=== PATIENT | female | born 1965 | race Caucasian/White ===

== ENCOUNTER → 2017-08-12 10:09 | Outpatient (CLI) | payer BC, MEDICARE, SELFPAY ==
--- NOTE | 2017-08-12 10:18 | XR_ITS ---
XR chest 2V INDICATION: Fever and cough PA and lateral chest 03/10/2015 COMPARISON: None available FINDINGS: The cardiovascular structures are unremarkable. No mediastinal shift or hilar mass is evident. The lungs are well expanded and clear bilaterally. The costophrenic sulci are sharp. No significant bony anomalies are apparent. IMPRESSION: Negative chest.
== END ==
PROVIDERS: PCP Internal Medicine; Referring Provider Internal Medicine; Visit Provider Internal Medicine
DX: R50.9 Fever, unspecified (principal); R05 Cough; R09.3 Abnormal sputum
CPT/HCPCS: 71046

== ENCOUNTER → 2017-11-24 16:08 | Outpatient (CLI) | payer BC, MEDICARE, SELFPAY ==
--- NOTE | 2017-11-24 16:10 | MM_ITS ---
MM Dig mamm BI DX w/CAD, US breast RT complete, US breast LT complete INDICATION: Palpable abnormality of the left breast at 12:00 prior reduction mammoplasty ORDERING PHYSICIAN: Jeremy Gracia MD PATIENT AGE: 52 years COMPARISON: 07/05/2013, 01/29/2010 TECHNIQUE: Standard images performed along with problem solving views and bilateral breast ultrasound FINDINGS: There is average fibroglandular tissue with bilateral benign-appearing nodules and bilateral benign-appearing calcifications. On the cc view there is a vague nodular density in the lateral aspect of the right breast seen only on the cc view measuring approximately 9 mm. This is not demonstrated on the orthogonal view and not demonstrated on the ultrasound. Partly calcified oil cysts are present in the upper outer aspect of the right breast, deep right breast superiorly, and in the retroareolar region. Right breast ultrasound: 20 8:00 region there is a isoechoic area at 9 x 6 mm only demonstrated on one image and may represent fibroglandular tissue versus a benign-appearing nodule. At 9:00 there is a 4 mm hypoechoic nodule with calcific rim and posterior shadowing consistent with oil cyst. This measures 5 x 4 mm. An additional 4 mm cyst is present 9 o'clock Left breast: There is a 5 x 3 cm oil cyst which is partially calcified the 12:00 region of the left breast corresponding to palpable abnormality. Lobular density is present anterior and medial to this region and does not appear significant change. Left breast ultrasound: There is a 4 x 2.5 x 4.4 cm mixed echogenic mass at the 12:00 region corresponding to the palpable abnormality and the mammographic abnormality. This corresponds to the mammographic abnormality. There is a 5 mm nodule at the 1:00 region consistent with a cyst. There is some ductal ectasia in the retroareolar region as well which may correspond to the lobular density noted on the mammogram. IMPRESSION: Bilateral benign-appearing nodules consistent with oil cysts along with benign-appearing nodular densities. No convincing evidence of malignancy. Recommend bilateral 6 month follow-up mammogram and ultrasound to confirm stability of the probably benign findings BI-RADS Category: 3 Probably Benign Finding Short Term Follow-up RECOMMENDED FOLLOW-UP: 6M - 6 MONTH FOLLOW-UP (A letter has been sent to the patient regarding results of the study.)
== END ==
PROVIDERS: Family Provider Internal Medicine Adolescent Medicine; PCP Internal Medicine; Visit Provider Nurse Practitioner Obstetrics & Gynecology
DX: Z12.31 Encounter for screening mammogram for malignant neoplasm of breast (principal)
CPT/HCPCS: 76641; 77066

== ENCOUNTER → 2018-05-13 21:15 | Outpatient (CLI) | payer BC, MEDICARE, SELFPAY ==
[2018-05-13 22:05] VITALS: BP 102/60; PULSE 91; RESP 18; TEMP 36.6; O2SAT 94
[2018-05-13 22:45] VITALS: BP 104/64; PULSE 87; RESP 18; TEMP 37; O2SAT 96
--- NOTE | 2018-05-13 22:50 | PC.NURSE ---
PT TOLERATED IV ANTIBIOTIC ADMINISTRATION WELL. PT INDEPENDENT WITH ADLS AND TOLERATED AMBULATION WELL ON ARRIVAL TO UNIT AND ON LEAVING UNIT. CALL LIGHT PROVIDED AND INSTRUCTED PT ON USE OF CALL LIGHT PRN, PT VERBALIZED UNDERSTANDING. 20G IV WAS PLACED IN RAC PER Natalio IGLESIAS RN. IV SITE CDI WITH NO S/S OF INFECTION NOTED. INSTRUCTED PT IT IS OKAY TO KEEP THE IV ACCESS IN FOR THE REST OF YOUR ANTIBIOTIC THERAPY. PT DENIED ANY HX OF DRUG USE AND NO PLUMMER WERE NOTED ON BUE. INSTRUCTED PT TO KEEP FROM GETTING DRESSING ON IV WET, PROVIDED PT WITH SHOWER GUARD. ABX FINISHED AT 2245, IV FLUSHED, SECOND SET OF VITALS OBTAINED AND WNL.
== END ==
PROVIDERS: PCP Internal Medicine; Visit Provider Internal Medicine Adolescent Medicine
DX: A41.9 Sepsis, unspecified organism (principal); N10 Acute pyelonephritis
CPT/HCPCS: 96365; G0463; J1335

== ENCOUNTER → 2018-05-14 19:08 | Outpatient (CLI) | payer BC, MEDICARE, SELFPAY ==
[2018-05-14 19:55] VITALS: BP 128/76; PULSE 95; RESP 18; TEMP 36.4; O2SAT 96
[2018-05-14 20:30] VITALS: BP 128/84; PULSE 95; RESP 16; TEMP 36.6; O2SAT 97
[2018-05-15 21:16] VITALS: BMI 28.5
== END ==
PROVIDERS: PCP Internal Medicine; Visit Provider Internal Medicine Adolescent Medicine
DX: N10 Acute pyelonephritis (principal); A41.9 Sepsis, unspecified organism
CPT/HCPCS: 96365; J1335

== ENCOUNTER → 2018-05-15 19:58 | Outpatient (CLI) | payer BC, MEDICARE, SELFPAY ==
[2018-05-15 20:32] VITALS: BMI 28.5
[2018-05-15 21:05] VITALS: BP 133/92; PULSE 91; RESP 20; TEMP 36.6; O2SAT 98
== END ==
PROVIDERS: PCP Internal Medicine; Visit Provider Internal Medicine Adolescent Medicine
DX: N10 Acute pyelonephritis (principal); A41.9 Sepsis, unspecified organism
CPT/HCPCS: 96365; G0463; J1335

== ENCOUNTER → 2018-05-16 17:57 | Outpatient (CLI) | payer BC, MEDICARE, SELFPAY ==
[2018-05-16 17:57] VITALS: BP 124/77; PULSE 80; RESP 18; TEMP 36.6; O2SAT 97
[2018-05-16 18:09] VITALS: BP 136/86; PULSE 84; RESP 18; TEMP 36.3; O2SAT 98; BMI 28.5
== END ==
LOC: INF 17:59
PROVIDERS: PCP Internal Medicine; Visit Provider Internal Medicine Adolescent Medicine
DX: N10 Acute pyelonephritis (principal); A41.9 Sepsis, unspecified organism
CPT/HCPCS: 96365; J1335

== ENCOUNTER 2018-05-17 17:01 | Outpatient (CLI) | payer BC, MEDICARE, SELFPAY ==
[2018-05-17 17:29] VITALS: BMI 28.5
[2018-05-17 17:30] VITALS: BP 109/75; PULSE 75; RESP 18; TEMP 36.6; O2SAT 99
[2018-05-17 18:55] VITALS: BP 126/80; PULSE 81; RESP 18; TEMP 36.7; O2SAT 98
== END 2018-05-17 18:57 | disposition home or self-care (01) ==
PROVIDERS: PCP Internal Medicine; Visit Provider Internal Medicine Adolescent Medicine
DX: N10 Acute pyelonephritis (principal); A41.9 Sepsis, unspecified organism
CPT/HCPCS: 96365; G0463; J1335

== ENCOUNTER → 2018-05-18 17:45 | Outpatient (CLI) | payer BC, MEDICARE, SELFPAY ==
[2018-05-19 10:38] VITALS: BP 122/69; PULSE 88; RESP 14; TEMP 36.6; O2SAT 99
== END ==
PROVIDERS: PCP Internal Medicine; Visit Provider Internal Medicine Adolescent Medicine
DX: N10 Acute pyelonephritis (principal); A41.9 Sepsis, unspecified organism
CPT/HCPCS: 96365; J1335

== ENCOUNTER → 2018-05-19 18:51 | Outpatient (CLI) | payer BC, MEDICARE, SELFPAY ==
[2018-05-19 19:10] VITALS: BP 112/76; PULSE 76; RESP 18; TEMP 36.4; O2SAT 96; BMI 28.5
[2018-05-19 19:25] VITALS: BP 114/72; PULSE 70; RESP 16; TEMP 36.5; O2SAT 98
[2018-05-19 19:45] VITALS: BP 115/68; PULSE 72; RESP 16; TEMP 36.5; O2SAT 98
== END ==
LOC: INF 18:52
PROVIDERS: PCP Internal Medicine; Visit Provider Internal Medicine Adolescent Medicine
DX: N10 Acute pyelonephritis (principal); A41.9 Sepsis, unspecified organism
CPT/HCPCS: 96365; G0463; J1335

== ENCOUNTER → 2018-05-25 15:39 | Outpatient (CLI) | payer BC, MEDICARE, SELFPAY ==
[2018-05-25 15:56] LABS: Basophils # 0.1 K/mm3 (0-0.2); Basophils % 1.7 % (0.1-2.0); Eosinophils % 0.1 % (0.1-12.0); Hematocrit 38.8 % (37.0-47.0); Hemoglobin 12.4 g/dL (12.2-16.2); Lymphocytes # 1.6 K/mm3 (0.7-4.5); Lymphocytes % 24.1 % (10-50); Mean Corpuscular Hemoglobin 29.4 pg (27.0-31.2); Mean Corpuscular Volume 91.9 fl (81-99); Mean Platelet Volume 6.8 fl (7.4-10.4); Monocytes # 0.3 K/mm3 (0.1-1.0); Monocytes % 4.8 % (1.7-9.3); Neutrophils # 4.6 K/mm3 (1.8-7.8); Neutrophils % 69.3 % (37.0-80.0); Platelet Count 490 K/mm3 (142-424); Red Blood Count 4.23 M/mm3 (4.20-5.40); Red Cell Distribution Width 13.6 % (11.5-17.5); White Blood Count 6.6 K/mm3 (4.8-10.8)
[2018-05-25 17:55] LABS: Alanine Aminotransferase 29 U/L (12-78); Albumin Level 3.2 gm/dL (3.4-5.0); Albumin/Globulin Ratio 0.8 (1.1-1.8); Alkaline Phosphatase 174 U/L (46-116); Anion Gap 15.4 mEq/L (5-15); Aspartate Amino Transferase 7 U/L (15-37); Bilirubin,Total 0.1 mg/dL (0.2-1.0); Blood Urea Nitrogen 16 mg/dL (7-18); Calcium 9.2 mg/dL (8.5-10.1); Carbon Dioxide 27 mmol/L (21.0-32.0); Chloride 104 mmol/L (98-107); Creatinine,Serum 1.24 mg/dL (0.55-1.02); Estimated Glomerular Filt Rate 46 ml/min (>60); GFR (African American) 55 ML/MIN (>60); Globulin 3.9 gm/dl (1.3-3.2); Glucose 92 mg/dL (74-106); Potassium 4.4 mmoL/L (3.5-5.1); Sodium 142 mmol/L (136-145); Total Protein,Serum 7.1 gm/dL (6.4-8.2)
== END ==
LOC: LAB 15:40
PROVIDERS: Visit Provider Internal Medicine
DX: N10 Acute pyelonephritis (principal); N18.9 Chronic kidney disease, unspecified; Z86.19 Personal history of other infectious and parasitic diseases
CPT/HCPCS: 36415; 80053; 85025; 87040

== ENCOUNTER → 2018-10-26 13:22 | Outpatient (CLI) | payer MEDICARE, BC, SELFPAY ==
--- NOTE | 2018-10-26 | US_ITS ---
APPROVED REPORT Exam Type: Lower Extremity Segmental Pressures Music Minister: Aruna Conley RDCS Indications Claudication: Rest Pain: Current Smoker Risk Factors Hypertension Current Smoker Pressures/Indices Right Indices Left Indices Brachial 157.00 mmHg Brachial 152.00 mmHg Low Thigh 143.00 mmHg 0.91 Low Thigh 144.00 mmHg 0.92 Calf 164.00 mmHg 1.04 Calf 158.00 mmHg 1.01 Ankle(PT) 171.00 mmHg 1.09 Ankle(PT) 162.00 mmHg 1.03 Ankle(DP) 162.00 mmHg 1.03 Ankle(DP) 162.00 mmHg 1.03 Digit 93.00 mmHg 0.59 Digit 140.00 mmHg 0.89 Findings R BETH 1.1 L ABI1.0 R TBI .6 L TBI .9 NORMAL PULSES AND WAVEFORMS Conclusion NORMAL EXAM Electronically signed by : Darinel Pringle MD 10/26/2018 14:22:40
== END ==
LOC: RT 13:23
PROVIDERS: PCP Internal Medicine; Visit Provider Internal Medicine
DX: M79.662 Pain in left lower leg (principal); R09.89 Other specified symptoms and signs involving the circulatory and respiratory systems
CPT/HCPCS: 93923

== ENCOUNTER → 2018-11-07 15:40 | Outpatient (CLI) | payer MEDICARE, BC, SELFPAY ==
[2018-11-07 15:47] LABS: Microscopic, Urine URINE MICROSCOPIC (MICROSCOPIC)
[2018-11-07 16:07] LABS: Basophils # 0.1 K/mm3 (0-0.2); Basophils % 0.4 % (0.1-2.0); Eosinophils # 0.1 K/mm3 (0.0-0.4); Eosinophils % 0.4 % (0.1-12.0); Hematocrit 39.2 % (37.0-47.0); Lymphocytes # 1.1 K/mm3 (0.7-4.5); Lymphocytes % 7.2 % (10-50); Mean Corpuscular HGB Conc 33.1 g/dL (31.8-35.4); Mean Corpuscular Hemoglobin 30.1 pg (27.0-31.2); Mean Corpuscular Volume 90.8 fl (81-99); Mean Platelet Volume 6.7 fl (7.4-10.4); Monocytes % 6.8 % (1.7-9.3); Neutrophils # 12.6 K/mm3 (1.8-7.8); Neutrophils % 85.3 % (37.0-80.0); Platelet Count 329 K/mm3 (142-424); Red Blood Count 4.31 M/mm3 (4.20-5.40); Red Cell Distribution Width 14.3 % (11.5-17.5); White Blood Count 14.8 K/mm3 (4.8-10.8)
[2018-11-07 16:09] LABS: Appearance,Urine CLEAR (Clear); Bilirubin,Urine Negative (Negative); Blood, Urine 3+ (Negative); Color,Urine YELLOW (Yellow); Glucose,Urine (UA) Negative (Negative); Ketones,Urine TRACE (Negative); Leukocyte Esterase,Urine Negative (Negative); Nitrate,Urine Negative (Negative); Protein,Urine Negative (Negative); Urobilinogen,Urine 0.2 EU/dl (0.2)
--- NOTE | 2018-11-07 16:09 | XR_ITS ---
PROCEDURE: XR CHEST 2V CLINICAL HISTORY: FEVER,RT FLANK PAIN,COUGH,SPUTUM COMPARISON: CXR CHEST(2 VIEWS-NOT PORTABLE) from 06/07/2012 CXR CHEST(2 VIEWS-NOT PORTABLE) from 03/10/[address] [facility] [address] CHEST W/ CONTRAST from 01/29/2016 CXR2V XR chest 2V from 08/12/2017 FINDINGS: The cardiomediastinal silhouette and pulmonary vascularity are within normal limits. Consolidation is present in the right lower lobe in the right lung base consistent with pneumonia in the right middle and right lower lobe. No effusion. No acute bony abnormalities. IMPRESSION: Right middle and right lower lobe pneumonia Dictated by: Darinel Pringle MD 11/07/2018 16:21 Electronically signed by Darinel Pringle MD in [place] 11/07/2018 16:21
[2018-11-07 16:13] LABS: Anion Gap 16.5 mEq/L (5-15); Blood Urea Nitrogen 12 mg/dL (7-18); Calcium 9.4 mg/dL (8.5-10.1); Carbon Dioxide 25 mmol/L (21.0-32.0); Chloride 94 mmol/L (98-107); Creatinine,Serum 1.33 mg/dL (0.55-1.02); Estimated Glomerular Filt Rate 42 ml/min (>60); GFR (African American) 51 ML/MIN (>60); Glucose 83 mg/dL (74-106); MANUAL DIFFERENTIAL MANUAL DIFFERENTIAL (MANUAL DIFF); Potassium 3.5 mmoL/L (3.5-5.1); Sodium 132 mmol/L (136-145)
[2018-11-07 16:26] LABS: Bacteria,Urine 1+ /lpf
[2018-11-07 16:36] LABS: Lymphocytes % 10 % (10-50); Neutrophils % 86 % (42-76); Platelet Estimate Normal; RBC Morphology Normal; Total Cells Counted 100
== END ==
PROVIDERS: Visit Provider Internal Medicine
DX: R50.9 Fever, unspecified (principal); R05 Cough; R09.89 Other specified symptoms and signs involving the circulatory and respiratory systems; R10.9 Unspecified abdominal pain
CPT/HCPCS: 36415; 71046; 80048; 81001; 85007; 85025; 87040; 87086

== ENCOUNTER → 2018-11-28 14:20 | Outpatient (CLI) | payer MEDICARE, SELFPAY ==
--- NOTE | 2018-11-28 14:26 | XR_ITS ---
PROCEDURE: XR CHEST 2V CLINICAL HISTORY: PNEUMONIA COMPARISON: CXR CHEST(2 VIEWS-NOT PORTABLE) from 03/10/[address] CHEST W/ CONTRAST from 01/29/2016 CXR2V XR chest 2V from 08/12/2017 XR CHEST 2V from 11/07/2018 FINDINGS: The cardiomediastinal silhouette and pulmonary vascularity are within normal limits. The lungs are clear without infiltrates, suspicious nodules, or pleural effusions. No acute bony abnormalities. IMPRESSION: No acute findings. Dictated by: Satya Chen 11/28/2018 14:40 Electronically signed by Satya Chen in [place] 11/28/2018 14:40
== END ==
PROVIDERS: PCP Internal Medicine; Visit Provider Internal Medicine
DX: J18.9 Pneumonia, unspecified organism (principal)
CPT/HCPCS: 71046

== ENCOUNTER → 2019-01-09 16:30 | Outpatient (CLI) | payer MEDICARE, SELFPAY ==
[2019-01-09 16:34] LABS: Microscopic, Urine URINE MICROSCOPIC (MICROSCOPIC)
[2019-01-09 17:26] LABS: Appearance,Urine CLEAR (Clear); Bilirubin,Urine Negative (Negative); Blood, Urine 1+ (Negative); Color,Urine YELLOW (Yellow); Glucose,Urine (UA) Negative (Negative); Ketones,Urine Negative (Negative); Leukocyte Esterase,Urine Negative (Negative); Nitrate,Urine Negative (Negative); PH,Urine 6.5 (5.0-8.5); Protein,Urine Negative (Negative); Specific Gravity, Urine 1.015 (1.005-1.030); Urobilinogen,Urine 0.2 EU/dl (0.2)
[2019-01-09 17:37] LABS: RBC,Urine Occasional #/hpf (0-3); Squamous Epithelial Cell,Urine Occasional #/hpf (0-5); WBC,Urine Occasional #/hpf (0-3)
[2019-01-09 17:41] LABS: Basophils # 0.1 K/mm3 (0-0.2); Eosinophils % 0.4 % (0.1-12.0); Hemoglobin 13.1 g/dL (12.2-16.2); Lymphocytes # 2.8 K/mm3 (0.7-4.5); Lymphocytes % 25.4 % (10-50); Mean Corpuscular HGB Conc 31.9 g/dL (31.8-35.4); Mean Corpuscular Hemoglobin 29.8 pg (27.0-31.2); Mean Corpuscular Volume 93.3 fl (81-99); Monocytes # 0.7 K/mm3 (0.1-1.0); Monocytes % 6.2 % (1.7-9.3); Neutrophils # 7.3 K/mm3 (1.8-7.8); Platelet Count 551 K/mm3 (142-424); Red Blood Count 4.39 M/mm3 (4.20-5.40); Red Cell Distribution Width 13.1 % (11.5-17.5)
[2019-01-09 18:00] LABS: Creatinine,Urine Random 60 mg/dL (20-320); Total Protein,Urine Random 16.4 mg/dL (0.0-11.9)
[2019-01-09 21:10] LABS: Albumin Level 3.6 gm/dL (3.4-5.0); Anion Gap 14.7 mEq/L (5-15); Blood Urea Nitrogen 21 mg/dL (7-18); Carbon Dioxide 29 mmol/L (21.0-32.0); Chloride 99 mmol/L (98-107); Creatinine,Serum 1.05 mg/dL (0.55-1.02); Estimated Glomerular Filt Rate 55 ml/min (>60); GFR (African American) 67 ML/MIN (>60); Glucose 89 mg/dL (74-106); Phosphorous 4.2 mg/dL (2.4-4.9); Potassium 3.7 mmoL/L (3.5-5.1); Sodium 139 mmol/L (136-145)
== END ==
PROVIDERS: Visit Provider Internal Medicine
DX: N28.9 Disorder of kidney and ureter, unspecified (principal)
CPT/HCPCS: 36415; 80069; 81001; 82570; 84155; 85025

== ENCOUNTER → 2019-11-28 15:34 | Outpatient (CLI) | payer MEDICARE, SELFPAY ==
--- NOTE | 2019-11-28 15:49 | ECG_ITS ---
APPROVED REPORT Exam: Resting ECG HR:100 bpm ECG Measurements Heart Rate 100 AXES LA 156 P 83 QRSd 84 QRS 65 QT 368 T 79 QTc 474 <Conclusion> Normal sinus rhythm Incomplete RBBB Otherwise a normal ECG Electronically signed by : Marvin Breaux, 11/29/2019 08:45:50
== END ==
LOC: RT 15:38
PROVIDERS: PCP Internal Medicine; Visit Provider Internal Medicine
DX: R06.02 Shortness of breath (principal); J44.9 Chronic obstructive pulmonary disease, unspecified; J45.909 Unspecified asthma, uncomplicated
CPT/HCPCS: 93005

== ENCOUNTER → 2020-09-09 15:14 | Outpatient (CLI) | payer MEDICARE, SELFPAY ==
[2020-09-09 15:24] LABS: Basophils # 0.1 K/mm3 (0-0.2); Basophils % 0.6 % (0.1-2.0); Eosinophils # 0.1 K/mm3 (0.0-0.4); Eosinophils % 1.3 % (0.1-12.0); Hematocrit 42.5 % (37.0-47.0); Hemoglobin 14.4 g/dL (12.2-16.2); Lymphocytes # 1.9 K/mm3 (0.7-4.5); Lymphocytes % 21.9 % (10-50); Mean Corpuscular HGB Conc 33.9 g/dL (31.8-35.4); Mean Corpuscular Hemoglobin 30.3 pg (27.0-31.2); Mean Corpuscular Volume 89.4 fl (81-99); Mean Platelet Volume 7.2 fl (7.4-10.4); Monocytes # 0.4 K/mm3 (0.1-1.0); Monocytes % 4.6 % (1.7-9.3); Neutrophils # 6.1 K/mm3 (1.8-7.8); Neutrophils % 71.5 % (37.0-80.0); Platelet Count 253 K/mm3 (142-424); Red Blood Count 4.75 M/mm3 (4.20-5.40); Red Cell Distribution Width 13.7 % (11.5-17.5); White Blood Count 8.5 K/mm3 (4.8-10.8)
[2020-09-09 16:42] LABS: Alanine Aminotransferase 17 U/L (12-78); Albumin Level 4.4 g/dl (3.5-5.0); Albumin/Globulin Ratio 1.8 (1.1-1.8); Alkaline Phosphatase 82 U/L (38-126); Anion Gap 10.8 mEq/L (5-15); Aspartate Amino Transferase 25 U/L (14-36); Bilirubin,Total 0.5 mg/dl (0.2-1.3); Blood Urea Nitrogen 11 mg/dl (7-17); Calcium 9.2 mg/dl (8.4-10.2); Carbon Dioxide 29 mmol/L (22.0-30.0); Chloride 97 mmol/L (98-107); Estimated Glomerular Filt Rate 65 ml/min (>60); GFR (African American) 79 ML/MIN (>60); Globulin 2.5 g/dL (1.3-3.2); Glucose 111 mg/dl (74-100); Potassium 3.8 mmoL/L (3.5-5.1); Sodium 133 mmol/L (136-145); Total Protein,Serum 6.9 g/dl (6.3-8.2)
== END ==
LOC: LAB.DROPOF 15:14
PROVIDERS: Visit Provider Internal Medicine
DX: M05.70 Rheumatoid arthritis with rheumatoid factor of unspecified site without organ or systems involvement (principal); I10 Essential (primary) hypertension; I73.9 Peripheral vascular disease, unspecified
CPT/HCPCS: 80053; 85025

== ENCOUNTER 2020-09-24 09:44 | Emergency (ER) | payer MEDICARE, SELFPAY ==
[2020-09-24 10:05] VITALS: BP 110/75; PULSE 92; RESP 21; TEMP 36.7; O2SAT 96; BMI 29.2
--- NOTE | 2020-09-24 10:22 | HMH.EDUTC ---
[facility] – [place], [place] Disposition Clinical Impression: Encounter for laboratory testing for COVID-19 virus Diarrhea Qualifiers: Diarrhea type: unspecified type Qualified Code(s): R19.7 - Diarrhea, unspecified Disposition: Home, Self-Care Condition on Discharge: Good Instructions: Diarrhea, DI for COVID-19 (Suspected or Confirmed ), Coronavirus Disease 2019, Preventing the Spread of Coronavirus Discharge Instructions Additional Instructions: Make sure that you are drinking plenty of fluids, fever and sweating can lead to dehydration and you need to be drinking plenty of water, gatoraide etc to help prevent dehydration *Monitor Temp, Over the counter Motrin or Tylenol as directed/as needed Tylenol every 4 hours and Motrin every 6 hours (as long as your family doctor has told you that you can take it) for fever or pain. and straight to ER if unable to lower temp less than 101.0 after medication given *Warm salt water gargles may help to soothe the throat *Throat Lozenges *Warm fluids like tea with honey may help to soothe the throat *Sleep elevated *Humidifier/Vaporizer Follow up IMMEDIATELY for new or worsening symptoms or no Noticeable improvement over the next 48-72 hours. 911 for difficulty breathing or swallowing You were tested for today for COVID19 your test result should be back in the next 24-48 hours, you may call to the [facility] to see if your test results are back in the next 48 hours [phone] [facility] hours are 9am-9pm You was given a handout with instructions for Self Quarantine and Self isolation for while you wait on test results and what to do if they are positive If you are positive the Health Dept will be contacting you also Referrals: Marvin Breaux [Primary Care Provider] - As needed Time of Disposition: 11:41 Medical Decision Making - Toni Inquiry Pt receiving controlled substance: No Toni was queried for this patient: No Vital Signs: 09/24/20 10:05 09/24/20 11:44 Temperature 98.1 F 98 F Temperature Source Oral Pulse Rate 86 Pulse Rate [Left] 92 H Respiratory Rate 21 19 Blood Pressure 118/77 Blood Pressure [Right Arm] 110/75 Blood Pressure Mean [Right Arm] 86 02 Sat by Pulse Oximetry 96 Orders (Tests/Meds): ED MEDICATIONS Discontinued Medications Generic Name Dose Route Start Last Admin Trade Name [place] PRN Reason Stop Dose Admin Sodium Chloride 1,000 mls @ 999 mls/hr 09/24/20 10:45 09/24/20 10:32 Sod Chlor 0.9% 1000ml Bag IV 09/24/20 11:45 999 mls/hr .Q1H1M CHEO Administration Medical Decision Narrative: IV fluids still infusing patient reports that she is feeling much better sitting up on exam table drinking water Patient states that she is feeling much better and drinking water States that she will go home and continue to drink water today and follow up accordingly [facility] – [place], [place] HPI - General Stated complaint: covid test Time Seen by Provider: 09/24/20 10:27 Mode of Arrival: Ambulatory Source of Information: Patient Limitations: No Limitations Description of Symptoms (Recalled from Triage Doc. by RN): pt c/o cough, soa, chills, body aches since yesterday. pt was exposed to covid positive . HEENT Symptoms (Recalled from RN notes): No Resp Symptoms (Recalled from RN notes): Yes (cough and soa) Skin Symptoms (Recalled from RN notes): No MS Symptoms (Recalled from RN notes): No Functional Status (Recalled from RN notes): body aches and chills - History of Present Illness Provider Complaint: Patient states that she has been sick since Monday States that she has been having cough, sinus congestion, sore throat, body aches and chills and for the last couple of days she has had diarrhea States that she feels like she is getting a little dehydrated States that she has been around her and he tested positive for COVID yesterday and she wanted to get tested now too - Related Data Home Medications Medication Instructions Recorded Confirmed Leflunomide 20 mg PO DAILY 0
[2020-09-24 11:44] VITALS: BP 118/77; PULSE 86; RESP 19; TEMP 36.6
== END 2020-09-24 11:46 | disposition home or self-care (01) ==
PROVIDERS: Emergency Provider Nurse Practitioner; PCP Internal Medicine
DX: U07.1 COVID-19 (principal); J02.9 Acute pharyngitis, unspecified; R05 Cough; F17.210 Nicotine dependence, cigarettes, uncomplicated
CPT/HCPCS: G0463; 96365; 99202; U0003

== ENCOUNTER 2020-09-25 09:01 | Outpatient (CLI) | payer MEDICARE, SELFPAY ==
[2020-09-25] VITALS (8 sets, daily range): BP systolic 90–118; BP diastolic 53–73; PULSE 66–70; RESP 16–18; TEMP 36.4–36.8; O2SAT 94–98
== END 2020-09-25 11:17 | disposition home or self-care (01) ==
LOC: INF 09:02
PROVIDERS: PCP Internal Medicine; Visit Provider Internal Medicine
DX: U07.1 COVID-19 (principal)
CPT/HCPCS: 96365

== ENCOUNTER → 2020-12-15 17:51 | Outpatient (CLI) | payer MEDICARE, SELFPAY ==
[2020-12-15 18:41] LABS: Basophils % 0.6 % (0.1-2.0); Eosinophils # 0.1 K/mm3 (0.0-0.4); Eosinophils % 1.6 % (0.1-12.0); Hematocrit 46.7 % (37.0-47.0); Hemoglobin 14.8 g/dL (12.2-16.2); Lymphocytes # 1.6 K/mm3 (0.7-4.5); Lymphocytes % 24.1 % (10-50); Mean Corpuscular HGB Conc 31.8 g/dL (31.8-35.4); Mean Corpuscular Hemoglobin 30.7 pg (27.0-31.2); Mean Corpuscular Volume 96.6 fl (81-99); Mean Platelet Volume 7.7 fl (7.4-10.4); Monocytes # 0.6 K/mm3 (0.1-1.0); Monocytes % 8.5 % (1.7-9.3); Neutrophils # 4.4 K/mm3 (1.8-7.8); Neutrophils % 65.3 % (37.0-80.0); Platelet Count 268 K/mm3 (142-424); Red Blood Count 4.83 M/mm3 (4.20-5.40); Red Cell Distribution Width 14.1 % (11.5-17.5); White Blood Count 6.8 K/mm3 (4.8-10.8)
[2020-12-15 19:43] LABS: Chloride 95 mmol/L (98-107)
[2020-12-15 19:44] LABS: Sodium 133 mmol/L (136-145)
[2020-12-15 19:46] LABS: Alanine Aminotransferase 18 U/L (12-78); Alkaline Phosphatase 83 U/L (38-126); Aspartate Amino Transferase 28 U/L (14-36); Bilirubin,Total 0.2 mg/dl (0.2-1.3); Blood Urea Nitrogen 9 mg/dl (7-17); Estimated Glomerular Filt Rate 75 ml/min (>60); GFR (African American) 91 ML/MIN (>60)
[2020-12-15 19:47] LABS: Albumin Level 4.1 g/dl (3.5-5.0); Albumin/Globulin Ratio 1.4 (1.1-1.8); Carbon Dioxide 27 mmol/L (22.0-30.0); Globulin 2.9 g/dL (1.3-3.2); Glucose 70 mg/dl (74-100)
== END ==
LOC: LAB.DROPOF 17:52
PROVIDERS: Visit Provider Internal Medicine
DX: I10 Essential (primary) hypertension (principal); M05.70 Rheumatoid arthritis with rheumatoid factor of unspecified site without organ or systems involvement
CPT/HCPCS: 80053; 85025

== ENCOUNTER → 2021-05-07 18:53 | Outpatient (CLI) | payer MEDICARE, SELFPAY ==
[2021-05-07 19:06] LABS: Basophils # 0.1 K/mm3 (0-0.2); Basophils % 2.2 % (0.1-2.0); Eosinophils # 0.1 K/mm3 (0.0-0.4); Eosinophils % 1.8 % (0.1-12.0); Hematocrit 43.7 % (37.0-47.0); Hemoglobin 14.4 g/dL (12.2-16.2); Lymphocytes # 1.1 K/mm3 (0.7-4.5); Lymphocytes % 17.5 % (10-50); Mean Corpuscular HGB Conc 32.9 g/dL (31.8-35.4); Mean Corpuscular Hemoglobin 30.7 pg (27.0-31.2); Mean Corpuscular Volume 93.4 fl (81-99); Mean Platelet Volume 8.6 fl (7.4-10.4); Monocytes # 0.6 K/mm3 (0.1-1.0); Monocytes % 8.7 % (1.7-9.3); Neutrophils # 4.4 K/mm3 (1.8-7.8); Neutrophils % 69.7 % (37.0-80.0); Platelet Count 337 K/mm3 (142-424); Red Blood Count 4.68 M/mm3 (4.20-5.40); Red Cell Distribution Width 13.9 % (11.5-17.5); White Blood Count 6.4 K/mm3 (4.8-10.8)
[2021-05-07 19:23] LABS: Chloride 90 mmol/L (98-107); Potassium 3.5 mmoL/L (3.5-5.1); Sodium 125 mmol/L (136-145)
[2021-05-07 19:26] LABS: Alanine Aminotransferase 15 U/L (12-78); Albumin/Globulin Ratio 1.7 (1.1-1.8); Alkaline Phosphatase 83 U/L (38-126); Anion Gap 13.5 mEq/L (5-15); Aspartate Amino Transferase 21 U/L (14-36); Bilirubin,Total 0.4 mg/dl (0.2-1.3); Blood Urea Nitrogen 8 mg/dl (7-17); Calcium 8.1 mg/dl (8.4-10.2); Carbon Dioxide 25 mmol/L (22.0-30.0); Estimated Glomerular Filt Rate 75 ml/min (>60); GFR (African American) 90 ML/MIN (>60); Globulin 2.4 g/dL (1.3-3.2); Glucose 72 mg/dl (74-100); Total Protein,Serum 6.4 g/dl (6.3-8.2)
== END ==
LOC: LAB.DROPOF 18:55
PROVIDERS: Visit Provider Internal Medicine
DX: I10 Essential (primary) hypertension (principal)
CPT/HCPCS: 80053; 85025

== ENCOUNTER → 2021-06-28 17:09 | Outpatient (CLI) | payer MEDICARE, SELFPAY ==
[2021-06-28 18:04] LABS: Anion Gap 14.1 mEq/L (5-15); Blood Urea Nitrogen 11 mg/dl (7-17); Calcium 9.3 mg/dl (8.4-10.2); Carbon Dioxide 26 mmol/L (22.0-30.0); Chloride 92 mmol/L (98-107); Estimated Glomerular Filt Rate 65 ml/min (>60); GFR (African American) 79 ML/MIN (>60); Glucose 83 mg/dl (74-100); Potassium 4.1 mmoL/L (3.5-5.1); Sodium 128 mmol/L (136-145)
== END ==
PROVIDERS: PCP Internal Medicine; Visit Provider Internal Medicine
DX: E87.1 Hypo-osmolality and hyponatremia (principal)
CPT/HCPCS: 80048

== ENCOUNTER → 2021-08-06 17:05 | Outpatient (CLI) | payer MEDICARE, SELFPAY ==
[2021-08-06 18:05] LABS: Basophils # 0.1 K/mm3 (0-0.2); Basophils % 1.4 % (0.1-2.0); Eosinophils # 0.1 K/mm3 (0.0-0.4); Hematocrit 45.5 % (37.0-47.0); Hemoglobin 15.2 g/dL (12.2-16.2); Lymphocytes % 12.8 % (10-50); Mean Corpuscular HGB Conc 33.4 g/dL (31.8-35.4); Mean Corpuscular Hemoglobin 31.3 pg (27.0-31.2); Mean Corpuscular Volume 93.7 fl (81-99); Monocytes # 0.5 K/mm3 (0.1-1.0); Monocytes % 6.4 % (1.7-9.3); Neutrophils # 6.2 K/mm3 (1.8-7.8); Neutrophils % 78.3 % (37.0-80.0); Platelet Count 266 K/mm3 (142-424); Red Blood Count 4.86 M/mm3 (4.20-5.40); Red Cell Distribution Width 14.4 % (11.5-17.5); White Blood Count 7.9 K/mm3 (4.8-10.8)
[2021-08-06 18:29] LABS: Alanine Aminotransferase 14 U/L (12-78); Albumin/Globulin Ratio 1.5 (1.1-1.8); Alkaline Phosphatase 104 U/L (38-126); Anion Gap 13.5 mEq/L (5-15); Aspartate Amino Transferase 19 U/L (14-36); Blood Urea Nitrogen 12 mg/dl (7-17); Calcium 9.3 mg/dl (8.4-10.2); Carbon Dioxide 28 mmol/L (22.0-30.0); Chloride 93 mmol/L (98-107); Estimated Glomerular Filt Rate 65 ml/min (>60); GFR (African American) 79 ML/MIN (>60); Globulin 2.7 g/dL (1.3-3.2); Glucose 130 mg/dl (74-100); Potassium 3.5 mmoL/L (3.5-5.1); Sodium 131 mmol/L (136-145); Total Protein,Serum 6.7 g/dl (6.3-8.2)
[2021-08-06 18:35] LABS: Bilirubin,Total 0.1 mg/dl (0.2-1.3)
[2021-08-06 18:47] LABS: Free T4 (Free Thyroxine) 1.11 ng/dl (0.78-2.19)
[2021-08-08 07:03] LABS: Sodium, Urine 39 mmol/L (Not Estab.)
[2021-08-09 15:58] LABS: Osmolality, Urine 118 mOsmol/kg (.)
== END ==
LOC: LAB.DROPOF 17:05
PROVIDERS: PCP Internal Medicine; Visit Provider Internal Medicine
DX: I10 Essential (primary) hypertension (principal); E87.1 Hypo-osmolality and hyponatremia; I73.9 Peripheral vascular disease, unspecified; G43.009 Migraine without aura, not intractable, without status migrainosus; M05.70 Rheumatoid arthritis with rheumatoid factor of unspecified site without organ or systems involvement; J45.909 Unspecified asthma, uncomplicated; J44.9 Chronic obstructive pulmonary disease, unspecified; F17.209 Nicotine dependence, unspecified, with unspecified nicotine-induced disorders
CPT/HCPCS: 80053; 82533; 83930; 83935; 84300; 84439; 84443; 85025

== ENCOUNTER → 2021-11-05 16:57 | Outpatient (CLI) | payer MEDICARE, SELFPAY ==
[2021-11-05 17:55] LABS: Basophils # 0.1 K/mm3 (0-0.2); Basophils % 1.4 % (0.1-2.0); Eosinophils # 0.1 K/mm3 (0.0-0.4); Hematocrit 44.2 % (37.0-47.0); Lymphocytes # 1.8 K/mm3 (0.7-4.5); Lymphocytes % 21.5 % (10-50); Mean Corpuscular HGB Conc 33.9 g/dL (31.8-35.4); Mean Corpuscular Hemoglobin 30.7 pg (27.0-31.2); Mean Corpuscular Volume 90.6 fl (81-99); Mean Platelet Volume 8.3 fl (7.4-10.4); Monocytes # 0.7 K/mm3 (0.1-1.0); Monocytes % 8.5 % (1.7-9.3); Neutrophils # 5.7 K/mm3 (1.8-7.8); Neutrophils % 67.5 % (37.0-80.0); Platelet Count 283 K/mm3 (142-424); Red Blood Count 4.88 M/mm3 (4.20-5.40); Red Cell Distribution Width 13.6 % (11.5-17.5); White Blood Count 8.4 K/mm3 (4.8-10.8)
[2021-11-05 18:52] LABS: Alanine Aminotransferase 16 U/L (12-78); Albumin Level 4.1 g/dl (3.5-5.0); Albumin/Globulin Ratio 1.5 (1.1-1.8); Alkaline Phosphatase 112 U/L (38-126); Anion Gap 15.5 mEq/L (5-15); Aspartate Amino Transferase 21 U/L (14-36); Bilirubin,Total < 0.1 mg/dl (0.2-1.3); Blood Urea Nitrogen 9 mg/dl (7-17); Carbon Dioxide 23 mmol/L (22.0-30.0); Chloride 92 mmol/L (98-107); Estimated Glomerular Filt Rate 75 ml/min (>60); GFR (African American) 90 ML/MIN (>60); Globulin 2.7 g/dL (1.3-3.2); Glucose 67 mg/dl (74-100); Potassium 3.5 mmoL/L (3.5-5.1); Sodium 127 mmol/L (136-145); Total Protein,Serum 6.8 g/dl (6.3-8.2)
[2021-11-05 19:11] LABS: Amphetamine/Metha Screen,Urine Negative ng/ml (<1000)
[2021-11-05 19:12] LABS: Barbiturates Screen,Urine Negative ng/ml (<200)
[2021-11-05 19:14] LABS: Benzodiazepines Screen,Urine Negative ng/ml (<200)
[2021-11-05 19:15] LABS: Cannabinoid Screen,Urine Negative ng/ml (<50); Cocaine Screen,Urine Negative ng/ml (<300)
[2021-11-05 19:16] LABS: Methadone Screen,Urine Negative ng/ml (<300); Opiate Screen,Urine Positive ng/ml (<300)
[2021-11-05 19:17] LABS: Phencyclidine Screen,Urine Negative ng/ml (<25)
== END ==
LOC: LAB 16:58
PROVIDERS: PCP Internal Medicine; Visit Provider Internal Medicine
DX: I10 Essential (primary) hypertension (principal); E87.1 Hypo-osmolality and hyponatremia; M05.70 Rheumatoid arthritis with rheumatoid factor of unspecified site without organ or systems involvement; M43.17 Spondylolisthesis, lumbosacral region; J44.9 Chronic obstructive pulmonary disease, unspecified; J45.909 Unspecified asthma, uncomplicated; Z79.899 Other long term (current) drug therapy
CPT/HCPCS: 80053; 80305; 85025

== ENCOUNTER → 2021-11-19 10:57 | Outpatient (CLI) | payer MEDICARE, SELFPAY | PROVIDERS: PCP Internal Medicine; Visit Provider Internal Medicine | DX: Z20.822 Contact with and (suspected) exposure to COVID-19 (principal) | CPT/HCPCS: C9803; U0003; U0005 ==

== ENCOUNTER → 2022-02-04 18:10 | Outpatient (CLI) | payer MEDICARE, SELFPAY ==
[2022-02-04 18:31] LABS: Basophils # 0.1 K/mm3 (0-0.2); Basophils % 1.3 % (0.1-2.0); Eosinophils # 0.1 K/mm3 (0.0-0.4); Eosinophils % 1.5 % (0.1-12.0); Hematocrit 44.9 % (37.0-47.0); Hemoglobin 14.7 g/dL (12.2-16.2); Lymphocytes # 1.6 K/mm3 (0.7-4.5); Lymphocytes % 18.5 % (10-50); Mean Corpuscular HGB Conc 32.7 g/dL (31.8-35.4); Mean Corpuscular Hemoglobin 29.6 pg (27.0-31.2); Mean Corpuscular Volume 90.6 fl (81-99); Mean Platelet Volume 8.6 fl (7.4-10.4); Monocytes # 0.7 K/mm3 (0.1-1.0); Monocytes % 7.9 % (1.7-9.3); Neutrophils % 70.8 % (37.0-80.0); Platelet Count 358 K/mm3 (142-424); Red Blood Count 4.95 M/mm3 (4.20-5.40); Red Cell Distribution Width 13.9 % (11.5-17.5); White Blood Count 8.5 K/mm3 (4.8-10.8)
[2022-02-04 19:02] LABS: Alanine Aminotransferase 15 U/L (12-78); Albumin Level 4.3 g/dl (3.5-5.0); Albumin/Globulin Ratio 1.8 (1.1-1.8); Alkaline Phosphatase 119 U/L (38-126); Anion Gap 14.7 mEq/L (5-15); Aspartate Amino Transferase 23 U/L (14-36); Bilirubin,Total 0.2 mg/dl (0.2-1.3); Blood Urea Nitrogen 9 mg/dl (7-17); Calcium 9.5 mg/dl (8.4-10.2); Carbon Dioxide 25 mmol/L (22.0-30.0); Chloride 91 mmol/L (98-107); Estimated Glomerular Filt Rate 65 ml/min (>60); GFR (African American) 79 ML/MIN (>60); Globulin 2.4 g/dL (1.3-3.2); Glucose 64 mg/dl (74-100); Potassium 3.7 mmoL/L (3.5-5.1); Sodium 127 mmol/L (136-145); Total Protein,Serum 6.7 g/dl (6.3-8.2)
== END ==
LOC: LAB.DROPOF 18:11
PROVIDERS: PCP Internal Medicine; Visit Provider Internal Medicine
DX: M05.70 Rheumatoid arthritis with rheumatoid factor of unspecified site without organ or systems involvement (principal); I10 Essential (primary) hypertension; J45.909 Unspecified asthma, uncomplicated; J44.9 Chronic obstructive pulmonary disease, unspecified; I73.9 Peripheral vascular disease, unspecified
CPT/HCPCS: 80053; 85025

== ENCOUNTER → 2022-02-25 15:10 | Outpatient (CLI) | payer MEDICARE, SELFPAY ==
--- NOTE | 2022-02-25 15:12 | MM_ITS ---
PROCEDURE INFORMATION: Exam: MG Bilateral Screening 3D Mammography Exam date and time: 02/25/2022 3:06 PM Age: 56 years old Clinical indication: Screening examination. Personal history of cervical cancer. No family history of breast cancer. TECHNIQUE: Imaging protocol: Bilateral Screening tomosynthesis and 2D mammography including computer-aided detection (CAD) when performed. COMPARISON: 1. MG DXBI MM Dig mamm BI DX w/CAD 11/24/2017 4:15 PM 2. MG DMSB DIG MAMM-SCREEN LOVELY 07/05/2013 9:50 AM 3. MG DMDXUL DIG MAMM-DX UNILATERAL-LT 06/09/2010 10:17 AM 4. MG DMSB DIGITAL MAMM-SCREEN BILATERAL 01/29/2010 8:46 AM FINDINGS: MAMMOGRAPHY: Breast composition: There are scattered areas of fibroglandular density. Mass: None. Architectural distortion: Stable diffuse bilateral architectural distortion with history of reduction mammoplasty. Calcifications: Stable benign-appearing macro ( up to 5.0 cm in the left upper outer quadrant middle 3rd ) calcifications likely related to fat necrosis. Asymmetric density: None. Skin thickening: None. Axillary adenopathy: None. IMPRESSION: No mammographic evidence of malignancy. Annual screening is recommended unless otherwise clinically indicated. BI-RADS Category 2: Benign
== END ==
PROVIDERS: PCP Internal Medicine; Visit Provider Internal Medicine
DX: Z12.31 Encounter for screening mammogram for malignant neoplasm of breast (principal)
CPT/HCPCS: 77063; 77067

== ENCOUNTER → 2022-03-11 12:41 | Outpatient (CLI) | payer SELFPAY ==
[2022-03-11 15:24] LABS: Anion Gap 13.6 mEq/L (5-15); Blood Urea Nitrogen 14 mg/dl (7-17); Calcium 8.6 mg/dl (8.4-10.2); Carbon Dioxide 25 mmol/L (22.0-30.0); Chloride 102 mmol/L (98-107); Estimated Glomerular Filt Rate 58 ml/min (>60); GFR (African American) 70 ML/MIN (>60); Glucose 76 mg/dl (74-100); Potassium 4.6 mmoL/L (3.5-5.1); Sodium 136 mmol/L (136-145)
== END ==
PROVIDERS: PCP Internal Medicine; Visit Provider Internal Medicine
DX: I10 Essential (primary) hypertension (principal); E87.0 Hyperosmolality and hypernatremia; M05.70 Rheumatoid arthritis with rheumatoid factor of unspecified site without organ or systems involvement
CPT/HCPCS: 80048

== ENCOUNTER → 2022-05-27 15:04 | Outpatient (CLI) | payer OTHER, SELFPAY ==
--- NOTE | 2022-05-27 | CA_ITS ---
FINAL REPORT TECHNIQUE: Ultrasound images of the deep venous system were obtained from the left groin to the calf veins. CLINICAL HISTORY: ANKLE BEEN HURTING FOR 2 WKS MOVED INTO CALF, PAIN AND EDEMA, SMOKER FINDINGS: The deep venous system is normally compressible. Normal flow is identified. IMPRESSION: No evidence of left lower extremity DVT. Reviewed, Interpreted and Dictated by Oj Yu MD Transcribed by Pricila Florentino Authenticated and [facility]
== END ==
PROVIDERS: PCP Internal Medicine; Visit Provider Internal Medicine
DX: M79.605 Pain in left leg (principal); M79.89 Other specified soft tissue disorders
CPT/HCPCS: 93971

== ENCOUNTER → 2022-08-05 15:09 | Outpatient (CLI) | payer OTHER, SELFPAY ==
--- NOTE | 2022-08-05 03:18 | ECG_ITS ---
APPROVED REPORT Exam: Resting ECG HR:67 bpm ECG Measurements Heart Rate 67 AXES [place] 156 P 46 QRSd 98 QRS 58 QT 429 T 62 QTc 445 Conclusion SINUS RHYTHM NORMAL ECG Electronically signed by : Marvin Breaux MD 08/08/2022 15:24:20
[2022-08-05 17:29] LABS: Basophils # 0.1 K/mm3 (0-0.2); Eosinophils # 0.1 K/mm3 (0.0-0.4); Hematocrit 43.2 % (37.0-47.0); Hemoglobin 14.2 g/dL (12.2-16.2); Lymphocytes # 2.1 K/mm3 (0.7-4.5); Lymphocytes % 30.1 % (10-50); Mean Corpuscular HGB Conc 32.8 g/dL (31.8-35.4); Mean Corpuscular Hemoglobin 29.5 pg (27.0-31.2); Mean Corpuscular Volume 89.7 fl (81-99); Mean Platelet Volume 7.6 fl (7.4-10.4); Monocytes # 0.6 K/mm3 (0.1-1.0); Monocytes % 9.2 % (1.7-9.3); Neutrophils % 57.7 % (37.0-80.0); Platelet Count 293 K/mm3 (142-424); Red Blood Count 4.82 M/mm3 (4.20-5.40); Red Cell Distribution Width 13.8 % (11.5-17.5)
[2022-08-05 17:50] LABS: Chloride 90 mmol/L (98-107); Sodium 129 mmol/L (136-145)
[2022-08-05 17:51] LABS: Potassium 3.7 mmoL/L (3.5-5.1)
[2022-08-05 17:53] LABS: Alanine Aminotransferase 16 U/L (12-78); Albumin/Globulin Ratio 1.5 (1.1-1.8); Alkaline Phosphatase 96 U/L (38-126); Anion Gap 12.7 mEq/L (5-15); Aspartate Amino Transferase 23 U/L (14-36); Bilirubin,Total 0.2 mg/dl (0.2-1.3); Blood Urea Nitrogen 10 mg/dl (7-17); Carbon Dioxide 30 mmol/L (22.0-30.0); Estimated Glomerular Filt Rate 74 ml/min (>60); GFR (African American) 90 ML/MIN (>60); Globulin 2.6 g/dL (1.3-3.2); Total Protein,Serum 6.6 g/dl (6.3-8.2)
[2022-08-05 17:54] LABS: Calcium 8.9 mg/dl (8.4-10.2); Glucose 72 mg/dl (74-100)
== END ==
PROVIDERS: PCP Internal Medicine; Visit Provider Internal Medicine
DX: Z79.899 Other long term (current) drug therapy (principal); M05.9 Rheumatoid arthritis with rheumatoid factor, unspecified
CPT/HCPCS: 80053; 85025; 93005

== ENCOUNTER → 2022-09-07 14:39 | Outpatient (CLI) | payer OTHER, SELFPAY ==
[2022-09-07 14:44] LABS: Microscopic, Urine URINE MICROSCOPIC (MICROSCOPIC)
--- NOTE | 2022-09-07 14:55 | XR_ITS ---
PROCEDURE INFORMATION: Exam: XR Complete Acute Abdomen Series Including Chest Exam date and time: 09/07/2022 3:00 PM Age: 57 years old Clinical indication: Abdominal pain; Localized; Right lower quadrant (rlq); Additional info: Lower abd pain TECHNIQUE: Imaging protocol: Radiologic exam. Complete acute abdomen series, including 2 or more views of the abdomen and a single view chest. COMPARISON: CR XR CHEST 2V 11/28/2018 2:28 PM FINDINGS: Lungs: Normal. No consolidation. Pleural spaces: Normal. No pleural effusions. No pneumothorax. Heart/Mediastinum: Normal. No cardiomegaly. Gastrointestinal tract: Nonspecific bowel gas pattern. Intraperitoneal space: Normal. No free air. Organs: Cholecystectomy. Bones/joints: Mild scoliosis of the lumbar spine convexity to the left. Soft tissues: Normal. IMPRESSION: Nonspecific bowel gas pattern.
[2022-09-07 14:59] LABS: Basophils # 0.1 K/mm3 (0-0.2); Basophils % 0.6 % (0.1-2.0); Eosinophils # 0.2 K/mm3 (0.0-0.4); Eosinophils % 2.1 % (0.1-12.0); Hematocrit 46.9 % (37.0-47.0); Hemoglobin 15.2 g/dL (12.2-16.2); Lymphocytes # 2.3 K/mm3 (0.7-4.5); Lymphocytes % 24.1 % (10-50); Mean Corpuscular HGB Conc 32.5 g/dL (31.8-35.4); Mean Corpuscular Volume 89.3 fl (81-99); Mean Platelet Volume 7.2 fl (7.4-10.4); Monocytes # 0.6 K/mm3 (0.1-1.0); Monocytes % 6.6 % (1.7-9.3); Neutrophils # 6.4 K/mm3 (1.8-7.8); Neutrophils % 66.6 % (37.0-80.0); Platelet Count 280 K/mm3 (142-424); Red Blood Count 5.25 M/mm3 (4.20-5.40); Red Cell Distribution Width 14.1 % (11.5-17.5); White Blood Count 9.6 K/mm3 (4.8-10.8)
[2022-09-07 15:05] LABS: Appearance,Urine CLEAR (Clear); Bilirubin,Urine Negative (Negative); Blood, Urine 1+ (Negative); Color,Urine YELLOW (Yellow); Glucose,Urine (UA) Negative (Negative); Ketones,Urine Negative (Negative); Leukocyte Esterase,Urine Negative (Negative); Nitrate,Urine Negative (Negative); Protein,Urine Negative (Negative); Specific Gravity, Urine <= 1.005 (1.005-1.030); Urobilinogen,Urine 0.2 EU/dl (0.2)
[2022-09-07 15:06] LABS: Chloride 100 mmol/L (98-107); Potassium 3.9 mmoL/L (3.5-5.1); Sodium 137 mmol/L (136-145)
[2022-09-07 15:09] LABS: Anion Gap 13.9 mEq/L (5-15); Blood Urea Nitrogen 11 mg/dl (7-17); Calcium 9.1 mg/dl (8.4-10.2); Carbon Dioxide 27 mmol/L (22.0-30.0); Estimated Glomerular Filt Rate 58 ml/min (>60); GFR (African American) 70 ML/MIN (>60); Glucose 82 mg/dl (74-100)
[2022-09-07 15:20] LABS: Squamous Epithelial Cell,Urine Occasional #/hpf (0-5)
== END ==
LOC: LAB 14:40
PROVIDERS: PCP Internal Medicine; Visit Provider Internal Medicine
DX: R10.31 Right lower quadrant pain (principal)
CPT/HCPCS: 36415; 74021; 80048; 81001; 85025

== ENCOUNTER → 2022-09-09 12:09 | Outpatient (CLI) | payer OTHER, SELFPAY ==
--- NOTE | 2022-09-09 12:12 | XR_ITS ---
FINAL REPORT CLINICAL HISTORY: knee pain FINDINGS: LEFT KNEE SERIES Three views of the left knee were obtained. There is no acute fracture or dislocation. There is severe lateral compartment degenerative change with severe lateral compartment narrowing. There are subchondral cyst in the lateral femoral condyle. There are multiple loose bodies largest posteriorly measuring 32 mm. There is a moderate joint effusion. IMPRESSION: Severe lateral compartment degenerative change with severe lateral compartment narrowing. Subchondral cyst in the lateral femoral condyle. Multiple loose bodies largest posteriorly measuring 32 mm. Reviewed, Interpreted and Dictated by Duong Mayers III, MD Transcribed by Hector Chiu Authenticated and [facility]
== END ==
LOC: RAD 12:10
PROVIDERS: PCP Internal Medicine; Visit Provider Orthopaedic Surgery
DX: M25.562 Pain in left knee (principal)
CPT/HCPCS: 73562

== ENCOUNTER → 2022-12-20 17:08 | Outpatient (CLI) | payer OTHER, SELFPAY ==
[2022-12-20 18:47] LABS: Basophils # 0.1 K/mm3 (0-0.2); Eosinophils # 0.1 K/mm3 (0.0-0.4); Eosinophils % 2.1 % (0.1-12.0); Hematocrit 44.8 % (37.0-47.0); Hemoglobin 14.9 g/dL (12.2-16.2); Lymphocytes # 1.9 K/mm3 (0.7-4.5); Mean Corpuscular HGB Conc 33.3 g/dL (31.8-35.4); Mean Platelet Volume 8.5 fl (7.4-10.4); Monocytes # 0.6 K/mm3 (0.1-1.0); Monocytes % 9.4 % (1.7-9.3); Neutrophils # 3.6 K/mm3 (1.8-7.8); Neutrophils % 57.6 % (37.0-80.0); Platelet Count 272 K/mm3 (142-424); Red Blood Count 4.82 M/mm3 (4.20-5.40); Red Cell Distribution Width 13.9 % (11.5-17.5); White Blood Count 6.2 K/mm3 (4.8-10.8)
[2022-12-20 19:10] LABS: Alanine Aminotransferase 16 U/L (12-78); Albumin Level 4.2 g/dl (3.5-5.0); Albumin/Globulin Ratio 1.6 (1.1-1.8); Alkaline Phosphatase 95 U/L (38-126); Anion Gap 17.4 mEq/L (5-15); Aspartate Amino Transferase 26 U/L (14-36); Bilirubin,Total 0.2 mg/dl (0.2-1.3); Blood Urea Nitrogen 13 mg/dl (7-17); Calcium 9.2 mg/dl (8.4-10.2); Carbon Dioxide 23 mmol/L (22.0-30.0); Chloride 98 mmol/L (98-107); Estimated Glomerular Filt Rate 74 ml/min (>60); GFR (African American) 90 ML/MIN (>60); Globulin 2.7 g/dL (1.3-3.2); Glucose 62 mg/dl (74-100); Potassium 4.4 mmoL/L (3.5-5.1); Sodium 134 mmol/L (136-145); Total Protein,Serum 6.9 g/dl (6.3-8.2)
== END ==
PROVIDERS: PCP Internal Medicine; Visit Provider Internal Medicine
DX: M05.70 Rheumatoid arthritis with rheumatoid factor of unspecified site without organ or systems involvement (principal); I10 Essential (primary) hypertension; I73.9 Peripheral vascular disease, unspecified; J44.9 Chronic obstructive pulmonary disease, unspecified; M17.2 Bilateral post-traumatic osteoarthritis of knee; E87.1 Hypo-osmolality and hyponatremia; Z72.0 Tobacco use
CPT/HCPCS: 80053; 85025

== ENCOUNTER 2023-05-01 16:37 | Outpatient (CLI) | payer MEDICARE, SELFPAY ==
[2023-05-01 16:53] LABS: Basophils # 0.1 K/mm3 (0-0.2); Basophils % 1.2 % (0.1-2.0); Eosinophils # 0.2 K/mm3 (0.0-0.4); Eosinophils % 2.9 % (0.1-12.0); Hematocrit 45.1 % (37.0-47.0); Hemoglobin 14.7 g/dL (12.2-16.2); Lymphocytes # 2.1 K/mm3 (0.7-4.5); Lymphocytes % 31.8 % (10-50); Mean Corpuscular HGB Conc 32.6 g/dL (31.8-35.4); Mean Corpuscular Volume 95.2 fl (81-99); Mean Platelet Volume 7.5 fl (7.4-10.4); Monocytes # 0.5 K/mm3 (0.1-1.0); Neutrophils # 3.7 K/mm3 (1.8-7.8); Neutrophils % 57.1 % (37.0-80.0); Platelet Count 237 K/mm3 (142-424); Red Blood Count 4.74 M/mm3 (4.20-5.40); Red Cell Distribution Width 13.9 % (11.5-17.5); White Blood Count 6.5 K/mm3 (4.8-10.8)
[2023-05-01 17:07] LABS: Alanine Aminotransferase 22 U/L (12-78); Albumin Level 4.3 g/dl (3.5-5.0); Albumin/Globulin Ratio 1.9 (1.1-1.8); Alkaline Phosphatase 98 U/L (38-126); Anion Gap 11.2 mEq/L (5-15); Aspartate Amino Transferase 28 U/L (14-36); Bilirubin,Total 0.3 mg/dl (0.2-1.3); Blood Urea Nitrogen 10 mg/dl (7-17); Carbon Dioxide 28 mmol/L (22.0-30.0); Chloride 96 mmol/L (98-107); Estimated Glomerular Filt Rate 65 ml/min (>60); GFR (African American) 78 ML/MIN (>60); Globulin 2.3 g/dL (1.3-3.2); Glucose 81 mg/dl (74-100); Potassium 4.2 mmoL/L (3.5-5.1); Sodium 131 mmol/L (136-145); Total Protein,Serum 6.6 g/dl (6.3-8.2)
== END 2023-05-01 23:59 ==
LOC: LAB.DROPOF 16:38
PROVIDERS: PCP Internal Medicine; Visit Provider Internal Medicine
DX: I10 Essential (primary) hypertension (principal); F17.210 Nicotine dependence, cigarettes, uncomplicated; J44.9 Chronic obstructive pulmonary disease, unspecified; M05.70 Rheumatoid arthritis with rheumatoid factor of unspecified site without organ or systems involvement; E78.5 Hyperlipidemia, unspecified; I73.9 Peripheral vascular disease, unspecified
CPT/HCPCS: 80053; 85025

== ENCOUNTER 2023-08-04 15:01 | Outpatient (CLI) | payer MEDICARE, SELFPAY ==
[2023-08-04 15:35] LABS: Basophils # 0.1 K/mm3 (0-0.2); Eosinophils # 0.1 K/mm3 (0.0-0.4); Eosinophils % 1.5 % (0.1-12.0); Hematocrit 42.1 % (37.0-47.0); Lymphocytes # 1.8 K/mm3 (0.7-4.5); Lymphocytes % 26.5 % (10-50); Mean Corpuscular HGB Conc 33.3 g/dL (31.8-35.4); Mean Corpuscular Volume 93.2 fl (81-99); Mean Platelet Volume 7.7 fl (7.4-10.4); Monocytes # 0.5 K/mm3 (0.1-1.0); Neutrophils # 4.2 K/mm3 (1.8-7.8); Platelet Count 247 K/mm3 (142-424); Red Blood Count 4.51 M/mm3 (4.20-5.40); Red Cell Distribution Width 13.6 % (11.5-17.5); White Blood Count 6.6 K/mm3 (4.8-10.8)
[2023-08-04 16:09] LABS: Alanine Aminotransferase 27 U/L (12-78); Albumin Level 4.4 g/dl (3.5-5.0); Albumin/Globulin Ratio 1.6 (1.1-1.8); Alkaline Phosphatase 93 U/L (38-126); Anion Gap 13.8 mEq/L (5-15); Aspartate Amino Transferase 36 U/L (14-36); Bilirubin,Total 0.4 mg/dl (0.2-1.3); Blood Urea Nitrogen 10 mg/dl (7-17); Calcium 9.3 mg/dl (8.4-10.2); Carbon Dioxide 29 mmol/L (22.0-30.0); Chloride 88 mmol/L (98-107); Chol/HDL Ratio 3.8 (1-3.5); Cholesterol 226 mg/dl (140-200); Estimated Glomerular Filt Rate 65 ml/min (>60); GFR (African American) 78 ML/MIN (>60); Globulin 2.7 g/dL (1.3-3.2); Glucose 75 mg/dl (74-100); HDL Cholesterol 60 mg/dl (40-60); Potassium 4.8 mmoL/L (3.5-5.1); Sodium 126 mmol/L (136-145); Total Protein,Serum 7.1 g/dl (6.3-8.2); Triglycerides 171 mg/dl (30-150); VLDL Cholesterol 34 mg/dL (0-40)
[2023-08-04 16:20] LABS: Direct LDL Cholesterol 113.77 mg/dL (100-129)
== END 2023-08-04 23:59 | disposition home or self-care (01) ==
LOC: LAB.DROPOF 15:01
PROVIDERS: PCP Internal Medicine; Visit Provider Internal Medicine
DX: E78.5 Hyperlipidemia, unspecified; M05.70 Rheumatoid arthritis with rheumatoid factor of unspecified site without organ or systems involvement; M17.12 Unilateral primary osteoarthritis, left knee; I10 Essential (primary) hypertension; F17.200 Nicotine dependence, unspecified, uncomplicated
CPT/HCPCS: 80053; 80061; 85025

== ENCOUNTER 2023-10-31 14:09 | Outpatient (CLI) | payer MEDICARE, SELFPAY ==
[2023-10-31 16:49] LABS: Basophils # 0.1 K/mm3 (0-0.2); Basophils % 1.5 % (0.1-2.0); Eosinophils # 0.1 K/mm3 (0.0-0.4); Eosinophils % 2.1 % (0.1-12.0); Hematocrit 41.3 % (37.0-47.0); Hemoglobin 13.2 g/dL (12.2-16.2); Lymphocytes # 1.7 K/mm3 (0.7-4.5); Lymphocytes % 26.2 % (10-50); Mean Corpuscular HGB Conc 31.9 g/dL (31.8-35.4); Mean Corpuscular Hemoglobin 30.7 pg (27.0-31.2); Mean Corpuscular Volume 96.2 fl (81-99); Mean Platelet Volume 8.1 fl (7.4-10.4); Monocytes # 0.5 K/mm3 (0.1-1.0); Monocytes % 7.9 % (1.7-9.3); Neutrophils # 3.9 K/mm3 (1.8-7.8); Neutrophils % 62.4 % (37.0-80.0); Platelet Count 267 K/mm3 (142-424); Red Cell Distribution Width 13.3 % (11.5-17.5); White Blood Count 6.3 K/mm3 (4.8-10.8)
[2023-10-31 17:09] LABS: Alanine Aminotransferase 19 U/L (12-78); Albumin Level 4.1 g/dl (3.5-5.0); Albumin/Globulin Ratio 1.5 (1.1-1.8); Alkaline Phosphatase 86 U/L (38-126); Anion Gap 11.7 mEq/L (5-15); Aspartate Amino Transferase 26 U/L (14-36); Bilirubin,Total 0.3 mg/dl (0.2-1.3); Blood Urea Nitrogen 11 mg/dl (7-17); Carbon Dioxide 26 mmol/L (22.0-30.0); Chloride 101 mmol/L (98-107); Chol/HDL Ratio 2.4 (1-3.5); Cholesterol 136 mg/dl (140-200); Estimated Glomerular Filt Rate 87 ml/min (>60); GFR (African American) 105 ML/MIN (>60); Globulin 2.8 g/dL (1.3-3.2); Glucose 78 mg/dl (74-100); HDL Cholesterol 56 mg/dl (40-60); Potassium 4.7 mmoL/L (3.5-5.1); Sodium 134 mmol/L (136-145); Total Protein,Serum 6.9 g/dl (6.3-8.2); Triglycerides 133 mg/dl (30-150); VLDL Cholesterol 27 mg/dL (0-40)
[2023-10-31 17:19] LABS: Direct LDL Cholesterol 49.23 mg/dL (100-129)
== END 2023-10-31 23:59 | disposition home or self-care (01) ==
LOC: LAB.DROPOF 11-01 14:10
PROVIDERS: PCP Internal Medicine; Visit Provider Internal Medicine
DX: I10 Essential (primary) hypertension (principal); M05.70 Rheumatoid arthritis with rheumatoid factor of unspecified site without organ or systems involvement; M06.9 Rheumatoid arthritis, unspecified; E78.5 Hyperlipidemia, unspecified
CPT/HCPCS: 80053; 80061; 85025

== ENCOUNTER 2024-01-30 16:37 | Outpatient (CLI) | payer MEDICARE, SELFPAY ==
[2024-01-30 16:47] LABS: Basophils # 0.1 K/mm3 (0-0.2); Basophils % 1.8 % (0.1-2.0); Eosinophils # 0.1 K/mm3 (0.0-0.4); Eosinophils % 0.8 % (0.1-12.0); Hematocrit 40.5 % (37.0-47.0); Hemoglobin 13.4 g/dL (12.2-16.2); Lymphocytes # 1.6 K/mm3 (0.7-4.5); Lymphocytes % 29.2 % (10-50); Mean Corpuscular HGB Conc 33.1 g/dL (31.8-35.4); Mean Corpuscular Hemoglobin 29.3 pg (27.0-31.2); Mean Corpuscular Volume 88.5 fl (81-99); Mean Platelet Volume 6.8 fl (7.4-10.4); Monocytes # 0.3 K/mm3 (0.1-1.0); Monocytes % 5.9 % (1.7-9.3); Neutrophils # 3.5 K/mm3 (1.8-7.8); Neutrophils % 62.4 % (37.0-80.0); Platelet Count 271 K/mm3 (142-424); Red Blood Count 4.58 M/mm3 (4.20-5.40); Red Cell Distribution Width 13.9 % (11.5-17.5); White Blood Count 5.6 K/mm3 (4.8-10.8)
[2024-01-30 17:01] LABS: Albumin Level 4.3 g/dl (3.5-5.0); Chloride 98 mmol/L (98-107)
[2024-01-30 17:02] LABS: Potassium 4.4 mmoL/L (3.5-5.1); Sodium 131 mmol/L (136-145)
[2024-01-30 17:04] LABS: Alanine Aminotransferase 22 U/L (12-78); Anion Gap 12.4 mEq/L (5-15); Aspartate Amino Transferase 31 U/L (14-36); Blood Urea Nitrogen 12 mg/dl (7-17); Carbon Dioxide 25 mmol/L (22.0-30.0); Estimated Glomerular Filt Rate 57 ml/min (>60); GFR (African American) 69 ML/MIN (>60)
[2024-01-30 17:05] LABS: Albumin/Globulin Ratio 1.8 (1.1-1.8); Alkaline Phosphatase 102 U/L (38-126); Bilirubin,Total 0.3 mg/dl (0.2-1.3); Calcium 9.4 mg/dl (8.4-10.2); Globulin 2.4 g/dL (1.3-3.2); Glucose 74 mg/dl (74-100); Total Protein,Serum 6.7 g/dl (6.3-8.2)
== END 2024-01-30 23:59 | disposition home or self-care (01) ==
LOC: LAB.DROPOF 16:37
PROVIDERS: PCP Internal Medicine; Visit Provider Internal Medicine
DX: I10 Essential (primary) hypertension (principal); M05.70 Rheumatoid arthritis with rheumatoid factor of unspecified site without organ or systems involvement; E87.1 Hypo-osmolality and hyponatremia
CPT/HCPCS: 80053; 85025

== ENCOUNTER 2024-02-05 08:45 | Day surgery (SDC) | payer MEDICARE, SELFPAY ==
[2024-02-05 09:05] VITALS: BMI 28.7
[2024-02-05 09:09] VITALS: BP 130/93; PULSE 65; RESP 18; TEMP 36.6; O2SAT 97
--- NOTE | 2024-02-05 09:20 | P.PNANES_ITS ---
[facility] Disclaimer: The information contained in this section may have been updated after the patient was seen, as this information can be updated by other users. 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 Peripheral vascular disease, unspecified Benign essential HTN Unspecified asthma, uncomplicated Nicotine dependence, unspecified, with unspecified nicotine-induced disorders Chronic obstructive pulmonary disease, unspecified Rheumatoid arthritis with rheumatoid factor of unspecified site without organ or systems involvement Hyperlipidemia Family History (Updated 02/05/24 @ 09:04 by Hayley Velez RN) Other No significant family history Social History (Updated 02/05/24 @ 09:04 by Hayley Velez RN) Smoking Status: Current some day smoker alcohol intake: never substance use type: denies use current occupational status: disabled Travel in the last 8 weeks: None caffeine: Yes [facility] Anesthesia Checklist Patient Identification Patient Identification: Arm Band, Family and Verbal (Name & ) Structural Data Admitted From: Home Planned Operative Procedure/s: Colonoscopy Consent for Planned Operative Procedure(s) Verified: Yes Verified Documents: Surgical Consent and History and Physical NPO Status Verified Time NPO: 06:30 Chart Verification Results Verified: CBC, BMP, ECG and Chest Xray Additional verifications Patient : No Anesthesia Reactions: No Cardiovascular Assessment Heart Sounds: S1 & S2 Pulse Rhythm: Irregular Peripheral Edema: No Airway Assessment Mallampati Score:: Class II C-Spine Mobility Assessed: Yes (FROM demonstrated) TMJ Mobility Assessed: Yes Dentition: Good Dentition (Nothing loose per pt.) Neurological Assessment Level of Consciousness: Awake, Alert and Appropriate Hx Seizures: No Numbness or tingling in extremities: No Anesthesia Plan Anesthesia Risk discussed: Yes Anesthesia Plan: Verified ASA Class: III Anesthesia Type: MAC
[2024-02-05 09:52] VITALS: O2SAT 97
--- NOTE | 2024-02-05 09:59 | EXP.HP ---
History of Present Illness *Admission Date: 02/05/24 *Reason for visit:: History of colon polyps *History of present illness: Mrs. Haynes is a 58-year-old female who is here for surveillance colonoscopy. She does state that she has a history of colon polyps and her last colonoscopy was 7 years ago. The examination is deemed medically necessary for surveillance colonoscopy. The patient has been seen, interviewed and examined prior to the procedure by both myself and the anesthesia provider. [facility] Disclaimer: The information contained in this section may have been updated after the patient was seen, as this information can be updated by other users. 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 Peripheral vascular disease, unspecified Benign essential HTN Unspecified asthma, uncomplicated Nicotine dependence, unspecified, with unspecified nicotine-induced disorders Chronic obstructive pulmonary disease, unspecified Rheumatoid arthritis with rheumatoid factor of unspecified site without organ or systems involvement Hyperlipidemia Family History (Updated 02/05/24 @ 09:04 by Hayley Velez RN) Other No significant family history Social History (Updated 02/05/24 @ 09:21 by Patience Morales CRNA) Smoking Status: Current some day smoker alcohol intake: never substance use type: denies use current occupational status: disabled Travel in the last 8 weeks: None caffeine: Yes Other Medical History Have you received the Flu Vaccine for this season: No Have you received the Pneumonia Vaccine: Yes Review of Systems Review of Systems Review of systems (narrative): Negative *Cardiovascular Comments: Negative *Gastrointestinal Comments: Negative *Genitourinary Comments: Negative *Musculoskeletal Comments: Negative *Neurologic Comments: Negative Meds Home Medications and Allergies Home Medications ?Medication ?Instructions ?Recorded ?Confirmed ?Type hydrochlorothiazide 25 mg tablet 25 mg PO DAILY #30 tabs 07/14/23 02/05/24 Rx fluticasone fur. 100 mcg-umeclid 1 inh inhalation DAILY #60 ea 08/04/23 02/05/24 Rx 62.5 mcg-vilant 25 mcg inhalat.powder (Trelegy Ellipta) rosuvastatin 5 mg tablet 5 mg PO DAILY #90 tabs 08/15/23 02/05/24 Rx cetirizine 10 mg tablet 10 mg PO DAILY #90 tabs 10/19/23 02/05/24 Rx metoprolol succinate 100 mg See Rx Instructions .Route 11/06/23 02/05/24 Rx tablet,extended release 24 hr .COMPLEX #90 tabs losartan 50 mg tablet See Rx Instructions .Route 12/05/23 02/05/24 Rx .COMPLEX #90 tabs leflunomide 20 mg tablet 20 mg PO DAILY Rheumatoid 12/15/23 02/05/24 Rx arthritis #90 tabs montelukast 10 mg tablet 10 mg PO DAILY allergies #90 tabs 12/15/23 02/05/24 Rx hydroxychloroquine 200 mg tablet See Rx Instructions .Route 01/05/24 02/05/24 Rx .COMPLEX #30 tabs aripiprazole 10 mg tablet 10 mg PO DAILY #90 tabs 01/22/24 02/05/24 Rx venlafaxine 150 mg See Rx Instructions .Route 01/24/24 02/05/24 Rx capsule,extended release 24 hr .COMPLEX #90 caps hydrocodone 10 mg-acetaminophen 1 tab PO Q6H PRN pain #120 tabs 02/02/24 02/05/24 Rx 325 mg tablet New Prescriptions to Start Prescriptions: Allergies Allergy/AdvReac Type Severity Reaction Status Date / Time latex Allergy Intermediate I-RASH Verified 01/30/24 15:48 varenicline Allergy Mild SWEATS Verified 01/30/24 15:48 Exam Data for Last 24 hours Vital signs and Labs for Last 24 Hours: Temp Pulse Resp BP Pulse Ox O2 Del Method O2 Flow Rate 97.8 F 65 18 130/93 H 97 Nasal Cannula 5 02/05/24 09:09 02/05/24 09:09 02/05/24 09:09 02/05/24 09:09 02/05/24 09:09 02/05/24 09:52 02/05/24 09:52 I & O for Last 24 hours: Intake & Output 02/02/24 02/03/24 02/04/24 02/05/24 23:59 23:59 23:59 23:59 Weight 189 lb *Routine HEENT Exam Head: Present normocephalic Eye: Present EOMI and PERRL ENT: Present mucous membranes moist *Routine Neck Exam Neck: Present supple *Routine Respiratory Exam Respiratory: Present CTA bilaterally *Routine Cardiovascular Exam Cardiovascular: Present RRR *Routine Abdominal Exam Abdominal: Present soft and normoactive bowel sounds; Absent tenderness *Routine Rectal Exam Rectal:: deferred *Routine Genitalia Exam Genitalia:: deferred *Routine Extremities Exam Extremities: Absent cyanosis, clubbing or edema *Routine Skin Exam Skin: Present warm; Absent rash *Routine Neurological Exam Neurological: Present alert and oriented X3 Assessment and Plan *Assessment and plan (1) Personal history of colon polyps, unspecified: Status: Acute Category: Medical Code(s): Z86.0100 - Personal history of colon polyps, unspecified Plan A/P: 1. Personal history of colon polyps is the preprocedural diagnosis. The patient will be anesthetized/sedated using MAC sedation. The patient has been seen and examined. Cardiac and lung assessment prior to the examination is stable. Proceed with planned surveillance colonoscopy
--- NOTE | 2024-02-05 10:00 | HMH.PROCNOTE ---
[facility] Procedure Note Date: 02/05/24 Time: 10:19 Procedure Note:: Colonoscopy Procedure Report: Colonoscopy with cold snare polypectomy Endoscopist: Vishnu Phillip II, MD Referring physician: Marvin Breaux MD Date of Procedure: February 05, 2024 Equipment: Olympus 190 variable stiffness pediatric colonoscope Sedation: MAC sedation Indication: Mrs. Haynes is a 58-year-old female who is here for follow-up surveillance colonoscopy secondary to a personal history of colon polyps. Her last colonoscopy was 7 years ago and polyps were removed. She reports no abdominal pain, weight loss, change in her bowel habits or rectal bleeding. She reports no family history of colon cancer. Procedure: Prior to the procedure, a history and physical exam was performed, and patient's medications and allergies were reviewed. The risks, benefits and alternatives of the sedation and procedure were discussed with the patient. All questions were answered and informed consent was obtained. The patient was brought to the procedure room. Patient identification and proposed procedure were verified by the physician and the nurse. The patient was placed in a left lateral decubitus position and the scope was passed under direct vision. Throughout the procedure, the patient's blood pressure, pulse, and oxygen saturations were monitored continuously. The colonoscopy was accomplished without difficulty. The patient tolerated the procedure well. Findings: On digital rectal examination there was normal rectal tone. There were no external hemorrhoids. The colonoscope was introduced through the anal canal to the rectum and advanced to the cecum. The ileocecal valve and appendiceal orifice were identified. The scope was advanced a short distance into the ileum which appeared grossly normal. The scope was then withdrawn into the colon. There were 3 polyps (ascending x 1 (3 mm) and sigmoid x 2 (4 and 5 mm)). These were all removed via cold snare polypectomy. The remaining cecum, ascending and transverse colon and mucosa were grossly normal. There were scattered diverticuli throughout the descending and sigmoid colon (LEFT colon). The rectum itself was normal. Upon retroflexion within the rectum there were grade 1-2 internal hemorrhoids. The preparation was excellent throughout with Winn Preparation Score of 9. The cecal time was 11 minutes. Impression: 1. Diminutive colonic polyps x 3 2. Left-sided diverticulosis 3. Grade 1-2 internal hemorrhoids Plan: I will follow-up the polyp histology and recommend repeat surveillance colonoscopy again in 5 to 7 years based upon the pathology. I would encourage bulking psyllium fiber supplementation on a long-term daily maintenance basis.
[2024-02-05 10:20] VITALS: BP 94/52; PULSE 65; RESP 20; TEMP 36.2; O2SAT 94
[2024-02-05 10:30] VITALS: BP 92/51; PULSE 64; RESP 20; O2SAT 96
[2024-02-05 10:40] VITALS: BP 114/64; PULSE 62; RESP 20; O2SAT 96
[2024-02-05 10:47] VITALS: BP 122/48; PULSE 69; RESP 20; O2SAT 95
== END 2024-02-05 10:47 | disposition home or self-care (01) ==
PROVIDERS: PCP Internal Medicine; Visit Provider Internal Medicine Gastroenterology
PROC: 0DJD8ZZ Inspection of Lower Intestinal Tract, Via Natural or Artificial Opening Endoscopic (ICD-10-PCS; CPT 45378; principal; 2024-02-05 09:30)
DX: Z12.11 Encounter for screening for malignant neoplasm of colon (principal); Z86.0101 Personal history of adenomatous and serrated colon polyps; D12.2 Benign neoplasm of ascending colon; D12.5 Benign neoplasm of sigmoid colon; K64.1 Second degree hemorrhoids; K57.30 Diverticulosis of large intestine without perforation or abscess without bleeding; Z79.899 Other long term (current) drug therapy; F17.210 Nicotine dependence, cigarettes, uncomplicated
CPT/HCPCS: 45385; 88305

== ENCOUNTER 2024-05-02 15:56 | Outpatient (CLI) | payer MEDICARE, SELFPAY ==
--- NOTE | 2024-05-02 15:56 | MM_ITS ---
PROCEDURE INFORMATION: Exam: MG Bilateral Screening 3D Mammography Exam date and time: 05/02/2024 3:59 PM Age: 59 years old Clinical indication: Screening examination TECHNIQUE: Imaging protocol: Bilateral Screening tomosynthesis and 2D mammography including computer-aided detection (CAD) when performed. COMPARISON: 1. MG MM DIG SCREENING MAMM BI W/CAD 02/25/2022 3:06 PM 2. MG DXBI MM Dig mamm BI DX w/CAD 11/24/2017 4:15 PM FINDINGS: MAMMOGRAPHY: Breast composition: There are scattered areas of fibroglandular density. Mass: None. Architectural distortion: None. Calcifications: No suspicious calcifications. Asymmetric density: None. Skin thickening: None. Axillary adenopathy: None. Other findings: Coarse benign dystrophic calcium is noted bilaterally, likely palpable in the left 12 o'clock axis measuring 5 cm in greatest dimension IMPRESSION: No mammographic evidence of malignancy. Annual screening is recommended unless otherwise clinically indicated. ASSESSMENT: BI-RADS Category 2: Benign.
== END 2024-05-02 23:59 | disposition home or self-care (01) ==
LOC: RAD 15:56
PROVIDERS: PCP Internal Medicine; Visit Provider Internal Medicine
DX: Z12.31 Encounter for screening mammogram for malignant neoplasm of breast (principal)
CPT/HCPCS: 77063; 77067

== ENCOUNTER 2024-07-08 15:35 | Outpatient (CLI) | payer MEDICARE, SELFPAY ==
[2024-07-08 18:08] LABS: Albumin Level 4.3 g/dl (3.5-5.0); Chloride 97 mmol/L (98-107); Potassium 4.6 mmoL/L (3.5-5.1); Sodium 128 mmol/L (136-145)
[2024-07-08 18:10] LABS: Alanine Aminotransferase 16 U/L (12-78); Anion Gap 9.6 mEq/L (5-15); Aspartate Amino Transferase 22 U/L (14-36); Blood Urea Nitrogen 15 mg/dl (7-17); Carbon Dioxide 26 mmol/L (22.0-30.0); Estimated Glomerular Filt Rate 74 ml/min (>60); GFR (African American) 89 ML/MIN (>60)
[2024-07-08 18:11] LABS: Albumin/Globulin Ratio 1.8 (1.1-1.8); Alkaline Phosphatase 78 U/L (38-126); Bilirubin,Total 0.2 mg/dl (0.2-1.3); Calcium 8.8 mg/dl (8.4-10.2); Chol/HDL Ratio 2.4 (1-3.5); Cholesterol 163 mg/dl (140-200); Globulin 2.4 g/dL (1.3-3.2); Glucose 101 mg/dl (74-100); HDL Cholesterol 69 mg/dl (40-60); Total Protein,Serum 6.7 g/dl (6.3-8.2); Triglycerides 152 mg/dl (30-150); VLDL Cholesterol 30 mg/dL (0-40)
[2024-07-08 18:22] LABS: Direct LDL Cholesterol 61.25 mg/dL (100-129)
== END 2024-07-08 23:59 | disposition home or self-care (01) ==
LOC: LAB.DROPOF 07-09 14:30
PROVIDERS: PCP Internal Medicine; Visit Provider Internal Medicine
DX: E78.5 Hyperlipidemia, unspecified (principal); E87.1 Hypo-osmolality and hyponatremia; G62.9 Polyneuropathy, unspecified
CPT/HCPCS: 80053; 80061

== ENCOUNTER 2025-01-21 02:15 | Inpatient (IN) | payer MEDICARE, SELFPAY ==
--- OUTSIDE RECORDS SUMMARY | 2025-01-02 14:30 | XMS_ITS | Encounter Summary ---
Author Organization [employer] ([place], [place], [place], [place], [place]) Address [address] [place] [address] Care Team Providers Care Insecticide Maker Name Role Phone Marvin Breaux MD Primary Care Provider [phone] Reason for Visit * Reason Comments Migraine * Clinic Procedure (Routine) - Authorized Specialty Diagnoses / Procedures Referred By Dheeraj spann Referred To Contact Neurology Diagnoses Chronic migraine without aura, intractable, with status migrainosus Botox HAWLEY 200 Units [facility] MCR B&B Exp: 10/09/25 Procedures [facility] BOTOX Olivia Celis MD [address] [place] [address] Phone: tel: fax: Olivia Celis MD [address] [place] [address] Phone: tel: fax: Referral ID Status Reason Start Date Expiration Date V isits Requested Visits Authorized [id number] Authorized 10/10/2024 10/09/2025 5 5 Encounter Details Date Type Department Care Team (Latest Contact Info) Description 01/02/2025 2:30 PM EST Procedure Visit [facility] Neurology - [place] [address] [place] [phone] Olivia Celis MD [address] [place] [address] Chronic migraine without aura, with intractable migraine, so stated, with status migrainosus (Primary Dx) Social History Tobacco Use Types Packs/Day Years Used Date Smoking Tobacco: Never Assessed Family and Community Support Answer Anson e Recorded Help with Day to Day Activities Not on file 03/09/2023 Feeling Lonely or Isolated Not on file 03/09 Educational Attainment Answer Date David rded Speak language other than Somali at home Not on file 03/09/2023 Want [...] 10 units divided amongst 2 site(s) Right behavioral pediatrician: 2.5 units divided amongst 1 site(s) Left behavioral pediatrician: 2.5 units divided amongst 1 site(s) Procerus [...] to Botox injections. [facility] Return in about 12 weeks (around 03/27/2025) for botox. D CARE NURSE documented in this encounter Miscellaneous Notes * Addendum Note - Roxi Jimenez - 01/02/2025 2:30 PM ESTAddended by: ROXI JIMENEZ on: 01/06/2025 04:39 PM Modules accepted: Orders D CARE NURSE documented in this encounter Plan of Treatment Upcoming Encounters Date Type Department Care Team (Late st Contact Info) Description 04/02/2025 2:30 PM EST Procedure Visit [facility] [place] [address] [place] [address] Olivia Celis MD [address] [facility] [address] [place] [address] documented as of this encounter Visit Diagnoses [...] er documented in this encounter Care Teams Insecticide Maker Relationship Specialty Start Date End Date Marvin Breaux MD [address] [place] [address] PCP - General General Internal Medicine 10/13/22 documented as of this encounter
--- OUTSIDE RECORDS SUMMARY | 2025-01-02 14:30 | XMS_ITS | Encounter Summary ---
Author Organization [employer] ([place], [place], [place], [place], [place]) Address [address] [place] [address] Care Team Providers Care Lay Out Inspector Name Role Phone Marvin Breaux MD Primary Care Provider [phone] Reason for Visit * Reason Comments Migraine * Clinic Procedure (Routine) - Authorized Specialty Diagnoses / Procedures Referred By Dheeraj spann Referred To Contact Neurology Diagnoses Chronic migraine without aura, intractable, with status migrainosus Botox HAWLEY 200 Units [facility] MCR B&B Exp: 10/09/25 Procedures [facility] BOTOX Olivia Celis MD [address] [place] [address] Phone: tel: fax: Olivia Celis MD [address] [place] [address] Phone: tel: fax: Referral ID Status Reason Start Date Expiration Date V isits Requested Visits Authorized [id number] Authorized 10/10/2024 10/09/2025 5 5 Encounter Details Date Type Department Care Team (Latest Contact Info) Description 01/02/2025 2:30 PM EST Procedure Visit [facility] Neurology - [place] [address] [place] [phone] Olivia Celis MD [address] [place] [address] Chronic migraine without aura, with intractable migraine, so stated, with status migrainosus (Primary Dx) Social History Tobacco Use Types Packs/Day Years Used Date Smoking Tobacco: Never Assessed Family and Community Support Answer Anson e Recorded Help with Day to Day Activities Not on file 03/09/2023 Feeling Lonely or Isolated Not on file 03/09 Educational Attainment Answer Date David rded Speak language other than [place] at home Not on file 03/09/2023 Want [...] 10 units divided amongst 2 site(s) Right brass and wind instrument repairer: 2.5 units divided amongst 1 site(s) Left brass and wind instrument repairer: 2.5 units divided amongst 1 site(s) Procerus [...] to Botox injections. [facility] Return in about 12 weeks (around 03/27/2025) for botox. 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 documented in this encounter Miscellaneous Notes * Addendum Note - Roxi Jimenez - 01/02/2025 2:30 PM ESTAddended by: ROXI JIMENEZ on: 01/06/2025 04:39 PM Modules accepted: Orders 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 documented in this encounter Plan of Treatment Upcoming Encounters Date Type Department Care Team (Late st Contact Info) Description 04/02/2025 2:30 PM EST Procedure Visit [facility] [place] [address] [facility] [address] [address] [place] [address] Olivia Celis MD [address] [facility] [address] [place] [address] documented as of this encounter Visit Diagnoses [...] er documented in this encounter Care Teams Lay Out Inspector Relationship Specialty Start Date End Date Marvin Breaux MD [address] [place] [address] PCP - General General Internal Medicine 10/13/22 documented as of this encounter
[2025-01-21] VITALS (9 sets, daily range): BP systolic 100–199; BP diastolic 58–99; PULSE 70–82; RESP 9–18; TEMP 36.4–37.1; O2SAT 97–100; BMI 37.4
--- NOTE | 2025-01-21 02:16 | CT_ITS ---
PROCEDURE INFORMATION: Exam: CT Head Without Contrast Exam date and time: 01/21/2025 2:51 AM Age: 59 years old Clinical indication: Injury or trauma; Additional info: Trauma, critical injury suspected TECHNIQUE: Imaging protocol: Computed tomography of the head without contrast. Radiation optimization: All CT scans at this facility use at least one of these dose optimization techniques: automated exposure control; mA and/or kV adjustment per patient size (includes targeted exams where dose is matched to clinical indication); or iterative reconstruction. COMPARISON: No relevant prior studies available. FINDINGS: Brain: Rounded likely dural-based hyperdensity along the left central sulcus measuring 6 x 11 x 10 mm (series 1001, image 41) with minimal adjacent hyperostosis likely represents a meningioma. No hemorrhage. There is patchy hypoattenuation in the deep and subcortical white matter, likely representing chronic small vessel ischemic change. Cerebral ventricles: No ventriculomegaly. Paranasal sinuses: Right maxillary sinus mucosal retention cyst. Mastoid air cells: Partial opacification of the bilateral mastoid air cells. Bones: Unremarkable. No acute fracture. Soft tissues: Unremarkable. IMPRESSION: 1. No acute intracranial abnormality. 2. Rounded likely dural-based hyperdensity along the left central sulcus with minimal adjacent hyperostosis likely represents a meningioma. Consider MRI brain for confirmation.
--- NOTE | 2025-01-21 02:16 | CT_ITS ---
PROCEDURE INFORMATION: Exam: CT Thoracic Spine Without Contrast Exam date and time: 01/21/2025 2:56 AM Age: 59 years old Clinical indication: Injury or trauma; Additional info: Trauma, critical injury suspected TECHNIQUE: Imaging protocol: Computed tomography of the thoracic spine without contrast. Radiation optimization: All CT scans at this facility use at least one of these dose optimization techniques: automated exposure control; mA and/or kV adjustment per patient size (includes targeted exams where dose is matched to clinical indication); or iterative reconstruction. COMPARISON: CT CERVICAL SPINE WO CON 01/21/2025 2:53 AM FINDINGS: Bones/joints: No acute fracture. Normal vertebral body alignment. Facet joints are unremarkable. Intervertebral disc spaces are unremarkable. No spinal stenosis. Soft tissues: Unremarkable. IMPRESSION: No acute fracture or malalignment.
--- NOTE | 2025-01-21 02:16 | CT_ITS ---
PROCEDURE INFORMATION: Exam: CTA Head With Contrast, Arteriography Exam date and time: 01/21/2025 3:01 AM Age: 59 years old Clinical indication: Injury or trauma; Additional info: Trauma, critical injury suspected TECHNIQUE: Imaging protocol: Computed tomographic angiography of the head with contrast. Exam focused on the arteries. 3D rendering (Not supervised by radiologist): MIP and/or 3D reconstructed images were created by the technologist. Radiation optimization: All CT scans at this facility use at least one of these dose optimization techniques: automated exposure control; mA and/or kV adjustment per patient size (includes targeted exams where dose is matched to clinical indication); or iterative reconstruction. Contrast material: ISOVUE; Contrast volume: 80 ml; Contrast route: INTRAVENOUS (IV); COMPARISON: CT HEAD/BRAIN WO CON 01/21/2025 2:51 AM FINDINGS: ANTERIOR CIRCULATION: Right internal carotid artery: Intracranial segment is patent with no significant stenosis. No aneurysm. Right middle cerebral artery: No occlusion or significant stenosis. No aneurysm. Right anterior cerebral artery: No occlusion or significant stenosis. No aneurysm. Left internal carotid artery: Intracranial segment is patent with no significant stenosis. No aneurysm. Left middle cerebral artery: No occlusion or significant stenosis. No aneurysm. Left anterior cerebral artery: No occlusion or significant stenosis. No aneurysm. POSTERIOR CIRCULATION: Right vertebral artery: No occlusion or significant stenosis. No aneurysm. Left vertebral artery: No occlusion or significant stenosis. No aneurysm. Basilar artery: No occlusion or significant stenosis. No aneurysm. Right posterior cerebral artery: No occlusion or significant stenosis. No aneurysm. Left posterior cerebral artery: No occlusion or significant stenosis. No aneurysm. Brain: Redemonstration of the previously noted rounded enhancing likely dural-based lesion adjacent to the left central sulcus with minimal adjacent hyperostosis likely represents a meningioma. Cerebral ventricles: No ventriculomegaly. Bones/joints: Unremarkable. No acute fracture. Soft tissues: Unremarkable. IMPRESSION: 1. No large vessel stenosis or occlusion. 2. Redemonstration of the previously noted rounded enhancing likely dural-based lesion adjacent to the left central sulcus with minimal adjacent hyperostosis likely represents a meningioma. PROCEDURE INFORMATION: Exam: CTA Neck With Contrast Exam date and time: 01/21/2025 3:01 AM Age: 59 years old Clinical indication: Injury or trauma; Additional info: Trauma, critical injury suspected TECHNIQUE: Imaging protocol: Computed tomographic angiography of the neck with contrast. Exam focused on the cervical segments of the vasculature. 3D rendering (Not supervised by radiologist): MIP and/or 3D reconstructed images were created by the technologist. Radiation optimization: All CT scans at this facility use at least one of these dose optimization techniques: automated exposure control; mA and/or kV adjustment per patient size (includes targeted exams where dose is matched to clinical indication); or iterative reconstruction. Contrast material: ISOVUE; Contrast volume: 80 ml; Contrast route: INTRAVENOUS (IV); COMPARISON: CT ANGIO NECK 01/21/2025 3:01 AM FINDINGS: Right common carotid artery: No stenosis. No dissection or occlusion. Right internal carotid artery: No stenosis of the extracranial segment. No dissection or occlusion. Right external carotid artery: No occlusion or stenosis of the origin. Left common carotid artery: No stenosis. No dissection or occlusion. Left internal carotid artery: No stenosis of the extracranial segment. No dissection or occlusion. Left external carotid artery: No occlusion or stenosis of the origin. Right vertebral artery: No stenosis. No dissection or occlusion. Left vertebral artery: No stenosis. No dissection or occlusion. Soft tissues: Normal. No significant soft tissue swelling. Bones/joints: No acute fracture. IMPRESSION: No stenosis or occlusion. REFERENCES: NASCET CRITERIA. The degree of stenosis in the cervical segment of the internal carotid artery is based on NASCET criteria. Normal is no stenosis. Mild is less than 50% stenosis. Moderate is 50-69% stenosis. Severe is 70% to 99% stenosis. Total occlusion is no detectable patent lumen.
--- NOTE | 2025-01-21 02:16 | CT_ITS ---
PROCEDURE INFORMATION: Exam: CTA Chest With Contrast Exam date and time: 01/21/2025 3:05 AM Age: 59 years old Clinical indication: Injury or trauma; Additional info: Trauma, critical injury suspected TECHNIQUE: Imaging protocol: Computed tomographic angiography of the chest with contrast. Exam focused on the arteries. 3D rendering (Not supervised by radiologist): MIP and/or 3D reconstructed images were created by the technologist. Radiation optimization: All CT scans at this facility use at least one of these dose optimization techniques: automated exposure control; mA and/or kV adjustment per patient size (includes targeted exams where dose is matched to clinical indication); or iterative reconstruction. Contrast material: ISOVUE; Contrast volume: 80 ml; Contrast route: INTRAVENOUS (IV); COMPARISON: CR XR ACUTE ABDOMEN SERIES 09/07/2022 3:00 PM FINDINGS: Pulmonary arteries: Normal. No pulmonary emboli. Aorta: No aortic aneurysm or dissection. Lungs: Clear. No consolidation. No masses. Pleural spaces: No pneumothorax. No pleural effusion. Heart: Unremarkable. No cardiomegaly. No pericardial effusion. Coronary arteries: Three-vessel coronary artery atherosclerotic disease. Lymph nodes: Unremarkable. No enlarged lymph nodes. Bones/joints: Unremarkable. No acute fracture. Soft tissues: Unremarkable. IMPRESSION: 1. No acute findings. 2. Three-vessel coronary artery atherosclerotic disease.
--- NOTE | 2025-01-21 02:16 | CT_ITS ---
PROCEDURE INFORMATION: Exam: CT Lumbar Spine Without Contrast Exam date and time: 01/21/2025 2:58 AM Age: 59 years old Clinical indication: Injury or trauma; Additional info: Trauma, critical injury suspected TECHNIQUE: Imaging protocol: Computed tomography of the lumbar spine without contrast. Radiation optimization: All CT scans at this facility use at least one of these dose optimization techniques: automated exposure control; mA and/or kV adjustment per patient size (includes targeted exams where dose is matched to clinical indication); or iterative reconstruction. COMPARISON: CT THORACIC SPINE WO CON 01/21/2025 2:56 AM FINDINGS: Bones/joints: No acute fracture. Normal vertebral body alignment. Advanced discogenic degenerative changes. Multilevel facet DJD. Soft tissues: Unremarkable. IMPRESSION: 1. No acute fracture. Normal alignment. 2. Advanced degenerative spondylosis.
--- NOTE | 2025-01-21 02:16 | CT_ITS ---
PROCEDURE INFORMATION: Exam: CT Cervical Spine Without Contrast Exam date and time: 01/21/2025 2:53 AM Age: 59 years old Clinical indication: Injury or trauma; Additional info: Trauma, critical injury suspected TECHNIQUE: Imaging protocol: Computed tomography of the cervical spine without contrast. Radiation optimization: All CT scans at this facility use at least one of these dose optimization techniques: automated exposure control; mA and/or kV adjustment per patient size (includes targeted exams where dose is matched to clinical indication); or iterative reconstruction. COMPARISON: CT HEAD/BRAIN WO CON 01/21/2025 2:51 AM FINDINGS: Bones: No acute fracture. C6-C7 ACDF. Straightening of the cervical lordosis. Mild spondylosis. No significant spinal canal stenosis. Lungs: Lung apices are normal. Soft tissues: Unremarkable. IMPRESSION: No acute fracture or malalignment.
--- NOTE | 2025-01-21 02:16 | CT_ITS ---
PROCEDURE INFORMATION: Exam: CTA Abdomen and Pelvis With Contrast Exam date and time: 01/21/2025 3:05 AM Age: 59 years old Clinical indication: Injury or trauma; Additional info: Trauma, critical injury suspected TECHNIQUE: Imaging protocol: Computed tomographic angiography of the abdomen and pelvis with contrast. Exam focused on the arteries. 3D rendering (Not supervised by radiologist): MIP and/or 3D reconstructed images were created by the technologist. Radiation optimization: All CT scans at this facility use at least one of these dose optimization techniques: automated exposure control; mA and/or kV adjustment per patient size (includes targeted exams where dose is matched to clinical indication); or iterative reconstruction. Contrast material: ISOVUE; Contrast volume: 80 ml; Contrast route: INTRAVENOUS (IV); COMPARISON: CT - ABDPELWO CT abdomen pelvis wo con 05/12/2018 9:46 PM FINDINGS: Aorta: No aortic aneurysm. No aortic dissection. Celiac and mesenteric arteries: No occlusion or significant stenosis. Renal arteries: No occlusion or significant stenosis. Right iliac arteries: No occlusion or significant stenosis. Left iliac arteries: No occlusion or significant stenosis. Liver: No mass. Gallbladder and biliary ducts: Status post cholecystectomy. No biliary duct dilation. Pancreas: Unremarkable. No mass. No ductal dilation. Spleen: Unremarkable. No splenomegaly. Adrenal glands: Unremarkable. No mass. Kidneys and ureters: Unremarkable. No solid mass. No hydronephrosis. Stomach and bowel: There is colonic diverticulosis without evidence of diverticulitis. The small bowel is unremarkable. No bowel obstruction or inflammatory changes. Appendix: No evidence of appendicitis. Intraperitoneal space: Unremarkable. No free air. No significant fluid collection. Lymph nodes: Unremarkable. No enlarged lymph nodes. Urinary bladder: Unremarkable. No mass. Reproductive: 5.4 cm cyst in the right ovary. Uterus and adnexa are otherwise unremarkable. Bones/joints: Advanced degenerative changes in the spine and pelvis. Soft tissues: Unremarkable. IMPRESSION: 1. No acute findings. 2. 5.4 cm cyst in the right ovary. 3. Colonic diverticulosis without evidence of diverticulitis.
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
--- OUTSIDE RECORDS SUMMARY | 2025-01-21 02:20 | XMS_ITS | Encounter Summary ---
Author Organization [employer] ([place], [place], [place], [place], [place]) Address [address] [place] [address] Care Team Providers Care Supervisor Feed Mill Name Role Phone Marvin Breaux MD Primary Care Provider [phone] Encounter Details Date Type Department Care Team (Latest Contact Info) Description 01/02/2025 Travel Social History Tobacco Use Types Packs/Day Years Used Date Smoking Tobacco: Never Assessed Family and Community Support Answer Anson e Recorded Help with Day to Day Activities Not on file 03/09/2023 Feeling Lonely or Isolated Not on file 03/09 Educational Attainment Answer Date David rded Speak language other than Uruguayan at home Not on file 03/09/2023 Want [...] on file documented as of this encounter Plan of Treatment Upcoming Encounters Date Type Department Care Team (Late Contact Info) Description 04/02/2025 2:30 PM EST Procedure Visit [facility] Neurology - [facility] [place] [address] [place] [address] Olivia Celis MD [address] [place], [place] [id number] documented as of this encounter Visit Diagnoses Not on filedocumented in this encounter Care Teams Supervisor Feed Mill Relationship Specialty Start Date End Date Marvin Breaux MD [address] [place] [address] [place] [address] PCP - General General Internal Medicine 10/13/22 documented as of this encounter
--- OUTSIDE RECORDS SUMMARY | 2025-01-21 02:20 | XMS_ITS | Referral Summary ---
Author Organization [employer] ([place], [place], [place], [place], [place]) Address [address] [place] [address] Care Team Providers Care Behavioral Technician Name Role Phone Marvin Breaux MD Primary Care Provider [phone] Encounters Date Type Department Care Team Description 01/02/2025 Travel 01/02/2025 2:30 PM EST Procedure Visit [facility] Neurology - [facility] [address] [place] [address] [address] [place] [address] Olivia Celis MD Chronic migraine without aura, with intractable migraine, so stated, with status migrainosus (Primary Dx) from Last 3 Months Allergies Active Allergy Reactions Criticality Noted Date Comments Latex 07/21/2022 Medications HYDROcodone-estela taminophen (NORCO 10-325) 10-325 mg per tablet Take 1 tablet by mouth every 6 (six) hours as needed. 2 Active leflunomide (ARAVA) 20 MG tablet Take 20 mg by mouth daily. 2 Active clotrimazole-be tamethasone (LOTRISONE) 1-0.05 % cream Apply topically 2 (two) times daily. Active folic acid (FOLVITE) 1 MG tablet Take 1 mg by mouth daily. Active metoprolol succinate 50 mg CSpX Take 50 mg by mouth daily. Active omeprazole (PriLOSEC OTC) 20 MG tablet Take 20 mg by mouth daily. Active ARIPiprazole (ABILIFY) 10 MG tablet Take 1 tablet (10 mg total) by mouth in the morning. 3 Active Humira Pen 40 mg/0.8 mL pnkt Inject under the skin. Active rimegepant (Nurtec ODT) 75 mg TbDLIndications :Chronic migraine without aura, with intractable migraine, so stated, with status migrainosus Take 75 mg by mouth as needed (at onset of migraine, max 1 tablet in 24 hours) for up to 30 days. 8 tablet 11 5 02/06/20 25 Active rimegepant (Nurtec ODT) 75 mg TbDLIndications :Chronic migraine without aura, with intractable migraine, so stated, with status migrainosus Take 75 mg by mouth as needed (at onset of migraine, max 1 tablet in 24 hours). 8 tablet 11 4 01/06/20 25 Discontinu ed(Reorder ) rimegepant (Nurtec ODT) 75 mg TbDLIndications :Chronic migraine without aura, with intractable migraine, so stated, with status migrainosus Take 75 mg by mouth as needed (at onset of migraine, max 1 tablet in 24 hours). 8 tablet 11 5 01/07/20 25 Discontinu ed(Reorder ) Hospital, Clinic, or Other Facility Administered Medication Ordered Dose Route Frequency Start Date End Date Status botulinum toxin type A (BOTOX) injection 200 UnitsIndications:Chronic migraine without aura, with intractable migraine, so stated, with status migrainosus 200 Units IM Once 01/02/2025 01/02/2025 Ended Active Problems No known active problems Social History Tobacco Use Types Packs/Day Years Used Date Smoking Tobacco: Never Assessed Family and Community Support Answer Anson e Recorded Help with Day to Day Activities Not on file 03/09/2023 Feeling Lonely or Isolated Not on file 03/09 Educational Attainment Answer Date David rded Speak language other than Hungarian at home Not on file 03/09/2023 Want [...] on file Sexual Orientation Not on file Last Filed Vital Signs Vital Sign Reading Time Taken Comments Blood Pressure - - Pulse - - Temperature - - Respiratory Rate - - Oxygen Saturation - - Inhaled Oxygen Concentration - - Weight 96.4 kg (212 lb 8 oz) 01/06/2025 4:36 PM EST Height - - Body Mass Index - - Plan of Treatment Upcoming Encounters Date Type Department Care Team (Late st Contact Info) Description 04/02/2025 2:30 PM EST Procedure Visit [facility] Neurology - [place] [address] [place] [id number] Olivia Celis MD [address] [place] [address] Insurance [place] [address] Care Teams Behavioral Technician Relationship Specialty Start Date End Date Marvin Breaux MD [address] [place] [address] [place] [address] PCP - General General Internal Medicine 10/13/22
--- OUTSIDE RECORDS SUMMARY | 2025-01-21 02:21 | XMS_ITS | Clinical Summary ---
Author Organization [facility] ([place], [place], [place], [place], [place]) Address [address] [place] [address] Care Team Providers Care Court Attendant Name Role Phone Marvin Breaux MD Primary Care Provider [phone] Allergies Active Allergy Reactions Criticality Noted Date [...] Ended Active Problems No known active problems Encounters Date Type Department Care Team Description 01/02/2025 2:30 PM EST Procedure Visit [facility] Neurology - [address] [address] Olivia Celis MD Chronic migraine without aura, with intractable migraine, so stated, with status migrainosus (Primary Dx) 01/02/2025 Travel from Last 3 Months Social History Tobacco Use Types Packs/Day Years Used Date Smoking Tobacco: Never Assessed Family and Community Support Answer Anson e Recorded Help with Day to Day Activities Not on file 03/09/2023 Feeling Lonely or Isolated Not on file 03/09 Educational Attainment Answer Date David rded Speak language other than Kyrgyz at home Not on file 03/09/2023 Want [...] Description 04/02/2025 2:30 PM EST Procedure Visit [facility] Neurology - [place] [address] [place] [address] Olivia Celis MD [address] [place] [address] Health Maintenance Due Date Last Done Comments CT Colonography 1967 Colonoscopy 1967 Colorectal Cancer Screening 1967 FOBT/FIT 1967 Fit-DNA (Cologuard) 1967 Sigmoidoscopy 1967 Depression Screening (12+) 1979 Tobacco Cessation Counseling and Screening (12+) 1979 HIV Screening 1982 Hepatitis C Screening 1985 Pap Smear 1988 Breast Cancer Screening 2007 DTAP/TDAP/TD VACCINES (2 - Td or Tdap) 03/21/2007 Pneumococcal 50+ years (1 of 1 - PCV) 2017 Shingles Vaccine (Zoster) (1 of 2) 2017 Medicare Initial AWV [id number] 02/28/2024 COVID-19 VACCINE ( season) 10/28/202407/2020, 05/16/2020 Influenza Vaccine (#1) 2024 Lipid Panel 05/06/2027 05/05/2022 Insurance [employer] MEDICARE COMPLETE MAP Care Teams Court Attendant Relationship Specialty Start Date End Date Marvin Breaux MD [address] [place] [address] [place] [address] PCP - General General Internal Medicine 10/13/22
--- OUTSIDE RECORDS SUMMARY | 2025-01-21 02:21 | XMS_ITS | Clinical Summary ---
Author Organization [facility] Address [address] [place] [address] Care Team Providers Care Marine Gear Keeper Name Role Phone Marvin Breaux MD Primary Care Provider [phone] Allergies Active Allergy Reactions Criticality Noted Date Comments Latex Rash Medium 09/24/2020 Medications ARIPiprazole (ABILIFY) 10 MG tablet Take 1 tablet by mouth Every Night. Active cetirizine (zyrTEC) 10 MG tablet Take 1 tablet by mouth Daily. 3 Active folic acid (FOLVITE) 1 MG tablet Take 1 tablet by mouth Daily. Active hydroxychloroqui ne (PLAQUENIL) 200 MG tablet Take 1 tablet by mouth Daily. 3 Active leflunomide (ARAVA) 20 MG tablet Take 1 tablet by mouth Daily. 3 Active losartan (COZAAR) 50 MG tablet Take 1 tablet by mouth Daily. 3 Active metoprolol succinate XL (TOPROL-XL) 100 MG 24 hr tablet Take 1 tablet by mouth Daily. 3 Active montelukast (SINGULAIR) 10 MG tablet Take 1 tablet by mouth Daily. 3 Active venlafaxine XR (EFFEXOR-XR) 150 MG 24 hr capsule Take 2 capsules by mouth Daily. 3 Active clotrimazole-bet amethasone (LOTRISONE) 1-0.05 % cream Apply topically to the appropriate area as directed 2 (Two) Times a Day As Needed. Active HYDROcodone-acet aminophen (NORCO) 10-325 MG per tabletIndication s:Status post left knee replacement Take 1 tablet by mouth Every 6 (Six) Hours As Needed for Moderate Pain. Can resume when finished with Roxicodone 3 Active oxyCODONE (Roxicodone) 5 MG immediate release tabletIndication s:Status post left knee replacement Take 1 tablet by mouth Every 4 (Four) Hours As Needed for Moderate Pain. 30 tablet 12/29/2022 4:45 PM EDT 3 Active ropivacaine (NAROPIN) 0.2 % infusion (INFUSYSTEM) 2 mg/hr by Peripheral Nerve route Continuous. 3 Active naloxone (NARCAN) 4 MG/0.1ML nasal spray Call 911. Don't prime. [place] in 1 nostril for overdose. Repeat in 2-3 minutes in other nostril if no or minimal breathing/respo nsiveness. 2 each 12/29/2022 4:45 PM EDT 3 Active Active Problems Problem Noted Date Diagnosed Date Primary localized osteoarthritis of left knee Status post left knee replacement 12/29/2022 HTN (hypertension) 12/29/2022 Bipolar 1 disorder 12/29/2022 Rheumatoid arthritis 12/29/2022 Social History Tobacco Use Types Packs/Day Years Used Date Smoking Tobacco: Every Day Cigarettes 1 40 Smokeless Tobacco: Never Tobacco Cessation:Ready to Q uit: Not Asked; Counseling Given: Not Answered Alcohol Use Standard Drinks/Week Comments Not Currently 0 (1 standard drink = 0.6 oz pur e alcohol) Abuse Screen Answer Date Recorded Feels Unsafe at Home or Work/School no 12/27/2022 Feels Threatened by Someone no 11/29 Does Anyone Try to Keep You From Having Contact with Others or Doing Things Outside Your Home? no 12/27/2022 Physical Signs of Abuse Present no 12/27/2022 Housing Stability Answer Date Recorded Current Living Arrangements home 03/2022 Potentially Unsafe Housing Conditions Not on boaz e 12/29/2022 Family and Community Support Answer Anson e Recorded Help with Day-to-Day Activities Not on file 12/16/2022 Lonely or Isolated Not on file 12/16/2022 Employment Answer Date Recorded Do you want help finding or keeping work or a judith b? Not on file 12/16/2022 Disabilities Answer Date Recorded Difficulty Concentrating, Remembering or Making Decisions no 12/29/2022 Difficulty Managing Errands Independently no 12/29/2022 Education Answer Date Recorded Help with school or training? Not on file Preferred Language Faroese 12/27/2022 Comments Unknown Sex and Gender Information Value Date Recorded Sex Assigned at Not on file Legal Sex Female 10:49 AM EDT Gender Identity Not on file Sexual Orientation Not on file Last Filed Vital Signs Vital Sign Reading Time Taken Comments Blood Pressure 111/72 12/29/2022 2:29 PM EDT Pulse 76 12/29/2022 2:29 PM EDT Temperature 36.6 C (97.9 F) 12/29/2022 2:29 PM EDT Respiratory Rate 18 12/29/2022 2:29 PM EDT Oxygen Saturation 94% 12/29/2022 2:29 PM EDT Inhaled Oxygen Concentration - - Weight 88.5 kg (195 lb) 12/29/2022 8:47 AM EDT Height 172.7 cm (5' 8 ) 12/29/2022 8:47 AM EDT Body Mass Index 29.65 12/29/2022 8:47 AM EDT Plan of Treatment Health Maintenance Due Date Last Done Comments Annual Gynecologic Pelvic and Breast Exam 1967 MAMMOGRAM 2007 TDAP/TD VACCINES (2 - Tdap) 03/21/2007 03/21/1997 COLOGUARD 2012 COLON CANCER SCREENING 5 YEAR SIGMOIDOSCOPY 2012 COLONOSCOPY [address] CANCER SCREENING 2012 [address] COLONOGRAPHY 2012 FECAL OCCULT BLOOD TEST 2012 FIT Testing (1 year) 2012 Pneumococcal Vaccine 50+ (1 of 1 - PCV) 2017 ZOSTER VACCINE (1 of 2) 2017 ANNUAL PHYSICAL 12/27/2022 HEPATITIS C SCREENING 12/27/2022 INFLUENZA VACCINE 09/27/2024 Medical Devices Implanted Type Area Tubular Riveter Device Identifier Shelf Expiration Date Model / Serial / Lot Cmt Bone Palacos R Hi/Visc 1x40 - [id number] Implanted:Qty : 2 on 12/29/2022 by Rhett Borja MD at [facility] Implant Left: Knee [employer] [id number] 04/27/2027 [id number] / / [id number] Dev Contrl Tiss Stratafix Spiral Mncryl Pls Ps 3/0 30cm Ud - [id number] Implanted:Qty : 1 on 12/29/2022 by Rhett Borja MD at [facility] Implant Left: Knee [employer] J [employer] J [id number] 04/26/2024 [id number] / / [id number] Dev Contrl Tiss Stratafix Symm Pds Plus Barbra Ct-1 60cm - [id number] Implanted:Qty : 1 on 12/29/2022 by Rhett Borja MD at [facility] Implant Left: Knee [employer] DIV [employer] J [employer] J 05/27/2024 [id number] / / [id number] Insrt Art/Kn Legion Ps Hf Xlpe Sz3to4 9mm - [id number] Implanted:Qty : 1 on 12/29/2022 by Rhett Borja MD at [facility] Implant Left: Knee [employer] [id number] 08/12/2032 [id number] / / [id number] Pat Gen2 Resrf 29mm - [id number] Implanted:Qty : 1 on 12/29/2022 by Rhett Borja MD at [facility] Implant Left: Knee [employer] [id number] 06/29/2032 [id number] / / [id number] Comp Fem Legion Oxinium Ps Sz6 Lt - [id number] Implanted:Qty : 1 on 12/29/2022 by Rhett Borja MD at [facility] Implant Left: Knee [employer] [id number] 05/06/2032 [id number] / / [id number] Base Tib/Kn Gen2 Nonpor Ti Sz4 Lt - [id number] Implanted:Qty : 1 on 12/29/2022 by Rhett Borja MD at [facility] Implant Left: Knee [employer] [id number] 05/24/2032 [id number] / / [id number] Totl Kn Jovan Darnell Nephew - [id number] Implanted:Qty : 1 on 12/29/2022 by Rhett Borja MD at [facility] Implant Left: Rosie [employer] DACIA [id number] / / Insurance [facility]IC[facility]VANTAGE Advance Directives * CPR (Attempt to Resuscitate) (Latest Code Status on File) Date Activated Date Inactivated Comments 12/29/2022 2:31 PM 12/29/2022 8:02 PM Question Answer Comments Code Status (Patient has no pulse and is not breathing): CPR (Attempt to Resuscitate) Medical Interventions (Patie nt has pulse or is breathing): Full Support Level Of Support Discussed With: Patient Care Teams Marine Gear Keeper Relationship Specialty Start Date End Date Marvin Breaux MD [address] [facility] [address] [place] [address] PCP - General Internal Medicine 12/22/22
--- NOTE | 2025-01-21 02:23 | ECG_ITS ---
APPROVED REPORT Exam: Resting ECG HR:81 bpm ECG Measurements Heart Rate 81 AXES RI 190 P 67 QRSd 99 QRS 19 QT 424 T 56 QTc 461 Conclusion SINUS RHYTHM NORMAL ECG UNCONFIRMED REPORT Electronically signed by : KRISTAN RICHARDSON, 01/21/2025 05:48:21
[2025-01-21 02:29] LABS: Hematocrit 37.4 % (37.0-47.0); Hemoglobin 13.4 g/dL (12.2-16.2); Immature Granulocytes % 0.2 %; Mean Corpuscular HGB Conc 35.8 g/dL (31.8-35.4); Mean Corpuscular Hemoglobin 30.0 pg (27.0-31.2); Mean Corpuscular Volume 83.9 fl (81-99); Nucleated Red Blood Cells % 0 %; Platelet Count 222 K/mm3 (142-424); Red Blood Count 4.46 M/mm3 (4.20-5.40); Red Cell Distribution Width-SD 36.7 fL; White Blood Count 12.0 K/mm3 (4.8-10.8)
[2025-01-21 02:31] LABS: Albumin Level 4.6 g/dl (3.5-5.0); Chloride 86 mmol/L (98-107)
[2025-01-21 02:32] LABS: Potassium 3.5 mmoL/L (3.5-5.1); Sodium 120 mmol/L (136-145)
--- NOTE | 2025-01-21 02:33 | PC.NURSE ---
Upon arrival sternal rub, nail bed pressure PT would not respond. When rubbing a large amount of makeup of PT face, PT woulld squint eyes. When rubbing pen up foot, pt pulled foot away. PT will not answer any questions.
[2025-01-21 02:34] LABS: Alanine Aminotransferase 24 U/L (12-78); Anion Gap 15.5 mEq/L (5-15); Aspartate Amino Transferase 40 U/L (14-36); Blood Urea Nitrogen 6 mg/dl (7-17); Carbon Dioxide 22 mmol/L (22.0-30.0); Creatinine Clearance Estimated 143 mL/min (50-200); Creatinine,Serum 0.70 mg/dl (0.52-1.04); Estimated Glomerular Filt Rate 86 ml/min (>60); GFR (African American) 104 ML/MIN (>60)
[2025-01-21 02:35] LABS: Albumin/Globulin Ratio 1.5 (1.1-1.8); Alkaline Phosphatase 73 U/L (38-126); Bilirubin,Total 0.5 mg/dl (0.2-1.3); Calcium 8.9 mg/dl (8.4-10.2); Globulin 3.0 g/dL (1.3-3.2); Glucose 105 mg/dl (74-100); Total Protein,Serum 7.6 g/dl (6.3-8.2)
--- NOTE | 2025-01-21 02:39 | PC.NURSE ---
PT tolerated Intermittent Cath well. PT did have a response to cleaning peter area. When cath was finish PT squeezed legs together by herself. After cath PT began to speak but then stopped and refused to answer any questions.
[2025-01-21 02:43] LABS: Microscopic, Urine URINE MICROSCOPIC (MICROSCOPIC)
[2025-01-21 02:44] LABS: Acetaminophen < 10 ug/ml (10-30); Salicylate < 1.0 mg/dL (2.0-20.0)
[2025-01-21 02:45] LABS: Bilirubin,Urine Negative (Negative); Color,Urine YELLOW (Yellow); Glucose,Urine (UA) Negative (Negative); Ketones,Urine TRACE (Negative); Leukocyte Esterase,Urine 1+ (Negative); PH,Urine 6.0 (5.0-8.5); Protein,Urine Negative (Negative); Specific Gravity, Urine <= 1.005 (1.005-1.030); Urobilinogen,Urine 0.2 EU/dl (0.2)
[2025-01-21] MEDS: LACTATED RINGERS 1000ML 1,000 ML 999 ML IV (02:45)
[2025-01-21 02:55] LABS: Benzodiazepines Screen,Urine Negative ng/ml (<200)
[2025-01-21 02:56] LABS: Amphetamine/Metha Screen,Urine Negative ng/ml (<1000)
[2025-01-21 02:57] LABS: Barbiturates Screen,Urine Negative ng/ml (<200)
[2025-01-21 02:59] LABS: Opiate Screen,Urine Positive ng/ml (<300)
[2025-01-21 03:00] LABS: Phencyclidine Screen,Urine Negative ng/ml (<25)
[2025-01-21 03:11] LABS: Bacteria,Urine 3+ /lpf
[2025-01-21] MEDS: 0.9 % SODIUM CHLORIDE 50 ML VIAL IV (03:21)
[2025-01-21] MEDS: SODIUM CHLORIDE 0.9% 10ML SYR (RAD ONLY) 10 ML IV (03:21)
[2025-01-21] MEDS: IOPAMIDOL-370 (76%);100ML BOTTLE 160 ML IV (03:21)
[2025-01-21 03:22] LABS: Methadone Screen,Urine Negative ng/ml (<300)
--- NOTE | 2025-01-21 03:35 | PC.NURSE ---
PT urinated onself in CT scan. Washed PT with luke warm water due to unknown Bathroom chemical pt put on herself. Scratched noted to bilateral arms. No thorns noted to be in skin.
[2025-01-21 03:45] LABS: Hepatitis C Ab Qual. W/ RFX NEGATIVE (Negative)
[2025-01-21] MEDS: CEFTRIAXONE 1 GM 1 GM in 0.9 % SODIUM CHLORIDE 50 ML IV (04:08)
--- NOTE | 2025-01-21 04:15 | PC.NURSE ---
When asking PT questions PT persistently does not answer. All VS WNL. PT is noted to have eyes closed but can see movement of eyes under lids. PT also will move legs per self.
--- NOTE | 2025-01-21 04:16 | PC.NURSE ---
0345 PT brought ot PT room. spoke to PT and PT opened eyes and moved head towards but persistency would not answer questions.
--- NOTE | 2025-01-21 04:23 | PC.NURSE ---
Report called to VALENTE Oswald
--- NOTE | 2025-01-21 04:31 | PC.NURSE ---
Pants, panties, x2 camo crocs, bra and gold necklace in belongings bag. Unsure if griffin blanket belongs to PT, sent with PT.
--- NOTE | 2025-01-21 05:00 | PC.NURSE ---
Mrs Maru Haynes was newly admitted this shift on behalf of the documented diagnosis hyponatremia and psychiatric symptoms. Her orientation status is unable to be assessed at this time. Admission assessments were also unable to be performed accurately due to the her current obtunded state. Home medication reconciliation was performed by utilizing the external medication history. No family members were present upon her arrival to the second floor. Patient has remained unresponsive to verbal stimuli (calling of name, interrogation with orientation questions) and to the majority of nonverbal stimuli (sternal rubs, pinching of skin, shaking, etc.). She has not expressed any apparent distress subjectively and objectively thus far. Patient was noted to have been soiled with urine upon arrival to her room; a partial bed bath was provided. Patient did not elicit any verbal responses during bathing. No cues (grimacing of the face, groaning, withdraws to pain location) of any pain were observed. A female purewick and a brief was placed for any further incontinence episodes. She is currently dependent on others for turning/repositioning in bed and all aspects of care. At randomized times, the patient would hold up her arms after nursing staff repeated the command to her, but she would let her arms fall back to her sides within seconds. Did not respond to grasping commands. She has also exhibited very slight movements of her legs after stroking the plantar surface of her feet. Patient has not opened her eyes to any commands or stimuli thus far, but she does squeeze them tight (but without opening them) ad belkis. Pupils do react to light, manual opening was performed by nursing staff. Movement of eyes underneath her eyelids was also observed. Bilateral lower extremities were noted to be slightly mottled; skin is also slightly cool to touch. Multiple warm blankets were provided. Initial rectal temperature of 96.8. Respirations are even and unlabored on room air. Oxygen saturation 99%. Physical assessment was performed (see nursing shift biophysical intervention) as appropriately for this shift. shipping agent is in place. No scheduled medications due at this time. Additional urine sample collections pending. Impaired mobility presented, high fall risk precautions initiated. Bed alarm is on. Call light within reach. Case management and PT/OT consults ordered per protocol.
[2025-01-21 06:21] LABS: Hematocrit 37.8 % (37.0-47.0); Hemoglobin 13.1 g/dL (12.2-16.2); Immature Granulocytes % 0.4 %; Mean Corpuscular HGB Conc 34.7 g/dL (31.8-35.4); Mean Corpuscular Hemoglobin 29.9 pg (27.0-31.2); Mean Corpuscular Volume 86.3 fl (81-99); Nucleated Red Blood Cells % 0 %; Platelet Count 178 K/mm3 (142-424); Red Blood Count 4.38 M/mm3 (4.20-5.40); Red Cell Distribution Width-SD 37.9 fL; White Blood Count 8.5 K/mm3 (4.8-10.8)
--- NOTE | 2025-01-21 06:22 | EXP.HP ---
History of Present Illness *Admission Date: 01/21/25 *Reason for visit:: Psychosis *History of present illness: Maru Haynes is a 59-year-old female with past medical history significant for schizophrenia, hypertension, peripheral neuropathy, chronic pain, hyperlipidemia and arthritis. Presents to [facility] due to increased confusion/psychosis. Patient discharged from our facility today after recovering from overdose with Abilify and mild hyponatremia. It was noted patient became more erratic after returning home. stated that her symptoms have exacerbated reporting she was outside with wheeling up and down the hill. EMS was notified and transferred her to our facility for further evaluation. It was noted on her way to the facility her right behavior subsided and she became quiet forcing her eyes closed on wanting to interact. During evaluation in the emergency department she was found to have a urinary tract infection. Received IV Rocephin. Sodium level decreased from discharge finding to 120. Initial ED workup included laboratory studies and imaging. WBC 12, sodium 120, chloride 86, anion gap 15.5, BUN 6, AST 40, UA positive for nitrate, 1+ leukocyte esterase, 3+ bacteria. Multiple imaging studies obtained and reviewed included thoracic spine CT, neck CTA, lumbar spine CT, head CTA, chest CTA, cervical spine CT, abdomen pelvis CTA all reviewed and without acute finding. Head CT personally reviewed showing no acute intracranial abnormality. Rounded likely dural-based hyperdensity along the left central sulcus with minimal adjacent hyperostosis likely represents a meningioma. Assessment of patient at bedside without acute distress, hemodynamically stable. [facility] Disclaimer: The information contained in this section may have been updated after the patient was seen, as this information can be updated by other users. 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 Peripheral vascular disease, unspecified Benign essential HTN Unspecified asthma, uncomplicated Nicotine dependence, unspecified, with unspecified nicotine-induced disorders Chronic obstructive pulmonary disease, unspecified Rheumatoid arthritis with rheumatoid factor of unspecified site without organ or systems involvement Hyperlipidemia Surgical History Hx of breast reduction, elective History of knee replacement Family History Other No significant family history Social History Smoking Status: Never smoker alcohol intake: never substance use type: denies use current occupational status: disabled Travel in the last 8 weeks?: None caffeine: Yes Have you lived/traveled outside [place] in past 30 days?: No Contact w/someone who lives/traveled outside US past 30 days?: No Exposure to someone with infectious disease in past 14 days?: No Do you have a fever (greater than 100.4 F or 38 C)?: No Have you tested positive for COVID-19?: No Exposed to someone with COVID-19 in past 14 days?: No Do you have a sore throat?: No Do you have a cough?: No Do you have any weakness?: No Do you have any diarrhea?: No Are you experiencing any unusual bleeding?: No Do you have any muscle aches/pain?: No Do you have any abdominal pain?: No Are you experiencing loss of taste or smell?: No Other Medical History Have you received the Flu Vaccine for this season: No (UNABLE TO BE ASSESSED DUE TO ALTERED MENTAL STATUS) Have you received the Pneumonia Vaccine: No (UNABLE TO BE ASSESSED DUE TO ALTERED MENTAL STATUS) Review of Systems Review of Systems Review of systems:: unable to obtain and pertinent systems reviewed and negative unless documented below Constitutional Constitutional: Reports system reviewed and no additional complaints, except as documented and Reports as per HPI Eyes Eyes: Reports system reviewed and no additional complaints, except as documented and Reports as per HPI ENT Ears, Nose, Mouth, and Throat: Reports system reviewed and no additional complaints, except as documented and Reports as per HPI *Cardiovascular Cardiovascular: Reports system reviewed and no additional complaints, except as documented and Reports as per HPI *Respiratory Respiratory: Reports system reviewed and no additional complaints, except as documented and Reports as per HPI *Gastrointestinal Gastrointestinal: Reports system reviewed and no additional complaints, except as documented and Reports as per HPI *Genitourinary Genitourinary: Reports system reviewed and no additional complaints, except as documented and Reports as per HPI *Musculoskeletal Musculoskeletal: Reports system reviewed and no additional complaints, except as documented and Reports as per HPI Integumentary/Breasts Skin/Breast: Reports system reviewed and no additional complaints, except as documented and Reports as per HPI *Neurologic Neurologic: Reports as per HPI and Reports behavioral changes Psychiatric Psychiatric: Reports as per HPI, Reports auditory hallucinations and Reports behavioral changes Endocrine Endocrine: Reports as per HPI Hematologic/Lymphatic Hematologic/Lymphatic: Reports system reviewed and no additional complaints, except as documented and Reports as per HPI Allergic/Immunologic Allergic/Immunologic: Reports system reviewed and no additional complaints, except as documented and Reports as per HPI Meds Home Medications and Allergies Home Medications ?Medication ?Instructions ?Recorded ?Confirmed ?Type adalimumab 40 mg/0.8 mL 40 mg SQ DIRECTED 01/19/25 01/21/25 History subcutaneous pen kit (Humira Pen) alendronate 70 mg tablet 70 mg PO WEEKLY 01/19/25 01/21/25 History aripiprazole 10 mg tablet 10 mg PO DAILY 01/19/25 01/21/25 History cetirizine 10 mg tablet 10 mg PO DAILY 01/19/25 01/21/25 History hydrocodone 10 mg-acetaminophen 1 tab PO Q6H PRN pain 01/19/25 01/21/25 History 325 mg tablet hydroxychloroquine 200 mg tablet 200 mg PO DAILY 01/19/25 01/21/25 History leflunomide 20 mg tablet 20 mg PO DAILY 01/19/25 01/21/25 History losartan 50 mg tablet 50 mg PO DAILY 01/19/25 01/21/25 History metoprolol succinate 100 mg 100 mg PO BID 01/19/25 01/21/25 History tablet,extended release 24 hr montelukast 10 mg tablet 10 mg PO DAILY 01/19/25 01/21/25 History rimegepant 75 mg disintegrating 75 mg PO NEEDED PRN migraine 01/19/25 01/21/25 History tablet (Nurtec ODT) rosuvastatin 5 mg tablet 5 mg PO DAILY 01/19/25 01/21/25 History venlafaxine 100 mg tablet 150 mg PO BID 01/19/25 01/21/25 History New Prescriptions to Start Prescriptions: Allergies Allergy/AdvReac Type Severity Reaction Status Date / Time latex Allergy Intermediate I-RASH Verified 10/08/24 13:29 varenicline Allergy Mild SWEATS Verified 10/08/24 13:29 Exam Data for Last 24 hours Vital signs and Labs for Last 24 Hours: Temp Pulse Resp BP Pulse Ox O2 Del Method O2 Flow Rate 97.9 F 73 16 144/78 H 98 Room Air 2 01/21/25 04:14 01/21/25 04:14 01/21/25 04:14 01/21/25 04:14 01/21/25 03:36 01/21/25 05:00 01/21/25 02:41 Laboratory Results - last 24 hr 01/21/25 02:00: WBC 12.0 H D, RBC 4.46, Hgb 13.4, Hct 37.4, MCV 83.9, MCH 30.0, MCHC 35.8 H, RDW 12.0, Plt Count 222, MPV 8.7, Neut % (Auto) 76.2, Lymph % (Auto) 13.3, Camp % (Auto) 9.2, Eos % (Auto) 0.5, Baso % (Auto) 0.6, Neut # (Auto) 9.2 H, Lymph # (Auto) 1.6, Camp # (Auto) 1.1 H, Eos # (Auto) 0.1, Baso # (Auto) 0.1, Sodium 120 L, Potassium 3.5, Chloride 86 L, Carbon Dioxide 22, Anion Gap 15.5 H, BUN 6 L D, Creatinine 0.70, Estimated Creat Clear 143, Estimated GFR 86, Est GFR ( Amer) 104, Glucose 105 H D, Calcium 8.9, Total Bilirubin 0.5, AST 40 H D, ALT 24 D, Alkaline Phosphatase 73, Total Protein 7.6, Albumin 4.6, Globulin 3.0, Albumin/Globulin Ratio 1.5, Salicylates < 1.0 L, Acetaminophen < 10 L, HCV Ab WILLIS w/Rflx PCR Qn Negative, HIV Ag/Ab Combo Qual Negative 01/21/25 02:37: Urine Color Yellow, Urine Appearance Clear, Urine pH 6.0, Ur Specific [place] <= 1.005, Urine Protein Negative, Urine Glucose (UA) Negative, Urine Ketones Trace, Urine Blood 1+ A, Urine Nitrate Positive A, Urine Bilirubin Negative, Urine Urobilinogen 0.2, Ur Leukocyte Esterase 1+ A, Urine RBC None, Urine WBC 5-10, Ur Squamous Epith Cells None, Urine Bacteria 3+, Urine Opiates Screen Positive H, Urine Methadone Screen Negative, Ur Barbituates Screen Negative, Ur Phencyclidine Scrn Negative, Ur Amphetamines Screen Negative, U Benzodiazepines Scrn Negative, Urine Cocaine Screen Negative, U Marijuana (THC) Screen Negative I & O for Last 24 hours: Intake & Output 01/18/25 01/19/25 01/20/25 01/21/25 23:59 23:59 23:59 23:59 Intake Total 851 / 851 Output Total 0 / 0 Balance 851 / 851 Weight 102.058 kg Constitutional Constitutional: no acute distress *Routine HEENT Exam Head: Present normocephalic and atraumatic Eye: Present EOMI, PERRL and normal accommodation ENT: Present mucous membranes moist *Routine Neck Exam Neck: Present supple and full ROM *Routine Respiratory Exam Respiratory: Present normal respiratory effort *Routine Cardiovascular Exam Cardiovascular: Present RRR, Normal S1 and Normal S2 *Routine Abdominal Exam Abdominal: Present soft and normoactive bowel sounds *Routine Rectal Exam Rectal:: deferred *Routine Genitalia Exam Genitalia:: deferred *Routine Extremities Exam Extremities: Present full ROM, pulses intact and normal capillary refill *Routine Skin Exam Skin: Present intact *Routine Neurological Exam Neurological: Present altered mental status Routine Psychiatric Exam Psychiatric: Present unable to assess Assessment and Plan *Assessment and plan (1) Acute hyponatremia: Status: Acute Category: Medical Code(s): E87.1 - Hypo-osmolality and hyponatremia (2) UTI (urinary tract infection): Status: Acute Qualifiers: Hematuria presence: without hematuria Urinary tract infection type: acute cystitis Qualified Code(s): N30.00 - Acute cystitis without hematuria Category: Medical Code(s): N39.0 - Urinary tract infection, site not specified (3) Psychosis: Status: Acute Qualifiers: Psychosis type: schizophrenia Schizophrenia type: unspecified Qualified Code(s): F20.9 - Schizophrenia, unspecified Category: Medical Code(s): F29 - Unspecified psychosis not due to a substance or known physiological condition (4) Schizophrenia: Status: Acute Qualifiers: Schizophrenia type: unspecified Qualified Code(s): F20.9 - Schizophrenia, unspecified Category: Medical Code(s): F20.9 - Schizophrenia, unspecified (5) Abnormal CT of the head: Status: Acute Category: Medical Code(s): R93.0 - Abnormal findings on diagnostic imaging of skull and head, not elsewhere classified (6) Ovarian cyst: Status: Acute Qualifiers: Laterality: right Qualified Code(s): N83.201 - Unspecified ovarian cyst, right side Category: Medical Code(s): N83.209 - Unspecified ovarian cyst, unspecified side Plan 1. Acute hyponatremia: Recent admission with mildly decreased sodium level, at discharge sodium level 130 range. Returning with sodium of 120. Suspect SIADH-> possible medication induced. Fluid restriction, trend sodium level monitor to avoid rapid correction. 2. Psychosis/schizophrenia: Patient admitted recently due to overdose with Abipenny. states that she had not been taking her medication for approximately a month and then ultimately took multiple tablets which prompted her an overnight visit for observation with overdose. Returning home today unfortunately symptoms exacerbated with increased confusion. Possibly exacerbated with underlying hyponatremia and urinary tract infection. Monitor medication. 3. Urinary tract infection: Positive nitrate, bacteria-> IV Rocephin received in the emergency department. Urine culture obtained and pending follow, resume IV antibiotic therapy. 4. Abnormal CT of the head: Noted possible meningioma CT-MRI recommended for confirmation. Monitor. DVT prophylaxis: Lovenox Full code Regular diet with fluid restriction-1.5 L. I personally discussed the management of this patient with the emergency department provider agreed with admission due to acute hyponatremia, urinary tract infection and psychosis. Plan to monitor fluid intake with fluid restriction 1.5 L, trend sodium level, IV antibiotic for urinary tract infection.
[2025-01-21 06:50] LABS: Alanine Aminotransferase 20 U/L (12-78); Albumin Level 3.9 g/dl (3.5-5.0); Albumin/Globulin Ratio 1.6 (1.1-1.8); Alkaline Phosphatase 66 U/L (38-126); Anion Gap 11.4 mEq/L (5-15); Aspartate Amino Transferase 36 U/L (14-36); Bilirubin,Total 0.4 mg/dl (0.2-1.3); Blood Urea Nitrogen 5 mg/dl (7-17); Calcium 8.2 mg/dl (8.4-10.2); Carbon Dioxide 19 mmol/L (22.0-30.0); Chloride 96 mmol/L (98-107); Creatinine Clearance Estimated 167 mL/min (50-200); Creatinine,Serum 0.60 mg/dl (0.52-1.04); Estimated Glomerular Filt Rate 103 ml/min (>60); GFR (African American) 125 ML/MIN (>60); Globulin 2.5 g/dL (1.3-3.2); Glucose 103 mg/dl (74-100); Potassium 3.4 mmoL/L (3.5-5.1); Sodium 123 mmol/L (136-145); Total Protein,Serum 6.4 g/dl (6.3-8.2)
--- NOTE | 2025-01-21 06:55 | PC.NURSE ---
Addendum entered by Margret Lainez RN 01/21/25 07:20: Patient is able to have meaningful conversations and answers questions quite appropriately. She has also not made any indication of any type of hallucinations thus far this morning. Original Note: Acute Change in Mental Status At approximately 06:45, the patient's bed alarm went off. Nursing staff immediately rushed to the patient's room to find her standing in her room near the doorway. The patient stated, I'm getting up to go pee. Expressed continence of bladder. Patient was ambulating independently in her room without difficulty. Patient was assisted to the bathroom by nursing staff. Orientation status was assessed at this time. Patient is alert to herself, can recite her birthday matching with her chart, and expressed awareness that she arrived to the hospital by ambulance. However, the patient stated that she is unable to recall some of the events as to why she arrived here, and she is unable to recall the current date/time. She is able to maintain eye contact and follow commands excellently. Patient has not expressed having any complaints at this time, other than feeling thirsty. Mountain Dew soda and ice water was provided. Bed alarm is on. Call light within reach.
--- NOTE | 2025-01-21 08:23 | HMH.PHAINT1 ---
Pharmacy Intervention Comments: MEDICATION RECONCILIATION COMPLETED ON PATIENT USING DISCHARGE SUMMARY FROM YESTERDAY. -ANDREY CANO, MARKYD
--- NOTE | 2025-01-21 08:36 | HMH.PHAAMS2 ---
- Antimicrobial Stewardship Review culture & sensitivity review Stewardship interventions: culture & sensitivity review Comments: URINE CX PENDING, PATIENT ON ROCEPHIN EMPIRICALLY FOR UTI.
--- NOTE | 2025-01-21 09:08 | HMH.PTEV ---
Physical Therapy Evaluation Rehab PT IP Evaluation Start: 01/21/25 06:03 Freq: ONCE Status: Active Protocol: Document 01/21/25 09:04 SUSY (Rec: 01/21/25 09:08 SUSY [id number]) Subjective/History History History Per H&P: Maru Haynes is a 59-year-old female with past medical history significant for schizophrenia , hypertension, peripheral neuropathy, chronic pain, hyperlipidemia and arthritis. Presents to [facility] due to increased confusion/psychosis. Patient discharged from our facility today after recovering from overdose with Abilify and mild hyponatremia. It was noted patient became more erratic after returning home. stated that her symptoms have exacerbated reporting she was outside with wheeling up and down the hill. EMS was notified and transferred her to our facility for further evaluation. It was noted on her way to the facility her right behavior subsided and she became quiet forcing her eyes closed on wanting to interact. During evaluation in the emergency department she was found to have a urinary tract infection. Received IV Rocephin. Sodium level decreased from discharge finding to 120. Initial ED workup included laboratory studies and imaging. WBC 12, sodium 120, chloride 86, anion gap 15 .5, BUN 6, AST 40, UA positive for nitrate, 1+ leukocyte esterase, 3+ bacteria. Multiple imaging studies obtained and reviewed included thoracic spine CT, neck CTA, lumbar spine CT, head CTA, chest CTA, cervical spine CT, abdomen pelvis CTA all reviewed and without acute finding. Head CT personally reviewed showing no acute intracranial abnormality. Rounded likely dural-based hyperdensity along the left central sulcus with minimal adjacent hyperostosis likely represents a meningioma. Assessment of patient at bedside without acute distress, hemodynamically stable. Subjective Subjective Pt reports she lives with her and is normally IND with all mobility. Pt denies any recent falls. [facility] How much help from another person do you currently need... Turning from your None back to your side while in a flat bed without using bedrails? Moving from lying on None back to sitting on the side of a flat bed without using bedrails? Moving to and from a None bed to a chair ( including a wheelchair)? Standing up from a None chair using your arms? (e.g., wheelchair, bedside chair) Walking in hospital None room? Climbing 3-5 steps None with a railing? Mobility Score 24 Mobility Level [facility] Mobility 8 Walk 250 feet or more Mobility Calculator Rehab PT IP Eval Objective Appearance Patient Behavior Appropriate,Cooperative Patient Orientation Person,Place,Situation Difficulty following none instructions Speech Pattern Clear Ambulation Patient Able to Yes Ambulate Ambulation Observation IP General Gait No Deviations/Normal Pattern Observation Ambulation Distance 40 (feet) Ambulation Assistive None Device Ambulation Ability Supervision/Stand by Balance Ability to Arise Able, uses arms to help Sitting Balance Steady, safe Standing Balance Steady, wide stance Dynamic Sitting Good Balance Ability Dynamic Standing Good Balance Ability Transfers Bed Transfer Ability Independent Sit to Stand Bed Independent Transfer Ability Rehab PT IP prob,goals,plan Problems Date of Evaluation: 01/21/25 Rehab Potential Rehab Potential Innapropriate for Skilled Therapy Discharge Plan PT Discharge Plan Pt is at her baseline with mobility and would not benefit from skilled PT at this time. Eval Complexity Eval Charge Codes 60297 - Moderate Complexity PHYSICIAN CERTIFICATION: I certify the specified therapy services for Maru Haynes are required, authorized, and reviewed every 30 days.
--- NOTE | 2025-01-21 09:08 | HMH.OTEV ---
OT Evaluation Rehab OT IP Evaluation Start: 01/21/25 06:03 Freq: ONCE Status: Active Protocol: Document 01/21/25 09:05 VIVIANA (Rec: 01/21/25 09:08 [facility] [id number]) Rehab OT IP Assessment Subjective History History and physical: Maru Haynes is a 59-year-old female with past medical history significant for schizophrenia, hypertension, peripheral neuropathy, chronic pain, hyperlipidemia and arthritis. Presents to [facility] due to increased confusion/psychosis. Patient discharged from our facility today after recovering from overdose with Abilify and mild hyponatremia. It was noted patient became more erratic after returning home. stated that her symptoms have exacerbated reporting she was outside with wheeling up and down the hill. EMS was notified and transferred her to our facility for further evaluation. It was noted on her way to the facility her right behavior subsided and she became quiet forcing her eyes closed on wanting to interact. During evaluation in the emergency department she was found to have a urinary tract infection. Received IV Rocephin. Sodium level decreased from discharge finding to 120. Initial ED workup included laboratory studies and imaging. WBC 12, sodium 120, chloride 86, anion gap 15 .5, BUN 6, AST 40, UA positive for nitrate, 1+ leukocyte esterase, 3+ bacteria. Multiple imaging studies obtained and reviewed included thoracic spine CT, neck CTA, lumbar spine CT, head CTA, chest CTA, cervical spine CT, abdomen pelvis CTA all reviewed and without acute finding. Head CT personally reviewed showing no acute intracranial abnormality. Rounded likely dural-based hyperdensity along the left central sulcus with minimal adjacent hyperostosis likely represents a meningioma. Assessment of patient at bedside without acute distress, hemodynamically stable. Subjective Pt oriented x 3 on arrival. Pt agreeable to engage in therapy evaluation. Prior to being in the hospital, pt lived at home with her . Pt claims normally she is independent with all ADLs and IADLs. Pt does not require any type of AE during functional transfers. Pt also still drives. Objective Patient Orientation Person,Place,Birthday Right Upper WFL Extremity Gross ROM Left Upper Extremity WFL Gross ROM Bed Mobility bed mobility-scooting,bed mobility - supine/sit Assist Level Supervision/Stand by Transfer Training Sit/Stand Transfer Assist Level Supervision/Stand by Chair Transfer Supervision/Stand by Ability Chair Transfer Sit to/from Ambulatory Technique Lower Body Dressing Standby Assistance Ability Rehab OT IP prob,goals,plan Problems Date of Evaluation: 01/21/25 Rehab Potential Rehab Potential Innapropriate for Skilled Therapy Discharge Plan OT Discharge Plan Pt appears to be at her baseline with functional transfers and ADL independence. Pt can return home with her once she is medically stable per physician. Eval Complexity Eval Charge Codes 75386 - Moderate Complexity PHYSICIAN CERTIFICATION: I certify the specified therapy services for Maru Haynes are required, authorized, and reviewed every 30 days.
[2025-01-21 09:09] LABS: Sodium,Urine Random 17.0 mmol/L (30-90)
[2025-01-21] MEDS: POTASSIUM CHLORIDE 20MEQ TAB 40 MEQ PO ×2 (09:41→12:19)
[2025-01-21 10:07] LABS: Sodium 135 mmol/L (136-145)
[2025-01-21 14:14] LABS: Chloride 96 mmol/L (98-107); Potassium 4.5 mmoL/L (3.5-5.1); Sodium 132 mmol/L (136-145)
[2025-01-21 14:17] LABS: Blood Urea Nitrogen 6 mg/dl (7-17); Creatinine Clearance Estimated 125 mL/min (50-200); Creatinine,Serum 0.80 mg/dl (0.52-1.04); Estimated Glomerular Filt Rate 74 ml/min (>60); GFR (African American) 89 ML/MIN (>60)
[2025-01-21 14:18] LABS: Anion Gap 14.5 mEq/L (5-15); Calcium 8.9 mg/dl (8.4-10.2); Carbon Dioxide 26 mmol/L (22.0-30.0); Glucose 89 mg/dl (74-100)
--- NOTE | 2025-01-21 16:23 | PC.NURSE ---
patient has refused the chair alarm this shift. I have explained the importance of the chair alarm to patient for patient safety, patient states she understands the need for chair alarm, but continues to pull the alarm off of gown and ambulate to the bathroom independently. patient has also refused to wear telemetry after multiple attempts to reapply electrodes and stickers. patient has been educated on the importance of the bed alarm and tele monitoring. patient pulled out IV and stated Father told me to. When asking who she was referring to she said Uday. no bleeding to site noted, Alicia Diaz APRN notified. patient is currently sitting up in the chair, chair alarm in in place, behavioral health [facility] [employer] at bedside. call light within reach
[2025-01-21] MEDS: ATORVASTATIN 10MG TABLET 5 MG PO (20:41)
[2025-01-21] MEDS: CEFDINIR 300MG CAPSULE 300 MG PO (20:41)
[2025-01-22] VITALS: BP 140/58; PULSE 75; PULSE 85; RESP 16; TEMP 36.7; O2SAT 95
--- NOTE | 2025-01-22 03:35 | PC.NURSE ---
Pt. is alert and orientated x 4. Pt. is on room air. Pt. has had no complaints this shift. Pt. removed her IV prior to shift change and does not have IV access. Pt. got up just after shift change and took a shower. Pt. has been resting comfortably in the bed. did sit in the chair for about an hour. Pt. was evaluated by Behavioral Health yesterday, per shift report Pt. was recommended for inpatient psychiatric treatment. Pt. also in fluid restrictions to correct the hyponatremia. Personal items and call tolbert in reach. Bed in low and locked position. Bed alarm on while in bed and chair alarm on when in chair. Pt. is on standby assist when ambulating to Bathroom. Pt. quiet and cooperative this shift.
[2025-01-22 04:00] VITALS: BP 133/81; PULSE 85; PULSE 88; RESP 16; TEMP 36.7; O2SAT 97; BMI 33.2
[2025-01-22 07:38] VITALS: BP 135/62; PULSE 62; RESP 16; TEMP 36.6; O2SAT 92
[2025-01-22 08:00] VITALS: PULSE 110
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
--- NOTE | 2025-01-22 08:40 | HMH.PHAAMS2 ---
- Antimicrobial Stewardship Review culture & sensitivity review Stewardship interventions: culture & sensitivity review Comments: URINE CX PENDING, PATIENT ON CEFDINIR EMPIRICALLY FOR UTI.
--- NOTE | 2025-01-22 08:44 | SW/DCPLANNER ---
Addendum entered by [facility] 01/22/25 15:47: Cece sosa/ [facility] is not able to accept at this time and has recommended [facility] for this patient. Patient and are agreeable to [facility] and will discharge from [facility] today w/ to transport to [facility]. I will contact [facility] today update regarding this patient. Addendum entered by [facility] 01/22/25 15:03: I spoke w/ [facility] regarding situation. [facility] recommended [facility] if [facility] is not able to accept. I will update Jodi Diaz regarding situation. [facility] is still reviewing patient information. Addendum entered by [facility] 01/22/25 14:54: Cece sosa/ [facility] is currently reviewing patient information. Addendum entered by [facility] 01/22/25 13:05: [facility] is not in network w/ patient's insurance. Patient information has been faxed [facility] . I will continue to follow up. Addendum entered by Kimber [place] 01/22/25 12:42: Per Lu w/ [facility] she does have a female bed available. Patient information has been faxed [phone]. Addendum entered by [facility] 01/22/25 12:36: Debbi Patel evaluated patient and recommended inpatient psych. Patient is agreeable to placement at [facility] or [facility]. I will follow up w/ [facility] and fax patient information. Per MD patient is medically stable for discharge today. Original Note: Debbi Patel w/ Behavioral Health will be at bedside this AM at 11AM to speak w/ patient. Debbi Patel has requested be present for conversation. I did speak w/ patient's this AM and he will be at bedside for Behavioral Health consult.
[2025-01-22 08:50] LABS: Anion Gap 12.5 mEq/L (5-15); Blood Urea Nitrogen 3 mg/dl (7-17); Calcium 9.3 mg/dl (8.4-10.2); Carbon Dioxide 22 mmol/L (22.0-30.0); Chloride 101 mmol/L (98-107); Creatinine Clearance Estimated 111 mL/min (50-200); Creatinine,Serum 0.80 mg/dl (0.52-1.04); Estimated Glomerular Filt Rate 74 ml/min (>60); GFR (African American) 89 ML/MIN (>60); Glucose 117 mg/dl (74-100); Potassium 3.5 mmoL/L (3.5-5.1); Sodium 132 mmol/L (136-145)
[2025-01-22] MEDS: HYDROCODONE 10MG/APAP 325MG TAB 1 TAB PO (08:53)
[2025-01-22] MEDS: HYDROXYCHLOROQUINE SULFATE 200MG TABLET 200 MG PO (08:54)
[2025-01-22] MEDS: CEFDINIR 300MG CAPSULE 300 MG PO (08:54)
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
--- NOTE | 2025-01-22 10:14 | PC.NURSE ---
bed alarm and chair alarm placed on pt due to being high fall risk. pt has refused the chair and bed alarm this shift. pt has turned her bed alarm off and pulled the chair alarm string off of herself. I explained the need and importance of alarms for safety, pt verbalizes understanding but continues to turn them off and independently ambulate around her room.
[2025-01-22] MEDS: POTASSIUM CHLORIDE 20MEQ TAB 40 MEQ PO ×2 (11:03→14:28)
[2025-01-22 11:55] VITALS: BP 132/68; PULSE 62; RESP 16; TEMP 36.6; O2SAT 94
[2025-01-22 12:00] VITALS: PULSE 110
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
--- OUTSIDE RECORDS SUMMARY | 2025-01-22 13:44 | XMS_ITS | Encounter Summary ---
Author Organization [employer] ([place], [place], [place], [place], [place]) Address [address] [place] [address] Care Team Providers Care Legger Press Operator Name Role Phone Marvin Breaux MD Primary Care Provider [phone] Encounter Details Date Type Department Care Team (Latest Contact Info) Description 01/02/2025 Travel Social History Tobacco Use Types Packs/Day Years Used Date Smoking Tobacco: Never Assessed Family and Community Support Answer Anson e Recorded Help with Day to Day Activities Not on file 03/09/2023 Feeling Lonely or Isolated Not on file 03/09 Educational Attainment Answer Date David rded Speak language other than Djiboutian at home Not on file 03/09/2023 Want [...] Description 04/02/2025 2:30 PM EST Procedure Visit [facility] Neurology - [place] [address] [place] [address] Olivia Celis MD [address] [place], [place] [id number] documented as of this encounter Visit Diagnoses Not on filedocumented in this encounter Care Teams Legger Press Operator Relationship Specialty Start Date End Date Marvin Breaux MD [address] [place] [address] [place] [address] PCP - General General Internal Medicine 10/13/22 documented as of this encounter
--- OUTSIDE RECORDS SUMMARY | 2025-01-22 13:44 | XMS_ITS | Encounter Summary ---
Author Organization [facility] Address [address] [place] [address] Care Team Providers Care Loan Review Officer Name Role Phone Marvin Breaux MD Primary Care Provider [phone] Encounter Details Date Type Department Care Team (Late st Contact Info) Description 05/04/2022 Lab Requisition [facility] [address] [place] [address] Andreea Mello, [place] [address] [place] [id number] Routine general medical examination at a health care facility Social History Tobacco Use Types Packs/Day Years Used Date Smoking Tobacco: Never Assessed Comments Unknown Sex and Gender Information Value Date Recorded Sex Assigned at Not on file Legal Sex Female 8:15 PM EDT Gender Identity Not on file Sexual Orientation Not on file documented as of this encounter Plan of Treatment Upcoming Encounters Date Type Department Care Team (Late st Contact Info) Description 02/13/2025 10:50 AM EST Office Visit [facility] [address] [place] [address] Lorin Melendez, SHOEMAKER CUSTOM [address] [place] [address] documented as of this encounter Visit Diagnoses Diagnosis Routine general medical examination at a health care facility documented in this encounter Care Teams Loan Review Officer Relationship Specialty Start Date End Date Marvin Breaux MD [address] [facility] [address] [place] [id number] PCP - General 05/27/24 documented as of this encounter
--- OUTSIDE RECORDS SUMMARY | 2025-01-22 13:44 | XMS_ITS | Clinical Summary ---
Author Organization [facility] Address [address] [place] [address] Care Team Providers Care Oil Well Services Field Supervisor Name Role Phone Marvin Breaux MD Primary Care Provider [phone] Allergies Active Allergy Reactions Criticality Noted Date [...] MG/0.1ML nasal spray Call 911. Don't prime. [place] in 1 nostril for overdose. Repeat in [...] or training? Not on file Preferred Language Divehi 12/27/2022 Comments Unknown Sex and Gender Information [...] VACCINE 09/27/2024 Medical Devices Implanted Type Area Associate Professor Of Medicine Device Identifier Shelf Expiration Date Model / Serial / Lot Cmt Bone Palacos R Hi/Visc 1x40 - [id number] Implanted:Qty : 2 on 12/29/2022 by Rhett Borja MD at [facility] Implant Left: Knee [employer] [id number] 04/27/2027 [id number] / / [id number] Dev Contrl Tiss Stratafix Spiral Mncryl Pls Ps 3/0 30cm Ud - [id number] Implanted:Qty : 1 on 12/29/2022 by Rhett Borja MD at [facility] Implant Left: Knee ETHICON DIV OF J AND J [id number] 04/26/2024 [id number] / / [id number] Dev Contrl Tiss Stratafix Symm Pds Plus Barbra Ct-1 60cm - [id number] Implanted:Qty : 1 on 12/29/2022 by Rhett Borja MD at [facility] Implant Left: Knee [employer] DIV OF J AND J 05/27/2024 [id number] / / [id number] Art/Kn Legion Ps Hf Xlpe Sz3to4 9mm - [id number] Implanted:Qty : 1 on 12/29/2022 by Rhett Borja MD at [facility] Implant Left: Knee [employer] [id number] 08/12/2032 [id number] / / [id number] Pat Gen2 Resrf 29mm - [id number] Implanted:Qty : 1 on 12/29/2022 by Rhett Borja MD at [facility] Implant Left: Knee [employer] [id number] 06/29/2032 [id number] / / [id number] Comp Fem Legion Oxinium Ps Sz6 Lt - [id number] Implanted:Qty : 1 on 12/29/2022 by Rhett Borja MD at [facility] Implant Left: Knee [employer] [id number] 05/06/2032 [id number] / / [id number] Base Tib/Kn Gen2 Nonpor Ti Sz4 Lt - [id number] Implanted:Qty : 1 on 12/29/2022 by Rhett Borja MD at [facility] Implant Left: Knee [employer] [id number] 05/24/2032 [id number] / / [id number] Totl Kn Jovan Darnell Nephew - [id number] Implanted:Qty : 1 on 12/29/2022 by Rhett Borja MD at [facility] Implant Left: Rosie [employer] DACIA [id number] / / Insurance [facility] MEDICARE ADVANTAGE Advance Directives * CPR (Attempt to Resuscitate) (Latest Code Status on File) Date Activated Date Inactivated Comments 12/29/2022 2:31 PM 12/29/2022 8:02 PM Question Answer Comments Code Status (Patient has no pulse and is not breathing): CPR (Attempt to Resuscitate) Medical Interventions (Patie nt has pulse or is breathing): Full Support Level Of Support Discussed With: Patient Care Teams Oil Well Services Field Supervisor Relationship Specialty Start Date End Date Marvin Breaux MD [address] [facility] [address] [place] [address] PCP - General Internal Medicine 12/22/22
--- OUTSIDE RECORDS SUMMARY | 2025-01-22 13:44 | XMS_ITS | Clinical Summary ---
Author Organization [employer] ([place], [place], [place], [place], [place]) Address [address] [place] [address] Care Team Providers Care Bonsai Tender Name Role Phone Marvin Breaux MD Primary Care Provider Allergies Active Allergy Reactions Criticality Noted Date [...] Description 01/02/2025 2:30 PM EST Procedure Visit [facility] Neurology - [address] [address] Olivia Celis MD Chronic migraine [...] Date David rded Speak language other than Italian at home Not on file 03/09/2023 Want [...] Description 04/02/2025 2:30 PM EST Procedure Visit [facility] Neurology - [place] [address] [place] [address] Olivia Celis MD [address] [place] [address] Health Maintenance Due Date Last [...] Insurance AARP MEDICARE COMPLETE MAP Care Teams Bonsai Tender Relationship Specialty Start Date End Date Marvin Breaux MD [address] [place] [address] [place] [address] PCP - General General Internal Medicine 10/13/22
--- OUTSIDE RECORDS SUMMARY | 2025-01-22 13:44 | XMS_ITS | Referral Summary ---
Author Organization [employer] ([place], [place], [place], [place], [place]) Address [address] [place] [address] Care Team Providers Care Horse Racetrack Manager Name Role Phone Marvin Breaux MD Primary Care Provider [phone] Encounters Date Type Department Care Team Description 01/02/2025 Travel 01/02/2025 2:30 PM EST Procedure Visit [facility] Neurology - [facility] [address] [place] [address] [address] [place] [address] Olivia Celis MD Chronic migraine [...] Date David rded Speak language other than Wallisian at home Not on file 03/09/2023 Want [...] Description 04/02/2025 2:30 PM EST Procedure Visit [facility] Neurology - [place] [address] [place] [phone] Olivia Celis MD [address] [place] [address] Insurance AARP MEDICARE COMPLETE MAP Care Teams Horse Racetrack Manager Relationship Specialty Start Date End Date Marvin Breaux MD [address] [place] [address] PCP - General General Internal Medicine 10/13/22
--- OUTSIDE RECORDS SUMMARY | 2025-01-22 13:44 | XMS_ITS | Encounter Summary ---
Author Organization [facility] Address [address] [place] [address] Care Team Providers Care Tool Technician Name Role Phone Marvin Breaux MD Primary Care Provider [phone] Encounter Details Date Type Department Care Team (Late st Contact Info) Description 10/21/2024 Results [facility] [address] [place] [address] Lorin Melendez, LOOM TUNER [address] [place] [address] Social History Tobacco Use Types Packs/Day Years Used Date Smoking Tobacco: Former Cigarettes 1 44 S tarted: 1980 Passive Smoke Exposure: Past Smokeless Tobacco: Never Alcohol Use Standard Drinks/Week Comments Not Currently 0 (1 standard drink = 0.6 oz pur e alcohol) PHQ-2 Answer Date Recorded Patient Health Questionnaire-2 Score 0 10/17/2024 AUDIT-C Answer Date Recorded Frequency of Alcohol Consumption Not on file 10/17/2024 Q2: How many drinks containi ng alcohol do you have on a typical day when you are drinking? Patient does not drink Frequency of Binge Drinking Not on file 09/28 Comments No Sex and Gender Information Value Date Recorded Sex Assigned at Not on file Legal Sex Female 8:15 PM EDT Gender Identity Not on file Sexual Orientation Not on file documented as of this encounter Plan of Treatment Upcoming Encounters Date Type Department Care Team (Late st Contact Info) Description 02/13/2025 10:50 AM EST [facility] [address] [place] [address] Lorin Melendez, LOOM TUNER [address] [place] [address] documented as of this encounter Visit Diagnoses Not on filedocumented in this encounter Additional Health Concerns Assessment Noted Time A fall risk assessment has been complete d for the patient 10/17/2024 1:46 PM EDT A Body Mass Index follow-up plan has been documented for the patient 10/17/2024 2:38 PM EDT documented as of this encounter Care Teams Tool Technician Relationship Specialty Start Date End Date Marvin Breaux MD [address] [facility] [address] [place] [address] PCP - General 05/27/24 documented as of this encounter
--- OUTSIDE RECORDS SUMMARY | 2025-01-22 13:44 | XMS_ITS | Encounter Summary ---
Author Organization [facility] Address [address] [place] [address] Care Team Providers Care Associate Accountant Name Role Phone Marvin Breaux MD Primary Care Provider [phone] Encounter Details Date Type Department Care Team (Late st Contact Info) Description 05/03/2022 Lab Requisition [facility] [address] [place] [address] Andreea Mello, PA [address] [place] [address] Routine general medical examination at a health [...] Description 02/13/2025 10:50 AM EST Office Visit [place] [facility] [address], [address] [place] [address] Lorin Melendez, AIRFIELD MANAGER [address] [place] [address] documented as of this encounter Procedures Procedure Name Priority Date/Time Associated Diagnosis Comments SARS COV-2/COVID-19 BY PCR - RAPID Routine 05/02/2022 11:15 PM EST Routine general medical examination at a health care facility [ICD-10-CM] documented in this encounter Results * SARS CoV-2/COVID-19 by PCR - Rapid (05/02/2022 11:15 PM EST) SARS CoV-2/COVID-1 9 RNA PCR Result Not Detected Not Detected 05/03/2022 2:07 AM EST [facility] Swab Nasopharyngeal structure / Unknown 05/02/2022 11:15 PM EST 05/03/2022 1:23 AM EST Narrative [facility] - 05/03/2022 2:07 AM EST This assay is for in vitro diagnostic use under FDA emergency use authorization only. Negative results do not preclude infection with the SARS CoV-2 virus and should not be the sole basis of a patient treatment/management or public health decision. Follow up testing should be performed according to the current CDC recommendations. This test was performed on the Xpert Xpress SARS CoV-2 test, a PCR-based method. Negative results should be considered presumptive and do not preclude current or future infection obtained through community transmission or other exposures. Negative results must be considered in the context of an individual's recent exposures, history, presence of clinical signs and symptoms consistent with COVID-19. us Andreea [facility] MICROBIOLOGY - GENERAL O RDERABLES Final Result Performing Organization Address City/State/[facility] Co de Phone Number [facility] [address] [place] [address] documented in this encounter Visit Diagnoses Diagnosis Routine general medical examination at a health care facility documented in this encounter Care Teams Associate Accountant Relationship Specialty Start Date End Date Marvin Breaux MD [facility] [facility] [address] [place] [address] PCP - General 05/27/24 documented as of this encounter
--- OUTSIDE RECORDS SUMMARY | 2025-01-22 13:44 | XMS_ITS | Clinical Summary ---
Author Organization [facility] Address [address] [place] [address] Care Team Providers Care Motorcycle Repair Shop Supervisor Name Role Phone Marvin Breaux MD Primary Care Provider [phone] Allergies Active Allergy Reactions Criticality Noted Date Comments Varenicline Other - please docum ent in the comment field High 06/03/2024 Sweating profusely Latex Rash Medium 09/24/2020 Medications ARIPiprazole (Abilify) 10 MG tablet Take 1 tablet by mouth daily. Active cetirizine (ZyrTEC) 10 MG tablet Take 1 tablet by mouth daily. 5 Active clotrimazole-betam ethasone (Lotrisone) cream Apply topically. Active folic acid (Folvite) 1 MG tablet Take 1 tablet by mouth 1 (one) time each day. Active HYDROcodone-acetam inophen (Elgin) 10-325 MG tablet TAKE ONE TABLET BY MOUTH EVERY 6 HOURS NEEDED FOR PAIN MAY CAUSE DROWSINESS 5 Active hydroxychloroquine (Plaquenil) 200 MG tablet Take 1 tablet by mouth daily. 5 Active leflunomide (Arava) 20 MG tablet TAKE ONE TABLET BY MOUTH EVERY DAY FOR RHEUMATOID ARTHRITIS 5 Active losartan (Cozaar) 50 MG tablet Take 1 tablet by mouth daily. 5 Active metoprolol tartrate (Lopressor) 100 MG tablet Take 1 tablet by mouth in the morning and 1 tablet before bedtime. 4 Active Nurtec 75 MG orally disintegrating tablet Dissolve 1 tablet on the tongue. 4 Active venlafaxine (Effexor) 100 MG tablet take 1 and 1/2 tablet by mouth twice daily 5 Active lidocaine (Xylocaine) 5 % ointment Apply 2-4 grams to feet BID as needed for neuropathy. 50 g 1 5 Active alendronate (Fosamax) 70 MG tablet Take 1 tablet by mouth 1 time per week. 5 Active Adalimumab (Humira, 2 Pen,) 40 MG/0.8ML Auto-injector KitIndications:Rhe umatoid arthritis, involving unspecified site, unspecified whether rheumatoid factor present ([facility]) Inject 1 each under the skin every 14 days. 2 each 5 5 Active Immunizations Immunization Administration Dates Next Due Influenza, seasonal, injectable, preservative fr ee 01/30/2024 TD (adult), 2 Lf tetanus tox oid, preservative free, adsorbed 03/21/1997 Family History Medical History Relation Name Comments Heart disease Mother Non-Hodgkin's lymphoma Mother Relation Name Status Comments Mother Social History Tobacco Use Types Packs/Day Years Used Date Smoking Tobacco: Former Cigarettes 1 44 S tarted: 1979 Passive Smoke Exposure: Past Smokeless Tobacco: Never Tobacco Cessation:Counseling Given: Not Answered Alcohol Use Standard Drinks/Week [...] you are drinking? Patient does not drink 5 Frequency of Binge Drinking Not on file 09/28 Comments No Sex and Gender Information Value Date Recorded Sex Assigned at Not on file Legal Sex Female 8:15 PM EDT Gender Identity Not on file Sexual Orientation Not on file Last Filed Vital Signs Vital Sign Reading Time Taken Comments Blood Pressure 125/78 10/17/2024 1:40 PM EDT Pulse 65 10/17/2024 1:40 PM EDT Temperature 36.4 C (97.5 F) 10/17/2024 1:40 PM EDT Respiratory Rate 16 10/17/2024 1:40 PM EDT Oxygen Saturation 97% 10/17/2024 1:40 PM EDT Inhaled Oxygen Concentration - - Weight 95.5 kg (210 lb 8.6 oz) 10/17/2024 1:40 P M EDT Height 172.7 cm (5' 8 ) 10/17/2024 1:40 PM EDT Body Mass Index 32.01 10/17/2024 1:40 PM EDT Plan of Treatment Upcoming Encounters Date Type Department Care Team (Late st Contact Info) Description 02/13/2025 10:50 AM EST Office Visit [place] [facility] [address] [place] [address] Lorin Melendez, ABSORBER OPERATOR [address] [place] [address] Health Maintenance Due Date Last Done Comments [facility]-HIV Screening 1967 [facility]-Medicare Annual Wellness (AWV) 1967 [facility]-/Child/Adol SDOH Screenings 1967 [facility]- SDOH Screenings 1985 [facility]-Adult SDOH Screenings 1985 [facility]-Hepatitis B Vaccines (1 of 3 - 19+ 3-dose series) 1986 [facility]-Zoster Vaccines (1 of 2) 1986 [facility]-Pap Smear 1988 [facility]-Cervical Cancer Screening 1997 [facility]-HPV/Cotest 1997 [facility]-DTaP,Tdap,and Td Vaccine s (1 - Tdap) 03/22/1997 03/21/1997 CT Colonography 2012 Colonoscopy 2012 FIT-DNA 2012 FIT 2012 FOBT 2012 Sigmoidoscopy 2012 [facility]-Colorectal Cancer Screening 2012 [facility]-Breast Cancer Screening 2017 [facility]-Pneumococcal Vaccine: 50 + Years (1 of 1 - PCV) 2017 [facility]-PCEQW-40 Vaccine (3 - season) 2024 01/02/2021, 05/16/2020 [facility]-Influenza Vaccine (#1) 2024 01/30/2024 [facility]-Depression Screening 10/17/2025 10/17/2024 [facility]-Hepatitis C Screening Completed 06/03/2024 [facility]-Obesity Intervention Completed 025, 06/03/2024 HPV Vaccines Aged Out No longer eligi ble based on patient's age to complete this topic [facility]-HIB Vaccines Aged Out No longer e ligible based on patient's age to complete this topic [facility]-Hepatitis A Vaccines Aged Out No longer eligible based on patient's age to complete this topic [facility]-IPV Vaccines Aged Out No longer e ligible based on patient's age to complete this topic [facility]-Rotavirus Vaccines Aged Out No lo nger eligible based on patient's age to complete this topic Procedures Procedure Name Priority Date/Time Associated Diagnosis Comments ACUTE HEPATITIS PANEL Routine 06/03/2024 11:49 AM EDT Rheumatoid arthritis, unspecified (CMS/HCC) from Last 3 Months or Most Recently Relevant to Health Maintenance Results * Acute Hepatitis Panel (06/03/2024 11:49 AM EDT) Hepatitis B Surf Antigen Negative Negative 06/03/2024 2:14 PM EDT [facility] Hepatitis C Antibody Negative Negative 06/03/2024 2:14 PM EDT [facility] Hepatitis A Antibody IgM Negative Negative 06/03/2024 2:14 PM EDT [facility] Hepatitis B Core Antibody IgM Negative Negative 06/03/2024 2:14 PM EDT [facility] Blood Venous blood specimen / Unknown Venipuncture / Unknown 06/03/2024 11:49 AM EDT 06/03/2024 11:50 AM EDT us Lorin Melendez APRN LAB BLOOD ORDERABLES Kasandra mancilla Result [facility] [address] [place] [address] from Last 3 Months or Most Recently Relevant to Health Maintenance Insurance [facility] MEDICARE Care Teams Motorcycle Repair Shop Supervisor Relationship Specialty Start Date End Date Marvin Breaux MD [address] [facility] [address] [place] [address] PCP - General 05/27/24
--- OUTSIDE RECORDS SUMMARY | 2025-01-22 13:44 | XMS_ITS | Encounter Summary ---
Author Organization [facility] Address [address] [place] [address] Care Team Providers Care Market Research Executive Name Role Phone Marvin Breaux MD Primary Care Provider [phone] Encounter Details Date Type Department Care Team (Late st Contact Info) Description 05/03/2022 Lab Requisition [facility] [address] [facility], [address] [place] [address] Andreea Mello, STEFANO [address] [place] [address] Routine general medical examination at a health [...] Description 02/13/2025 10:50 AM EST Office Visit [place] [facility] [address], [address] [place] [address] Lorin Melendez, DACIA [address] [place] [address] documented as of this encounter Visit Diagnoses Diagnosis Routine general medical examination at a health care facility documented in this encounter Care Teams Market Research Executive Relationship Specialty Start Date End Date Marvin Breaux MD [address] [place] [address] PCP - General 05/27/24 documented as of this encounter
--- OUTSIDE RECORDS SUMMARY | 2025-01-22 13:44 | XMS_ITS | Encounter Summary ---
Author Organization [facility] Address [address] [place] [address] Care Team Providers Care Aeronautical Inspector Name Role Phone Marvin Breaux MD Primary Care Provider [phone] Encounter Details Date Type Department Care Team (Late st Contact Info) Description 05/05/2022 Lab Requisition [facility] [address] [place] [address] Andreea Mello, PA [address] [place] [address] Routine general medical examination at [...] Description 02/13/2025 10:50 AM EST Office Visit [facility] [address] [place] [address] Lorin Melendez, DACIA [address] [place] [address] documented as of this encounter Procedures Procedure Name Priority Date/Time Associated Diagnosis Comments SERUM DRUG SCREEN Routine 05/05/2022 7:1 3 AM EST Routine general medical examination at a health care facility [ICD-10-CM] VITAMIN D 25 HYDROXY Routine 05/05/2022 7:13 AM EST Routine general medical examination at a health care facility [ICD-10-CM] CBC WITH AUTO DIFFERENTIAL Routine 05/05/2022 7:13 AM EST Routine general medical examination at a health care facility [ICD-10-CM] HCG, QUANTITATIVE Routine 05/05/2022 7:1 3 AM EST Routine general medical examination at a health care facility [ICD-10-CM] TSH Routine 05/05/2022 7:13 AM EST Routine general medical examination at a health care facility [ICD-10-CM] HEMOGLOBIN A1C Routine 05/05/2022 7:13 AM EST Routine general medical examination at a health care facility [ICD-10-CM] LIPID PROFILE, PLASMA Routine 05/05/2022 7:13 AM EST Routine general medical examination at a health care facility [ICD-10-CM] COMPREHENSIVE METABOLIC PANEL, PLASMA Routine 05/05/2022 7:13 AM EST Routine general medical examination at a health care facility [ICD-10-CM] documented in this encounter Results * TSH (05/05/2022 7:13 AM EST) Thyroid Stimulating Hormone, Plasma 0.62 0.40 - 4.20 uIU/mL 05/05/2022 10:05 AM EST [facility] Blood Venous blood specimen / Unknown Venipuncture / Unknown 05/05/2022 7:13 AM EST 05/05/2022 8:15 AM EST Narrative [employer] [facility] - 05/05/2022 10:05 AM EST Trimester Specific Ranges TSH ( IU/mL) 1st Trimester 0.1 - 3.0 2nd Trimester 0.19 - 4.06 3rd Trimester 0.3 - 3.7 us Andreea AGARWAL LAB BLOOD ORDERABLES Final R esult Performing Organization Address [facility] Co de Phone Number HEALTHCARE [facility] [address] [place] [address] * hCG, Total Beta, Quantitative, Plasma (05/05/2022 7:13 AM EST) hCG, Total Beta 1.94 <5 mIU/mL 05/05/2022 10:05 AM EST [facility] Blood Venous blood specimen / Unknown Venipuncture / Unknown 05/05/2022 7:13 AM EST 05/05/2022 8:15 AM EST Narrative HEALTH[facility]ARE [facility] - 05/05/2022 10:05 AM EST Patients: Normal Range Premenopausal Female < 5 mIU/mL Male < 3 mIU/mL Postmenopausal Female < 8 mIU/mL The [employer] Elecsys hCG+beta assay is standardized to the 4th IS for Chorionic Gonadotropin. The combination of the specific monoclonal antibodies used in this assay recognizes the holo-hormone, nicked forms of hCG, the Beta-core Fragment and the free beta-subunit. Elevated hCG concentrations not associated with are found in patients with gestational trophoblastic disease and choriocarcinoma as well as germ cell, ovarian, bladder, pancreas, stomach, lung and liver tumors. Performed by the [employer] electrochemiluminescent immunoassay which is traceable to the 4th International Standard for hCG (NIBSC 75/589). Results obtained with different test methods or kits cannot be used interchangeably. Andreea AGARW[facility] BLOOD ORDERABLES Final R esult Performing Organization Address City/[facility] Co de Phone Number [facility] [address] [place] [address] * Serum Drug Screen (05/05/2022 7:13 AM EST) 9 Carboxy THC <5 <5 ng/mL 05/07/2022 10:35 PM EST [facility] Alprazolam <5 <5 ng/mL 05/07/2022 10:35 PM EST [facility] Amphetamine <10 <10 ng/mL 05/07/2022 10:35 PM EST [facility] Benzolyecgonine <20 <20 ng/mL 10:35 PM [facility] Buprenorphine <1 <1 ng/mL 05/07/2022 10:35 PM [facility] Butalbital <50 <50 ng/mL 05/07/2022 10:35 PM [facility] Clonazepam <5 <5 ng/mL 05/07/2022 10:35 PM [facility] Codeine <5 <5 ng/mL 05/07/2022 10:35 PM [facility] Diazepam <5 <5 ng/mL 05/07/2022 10:35 PM [facility] Fentanyl <1 <1 ng/mL 05/07/2022 10:35 PM [facility] Hydrocodone <2 <2 ng/mL 05/07/2022 10:35 PM [facility] Hydromorphone <5 <5 ng/mL 05/07/2022 10:35 PM [facility] Lorazepam <5 <5 ng/mL 05/07/2022 10:35 PM [facility] MDA <10 <10 ng/mL 05/07/2022 10:35 PM [facility] MDMA <10 <10 ng/mL 05/07/2022 10:35 PM [facility] Meperidine <5 <5 ng/mL 05/07/2022 10:35 PM [facility] Methadone <10 <10 ng/mL 05/07/2022 10:35 PM [facility] Methadone Metabolite <10 <10 ng/mL 04/27 10:35 PM [facility] Methamphetamine <10 <10 ng/mL 10:35 PM [facility] Midazolam <5 <5 ng/mL 05/07/2022 10:35 PM [facility] Morphine <2 <2 ng/mL 05/07/2022 10:35 PM [facility] Norbuprenorphine <5 <5 ng/mL 05/08/19 10:35 PM [facility] Nordiazepam <10 <10 ng/mL 05/07/2022 10:35 PM [facility] Oxazepam <5 <5 ng/mL 05/07/2022 10:35 PM [facility] Oxycodone <2 <2 ng/mL 05/07/2022 10:35 PM [facility] Oxymorphone <2 <2 ng/mL 05/07/2022 10:35 PM EST [facility] Phenobarbital <50 <50 ng/mL 05/07/2022 10:35 PM EST [facility] Temazepam <5 <5 ng/mL 05/07/2022 10:35 PM EST [facility] Tramadol <20 <20 ng/mL 05/07/2022 10:35 PM EST [facility] Blood Venous blood specimen / Unknown Venipuncture / Unknown 05/05/2022 7:13 AM EST 05/05/2022 8:13 AM EST Narrative [facility] - 05/07/2022 10:35 PM EST Test performed by LC-MS/MS at the [facility]. This test was developed and its performance characteristics determined by [facility]. It has not been cleared or approved by the FDA. The laboratory is regulated under CLIA as qualified to perform high-complexity testing. This test is used for clinical purposes. Andreea Funmilayo [facility] BLOOD ORDERABLES Final R esult Performing Organization Address [facility] Co de Phone Number [facility] [address] [place] [address] * Vitamin D 25 Hydroxy (05/05/2022 7:13 AM EST) Vitamin D 25 Hydroxy 29.1 20.0 - 80.0 ng/mL 05/05/2022 11:27 AM EST [facility] Comment: Vitamin D, 25-Hydroxy reference range, age 18 years and up: Deficiency: <12 ng/mL Insufficiency: 12 to 19 ng/mL Sufficiency: 20 to 80 ng/mL Possible toxicity: >100 ng/mL Blood Venous blood specimen / Unknown Venipuncture / Unknown 05/05/2022 7:13 AM EST 05/05/2022 8:14 AM EST [facility] BLOOD ORDERABLES Final R esult Performing Organization Address City/[facility] Co de Phone Number [facility] [address] [place] [address] * (ABNORMAL) CBC and Differential (05/05/2022 7:13 AM EST) WBC Count 5.17 3.70 - 10.30 10*3/uL LAB HEMATOLOGY METHOD 05/05/2022 9:32 AM EST [facility] RBC Count 4.23 3.90 - 5.20 10*6/uL LAB HEMATOLOGY METHOD 05/05/2022 9:32 AM EST [facility] HGB 12.8 11.2 - 15.7 g/dL LAB HEMATOLOGY METHOD 05/05/2022 9:32 AM EST [facility] HCT 37.5 34.0 - 45.0 % LAB HEMATOLOGY METHOD 05/05/2022 9:32 AM EST [facility] Platelet Count 254 155 - 369 10*3/uL LAB HEMATOLOGY METHOD 05/05/2022 9:32 AM EST [facility] MCV 89 79 - 98 fL LAB HEMATOLOGY METHOD 05/05/2022 9:32 AM EST [facility] MCH 30.3 26.0 - 32.0 pg LAB HEMATOLOGY METHOD 05/05/2022 9:32 AM EST [facility] MCHC 34.1 30.7 - 35.5 g/dL LAB HEMATOLOGY METHOD 05/05/2022 9:32 AM EST [facility] RDW 13.3 11.5 - 14.5 % LAB HEMATOLOGY METHOD 05/05/2022 9:32 AM EST [facility] MPV 8.7(L) 8.8 - 12.5 fL LAB HEMATOLOGY METHOD 05/05/2022 9:32 AM EST [facility] nRBC 0.0 <=0.0 per 100 WBCs LAB HEMATOLOGY METHOD 05/05/2022 9:32 AM EST [facility] Differential Type Automated LAB HEMATOLOGY METHOD 05/05/2022 9:32 AM EST [facility] Neutrophils % 65.0 % LAB HEMATOLOGY METHOD 05/05/2022 9:32 AM EST [facility] Lymphocytes % 21.0 % LAB HEMATOLOGY METHOD 05/05/2022 9:32 AM EST [facility] Monocytes % 11.0 % LAB HEMATOLOGY METHOD 05/05/2022 9:32 AM EST [facility] Eosinophils % 2.0 % LAB HEMATOLOGY METHOD 05/05/2022 9:32 AM EST [facility] Basophils % 1.0 % LAB HEMATOLOGY METHOD 05/05/2022 9:32 AM EST [facility] Immature Granulocytes % 0.0 % LAB HEMATOLOGY METHOD 05/05/2022 9:32 AM EST [facility] Neutrophils Absolute 3.36 1.60 - 6.10 10*3/uL LAB HEMATOLOGY METHOD 05/05/2022 9:32 AM EST [facility] Lymphocytes Absolute 1.08(L) 1.20 - 3.90 10*3/uL LAB HEMATOLOGY METHOD 05/05/2022 9:32 AM EST [facility] Monocytes Absolute 0.56 0.30 - 0.90 10*3/uL LAB HEMATOLOGY METHOD 05/05/2022 9:32 AM EST [facility] Eosinophils Absolute 0.11 0.00 - 0.50 10*3/uL LAB HEMATOLOGY METHOD 05/05/2022 9:32 AM EST [facility] Basophils Absolute 0.04 0.00 - 0.10 10*3/uL LAB HEMATOLOGY METHOD 05/05/2022 9:32 AM EST [facility] Immature Granulocytes Absolute 0.02 0.00 - 0.06 10*3/uL LAB HEMATOLOGY METHOD 05/05/2022 9:32 AM EST [facility] Blood Venous blood specimen / Unknown Venipuncture / Unknown 05/05/2022 7:13 AM EST 05/05/2022 7:47 AM EST Narrative [facility] - 05/05/2022 9:32 AM EST Therapeutic decision making should be based on absolute values, rather than percentages. Andreea AGARWAL [facility] BLOOD ORDERABLES Final R esult [facility] [address] [place] [address] * Hemoglobin A1c (05/05/2022 7:13 AM EST) Hemoglobin A1c 5.2 <5.7 % 05/05/2022 10:34 AM EST [facility] Blood Venous blood specimen / Unknown Venipuncture / Unknown 05/05/2022 7:13 AM EST 05/05/2022 7:47 AM EST Narrative [facility] - 05/05/2022 10:34 AM EST [facility] Interpretive Data: Diagnosis of Diabetes: Diabetic > or = 6.5% Pre-diabetic 5.7 to 6.4% Non-diabetic < or = 5.6% Glycemic Targets for Type I and Type II Diabetics: Non- Adults <7.0% Adults <6.0% Children and Adolescents <7.5% Source: [place] [employer]. Standards of medical care in diabetes,2017. Diabetes Care.2017:40 (suppl 1):S1-S135. HbA1c assay performed by an ion-exchange chromatography method that is certified traceable to the DCCT. us Andreea AGARWAL [facility] BLOOD ORDERABLES Final R esult [facility] [address] [place] [address] * Lipid panel (05/05/2022 7:13 AM EST) Fasting greater than or equal to 8 hours? Unknown 05/05/2022 10:05 AM EST [facility] Cholesterol, Plasma 133 <200 mg/dL 05/05/2022 10:05 AM EST [facility] Comment: Cholesterol Reference Range (age >17 years): Desirable <200 mg/dL Borderline 200 to 239 mg/dL Undesirable >239 mg/dL HDL 60 >=50 mg/dL 05/05/2022 10:05 AM EST [facility] Comment: HDL Cholesterol Reference Ranges (age >17 years): Female, acceptable > or = 50 mg/dL Male, acceptable > or = 40 mg/dL Triglycerides, Plasma 74 <150 mg/dL 05/05/2022 10:05 AM EST [facility] Comment: Triglyceride Reference Range (age >17 years): Desirable: <150 mg/dL Borderline high: 150 to 199 mg/dL High: 200 to 499 mg/dL Very high: >499 mg/dL Increased risk of pancreatitis: >1000 mg/dL Cholesterol/HDL Ratio 2 05/05/2022 10:05 AM EST [facility] LDL, Calculated 58.2 <100 mg/dL 10:05 AM EST [facility] Comment: LDL Cholesterol Reference Range (age >17 years): Optimal: <100 mg/dL Near or above optimal: 100 - 129 mg/dL Borderline high: 130 - 159 mg/dL High: 160 - 189 mg/dL Very high: >189 mg/dL LDL Cholesterol Reference Range (age <18 years): Desirable: <110 mg/dL Borderline: 110 - 129 mg/dL Undesirable: >130 mg/dL Blood Venous blood specimen / Unknown Venipuncture / Unknown 05/05/2022 7:13 AM EST 05/05/2022 8:15 AM EST Andreea AGARWAL [facility] BLOOD ORDERABLES Final R esult [facility] [address] [place] [address] * (ABNORMAL) Comprehensive metabolic panel (05/05/2022 7:13 AM EST) [facility] Glucose, Plasma 98 74 - 99 mg/dL 05/05/2022 10:05 AM [facility] BUN, Plasma 5(L) 7 - 21 mg/dL 05/05/2022 10:05 AM [facility] Creatinine, Plasma 0.92 0.60 - 1.10 mg/dL 05/05/2022 10:05 AM [facility] BUN/Creatinine Ratio 5 05/05/2022 10:05 AM [facility] Sodium, Plasma 137 136 - 145 mmol/L 05/05/2022 10:05 AM [facility] Potassium, Plasma 3.2(L) 3.7 - 4.8 mmol/L 05/05/2022 10:05 AM [facility] Chloride, Plasma 99 97 - 107 mmol/L 05/05/2022 10:05 AM [facility] CO2, Plasma 26 22 - 29 mmol/L 05/05/2022 10:05 AM [facility] Anion Gap 12 6 - 16 mmol/L 05/05/2022 10:05 AM [facility] Total Calcium, Plasma 8.9 8.9 - 10.2 mg/dL 05/05/2022 10:05 AM [facility] Total Protein 6.2(L) 6.3 - 7.9 g/dL 05/05/2022 10:05 AM [facility] Albumin, Plasma 3.6 3.5 - 5.2 g/dL 05/05/2022 10:05 AM [facility] AST, Plasma 52(H) 11 - 32 U/L 05/05/2022 10:05 AM [facility] ALT, Plasma 55(H) 8 - 33 U/L 05/05/2022 10:05 AM [facility] Alkaline Phosphatase, Plasma 73 35 - 104 U/L 05/05/2022 10:05 AM EST [facility] Total Bilirubin, Plasma 0.3 0.2 - 1.1 mg/dL 05/05/2022 10:05 AM EST [facility] eGFRcr 73.7 mL/min/1.7 3m*2 05/05/2022 10:05 AM EST [facility] Comment: Reported eGFRcr in mL/min/1.73m2 is based the CKD-EPI 2021 equation that does not use a race coefficient. Effective 09/22/21 our laboratory changed the eGFR calculation to the CKD-EPI 2021 equation from the previously reported eGFR, based on the MDRD equation. For comparisons between the two equations, please see laboratory website: [email or web address] Blood Venous blood specimen / Unknown Venipuncture / Unknown 05/05/2022 7:13 AM EST 05/05/2022 8:15 AM EST us Andreea AGARWAL LAB BLOOD ORDERABLES Final R esult [facility] [address] [place] [address] documented in this encounter Visit Diagnoses Diagnosis Routine general medical examination at a health care facility documented in this encounter Care Teams Aeronautical Inspector Relationship Specialty Start Date End Date Marvin Breaux MD [address] [place] [address] [address] [place] [address] PCP - General 05/27/24 documented as of this encounter
[2025-01-24 07:09] LABS: Osmolality, Urine 113 mOsmol/kg (.)
--- NOTE | 2025-01-28 14:16 | CARE MANAGER ---
Attempted to contact patient x2. Left VM message.
== END 2025-01-22 16:17 | disposition home or self-care (01) ==
LOC: ER 02:20 → 2ND 04:17
PROVIDERS: Internal Medicine Adolescent Medicine; Nurse Practitioner Acute Care; Admitting Provider Student in an Organized Health Care Education/Training Program; Emergency Provider Emergency Medicine; PCP Internal Medicine; Visit Provider Student in an Organized Health Care Education/Training Program
DX: E87.1 Hypo-osmolality and hyponatremia (principal); N30.00 Acute cystitis without hematuria; F20.9 Schizophrenia, unspecified; F54 Psychological and behavioral factors associated with disorders or diseases classified elsewhere; E78.5 Hyperlipidemia, unspecified; Z88.8 Allergy status to other drugs, medicaments and biological substances; Z91.040 Latex allergy status; I10 Essential (primary) hypertension; J44.89 Other specified chronic obstructive pulmonary disease; M06.9 Rheumatoid arthritis, unspecified; Z96.659 Presence of unspecified artificial knee joint; S40.812A Abrasion of left upper arm, initial encounter; W17.89XA Other fall from one level to another, initial encounter; T43.596A Underdosing of other antipsychotics and neuroleptics, initial encounter; G62.9 Polyneuropathy, unspecified; Z91.148 Patient's other noncompliance with medication regimen for other reason; D32.0 Benign neoplasm of cerebral meninges; E66.811 Obesity, class 1; T50.901A Poisoning by unspecified drugs, medicaments and biological substances, accidental (unintentional), initial encounter
CPT/HCPCS: 36415; 70450; 70496; 70498; 71275; 72125; 72128; 72131; 74174; 80048; 80053; 80307; 80329; 81001; 83930; 83935; 84295; 84540; 85025; 86803; 87086; 87088; 87186; 87389; 93005; 97162; 97166; 99285; J0696; J1650; J7120; Q9967

== ENCOUNTER 2025-02-03 04:04 | Observation (INO) | payer MEDICARE, SELFPAY ==
--- OUTSIDE RECORDS SUMMARY | 2025-01-02 14:30 | XMS_ITS | Encounter Summary ---
Author Organization [employer] ([place], [place], [place], [place], [place]) Address [address] [place] [address] Care Team Providers Care Automation Technologist Name Role Phone Marvin Breaux MD Primary Care Provider [phone] Reason for Visit * Reason Comments Migraine * Clinic Procedure (Routine) - Authorized Specialty Diagnoses / Procedures Referred By Dheeraj spann Referred To Contact Neurology Diagnoses Chronic migraine without aura, intractable, with status migrainosus Botox HAWLEY 200 Units [facility] MCR B&B Exp: 10/09/25 Procedures [facility] BOTOX Olivia Celis MD [address] [place] [address] Phone: tel: fax: Olivia Celis MD [address] [place] [address] Phone: tel: fax: Referral ID Status Reason Start Date Expiration Date V isits Requested Visits Authorized [id number] Authorized 10/10/2024 10/09/2025 5 5 Encounter Details Date Type Department Care Team (Latest Contact Info) Description 01/02/2025 2:30 PM EST Procedure Visit [facility] Neurology - [place] [address] [place] [id number] Olivia Celis MD [address] [place] [address] Chronic migraine without aura, with intractable migraine, so stated, with status migrainosus (Primary Dx) Social History Tobacco Use Types Packs/Day Years Used Date Smoking Tobacco: Never Assessed Family and Community Support Answer Anson e Recorded Help with Day to Day Activities Not on file 03/09/2023 Feeling Lonely or Isolated Not on file 03/09 Educational Attainment Answer Date David rded Speak language other than Citizen Of [place] at home Not on file 03/09/2023 Want help with school or training Not on file 03/09/2023 Substance Use Answer Date Recorded Used prescription meds for non-medical reasons N ot on file 03/09/2023 Used illegal drugs past 12 months Not on file 03/09/2023 Comments Unknown Sex and Gender Information Value Date Recorded Sex Assigned at Not on file Legal Sex Female 5:28 PM CDT Gender Identity Not on file Sexual Orientation Not on file documented as of this encounter Last Filed Vital Signs Vital Sign Reading Time Taken Comments Blood Pressure - - Pulse - - Temperature - - Respiratory Rate - - Oxygen Saturation - - Inhaled Oxygen Concentration - - Weight 96.4 kg (212 lb 8 oz) 01/06/2025 4:36 PM EST Height - - Body Mass Index - - documented in this encounter Progress Notes * Olivia Celis MD - 01/02/2025 2:30 PM EST Maru Haynes is a 59 y.o. female that presents with Migraine She has only been averaging about 2 migraine days per month. She can resolve a migraine in 2 to 3 hours with Nurtec. Migraines are overall less severe. She had migraines greater than 15 days/month before starting Botox injections. Migraines are overall less severe. No visits to the emergency room for migraine. Procedures Head/Face/Jaw Botulinum Injection Date/Time: 01/02/2025 Performed by: Olivia Celis MD Authorized by: Olivia Celis MD Consent: Consent obtained: Written Consent given by: Patient Risks discussed: Weakness, pain, infection and bleeding Procedure details: EMG used? No Diluted by: Preservative free saline Toxin (Brand): [id number]-A (Botox) Concentration (u/mL): 100 Total units available: 200 Right frontalis: 10 units divided amongst 2 site(s) Left frontalis: 10 units divided amongst 2 site(s) Right management intern: 2.5 units divided amongst 1 site(s) Left management intern: 2.5 units divided amongst 1 site(s) Procerus (midline): 5 units divided amongst 1 site(s) Right occipitalis: 15 units divided amongst 3 site(s) Left occipitalis: 15 units divided amongst 3 site(s) Right cervical paraspinal: 10 units divided amongst 2 site(s) Left cervical paraspinal: 10 units divided amongst 2 site(s) Right trapezius: 25 units divided amongst 3 site(s) Left trapezius: 25 units divided amongst 3 site(s) Right temporalis: 35 units divided amongst 4 site(s) Left temporalis: 35 units divided amongst 4 site(s) Total units injected: 200 Total units wasted: 0 Post-procedure details: Patient tolerance of procedure: Tolerated well, no immediate complications Comments: BUY AND BILL LOT # [id number] AC 4A, expiration 07/2026 x 1 file Ms. Haynes has excellent response to Botox injections. [facility] in about 12 weeks (around 03/27/2025) for botox. 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 encounter Miscellaneous Notes * Addendum Note - Roxi Jimenez - 01/02/2025 2:30 PM ESTAddended by: ROXI JIMENEZ on: 01/06/2025 04:39 PM Modules accepted: Orders 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 encounter Plan of Treatment Upcoming Encounters Date Type Department Care Team (Late st Contact Info) Description 04/02/2025 2:30 PM EST Procedure Visit [facility] [address] [place] [address] Olivia Celis MD [address] [facility] [address] [place] [address] documented as of this encounter Visit Diagnoses Diagnosis Chronic migraine without aura, with intractable migraine, so stated, with status migrainosus- Primary documented in this encounter Administered Medications Inactive Administered Medications - up to 3 most recent administrations Medication Order MAR Action Action Date Dose Rate Site botulinum toxin type A (BOTOX) injection 200 Units 200 Units Once, intraMUSCULAR, On Eda 01/02/25 at 0000, For 1 doseIndications:Chronic migraine without aura, with intractable migraine, so stated, with status migrainosus Given by Other 01/02/2025 2:30 PM EST 200 Units [facility] documented in this encounter Care Teams Automation Technologist Relationship Specialty Start Date End Date Marvin Breaux MD [address] [place] [address] [place] [address] PCP - General General Internal Medicine 10/13/22 documented as of this encounter
--- OUTSIDE RECORDS SUMMARY | 2025-01-22 17:56 | XMS_ITS | Encounter Summary ---
Author Organization 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 Name Role Phone Marvin Breaux MD Primary Care Provider [phone] Reason for Visit * Reason Comments Hallucinations * Auth/Cert (Routine) Specialty Diagnoses / Procedures Referred By Contac t Referred To Contact Diagnoses Psychosis, unspecified psychosis type (CMS/HCC) Angelina Beebe, DO [address] [place] [address] Phone: tel: fax: [facility] S Inpatient Psychiatry [address] [place] [address] Phone: tel: Referral ID Status Reason Start Date Expiration Date Visits Re quested Visits Authorized [id number] 1 1 Encounter Details Date Type Department Care Team (Latest Contact Info) Description 01/22/2025 5:56 PM EST - 01/28/2025 3:10 PM EST Hospital Encounter [facility] Inpatient Psychiatry [address] [place] [address] Angelina Beebe DO [address] [place] [address] Rhett Reeves MD [address] [place] [address] Psychosis, unspecified psychosis type (CMS/HCC) [...] Recorded Patient Health Questionnaire-9 Score 0 01/22/2025 AUDIT-C Answer Date Recorded Frequency of Alcohol [...] documented in this encounter Functional Status * Over the past 2 weeks, how often have you been bothered by any of the following problems? Question Answer Date of Assessment Author Patient Health Questionnaire -2 Score 0 01/22/2025 6:02 PM EST Rosanne Bowie RN * Calculated C-SSRS Risk Score (Lifetime/Recent) Answer Date of Assessment Author No Risk Indicated 01/22/2025 6:01 PM EST Rosanne Malhotra RN * Over the past 2 weeks, how often have you been bothered by any of the following problems? Question Answer Date of Assessment Author Little interest or pleasure in doing things Not at all 01/22/2025 6:02 PM EST Rosanne Bowie RN Feeling down, depressed, or hopeless Not at all 01/22/2025 6:02 PM Rosanne Fields RN Trouble falling or staying asleep, or sleeping too much Not at all 01/22/2025 6:02 PM Rosanne Fields RN Feeling tired or having little energy Not at all 01/22/2025 6:02 PM Rosanne Fields RN Poor appetite or overeating Not at all 01/22/2025 6: 02 PM Rosanne Fields RN Feeling bad about yourself - or [...] all 01/22/2025 6:02 PM Rosanne Fields RN Patient Health Questionnaire-9 Score 0 01/22/2025 6:02 PM Rosanne Fields RN * Question Answer Date of Assessment Author 1. Wish to be (Past 1 Month) No 025 6:01 PM Rosanne Fields RN 2. Non-Specific Active Suici jason Thoughts (Past 1 Month) No 01/22/2025 6:01 PM Margaret Fields RN 6. Suicidal Behavior (Lifetime) No 6:01 PM Rosanne Fields RN documented as of this encounter Mental Status * Question Answer Entry Date Author Scale Used Fernie 01/28/2025 8:00 AM Benita Cullen RN documented in this encounter Medications at Time of Discharge Adalimumab (Humira, 2 Pen,) 40 MG/0.8ML Auto-injector KitIndications:Rheu matoid Arthritis Inject 1 each under the skin every 14 days. 2 each 5 10/17/2024 alendronate (Fosamax) 70 MG tabletIndications:O steoporosis Take 1 tablet by mouth 1 time per week. 09/02/2024 ARIPiprazole (Abilify) 15 MG tabletIndications:P sychosis Take 1 tablet by mouth daily. 30 tablet 01/29/2025 botulinum toxin Type A, Cosm, (Botox) 100 units reconstituted solution injectionIndication s:Migraines cetirizine (ZyrTEC) 10 MG tabletIndications:S easonal Allergic Rhinitis Take 1 tablet by mouth daily. 04/12/2024 cholecalciferol (Vitamin D-3) 250 MCG (01663 UT) capsuleIndications: VItamin Supplement Take 1 capsule by mouth daily. clobetasol (Temovate) 0.05 % creamIndications:De rmatitis Apply 1 Application topically as needed (itchiness). cyanocobalamin 2500 MCG tabletIndications:v itamin supplement Take 2 tablets by mouth daily. HYDROcodone-acetami nophen (Berlin) 10-325 MG tabletIndications:P ain Take 1 tablet [...] yperlipidemia Take 1 tablet by mouth nightly. venlafaxine XR (Effexor-XR) 150 MG 24 hr capsuleIndications: Mood diorder Take 1 capsule by mouth daily with breakfast. Do not crush or chew. 30 capsule 01/29/2025 folic acid (Folvite) 1 MG tabletIndications:v itamin supplement Take 1 tablet by mouth 1 (one) time each day. documented as of this encounter Miscellaneous Notes * Care Plan - Benita Jose RN - 01/28/2025 3:53 PM EST Problem: Adult Behavioral Health Plan of Care Goal: Plan of Care Review 01/28/2025 155 by Benita Jose RN Outcome: Met 01/28/2025 1138 by Benita Jose RN Outcome: Ongoing, Progressing Flowsheets Taken 01/28/2025 1138 by Benita Jose RN Progress: improving Taken 01/28/2025 034 by Shawn Younger RN Patient Agreement with Plan of Care: agrees Plan of Care Reviewed With: patient Goal: Patient-Specific Goal (Individualization) 01/28/2025 155 by Benita Jose RN Outcome: Met 01/28/20258 by Benita Jose RN Outcome: Ongoing, Progressing [...] Goal: Decreased Sensory Symptoms (Psychotic Signs/Symptoms) 01/28/2025 155 by Benita Jose RN Outcome: Met 01/28/2025 113 by Benita Jose RN Outcome: Ongoing, Progressing Flowsheets (Taken 01/28/2025 034 by Shawn Younger RN) Mutually Determined Action Steps (Decreased Sensory Symptoms): adheres to medication regimen * Nursing Note - Benita Jose RN - 01/28/2025 3:13 PM EST Patient discharged from unit at 1510 accompanied by [facility] staff- ambulatory. Patient denies current SI/HI/AVH at [...] hotline which was provided in paperwork. * Callum OnFHIR - Benita Jose RN - 01/28/2025 3:02 PM EST Images from the original note were not included. 38063 Recognizing Suicide Warning Signs in Yourself People [...] prevention: ? Suicide and Crisis Lifeline at [employer] or call 985 or 9-461-747-TALK (987-102-5847) ? National [place]ry on Mental Illness at www.brianda.org or 620-568-2893 ? Mental Health Kellie at www.ndha.org or 596-943-5998 ? National Monument of Mental Health at www.nimh.nih.gov or 043-601-8138 Last Reviewed Date: 2024 00:00:00 ?? [employer]. All rights reserved. This information is not intended as a substitute for professional medical care. Always follow your healthcare professional's instructions. * Callum NievesCHAIPTO - Benita Jose RN - 01/28/2025 3:02 PM EST Images from the original note were not included. 38029 Warning Signs of Suicide and What To [...] psychologist ? Psychiatric or licensed clinical social service worker ? Marriage and family counselor ? Clergy [...] 988. Lifeline can also be reached at 182-529-4492(561-131-DKAB). An online chat choice is also available. Lifeline is free and available 19/09. ? ? National Corry on Mental Illness (BRIANDA) at www.brianda.org. Call 532-441-9435. Or text BRIANDA to 078865. ? Mental Health Kellie at www.mhanational.org. Call 988. Or text MHA to 761283. ? Veterans Crisis Line at www.veteranscrisisline.net. Call 988 then press 1. Or text a message to 454656. Last Reviewed Date: 2023 00:00:00 ?? [id number] [employer]. All rights reserved. This information is not intended as a substitute for professional medical care. Always follow your healthcare professional's instructions. * Callum NievesCHAPITO - Benita Jose RN - 01/28/2025 3:02 PM EST Images from the original note were not included. [id number] Aripiprazole IMPORTANT WARNING: Important warning for older [...] have any questions. You can also visit https://www.fda.gov/Drugs/DrugSafety/vtp297378.htm to obtain the Medication Guide. Talk to [...] away and out of their sight and reach.https://www.[employer].org Dispose of unneeded medications in a way [...] be awakened, immediately call emergency services at 781. Symptoms of overdose may include the following: [...] of all of the prescription and nonprescription (gbco-iil-loqsyyh) medicines vitamins, minerals, and dietary supplements you [...] or pharmacist about specific clinical use. The [place] [employer] represents that the information provided hereunder was formulated with a reasonable standard of care, and in conformity with professional standards in the field. The [place] [employer] makes no representations or warranties, express or implied, including, but not limited to, any implied warranty of merchantability and/or fitness for a particular purpose, with respect to such information and specifically disclaims all such warranties. Users are advised that decisions regarding drug therapy are complex medical decisions requiring the independent, informed decision of an appropriate health acute care nurse, and the information is provided for informational purposes only. The entire monograph for a drug should be reviewed for a thorough understanding of the drug's actions, uses and side effects. The [place] [employer] does not endorse or recommend the use of any drug.The information is not a substitute for medical care. AHFS?? Patient Medication Information?. ?? Copyright, 2023. The [employer]??, [address], [address], [place], [place]. All Rights Reserved. Duplication for commercial use must be authorized by [facility]. Selected Revisions: December 11, 2024. AHFS?? Patient Medication Information?. ?? Copyright, 2024 * Callum NievesCHAPITO - Benita Jose RN - 01/28/2025 3:02 PM EST Images from the original note were not included. [id number] Venlafaxine IMPORTANT WARNING: Medications such as venlafaxine [...] also can obtain the Medication Guide from ttps://www.fda.gov/Drugs/DrugSafety/ggl237915.htm. Talk to your doctor about the risks [...] or herbal products may interact with venlafaxine: [place]'s wort; tryptophan; cimetidine (Tagamet??). Be sure to [...] and out of their sight and reach. https://www.[employer].org Dispose of unneeded medications in a way [...] of all of the prescription and nonprescription (ocmb-aot-gisehvn) medicines, vitamins, minerals, and dietary supplements you [...] or pharmacist about specific clinical use. The [place] [employer] represents that the information provided hereunder was formulated with a reasonable standard of care, and in conformity with professional standards in the field. The [place] [employer] makes no representations or warranties, express or implied, including, but not limited to, any implied warranty of merchantability and/or fitness for a particular purpose, with respect to such information and specifically disclaims all such warranties. Users are advised that decisions regarding drug therapy are complex medical decisions requiring the independent, informed decision of an appropriate health acute care nurse, and the information is provided for informational purposes only. The entire monograph for a drug should be reviewed for a thorough understanding of the drug's actions, uses and side effects. The [place] [employer] does not endorse or recommend the use of any drug.The information is not a substitute for medical care. AHFS?? Patient Medication Information?. ?? Copyright, 2023. The [employer]??, [address], [address], [place], [place]. All Rights Reserved. Duplication for commercial use must be authorized by [facility]. Selected Revisions: December 11, 2024. AHFS?? Patient Medication Information?. ?? Copyright, 2024 * Callum Sanchez - Benita Jose RN - 01/28/2025 3:02 PM EST Images from the original note were not included. [id number] Venlafaxine IMPORTANT WARNING: Medications such as venlafaxine [...] also can obtain the Medication Guide from ttps://www.fda.gov/Drugs/DrugSafety/pan042989.htm. Talk to your doctor about the risks [...] of all of the prescription and nonprescription (ntky-fdd-fwmlaxq) medicines, vitamins, minerals, and dietary supplements you [...] or pharmacist about specific clinical use. The [place] [employer] represents that the information provided hereunder was formulated with a reasonable standard of care, and in conformity with professional standards in the field. The [place] [employer] makes no representations or warranties, express or implied, including, but not limited to, any implied warranty of merchantability and/or fitness for a particular purpose, with respect to such information and specifically disclaims all such warranties. Users are advised that decisions regarding drug therapy are complex medical decisions requiring the independent, informed decision of an appropriate health acute care nurse, and the information is provided for informational purposes only. The entire monograph for a drug should be reviewed for a thorough understanding of the drug's actions, uses and side effects. The [place] [employer] does not endorse or recommend the use of any drug.The information is not a substitute for medical care. AHFS?? Patient Medication Information?. ?? Copyright, 2023. The [employer] [employer]??, [address], [address], [place], [place]. All Rights Reserved. Duplication for commercial use must be authorized by [facility]. Selected Revisions: December 11, 2024. AHFS?? Patient Medication Information?. ?? Copyright, 2024 * Group Note - Keyona Mera - 01/28/2025 2:30 PM EST Group Topic: Music Therapy Group Date: 01/28/2025 Start Time: 1330 End Time: 1410 Facilitators: Keyona Mera Department: [facility] Integrative Medicine Virtual Dept. Number of Participants: 6 Treatment Modality: Group Music Therapy Interventions Utilized: breathing techniques, music listening, music-assisted relaxation, playing instruments/drumming, singing, Goals Addressed: Reduce anxiety, depression, and Increase autonomy and control, coping skills, self-regulation, Name: Maru Haynes Date of : 1965 MR: [id number] Patient Attendance: No, Comments: Pt was invited, but did not attend. Plan: pt will be encouraged to attend groups, * Discharge Summary - Kimberly Monge MD - 01/28/2025 1:56 PM EST Images from the original note were not included. [facility] Discharge Summary Admit Date/Time: 01/22/2025 5:56 PM Admitting Attending: Angelina Beebe Discharge Date: 01/28/25 Length of Stay: 5 Days Discharge Attending Physician: Rhett Reeves MD PCP name and Address: Marvin Breaux MD [address] / [place] [address] Referring provider name and address: No referring [...] U admission, patient was initially evaluated by [facility] physician/DORCAS who determined further inpatient psychiatric management [...] an outpatient provider, motivation for change, cultural/spiritual adventist involvement, access to housing, and knowledge of [...] for similar symptoms. She was admitted to [facility] on 01/23/25 for continued management of psychosis. [...] delusions. Discharge Diagnosis Psychosis, unspecified psychosis type (CMS/HCC) Diagnoses: PSYCHIATRIC MANAGEMENT 1.) Psychosis, unspecified CGI [...] tablet by mouth daily. cholecalciferol 250 MCG (12476 UT) capsule Commonly known as: Vitamin D-3 [...] HYDROcodone-acetaminophen 10-325 MG tablet Commonly known as: Berlin Take 1 tablet by mouth 4 times [...] Your Medications These medications were sent to [facility] [place] [address] ARIPiprazole 15 MG tablet venlafaxine XR 150 [...] mood-altering substances except those prescribed by a licensed physical therapy assistant. Her primary supports should monitor her for evidence of substance use and should alert her outpatient provider if use is suspected or confirmed. 6.) A safety plan was given at the time of discharge which included instructions to return to the nearest ER if patient becomes suicidal, homicidal, manic, psychotic, or develops any other urgent/emergent symptoms, or to call the 3-901-TRFMCG line. 7.) She voiced an understanding of the safety plan. Outpatient Follow-Up [facility]: Monday February 03, 2025 at 1 pm [...] as appropriate. Kimberly Monge MD PGY-2 Psychiatry [facility] Cosigned by Rhett Reeves MD at 01/29/2025 [...] End Time: 1200 Facilitators: Umm Staples Department: [facility] Inpatient Psychiatry Number of Participants: 6 Group Focus: coping skills and leisure skills Treatment Modality: Leisure Development Interventions utilized were assignment Purpose: enhance coping skills Name: Maru Haynes Date of : 1965 MR: [id number] Refused Patients Problems: Patient Active Problem List Diagnosis Psychosis (CMS/HCC) Psychosis, unspecified psychosis type (CMS/HCC) * Discharge Instr - Appointments - Lay Chowdary - 01/28/2025 12:30 PM EST [facility]: Initial appointment scheduled for Monday February 03, 2025 at 1 pm via IN PERSON. Mrs. Haynes will need to bring ID and INSURANCE CARD to initial appointment. [address], [place] [address] * Progress Notes - Lay Chowdary - 01/28/2025 12:23 PM EST COURTNEY Discharge Note: COURTNEY met with Mrs. Haynes regarding discharge planning and aftercare services. COURTNEY asked if she has transportation home and she stated yes. COURTNEY asked if she was receiving mental health and/or psychiatric services and she stated no and gave SW verbal permission to contact an agency to schedule an appointment. COURTNEY contacted [facility] and scheduled an initial appointment for Monday February 03, 2025 at 1 pm via IN PERSON. Mrs. Haynes will need to bring ID and INSURANCE CARD to initial appointment. Teja Tyson [address] [place] [address] [address] [place] [id number] * Care Plan - Benita Jsoe RN - 01/28/2025 11:40 AM EST Problem: Adult Behavioral Health Plan of Care Goal: Plan of Care Review Outcome: Ongoing, Progressing Flowsheets Taken 01/28/20251137 by Benita Jose RN Progress: improving Taken 01/28/2025340 by Shawn Younger RN Patient Agreement with Plan of Care: agrees Plan of Care Reviewed With: patient Goal: Patient-Specific Goal (Individualization) Outcome: Ongoing, Progressing Flowsheets Taken 01/28/20251137 by Benita Jose RN Patient/Family-Specific Goals (Include [...] Mood Symptoms Outcome: Ongoing, Progressing Flowsheets (Taken 01/28/20251137) Mutually Determined Action Steps (Improved Mood Symptoms): [...] End Time: 1025 Facilitators: Vielka Pena Department: [facility] Inpatient Psychiatry Number of Participants: 6 Group Focus: goals/reality orientation Treatment Modality: Individual Therapy Interventions utilized were exploration Purpose: enhance coping skills and express feelings Name: Maru Haynes Date of : 1965 MR: [id number] Level of Participation: Pt refused to attend [...] Intervention: Optimize Emotion and Mood Flowsheets (Taken 01/28/2025 034) Supportive Measures: active listening utilized goal-setting facilitated problem-solving facilitated Diversional Activity: journaling Goal: Decreased Sensory Symptoms (Psychotic Signs/Symptoms) Outcome: Ongoing, Progressing Flowsheets (Taken 01/28/2025 034) Mutually Determined Action Steps (Decreased Sensory Symptoms): adheres to medication regimen Intervention: Minimize and Manage Sensory Impairment Flowsheets (Taken 01/28/2025 034) Sensory Stimulation Regulation: care clustered quiet environment promoted * Group Note - Brayan Gipson - 01/27/2025 8:16 PM EST Group Topic: Spirituality Group Group Date: 01/27/2025 Start Time: 1800 End Time: 1834 Facilitators: Brayan Gipson Department: [facility] Number of Participants: 3 Group Focus: check in, feeling awareness/expression, forgiveness, goals/reality orientation, self-awareness, and self-esteem Treatment Modality: Spiritual Interventions utilized were assignment, story telling, and support Purpose: explore maladaptive thinking, express feelings, express irrational fears, regain self-worth, and reinforce self-care Name: Maru Haynes Date of : 1965 MR: [id number] Level of Participation: active Quality of Participation: Expected, Sharing, Attentive, engaged, and offered feedback Interactions with others: gave feedback Mood/Affect: appropriate Cognition: coherent/clear, concrete, logical, and adventist preoccupation Patients Problems: Patient Active Problem List [...] Priscilla, Nurse Francisco Javier Conklin and Andry, COURTNEY, [employer] as well as Resident and [...] End Time: 1500 Facilitators: Umm Staples Department: [facility] Inpatient Psychiatry Number of Participants: 5 Group Focus: coping skills and leisure skills Treatment Modality: Leisure Development Interventions utilized were leisure development Purpose: enhance coping skills Name: Maru Haynes Date of : 1965 MR: [id number] Level of Participation: active Quality of Participation: [...] from the original note were not included. [facility] Daily Progress Note 01/27/25 [...] then was able to vomit up the poi son. She thinks her is the one [...] Sleep: Sleep Total Hours of Sleep: 7 ([id number] 0000-) Meals: I&O: I/O last 3 completed [...] currently indicated. Patient is holdable under KRS A as she does meet ALL holdcriteria: having [...] for similar symptoms. She was admitted to [facility] on 01/23/25 for continued management of psychosis. [...] and plan. Kimberly Monge MD PGY-2 Psychiatry [facility] [1] ARIPiprazole, 15 mg, Oral, Daily cetirizine, [...] End Time: 1200 Facilitators: Umm Staples Department: [facility] Psychiatry Number of Participants: 8 Group Focus: coping skills and leisure skills Treatment Modality: Leisure Development Interventions utilized were leisure development Purpose: enhance coping skills Name: Maru Haynes Date of : 1965 MR: [id number] Refused Patients Problems: Patient Active Problem List Diagnosis Psychosis (CMS/HCC) Psychosis, unspecified psychosis type (CMS/HCC) * Group Note - Conchita Norwood - 01/27/2025 10:20 AM EST Group Topic: Healing Arts Group Date: 01/27/2025 Start Time: 0930 End Time: 1015 Facilitators: Kilo Vale; Conchita Norwood Department: [facility] Psychiatry Number of Participants: 8 Group Focus: family, problem solving, and self-awareness Treatment Modality: Psychoeducation Interventions utilized were group exercise Purpose: increase insight and regain self-worth Name: Maru Haynes Date of : 1965 MR: [id number] Patient was encouraged. Patient did not attend and rested in her room. Patients Problems: Patient Active Problem List Diagnosis Psychosis (CMS/HCC) Psychosis, unspecified psychosis type (CMS/HCC) * Nursing Note - Marilu Lopez RN - 01/27/2025 1:47 AM EST Pt continuing stay in the Adult U. Patient is alert and oriented and denies [...] Plan of Care Review 01/27/202556 by Marilu Loepz RN Outcome: Ongoing, Progressing Flowsheets (Taken 01/27/202556) [...] Sleep: Sleep Total Hours of Sleep: 4 (1743-7701,,) Meals: Objective: Temp: [36.3 ??C (97.4 ??F)-36.4 [...] Care Plan - Ace Abbasi RN - 01/26/2025 12:22 AM EST [...] Strengths: medication/treatment adherence Taken 01/23/20252143 by [place] Diaz, RN Patient Vulnerabilities: lacks insight into illness Goal: Adheres to Safety Considerations for Self and Others Outcome: Ongoing, Progressing Flowsheets (Taken 01/26/2025 002) Adheres to Safety Considerations for Self and Others: making progress toward outcome Intervention: Develop and Maintain Individualized Safety Plan Flowsheets (Taken 01/26/202519) Safety Measures: suicide assessment completed monitored by video safety rounds completed Goal: Absence of New-Onset Illness or Injury Outcome: Ongoing, Progressing Intervention: Identify and Manage Fall Risk Flowsheets (Taken 01/25/2025 0235) Safety Promotion/Fall Prevention: clutter-free environment maintained nonskid [...] encouraged self-care encouraged Goal: Develops/Participates in Therapeutic Corry to Support Successful Transition Outcome: Ongoing, Progressing Flowsheets (Taken 01/25/2025234) Develops/Participates in Therapeutic Corry to Support Successful Transition: making progress toward outcome Intervention: Foster Therapeutic Corry Flowsheets (Taken 01/25/2025234) Trust Relationship/Rapport: care explained [...] Skin Injury Flowsheets (Taken 01/23/20252143 by Miranda Diaz, VALENTE) Device Skin Pressure Protection: (not applicable for patient) other (see comments) Skin Protection: (not applicable for patient) other (see comments) Intervention: Prevent VTE (Venous Thromboembolism) Flowsheets (Taken 01/23/20252143 by Miranda Diaz, RN) VTE Prevention/Management: previous patient education reinforced Intervention: Prevent Infection Flowsheets (Taken 01/23/20252143 by Miranda Diaz, RN) Infection Prevention: rest/sleep promoted Goal: Optimized [...] encouraged self-care encouraged Goal: Develops/Participates in Therapeutic Corry to Support Successful Transition Outcome: Ongoing, Progressing Flowsheets (Taken 01/25/2025234 by Ace Abbasi RN) Develops/Participates in Therapeutic Corry to Support Successful Transition: making progress toward outcome Intervention: Foster Therapeutic Corry Flowsheets (Taken 01/25/2025234 by Ace Abbasi RN) [...] Transition Support: community resources reviewed Taken 01/23/2025 0606 by Ace Abbasi RN Concerns to be [...] Sleep Total Hours of Sleep: 6 (asleep 5601-8031, 9922-7690, 3963-4642) Meals: Objective: Temp: [36.3 ??C (97.4 ??F)] [...] End Time: 1050 Facilitators: Floyd Johnson Department: [facility] Inpatient Psychiatry Number of Participants: 19 Group Focus: Goals setting Treatment Modality: Discussion Interventions utilized were: N/A Purpose: Goals Name: Maru Haynes Date of : 1965 MR: [id number] Patient did not attend group but was [...] Care Review Outcome: Ongoing, Progressing Flowsheets (Taken 01/25/2025234) Progress: improving Patient Agreement with Plan of Care: agrees Plan of Care Reviewed With: patient Goal: Patient-Specific Goal (Individualization) Outcome: Ongoing, Progressing Flowsheets Taken 01/25/2025234 by Ace Abbasi RN Patient/Family-Specific Goals (Include [...] encouraged self-care encouraged Goal: Develops/Participates in Therapeutic Corry to Support Successful Transition Outcome: Ongoing, Progressing Flowsheets (Taken 01/25/2025234) Develops/Participates in Therapeutic Corry to Support Successful Transition: making progress toward outcome Intervention: Foster Therapeutic Corry Flowsheets (Taken 01/25/2025234) Trust Relationship/Rapport: care explained [...] Flowsheets (Taken 01/23/20252143 by Miranda Diaz RN) Progress: improving Patient Agreement with Plan [...] progress toward outcome Goal: Develops/Participates in Therapeutic Corry to Support Successful Transition Outcome: Ongoing, Progressing Flowsheets (Taken 01/23/20252143 by Miranda Diaz RN) Develops/Participates in Therapeutic Corry to Support Successful Transition: making progress toward [...] Sleep Total Hours of Sleep: 3 (asleep 4813-9287) Meals: Objective: Temp: [36.6 ??C (97.8 ??F)-36.6 [...] End Time: 1200 Facilitators: Conchita Norwood Department: [facility] Inpatient Psychiatry Number of Participants: 5 Group Focus: leisure skills Treatment Modality: Leisure Development Interventions utilized were leisure development Purpose: enhance coping skills Name: Maru Haynes Date of : 1965 MR: [id number] Patient was encouraged. Patient did not attend and rested in her room. 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 Last A1C documented in Epic was 2022. Encouraged patient to speak about [...] promoted self-care encouraged Goal: Develops/Participates in Therapeutic Corry to Support Successful Transition Outcome: Ongoing, Progressing Flowsheets (Taken 01/23/20252143) Develops/Participates in Therapeutic Corry to Support Successful Transition: making progress toward outcome Intervention: Foster Therapeutic Corry Flowsheets (Taken 01/23/20252143) Trust Relationship/Rapport: care explained [...] encouraged self-care encouraged Goal: Develops/Participates in Therapeutic Corry to Support Successful Transition Outcome: Ongoing, Progressing Intervention: Foster Therapeutic Corry Flowsheets (Taken 01/23/2025605 by Ace Abbasi RN) [...] the hospitalizations were, suggested could have been [facility] Medical/Surgical/Social/Family History I have reviewed and updated [...] mouth daily. cholecalciferol (Vitamin D-3) 250 MCG (90281 UT) capsule Take 1 capsule by mouth daily. clobetasol (Temovate) 0.05 % cream Apply 1 Application topically as needed (itchiness). cyanocobalamin 2500 MCG tablet Take 2 tablets by mouth daily. HYDROcodone-acetaminophen ([place]) 10-325 MG tablet Take 1 tablet by [...] tablet on the tongue as needed (migraine). Iyq10fu/day venlafaxine (Effexor) 100 MG tablet Take 1 [...] End Time: 1045 Facilitators: Floyd Johnson Department: [facility] Inpatient Psychiatry Number of Participants: 19 Group Focus: Goals setting Treatment Modality: Discussion Interventions utilized were: N/A Purpose: Goals Name: Maru Haynes Date of : 1965 MR: [id number] Patient did not attend group but was offer a goals handout. Patients Problems: Patient Active Problem List Diagnosis Psychosis (CMS/HCC) Psychosis, unspecified psychosis type (CMS/HCC) * Significant Event - Sowmya Lopez MD - 01/23/2025 6:44 AM EST Images from the original note were not included. Psychiatry Interim Summary 01/23/25 Maru Haynes arrived to [facility] from [facility] for inpatient psychiatric admission. Per Policy, patient [...] communication which can be viewed on [employer] [place]. Sowmya Lopez MD * Nursing Note - [...] Care Review Outcome: Ongoing, Progressing Flowsheets (Taken 01/23/2025605) Progress: no change Patient Agreement with Plan [...] encouraged self-care encouraged Goal: Develops/Participates in Therapeutic Corry to Support Successful Transition Outcome: Ongoing, Progressing Flowsheets (Taken 01/23/2025605) Develops/Participates in Therapeutic Corry to Support Successful Transition: making progress toward outcome Intervention: Foster Therapeutic Corry Flowsheets (Taken 01/23/2025605) Trust Relationship/Rapport: care explained [...] AM EST Report called to Ace at [facility] and dispatch called to transport. * Progress Notes - Nicole Lopez PA - 01/23/2025 3:16 AM EST [id number] Transfer Maru Haynes [id number] Admit Status: Involuntary - 72hr hold signed by [facility] attending. Hold start date/time 01/23/25 @0300, hold end date/time 01/29/25 @0800 Brief HPI: 59 y.o.female w/ reported history of bipolar, schizophrenia who self- presented via private vehicle to [facility] for increased hallucinations. Admit to [facility] for further evaluation and/or management of psychosis [...] to Sowmya Lopez MD, accepting physician to [facility]. * ED Notes - Luba Hugo RN - 01/23/2025 12:31 AM EST Staff [...] aware. * ED Provider Notes - Joe Frazier APRN - 01/22/2025 5:51 PM EST [facility] Psych [...] Medical History: Diagnosis Date Bipolar 1 disorder ([facility]) Migraines RA (rheumatoid arthritis) ([facility]) Schizophrenic disorder ([facility]) [2] Current Facility-Administered Medications Medication Dose Route Frequency Provider Last Rate Last Admin acetaminophen (Tylenol) tablet 650 mg 650 mg Oral q6h PRN Joe Frazier, SERVICENOW ADMINISTRATOR aluminum & magnesium hydroxide-simethicone (Mylanta) 200-200-20 MG/5ML oral suspension 10 mL 10mL Oral q6h PRN Joe Frazier, SERVICENOW ADMINISTRATOR hydrOXYzine pamoate (Vistaril) capsule 50 mg 50 mg Oral q6h PRN Joe Frazier, SERVICENOW ADMINISTRATOR magnesium hydroxide (Milk of Magnesia) 400 MG/5ML suspension 10 mL 10 mL Oral Daily PRN Joe Frazier, SERVICENOW ADMINISTRATOR OLANZapine zydis (ZyPREXA) disintegrating tablet 5 mg 5 mg Sublingual Once Joe Frazier, SERVICENOW ADMINISTRATOR Current Outpatient Medications Medication Sig Dispense Refill [...] mouth 1 (one) time each day. HYDROcodone-acetaminophen ([place]) 10-325 MG tablet TAKE ONE TABLET BY [...] 1/2 tablet by mouth twice daily Joe Frazier, DACIA 01/22/251835 * ED Triage Notes - Rosanne Bowie RN - 01/22/2025 5:51 PM EST Maru [...] Description 02/13/2025 10:50 AM EST Office Visit [facility] [address] [place] [address] Lorin Melendez, SERVICENOW ADMINISTRATOR [address] [place] [address] documented as of this encounter [...] Metabolic Panel, Plasma (01/28/2025 5:17 AM EST) Glucose, Plasma 94 74 - 99 mg/dL 01/28/2025 5:[address] [facility] BUN, Plasma 9 7 - 21 mg/dL 01/28/2025 5:[address] [facility] Creatinine, Plasma 0.75 0.60 - 1.10 mg/dL 01/28/2025 5:[address] [facility] BUN/Creatinine Ratio 12 01/28/2025 5:[address] [facility] Sodium, Plasma 138 136 - 145 mmol/L 01/28/2025 5:[address] [facility] Potassium, Plasma 4.1 3.6 - 4.9 mmol/L 01/28/2025 5:[address] [facility] Chloride, Plasma 105 97 - 107 mmol/L 01/28/2025 5:[address] [facility] CO2, Plasma 24 22 - 29 mmol/L 01/28/2025 5:[address] [facility] Anion Gap 9 6 - 16 mmol/L 01/28/2025 5:[address] [facility] Total Calcium, Plasma 9.0 8.9 - 10.2 mg/dL 01/28/2025 5:[address] [facility] Total Protein 6.7 6.3 - 7.9 g/dL 01/28/2025 5:[address] [facility] Albumin, Plasma 4.1 3.5 - 5.2 g/dL 01/28/2025 5:[address] [facility] AST, Plasma 16 10 - 35 U/L 01/28/2025 5:[address] [facility] ALT, Plasma 23 10 - 35 U/L 01/28/2025 5:[address] [facility] Alkaline Phosphatase, Plasma 67 46 - 142 U/L 01/28/2025 5:[address] [facility] Total Bilirubin, Plasma 0.3 0.2 - 1.1 mg/dL 01/28/2025 5:[address] [facility] eGFRcr 93.0 mL/min/1.7 3m*2 01/28/2025 5:[address] [facility] Comment:Reported eGFRcr in m L/min/1.73m2 is based the CKD-EPI 2020 equation that does not use a race coefficient. Blood Venous blood specimen / Unknown Venipuncture / Unknown 01/28/2025 5:17 AM EST 01/28/2025 5:19 AM EST Rhett Reeves MD LAB BLOOD ORDERABLES Final Re sult Performing Organization Address [facility] Co de Phone Number [facility] [address] [place] [address] * Urinalysis Microscopic Examination (01/23/2025 10:08 PM EST) Urine Urine specimen obtained by clean catch procedure / Unknown Non-blood Collection / Unknown 01/23/2025 10:08 PM EST 01/23/2025 10:11 PM EST Sheila Jerry MD LAB URINE ORDERABLES Final Result Performing Organization Address [facility] de Phone Number [facility] [address] [place] [address] * Urine Petty Panel (01/23/2025 10:08 PM EST) Extra Reflex urine culture not indicated 01/24/2025 12:01 AM EST [facility] Urine Urine specimen obtained by clean catch procedure / Unknown Non-blood Collection / Unknown 01/23/2025 10:08 PM EST 01/23/2025 10:11 PM EST Sheila Jerry MD LAB URINE ORDERABLES Final Result Performing Organization Address [facility] Phone Number [facility] [address] [place] [address] * (ABNORMAL) Urinalysis with reflex microscopic (Culture NOT Included) (01/23/2025 10:08 PM EST) Color, Urine Yellow LAB URINALYSIS - AUTOMATED METHOD 01/23/2025 11:21 PM EST [facility] Clarity, Urine Clear LAB URINALYSIS - AUTOMATED METHOD 01/23/2025 11:21 PM EST [facility] Spec [place], Urine <1.005(L) 1.005 - 1.030 LAB URINALYSIS - AUTOMATED METHOD 01/23/2025 11:21 PM EST [facility] pH, Urine 6.5 5.0 - 8.0 LAB URINALYSIS - AUTOMATED METHOD 01/23/2025 11:21 PM EST [facility] Protein, Urine Negative Negative mg/dL LAB URINALYSIS - AUTOMATED METHOD 01/23/2025 11:21 PM EST [facility] Glucose, Urine Negative Negative mg/dL LAB URINALYSIS - AUTOMATED METHOD 01/23/2025 11:21 PM EST [facility] Ketones, Urine Negative Negative mg/dL LAB URINALYSIS - AUTOMATED METHOD 01/23/2025 11:21 PM EST [facility] Blood, Urine Negative Negative LAB URINALYSIS - AUTOMATED METHOD 01/23/2025 11:21 PM EST [facility] Bilirubin, Urine Negative Negative LAB URINALYSIS - AUTOMATED METHOD 01/23/2025 11:21 PM EST [facility] Urobilinogen, Urine 0.2 0.2 to 1.0 mg/dL LAB URINALYSIS - AUTOMATED METHOD 01/23/2025 11:21 PM EST [facility] Leukocytes, Urine Trace(A) Negative LAB URINALYSIS - AUTOMATED METHOD 01/23/2025 11:21 PM EST [facility] Nitrite, Urine Negative Negative LAB URINALYSIS - AUTOMATED METHOD 01/23/2025 11:21 PM EST [facility] RBC, Urine <1 0 to 3 /HPF 01/23/2025 11:21 PM EST [facility] Comment:This result was prev iously suppressed from the chart. WBC, Urine 0 - 5 0 to 5 /HPF 01/23/2025 11:21 PM EST [facility] Comment:This result was prev iously suppressed from the chart. Squamous Epithelial Cells 0 - 2 0 to 5 /HPF 01/23/2025 11:21 PM EST [facility] Comment:This result was prev iously suppressed from the chart. Hyaline Casts 0 - 2 0 to 5 /LPF 01/23/2025 11:21 PM EST [facility] Comment:This result was prev iously suppressed from the chart. Bacteria, Urine Negative Negative 01/23/2025 11:21 PM EST [facility] Comment:This result was prev iously suppressed from the chart. Urine Urine specimen obtained by clean catch procedure / Unknown Non-blood Collection / Unknown 01/23/2025 10:08 PM EST 01/23/2025 10:11 PM EST [facility] - 01/23/2025 11:21 PM EST Performed by manual method Sheila Jerry MD LAB URINE ORDERABLES Final Result [facility] [address] [place] [address] * (ABNORMAL) Lipid panel (01/23/2025 1:10 PM EST) Cholesterol, Plasma 127 <200 mg/dL 01/23/2025 1:41 PM EST [facility] Comment: Cholesterol Reference Range (age >17 years): Desirable <200 mg/dL Borderline 200 to 239 mg/dL Undesirable >239 mg/dL HDL 65 >=50 mg/dL 01/23/2025 1:41 PM EST [facility] Comment: HDL Cholesterol Reference Ranges (age [...] Cholesterol/HDL Ratio 2 01/23/2025 1:41 PM EST [facility] LDL, Calculated 35 <100 mg/dL 1:41 PM EST [facility] Comment: LDL Cholesterol Reference Range (age [...] 12 hours? Unknown 01/23/2025 1:41 PM EST [facility] Blood Venous blood specimen / Unknown Venipuncture / Unknown 01/23/2025 1:10 PM EST 01/23/2025 1:13 PM EST us Sheila Jerry MD LAB BLOOD ORDERABLES Final Result Performing Organization Address City/[facility] Co de Phone Number [facility] [address] [place] [address] * Thyroid Stimulating Hormone, Plasma (01/23/2025 1:10 PM EST) Thyroid Stimulating Hormone, Plasma 1.62 0.40 - 4.20 uIU/mL 01/23/2025 1:41 PM EST [facility] Blood Venous blood specimen / Unknown Venipuncture / Unknown 01/23/2025 1:10 PM EST 01/23/2025 1:13 PM EST Sheila Jerry MD LAB BLOOD ORDERABLES Final Result Performing Organization Address [facility] de Phone Number [facility] [address] [place] [address] * Free T4, Plasma (01/23/2025 1:10 PM EST) Pathologist [facility] Free T4, Plasma 1.4 0.8 - 1.7 ng/dL 01/23/2025 1:41 PM EST [facility] Blood Venous blood specimen / Unknown Venipuncture / Unknown 01/23/2025 1:10 PM EST 01/23/2025 1:13 PM EST us Sheila Jerry MD LAB BLOOD ORDERABLES Final Result Performing Organization Address City/[facility] Co de Phone Number [facility] [address] [place] [address] * (ABNORMAL) CMP (01/23/2025 1:10 PM EST) Glucose, Plasma 122(H) 74 - 99 mg/dL 01/23/2025 1:41 PM EST [facility] BUN, Plasma 8 7 - 21 mg/dL 01/23/2025 1:41 PM EST [facility] Creatinine, Plasma 0.79 0.60 - 1.10 mg/dL 01/23/2025 1:41 PM EST [facility] BUN/Creatinine Ratio 10 01/23/2025 1:41 PM EST [facility] Sodium, Plasma 136 136 - 145 mmol/L 01/23/2025 1:41 PM EST [facility] Potassium, Plasma 4.0 3.6 - 4.9 mmol/L 01/23/2025 1:41 PM EST [facility] Chloride, Plasma 99 97 - 107 mmol/L 01/23/2025 1:41 PM EST [facility] CO2, Plasma 25 22 - 29 mmol/L 01/23/2025 1:41 PM EST [facility] Anion Gap 12 6 - 16 mmol/L 01/23/2025 1:41 PM EST [facility] Total Calcium, Plasma 9.7 8.9 - 10.2 mg/dL 01/23/2025 1:41 PM EST [facility] Total Protein 7.1 6.3 - 7.9 g/dL 01/23/2025 1:41 PM EST [facility] Albumin, Plasma 4.4 3.5 - 5.2 g/dL 01/23/2025 1:41 PM EST [facility] AST, Plasma 35 10 - 35 U/L 01/23/2025 1:41 PM EST [facility] ALT, Plasma 30 10 - 35 U/L 01/23/2025 1:41 PM EST [facility] Alkaline Phosphatase, Plasma 70 46 - 142 U/L 01/23/2025 1:41 PM EST [facility] Total Bilirubin, Plasma 0.2 0.2 - 1.1 mg/dL 01/23/2025 1:41 PM EST [facility] eGFRcr 87.4 mL/min/1.7 3m*2 01/23/2025 1:41 PM EST [facility] Comment:Reported eGFRcr in m L/min/1.73m2 is based the CKD-EPI 2020 equation that does not use a race coefficient. Blood Venous blood specimen / Unknown Venipuncture / Unknown 01/23/2025 1:10 PM EST 01/23/2025 1:13 PM EST Sheila Jerry MD LAB BLOOD ORDERABLES Final Result [facility] [address] [place] [address] * HIV 1 & 2 Antibody/Antigen Screen (01/23/2025 1:09 PM EST) HIV 1 & 2 Antibody/Antigen Screen Non Reactive Non Reactive 01/23/2025 1:45 PM EST [facility] Comment:Screening for HIV 1 & 2 antibodies, and P24 antigen is NONREACTIVE. No confirmatory testing is required. Blood Venous blood specimen / Unknown Venipuncture / Unknown 01/23/2025 1:09 PM EST 01/23/2025 1:13 PM EST us Sheila Jerry MD LAB BLOOD ORDERABLES Final Result Performing Organization Address City/[facility] Co de Phone Number [facility] [address] [place] [address] * Hepatitis C Antibody with Reflex to HCV Quant PCR - [facility] (01/23/2025 1:09 PM EST) Hepatitis C Antibody Negative Negative 01/23/2025 2:23 PM EST [facility] Blood Venous blood specimen / Unknown Venipuncture / Unknown 01/23/2025 1:09 PM EST 01/23/2025 1:13 PM EST Sheila Jerry MD LAB BLOOD ORDERABLES Final Result Performing Organization Address [facility] de Phone Number [facility] [address] [place] [address] * Hepatitis B Surface Antigen - [facility] (01/23/2025 1:09 PM EST) Pathologist [facility] Hepatitis B Surf Antigen Negative Negative 01/23/2025 4:18 PM EST [facility] Blood Venous blood specimen / Unknown Venipuncture / Unknown 01/23/2025 1:09 PM EST 01/23/2025 1:14 PM EST Sheila Jerry MD LAB BLOOD ORDERABLES Final Result Performing Organization Address City/[facility] Co de Phone Number [facility] [address] [place] [address] * CBC w/o diff (01/23/2025 11:47 AM EST) Pathologist [facility] WBC Count 7.52 3.70 - 10.30 10*3/uL LAB HEMATOLOGY METHOD 01/23/2025 12:26 PM EST [facility] RBC Count 4.86 3.90 - 5.20 10*6/uL LAB HEMATOLOGY METHOD 01/23/2025 12:26 PM EST [facility] HGB 14.5 11.2 - 15.7 g/dL LAB HEMATOLOGY METHOD 01/23/2025 12:26 PM EST [facility] HCT 42.8 34.0 - 45.0 % LAB HEMATOLOGY METHOD 01/23/2025 12:26 PM EST [facility] Platelet Count 211 155 - 369 10*3/uL LAB HEMATOLOGY METHOD 01/23/2025 12:26 PM EST [facility] MCV 88 79 - 98 fL LAB HEMATOLOGY METHOD 01/23/2025 12:26 PM EST [facility] MCH 29.8 26.0 - 32.0 pg LAB HEMATOLOGY METHOD 01/23/2025 12:26 PM EST [facility] MCHC 33.9 30.7 - 35.5 g/dL LAB HEMATOLOGY METHOD 01/23/2025 12:26 PM EST [facility] RDW 13.2 11.5 - 14.5 % LAB HEMATOLOGY METHOD 01/23/2025 12:26 PM EST [facility] MPV 8.8 8.8 - 12.5 fL LAB HEMATOLOGY METHOD 01/23/2025 12:26 PM EST [facility] nRBC 0.0 <=0.0 per 100 WBCs LAB HEMATOLOGY METHOD 01/23/2025 12:26 PM EST [facility] Blood Venous blood specimen / Unknown Venipuncture / Unknown 01/23/2025 11:47 AM EST 01/23/2025 12:23 PM EST us Sheila Jerry MD LAB BLOOD ORDERABLES Final Result [facility] [address] [place] [address] * POCT Drugs of Abuse (01/22/2025 11:33 [...] Normal Normal POC UDS Kit Lot Number [id number] POC UDS Kit Expiration 2026-08-15 POC UDS Collection Observed? Not Observed Urine 01/22/2025 11:3 3 PM EST Joe Frazier APRN POINT OF CARE TEST ENTER/ED IT ORDERABLES Final Result documented in this encounter Visit Diagnoses Diagnosis Psychosis, unspecified psychosis type (CMS/HCC)- Primary Psychosis, unspecified psychosis type (CMS/HCC) documented in this encounter Admitting Diagnoses Diagnosis [...] 5 mg, Oral, Once, 1 dose, On Mon01/25/25 at 1230, Routine Given 01/25/2025 12:54 PM [...] 01/25/2025 8:21 PM EST 10 mg HYDROcodone-acetaminophen ([place]) 5-325 MG per tablet 10 mg of [...] 5 mg, Oral, Nightly, First dose on Mon01/23/25 at 2100, Until Discontinued, Routine Given 01/27/2025 9:24 PM EST 5 mg Given 01/26/2025 8:44 PM EST 5 mg Given 01/25/2025 8:21 PM EST 5 mg sodium chloride ([place]) 0.65 % nasal spray 1 spray 1 spray, Each Nostril, As needed, Starting on Mon01/23/25 at 1750, Until Mon01/28/25 at 1754, Routine, congestion, nasal irritation venlafaxine XR (Effexor-XR) 24 hr capsule 150 mg 150 mg, Oral, Daily with breakfast, First dose (after last modification) on Mon01/25/25 at 0800, Until Discontinued, Routine Given 01/28/2025 [...] Routine 1001 (Given - Provider: Maria Antonia Eisenberg, VALENTE) 0823 (Given - Provider: José Antonio Barroso RN) 0906 (Given - Provider: Benita Jose, VALENTE) cetirizine (ZyrTEC) tablet 10 mg 10 mg, Oral, Nightly, First dose on Eda 01/23/25 at 2100, Until Discontinued, Routine 2044 (Given - Provider: Marilu Lopez RN) 2123 (Given - Provider: Shawn Younger, VALENTE) hydroxychloroquine (Plaquenil) tablet 200 mg 200 mg, Oral, Daily, First dose on Mon01/24/25 at 1645, Until Discontinued, Routine 1003 (Given - Provider: Maria Antonia Eisenberg RN) 0823 (Given - Provider: José Antonio Barroso RN) 0905 (Given - Provider: Benita Jose, VALENTE) leflunomide (Arava) tablet 20 mg 20 mg, Oral, Daily, First dose on Mon01/24/25 at 1645, Until Discontinued, Routine 1003 (Given - Provider: Maria Antonia Eisenberg RN) 0823 (Given - Provider: José Antonio Barroso, VALENTE) 0905 (Given - Provider: Benita Jose, VALENTE) losartan (Cozaar) tablet 50 mg 50 mg, Oral, Daily, First dose on 01/27/25 at 1630, Until Discontinued, Routine 1546 (Given - Provider: José Antonio Barroso, VALENET) 0648 (Given - Provider: Shawn Younger, VALENTE - Comment: Given per instructions from provider Moustapha Watson.)0900 (Canceled Entry - Provider: Shawn Younger RN - Comment: Given early this AM per instructions from provider Moustapha Watson.) metoprolol succinate XL (Toprol-XL) 24 hr tablet 100 mg 100 mg, Oral, 2 times daily, First dose on Eda 01/23/25 at 0900, Until Discontinued, Routine 100 (Given - Provider: Maria Antonia Eisenberg, VALENTE)2043 (Given - Provider: Marilu Lopez RN) 08 (Given - Provider: José Antonio Barroso RN)2122 (Given - Provider: Shawn Younger, VALENTE) 09 (Given - Provider: Benita Jose, VALENTE) rosuvastatin (Crestor) tablet 5 mg 5 mg, Oral, Nightly, First dose on Eda 01/23/25 at 2100, Until Discontinued, Routine 2043 (Given - Provider: Marilu Lopez RN) 2123 (Given - Provider: Shawn Younger RN) venlafaxine XR (Effexor-XR) 24 hr capsule 150 mg 150 mg, Oral, Daily with breakfast, First dose (after last modification) on 01/25/25 at 0800, Until Discontinued, Routine 100 (Given - Provider: Maria Antonia Eisenberg RN) 08 (Given - Provider: José Antonio Barroso RN) 09 (Given - Provider: Benita Jose, VALENTE) PRN Medication Order 01/26/2025 01/27/2025 01/28/2025 aluminum [...] Until Mon01/28/25 at 1754, Routine, heartburn HYDROcodone-acetaminophen ([place]) 5-325 MG per tablet 10 mg of hydrocodone 10 mg of hydrocodone, Oral, Every 6 hours PRN, Starting on Mon01/23/25 at 0342, Until Mon01/28/25 at 1754, Routine, Moderate/Severe Pain > or =3: CPOT; > or =4: FLACC, PAINAD, NPASS, NRS, Vega-Shah Faces; > or =5: DVPRS, NIPS 0550 (Given - Provid er: Shawn Younger, RN)1348 (Given - Provider: Katerin Ellis RN) hydrOXYzine [...] Mon01/28/25 at 1754, Routine, migraine sodium chloride ([place]) 0.65 % nasal spray 1 spray 1 [...] documented as of this encounter Care Teams Plant Operations Engineer Relationship Specialty Start Date End Date Marvin Breaux MD [address] [place] [address] [address] [place] [address] PCP - General 05/27/24 documented as of this encounter
[2025-02-03] VITALS (7 sets, daily range): BP systolic 119–141; BP diastolic 72–82; PULSE 60–85; RESP 16–18; TEMP 36.3–37; O2SAT 95–100; BMI 36.6
--- OUTSIDE RECORDS SUMMARY | 2025-02-03 04:13 | XMS_ITS | Encounter Summary ---
Author Organization Healthcare Address [address] [place] [address] Care Team Providers Care Navy Seal Name Role Phone Marvin Breaux MD Primary Care Provider [phone] Encounter Details Date Type Department Care Team (Late st Contact Info) Description 05/05/2022 Lab Requisition [facility] [address] [place] [address] Andreea Mello, [place] [address] [place] [address] Routine general medical examination at [...] Description 02/13/2025 10:50 AM EST Office Visit [facility] [address], [address] [place] [address] Lorin Melendez, VISUAL EDUCATOR [address] [place] [address] documented as of this encounter [...] - 4.20 uIU/mL 05/05/2022 10:05 AM EST [facility] Blood Venous blood specimen / Unknown Venipuncture / Unknown 05/05/2022 7:13 AM EST 05/05/2022 8:15 AM EST Narrative [facility] - 05/05/2022 10:05 AM EST Trimester Specific Ranges TSH ( IU/mL) 1st Trimester 0.1 - 3.0 2nd Trimester 0.19 - 4.06 3rd Trimester 0.3 - 3.7 us Andreea AGARWAL LAB BLOOD ORDERABLES Final R esult [facility] [address] [place] [address] * hCG, Total Beta, Quantitative, Plasma (05/05/2022 7:13 AM EST) hCG, Total Beta 1.94 <5 mIU/mL 05/05/2022 10:05 AM EST [facility]ARE LAB Blood Venous blood specimen / Unknown Venipuncture / Unknown 05/05/2022 7:13 AM EST 05/05/2022 8:15 AM EST [facility] - 05/05/2022 10:05 AM EST [...] ORDERABLES Final R esult Performing Organization Address City/[facility]/ZIP Co de Phone Number HEALTHCARE LAB [address] [place] [address] * Serum Drug Screen (05/05/2022 7:13 AM EST) 9 Carboxy THC <5 <5 ng/mL 05/07/2022 10:35 PM EST [facility] Alprazolam <5 <5 ng/mL 05/07/2022 10:35 PM EST [facility]ALTH[facility] Amphetamine <10 <10 ng/mL 05/07/2022 10:35 PM EST [facility] Benzolyecgonine <20 <20 ng/mL 10:35 PM EST [facility] Buprenorphine <1 <1 ng/mL 05/07/2022 10:35 PM EST [facility] Butalbital <50 <50 ng/mL 05/07/2022 10:35 PM [facility] Clonazepam <5 <5 ng/mL 05/07/2022 10:35 PM [facility] Codeine <5 <5 ng/mL 05/07/2022 10:35 PM [facility] Diazepam <5 <5 ng/mL 05/07/2022 10:35 PM [facility] Fentanyl <1 <1 ng/mL 05/07/2022 10:35 PM [facility] Hydrocodone <2 <2 ng/mL 05/07/2022 10:35 PM [facility] Hydromorphone <5 <5 ng/mL 05/07/2022 10:35 PM [facility] Lorazepam <5 <5 ng/mL 05/07/2022 10:35 PM [facility] MDA <10 <10 ng/mL 05/07/2022 10:35 PM [facility] MDMA <10 <10 ng/mL 05/07/2022 10:35 PM [facility] Meperidine <5 <5 ng/mL 05/07/2022 10:35 PM [facility] Methadone <10 <10 ng/mL 05/07/2022 10:35 PM [facility] Methadone Metabolite <10 <10 ng/mL 04/27 10:35 PM [facility] Methamphetamine <10 <10 ng/mL 10:35 PM [facility] Midazolam <5 <5 ng/mL 05/07/2022 10:35 PM [facility] Morphine <2 <2 ng/mL 05/07/2022 10:35 PM [facility] Norbuprenorphine <5 <5 ng/mL 05/08/19 10:35 PM [facility] Nordiazepam <10 <10 ng/mL 05/07/2022 10:35 PM [facility] Oxazepam <5 <5 ng/mL 05/07/2022 10:35 PM [facility] Oxycodone <2 <2 ng/mL 05/07/2022 10:35 PM [facility] Oxymorphone <2 <2 ng/mL 05/07/2022 10:35 PM [facility] Phenobarbital <50 <50 ng/mL 05/07/2022 10:35 PM EST [facility] Temazepam <5 <5 ng/mL 05/07/2022 10:35 PM EST [facility] Tramadol <20 <20 ng/mL 05/07/2022 10:35 PM EST [facility] Blood Venous blood specimen / Unknown Venipuncture / Unknown 05/05/2022 7:13 AM EST 05/05/2022 8:13 AM EST Narrative [facility] - 05/07/2022 10:35 PM EST Test performed by LC-MS/MS at the [facility]. This test was developed and its performance characteristics determined by [facility]. It has not been cleared or approved by the FDA. The laboratory is regulated under CLIA as qualified to perform high-complexity testing. This test is used for clinical purposes. Andreea Mello MD LAB BLOOD ORDERABLES Final R esult Performing Organization Address City/[facility] Co de Phone Number [facility] [address] [place] [address] * Vitamin D 25 Hydroxy (05/05/2022 7:13 AM EST) Vitamin D 25 Hydroxy 29.1 20.0 - 80.0 ng/mL 05/05/2022 11:27 AM EST [facility] Comment: Vitamin D, 25-Hydroxy reference range, age 18 years and up: Deficiency: <12 ng/mL Insufficiency: 12 to 19 ng/mL Sufficiency: 20 to 80 ng/mL Possible toxicity: >100 ng/mL Blood Venous blood specimen / Unknown Venipuncture / Unknown 05/05/2022 7:13 AM EST 05/05/2022 8:14 AM EST [facility] BLOOD ORDERABLES Final R esult Performing Organization Address City/[facility] Co de Phone Number [facility] [address] [place] [address] * (ABNORMAL) CBC and Differential (05/05/2022 7:13 AM EST) WBC Count 5.17 3.70 - 10.30 10*3/uL LAB HEMATOLOGY METHOD 05/05/2022 9:32 AM EST [facility] RBC Count 4.23 3.90 - 5.20 10*6/uL LAB HEMATOLOGY METHOD 05/05/2022 9:32 AM EST [facility] HGB 12.8 11.2 - 15.7 g/dL LAB HEMATOLOGY METHOD 05/05/2022 9:32 AM EST [facility] HCT 37.5 34.0 - 45.0 % LAB HEMATOLOGY METHOD 05/05/2022 9:32 AM EST [facility] Platelet Count 254 155 - 369 10*3/uL LAB HEMATOLOGY METHOD 05/05/2022 9:32 AM EST [facility] MCV 89 79 - 98 fL LAB HEMATOLOGY METHOD 05/05/2022 9:32 AM EST [facility] MCH 30.3 26.0 - 32.0 pg LAB HEMATOLOGY METHOD 05/05/2022 9:32 AM EST [facility] MCHC 34.1 30.7 - 35.5 g/dL LAB HEMATOLOGY METHOD 05/05/2022 9:32 AM EST [facility] RDW 13.3 11.5 - 14.5 % LAB HEMATOLOGY METHOD 05/05/2022 9:32 AM EST [facility] MPV 8.7(L) 8.8 - 12.5 fL LAB HEMATOLOGY METHOD 05/05/2022 9:32 AM EST [facility] nRBC 0.0 <=0.0 per 100 WBCs LAB HEMATOLOGY METHOD 05/05/2022 9:32 AM EST [facility] Differential Type Automated LAB HEMATOLOGY METHOD 05/05/2022 9:32 AM EST [facility] Neutrophils % 65.0 % LAB HEMATOLOGY METHOD 05/05/2022 9:32 AM EST [facility] Lymphocytes % 21.0 % LAB HEMATOLOGY METHOD 05/05/2022 9:32 AM EST [facility] Monocytes % 11.0 % LAB HEMATOLOGY METHOD 05/05/2022 9:32 AM EST [facility] Eosinophils % 2.0 % LAB HEMATOLOGY METHOD 05/05/2022 9:32 AM EST [facility] Basophils % 1.0 % LAB HEMATOLOGY METHOD 05/05/2022 9:32 AM EST [facility] Immature Granulocytes % 0.0 % LAB HEMATOLOGY METHOD 05/05/2022 9:32 AM EST [facility] Neutrophils Absolute 3.36 1.60 - 6.10 10*3/uL LAB HEMATOLOGY METHOD 05/05/2022 9:32 AM EST [facility] Lymphocytes Absolute 1.08(L) 1.20 - 3.90 [...] LAB HEMATOLOGY METHOD 05/05/2022 9:32 AM EST [facility] Immature Granulocytes Absolute 0.02 0.00 - 0.06 10*3/uL LAB HEMATOLOGY METHOD 05/05/2022 9:32 AM EST [facility] Blood Venous blood specimen / Unknown Venipuncture / Unknown 05/05/2022 7:13 AM EST 05/05/2022 7:47 AM EST Narrative HEALTHCARE LAB - 05/05/2022 9:32 AM EST Therapeutic decision making should be based on absolute values, rather than percentages. us Andreea AGARWAL LAB BLOOD ORDERABLES Final R esult Performing Organization Address City/State/[facility] Co de Phone Number HEALTHCARE LAB [address] [place] [address] * Hemoglobin A1c (05/05/2022 7:13 AM EST) Hemoglobin A1c 5.2 <5.7 % 05/05/2022 10:34 AM EST [facility] Blood Venous blood specimen / [...] Adults <6.0% Children and Adolescents <7.5% Source: [place] [employer]. Standards of medical care in diabetes,2017. Diabetes Care.2017:40 (suppl 1):S1-S135. HbA1c assay performed by an ion-exchange chromatography method that is certified traceable to the DCCT. Andreea AGARWAL LAB BLOOD ORDERABLES Final R esult [facility] [address] [place] [address] * Lipid panel (05/05/2022 7:13 AM EST) Fasting greater than or equal to 8 hours? Unknown 05/05/2022 10:05 AM EST [facility] Cholesterol, Plasma 133 <200 mg/dL 05/05/2022 10:05 AM EST [facility] Comment: Cholesterol Reference Range (age >17 years): Desirable <200 mg/dL Borderline 200 to 239 mg/dL Undesirable >239 mg/dL HDL 60 >=50 mg/dL 05/05/2022 10:05 AM EST [facility] Comment: HDL Cholesterol Reference Ranges (age >17 years): Female, acceptable > or = 50 mg/dL Male, acceptable > or = 40 mg/dL Triglycerides, Plasma 74 <150 mg/dL 05/05/2022 10:05 AM EST [facility] Comment: Triglyceride Reference Range (age >17 years): Desirable: <150 mg/dL Borderline high: 150 to 199 mg/dL High: 200 to 499 mg/dL Very high: >499 mg/dL Increased risk of pancreatitis: >1000 mg/dL Cholesterol/HDL Ratio 2 05/05/2022 10:05 AM EST [facility] LDL, Calculated 58.2 <100 mg/dL 10:05 AM EST [facility] Comment: LDL Cholesterol Reference Range (age [...] AGARWAL LAB BLOOD ORDERABLES Final R esult [facility] [address] [place] [address] * (ABNORMAL) Comprehensive metabolic panel (05/05/2022 7:13 AM EST) Glucose, Plasma 98 74 - 99 mg/dL 05/05/2022 10:05 AM [facility] BUN, Plasma 5(L) 7 - 21 mg/dL 05/05/2022 10:05 AM [facility] Creatinine, Plasma 0.92 0.60 - 1.10 mg/dL 05/05/2022 10:05 AM [facility] BUN/Creatinine Ratio 5 05/05/2022 10:05 AM [facility] Sodium, Plasma 137 136 - 145 mmol/L 05/05/2022 10:05 AM [facility] Potassium, Plasma 3.2(L) 3.7 - 4.8 mmol/L 05/05/2022 10:05 AM [facility] Chloride, Plasma 99 97 - 107 mmol/L 05/05/2022 10:05 AM [facility] CO2, Plasma 26 22 - 29 mmol/L 05/05/2022 10:05 AM [facility] Anion Gap 12 6 - 16 mmol/L 05/05/2022 10:05 AM [facility] Total Calcium, Plasma 8.9 8.9 - 10.2 mg/dL 05/05/2022 10:05 AM [facility] Total Protein 6.2(L) 6.3 - 7.9 g/dL 05/05/2022 10:05 AM [facility] Albumin, Plasma 3.6 3.5 - 5.2 g/dL 05/05/2022 10:05 AM [facility] AST, Plasma 52(H) 11 - 32 U/L 05/05/2022 10:05 AM [facility] ALT, Plasma 55(H) 8 - 33 U/L 05/05/2022 10:05 AM [facility] Alkaline Phosphatase, Plasma 73 35 - 104 U/L 05/05/2022 10:05 AM EST [facility] Total Bilirubin, Plasma 0.3 0.2 - 1.1 mg/dL 05/05/2022 10:05 AM EST [facility] LAB eGFRcr 73.7 mL/min/1.7 3m*2 05/05/2022 10:05 AM EST [facility] Comment: Reported eGFRcr in mL/min/1.73m2 is based the CKD-EPI 2021 equation that does not use a race coefficient. Effective 09/22/21 our laboratory changed the eGFR calculation to the CKD-EPI 2021 equation from the previously reported eGFR, based on the MDRD equation. For comparisons between the two equations, please see laboratory website: [email or web address] Blood Venous blood specimen / Unknown Venipuncture / Unknown 05/05/2022 7:13 AM EST 05/05/2022 8:15 AM EST us Andreea AGARWAL LAB BLOOD ORDERABLES Final R esult Performing Organization Address City/State/[facility] Co mt Phone Number HEALTHCARE LAB [address] [place] [address] documented in this encounter Visit Diagnoses Diagnosis Routine general medical examination at a health care facility documented in this encounter Care Teams Navy Seal Relationship Specialty Start Date End Date Marvin Breaux MD [address] [place] [address] [address] [place] [address] PCP - General 05/27/24 documented as of this encounter
--- OUTSIDE RECORDS SUMMARY | 2025-02-03 04:13 | XMS_ITS | Encounter Summary ---
Author Organization Healthcare Address [address] [place] [address] Care Team Providers Care Scientific Editor Name Role Phone Marvin Breaux MD Primary Care Provider [phone] Encounter Details Date Type Department Care Team (Late st Contact Info) Description 05/04/2022 Lab Requisition [facility] [address] [place] [address] Andreea Mello, [place] [address] [place] [address] Routine general medical examination at [...] Description 02/13/2025 10:50 AM EST Office Visit [place] [facility] [address], [address] [place] [address] Lorin Melendez, GUIDANCE COUNSELOR [address] [place] [address] documented as of this encounter Visit Diagnoses Diagnosis Routine general medical examination at a health care facility documented in this encounter Care Teams Scientific Editor Relationship Specialty Start Date End Date Marvin Breaux MD [address] [facility] [address] [place] [address] PCP - General 05/27/24 documented as of this encounter
--- OUTSIDE RECORDS SUMMARY | 2025-02-03 04:13 | XMS_ITS | Encounter Summary ---
Author Organization Healthcare Address [address] [place] [address] Care Team Providers Care Pricing Clerk Name Role Phone Marvin Breaux MD Primary Care Provider [phone] Encounter Details Date Type Department Care Team (Late st Contact Info) Description 05/03/2022 Lab Requisition [facility] [address] [place] [address] Andreea Mello, PA [address] [place] [address] Routine general medical examination at [...] Description 02/13/2025 10:50 AM EST Office Visit [place] [facility] [address] [place] [address] Lorin Melendez, UNIVERSAL GRINDER TOOL [address] [place] [address] documented as of this encounter [...] clinical signs and symptoms consistent with COVID-19. Andreea AGARWAL LAB MICROBIOLOGY - GENERAL O RDERABLES Final Result Performing Organization Address City/State/[facility] Co de Phone Number HEALTHCARE LAB [address] [place] [address] documented in this encounter Visit Diagnoses Diagnosis Routine general medical examination at a health care facility documented in this encounter Care Teams Pricing Clerk Relationship Specialty Start Date End Date Marvin Breaux MD [address] [place] [address] [address] [place] [address] PCP - General 05/27/24 documented as of this encounter
--- OUTSIDE RECORDS SUMMARY | 2025-02-03 04:13 | XMS_ITS | Referral Summary ---
Author Organization [employer] ([place], [place], [place], [place], [place]) Address [address] [place] [address] Care Team Providers Care Furnace Feeder Name Role Phone Marvin Breaux MD Primary Care Provider [phone] Encounters Date Type Department Care Team Description 01/02/2025 Travel 01/02/2025 2:30 PM EST Procedure Visit [facility] - [facility] [address] [place] [address] [address] [place] [address] Olivia Celis MD Chronic migraine [...] 11 5 01/07/20 25 Discontinu ed(Reorder ) Active Problems No known active problems Social History Tobacco Use Types Packs/Day Years Used Date Smoking Tobacco: Never Assessed Family and Community Support Answer Anson e Recorded Help with Day to Day Activities Not on file 03/09/2023 Feeling Lonely or Isolated Not on file 03/09 Educational Attainment Answer Date David rded Speak language other than Cymraes at home Not on file 03/09/2023 Want [...] Visit [facility] - [facility] [address] [place] [id number] Olivia Celis MD [address] [place] [address] Insurance AARP MEDICARE COMPLETE MAP Care Teams Furnace Feeder Relationship Specialty Start Date End Date Marvin Breaux MD [address] [place] [address] [place] [address] PCP - General General Internal Medicine 10/13/22
--- OUTSIDE RECORDS SUMMARY | 2025-02-03 04:13 | XMS_ITS | Encounter Summary ---
Author Organization [employer] ([place], [place], [place], [place], [place]) Address [address] [place] [address] Care Team Providers Care Navy Fighter Pilot Name Role Phone Marvin Breaux MD Primary Care Provider [phone] Encounter Details Date Type Department Care Team (Latest Contact Info) Description 01/02/2025 Travel Social History Tobacco Use Types Packs/Day Years Used Date Smoking Tobacco: Never Assessed Family and Community Support Answer Anson e Recorded Help with Day to Day Activities Not on file 03/09/2023 Feeling Lonely or Isolated Not on file 03/09 Educational Attainment Answer Date David rded Speak language other than Chinese at home Not on file 03/09/2023 Want [...] Description 04/02/2025 2:30 PM EST Procedure Visit [facility] - [facility] [place] [address] [place] [address] Olivia Celis MD [address] [place], [place] [id number] documented as of this encounter Visit Diagnoses Not on filedocumented in this encounter Care Teams Navy Fighter Pilot Relationship Specialty Start Date End Date Marvin Breaux MD [address] [place] [address] [place] [address] PCP - General General Internal Medicine 10/13/22 documented as of this encounter
--- OUTSIDE RECORDS SUMMARY | 2025-02-03 04:13 | XMS_ITS | Encounter Summary ---
Author Organization Healthcare Address [address] [place] [address] Care Team Providers Care Drag Sawyer Name Role Phone Marvin Breaux MD Primary Care Provider [phone] Encounter Details Date Type Department Care Team (Late st Contact Info) Description 05/03/2022 Lab Requisition [facility] [address] [facility], 1st [place] [address] Andreea Mello, PA [address] [place] [address] Routine general medical examination at [...] Description 02/13/2025 10:50 AM EST Office Visit [place] [facility] [address] [place] [address] Lorin Melendez, AUTOMATION/CONTROLS MANAGER [address] [place] [address] documented as of this encounter Visit Diagnoses Diagnosis Routine general medical examination at a health care facility documented in this encounter Care Teams Drag Sawyer Relationship Specialty Start Date End Date Marvin Breaux MD [address] [place] [id number] PCP - General 05/27/24 documented as of this encounter
--- OUTSIDE RECORDS SUMMARY | 2025-02-03 04:14 | XMS_ITS | Clinical Summary ---
Author Organization [facility] Address [address] [place] [address] Care Team Providers Care Estimator Lumber Name Role Phone Marvin Breaux MD Primary Care Provider [phone] Allergies Active Allergy Reactions Criticality Noted Date Comments Varenicline Other - please docum ent in the comment field High 06/03/2024 Sweating profusely Latex Itching,Rash Medium 09/24/2020 Medications cetirizine (ZyrTEC) 10 MG tabletIndications: Seasonal Allergic Rhinitis Take 1 tablet by mouth daily. 04/12/19 25 Active folic acid (Folvite) 1 MG tabletIndications: vitamin supplement Take 1 tablet by mouth 1 (one) time each day. Active HYDROcodone-acetam inophen ([place]) 10-325 MG tabletIndications: Pain Take 1 tablet by mouth 4 times a day as needed for moderate pain or severe pain. 06/02/19 25 Active hydroxychloroquine (Plaquenil) 200 MG tabletIndications: Rheumatoid Arthritis Take 1 tablet by mouth daily. 05/09/19 25 Active leflunomide (Arava) 20 MG tabletIndications: Rheumatoid Arthritis Take 1 tablet by mouth daily. 03/26/19 25 Active losartan (Cozaar) 50 MG tabletIndications: Hypertension Take 1 tablet by mouth daily. 03/02/19 25 Active Nurtec 75 MG orally disintegrating tabletIndications: Migraine Dissolve 1 tablet on the tongue as needed (migraine). Max 75mg/day 01/05/20 24 Active alendronate (Fosamax) 70 MG tabletIndications: Osteoporosis Take 1 tablet by mouth 1 time per week. 09/03/19 25 Active Adalimumab (Humira, 2 Pen,) 40 MG/0.8ML Auto-injector KitIndications:Rhe umatoid Arthritis Inject 1 each under the skin every 14 days. 2 each 5 10/18/19 25 Active clobetasol (Temovate) 0.05 % creamIndications:D ermatitis Apply 1 Application topically as needed (itchiness). Active botulinum toxin Type A, Cosm, (Botox) 100 units reconstituted solution injectionIndicatio ns:Migraines Active Lysine 1000 MG tabletIndications: nutrional support Take 1,000 mg by mouth daily. Active cyanocobalamin 2500 MCG tabletIndications: vitamin supplement Take 2 tablets by mouth daily. Active cholecalciferol (Vitamin D-3) 250 MCG (85631 UT) capsuleIndications :VItamin Supplement Take 1 capsule by mouth daily. Active rosuvastatin (Crestor) 5 MG tabletIndications: Hyperlipidemia Take 1 tablet by mouth nightly. Active montelukast (Singulair) 10 MG tabletIndications: Asthma Take 1 tablet by mouth nightly. Active metoprolol succinate XL (Toprol-XL) 100 MG 24 hr tabletIndications: Hypertension Take 1 tablet by mouth 2 times a day. Do not crush or chew. Active ARIPiprazole (Abilify) 15 MG tabletIndications: Psychosis Take 1 tablet by mouth daily. 30 tablet 01/30/20 25 Active venlafaxine XR (Effexor-XR) 150 MG 24 hr capsuleIndications :Mood diorder Take 1 capsule by mouth daily with breakfast. Do not crush or chew. 30 capsule 01/30/20 25 Active ARIPiprazole (Abilify) 10 MG tablet Take 1 tablet by mouth daily. 025 Discontin ued(Stop Taking at Discharge ) clotrimazole-betam ethasone (Lotrisone) cream Apply topically. 025 Discontin ued(Enter ed in Error) metoprolol tartrate (Lopressor) 100 MG tablet Take 1 tablet by mouth 2 times a day. 10/31/19 24 025 Discontin ued(Enter ed in Error) venlafaxine (Effexor) 100 MG tablet Take 1.5 tablets by mouth 2 times a day. 05/11/19 25 025 Discontin ued(Stop Taking at Discharge ) lidocaine (Xylocaine) 5 % ointment Apply 2-4 grams to feet BID as needed for neuropathy. 50 g 1 06/04/19 25 025 Discontin ued(Enter ed in Error) Active Problems Problem Noted Date Diagnosed Date Psychosis, unspecified psychosis type 01/23/2025 Psychosis 01/22/2025 Encounters Date Type Department Care Team Description 01/23/2025 Plan of Care Documentation [facility] [address] [place] [id number] 01/22/2025 5:56 PM EST - 01/28/2025 3:10 PM EST Hospital Encounter [facility] [address] [place] [address] Angelina Beebe DO Potter, Samuel J, MD Psychosis, unspecified psychosis type (CMS/HCC) (Primary Dx) Discharge Disposition: Home or Self Care 01/22/2025 Travel from Last 3 Months Immunizations Immunization Administration Dates Next Due Influenza, [...] Mass Index 30.27 01/23/2025 5:43 AM EST Plan of Treatment Upcoming Encounters Date Type Department Care Team (Late st Contact Info) Description 02/13/2025 10:50 AM EST Office Visit [facility] [address] [place] [address] Lorin Melendez, MECHANICAL ADJUSTER [address] [place] [address] Health Maintenance Due Date Last Done Comments [facility]-Medicare Annual Wellness (AWV) 1965 [facility]-/Child/Adol SDOH [...] Years (1 of 1 - PCV) 2017 [id number] Vaccine (3 season) 2024 01/02/2021, 05/16/2020 [facility]-Influenza Vaccine (#1) 2024 01/30/2024 [facility]-Depression Screening 01/22/2026 025, 01/22/2025 [facility]-Hepatitis C Screening Completed 06/03/2024 [facility]-Obesity Intervention Completed 025, 10/17/2024, 06/03/2024 [facility]-HIV Screening Completed 01/23/2025 HPV Vaccines Aged Out No longer eligi [...] PLASMA Routine 01/28/2025 5:17 AM EST URINALYSIS MICROSCOPIC FOR UA REFLEX Routine 01/23/2025 10:08 PM EST URINE PETTY PANEL Timed 01/23/2025 10:0 8 PM EST URINALYSIS WITH REFLEX MICROSCOPIC Timed 01/23/2025 10:08 PM EST URINALYSIS WITH REFLEX MICROSCOPIC AND CULTURE Timed 01/23/2025 10:08 PM EST LIPID PROFILE, PLASMA Routine 01/23/2025 1:10 PM EST TSH STAT 01/23/2025 1:10 PM EST FREE T4, PLASMA STAT 01/23/2025 1:10 PM EST COMPREHENSIVE METABOLIC PANEL, PLASMA STAT 01/23/2025 1:10 PM EST HIV 1/2 ANTIBODY/ANTIGEN SCREEN WITH REFLEX TO HIV I/II DIFFERENTIATION Routine 01/23/2025 1:09 PM EST HIV 1/2 ANTIBODY/ANTIGEN SCREEN W/REFLEX TO HIV 1/2 ANTIBODY DIFFERENTIATION Routine 01/23/2025 1:09 PM EST HEPATITIS C ANTIBODY WITH REFLEX TO HCV QUANT PCR - EMPATH Routine 01/23/2025 1:09 PM EST HEPATITIS B SURFACE ANTIGEN - EMPATH Routine 01/23/2025 1:09 PM EST CBC W/O DIFFERENTIAL STAT 01/23/2025 11:47 AM EST POCT DRUGS OF ABUSE, URINE STAT 01/22/2025 11:33 PM EST ACUTE HEPATITIS PANEL Routine 06/03/2024 11:49 AM EDT Rheumatoid arthritis, unspecified (CMS/HCC) from Last 3 Months or Most Recently Relevant to Health Maintenance Results * Comprehensive Metabolic Panel, Plasma (01/28/2025 5:17 AM EST) Only the most recent of2 resultswithin the time period is included. Glucose, Plasma 94 74 - 99 mg/dL 01/28/2025 5:41 AM EST [facility] BUN, Plasma 9 7 - 21 mg/dL 01/28/2025 5:41 AM EST [facility] Creatinine, Plasma 0.75 0.60 - 1.10 mg/dL 01/28/2025 5:41 AM EST [facility] BUN/Creatinine Ratio 12 01/28/2025 5:41 AM EST [facility] Sodium, Plasma 138 136 - 145 mmol/L 01/28/2025 5:41 AM EST [facility] Potassium, Plasma 4.1 3.6 - 4.9 mmol/L 01/28/2025 5:41 AM EST [facility] Chloride, Plasma 105 97 - 107 mmol/L 01/28/2025 5:41 AM EST [facility] CO2, Plasma 24 22 - 29 mmol/L 01/28/2025 5:41 AM EST [facility] Anion Gap 9 6 - 16 mmol/L 01/28/2025 5:41 AM EST [facility] Total Calcium, Plasma 9.0 8.9 - 10.2 mg/dL 01/28/2025 5:41 AM EST [facility] Total Protein 6.7 6.3 - 7.9 g/dL 01/28/2025 5:41 AM EST [facility] Albumin, Plasma 4.1 3.5 - 5.2 g/dL 01/28/2025 5:41 AM EST [facility] AST, Plasma 16 10 - 35 U/L 01/28/2025 5:41 AM EST [facility] ALT, Plasma 23 10 - 35 U/L 01/28/2025 5:41 AM EST [facility] Alkaline Phosphatase, Plasma 67 46 - 142 U/L 01/28/2025 5:41 AM EST [facility] Total Bilirubin, Plasma 0.3 0.2 - 1.1 mg/dL 01/28/2025 5:41 AM EST [facility] eGFRcr 93.0 mL/min/1.7 3m*2 01/28/2025 5:41 AM EST [facility] Comment:Reported eGFRcr in m L/min/1.73m2 is based the CKD-EPI 2020 equation that does not use a race coefficient. Blood Venous blood specimen / Unknown Venipuncture / Unknown 01/28/2025 5:17 AM EST 01/28/2025 5:19 AM EST Rhett Reeves MD LAB BLOOD ORDERABLES Final Re sult Performing Organization Address City/State/[facility] Co de Phone Number [facility] [address] [place] [address] * Urine Petty Panel (01/23/2025 10:08 PM EST) Extra Reflex urine culture not indicated 01/24/2025 12:01 AM EST [facility] Urine Urine specimen obtained by clean catch procedure / Unknown Non-blood Collection / Unknown 01/23/2025 10:08 PM EST 01/23/2025 10:11 PM EST Sheila Jerry MD LAB URINE ORDERABLES Final Result Performing Organization Address City/[facility]/ZIP Co de Phone Number [facility] [address] [place] [address] * Urinalysis Microscopic Examination (01/23/2025 10:08 PM EST) Urine Urine specimen obtained by clean catch procedure / Unknown Non-blood Collection / Unknown 01/23/2025 10:08 PM EST 01/23/2025 10:11 PM EST Sheila Jerry MD LAB URINE ORDERABLES Final Result Performing Organization Address City/[facility] Co de Phone Number [facility] [address] [place] [address] * (ABNORMAL) Urinalysis with reflex microscopic (Culture NOT Included) (01/23/2025 10:08 PM EST) Color, Urine Yellow LAB URINALYSIS - AUTOMATED METHOD 01/23/2025 11:21 PM EST [facility] Clarity, Urine Clear LAB URINALYSIS - AUTOMATED METHOD 01/23/2025 11:21 PM EST [facility] Spec [place], Urine <1.005(L) 1.005 - 1.030 LAB URINALYSIS - AUTOMATED METHOD 01/23/2025 11:21 PM EST [facility] pH, Urine 6.5 5.0 - 8.0 LAB URINALYSIS - AUTOMATED METHOD 01/23/2025 11:21 PM EST [facility] Protein, Urine Negative Negative mg/dL LAB URINALYSIS - AUTOMATED METHOD 01/23/2025 11:21 PM EST [facility] Glucose, Urine Negative Negative mg/dL LAB URINALYSIS - AUTOMATED METHOD 01/23/2025 11:21 PM EST [facility] Ketones, Urine Negative Negative mg/dL LAB URINALYSIS - AUTOMATED METHOD 01/23/2025 11:21 PM EST [facility] Blood, Urine Negative Negative LAB URINALYSIS - AUTOMATED METHOD 01/23/2025 11:21 PM EST [facility] Bilirubin, Urine Negative Negative LAB URINALYSIS - AUTOMATED METHOD 01/23/2025 11:21 PM EST [facility] Urobilinogen, Urine 0.2 0.2 to 1.0 mg/dL LAB URINALYSIS - AUTOMATED METHOD 01/23/2025 11:21 PM EST [facility] Leukocytes, Urine Trace(A) Negative LAB URINALYSIS - AUTOMATED METHOD 01/23/2025 11:21 PM EST [facility] Nitrite, Urine Negative Negative LAB URINALYSIS - AUTOMATED METHOD 01/23/2025 11:21 PM EST [facility] RBC, Urine <1 0 to 3 /HPF 01/23/2025 11:21 PM EST [facility] Comment:This result was prev iously suppressed from the chart. WBC, Urine 0 - 5 0 to 5 /HPF 01/23/2025 11:21 PM EST [facility] Comment:This result was prev iously suppressed from the chart. Squamous Epithelial Cells 0 - 2 0 to 5 /HPF 01/23/2025 11:21 PM EST [facility] Comment:This result was prev iously suppressed from the chart. Hyaline Casts 0 - 2 0 to 5 /LPF 01/23/2025 11:21 PM EST [facility] Comment:This result was prev iously suppressed from the chart. Bacteria, Urine Negative Negative 01/23/2025 11:21 PM EST [facility] Comment:This result was prev iously suppressed from the chart. Urine Urine specimen obtained by clean catch procedure / Unknown Non-blood Collection / Unknown 01/23/2025 10:08 PM EST 01/23/2025 10:11 PM EST Narrative [facility] - 01/23/2025 11:21 PM EST Performed by manual method us Sheila Jerry MD LAB URINE ORDERABLES Final Result Performing Organization Address City/[facility]/ZIP Co de Phone Number [facility] [address] [place] [address] * Thyroid Stimulating Hormone, Plasma (01/23/2025 1:10 PM EST) Thyroid Stimulating Hormone, Plasma 1.62 0.40 - 4.20 uIU/mL 01/23/2025 1:41 PM EST [facility] Blood Venous blood specimen / Unknown Venipuncture / Unknown 01/23/2025 1:10 PM EST 01/23/2025 1:13 PM EST us Sheila Jerry MD LAB BLOOD ORDERABLES Final Result [facility] [address] [place] [address] * Free T4, Plasma (01/23/2025 1:10 PM EST) Free T4, Plasma 1.4 0.8 - 1.7 ng/dL 01/23/2025 1:41 PM EST [facility] Blood Venous blood specimen / Unknown Venipuncture / Unknown 01/23/2025 1:10 PM EST 01/23/2025 1:13 PM EST Sheila Jerry MD LAB BLOOD ORDERABLES Final Result [facility] [address] [place] [address] * (ABNORMAL) Lipid panel (01/23/2025 1:10 PM EST) Cholesterol, Plasma 127 <200 mg/dL 01/23/2025 1:41 PM EST [facility] Comment: Cholesterol Reference Range (age >17 years): Desirable <200 mg/dL Borderline 200 to 239 mg/dL Undesirable >239 mg/dL HDL 65 >=50 mg/dL 01/23/2025 1:41 PM EST [facility] Comment: HDL Cholesterol Reference Ranges (age >17 years): Female, acceptable > or = 50 mg/dL Male, acceptable > or = 40 mg/dL Triglycerides, Plasma 167(H) <150 mg/dL 01/23/2025 1:41 PM EST [facility] Comment: Triglyceride Reference Range (age >17 years): Desirable: <150 mg/dL Borderline high: 150 to 199 mg/dL High: 200 to 499 mg/dL Very high: >499 mg/dL Increased risk of pancreatitis: >1000 mg/dL Cholesterol/HDL Ratio 2 01/23/2025 1:41 PM EST [facility] LDL, Calculated 35 <100 mg/dL 1:41 PM EST [facility] Comment: LDL Cholesterol Reference Range (age [...] 12 hours? Unknown 01/23/2025 1:41 PM EST [facility] Blood Venous blood specimen / Unknown Venipuncture / Unknown 01/23/2025 1:10 PM EST 01/23/2025 1:13 PM EST us Sheila Jerry MD LAB BLOOD ORDERABLES Final Result [facility] [address] [place] [address] * Hepatitis B Surface Antigen - Empath (01/23/2025 1:09 PM EST) Pathologist [facility] [place] Hepatitis B Surf Antigen Negative Negative 01/23/2025 4:18 PM EST [facility] Blood Venous blood specimen / Unknown Venipuncture / Unknown 01/23/2025 1:09 PM EST 01/23/2025 1:14 PM EST us Sheila Jerry MD LAB BLOOD ORDERABLES Final Result Performing Organization Address City/[facility]/ZIP Co de Phone Number [facility] [address] [place] [address] * Hepatitis C Antibody with Reflex to HCV Quant PCR - Empath (01/23/2025 1:09 PM EST) Pathologist [facility] Hepatitis C Antibody Negative Negative 01/23/2025 2:23 PM EST [facility] Blood Venous blood specimen / Unknown Venipuncture / Unknown 01/23/2025 1:09 PM EST 01/23/2025 1:13 PM EST us Sheila Jerry MD LAB BLOOD ORDERABLES Final Result Performing Organization Address City/[facility]/ZIP Co de Phone Number [facility] [address] [place] [address] * HIV 1 & 2 Antibody/Antigen Screen (01/23/2025 1:09 PM EST) Pathologist [facility] HIV 1 & 2 Antibody/Antigen Screen Non Reactive Non Reactive 01/23/2025 1:45 PM EST [facility] Comment:Screening for HIV 1 & 2 antibodies, and P24 antigen is NONREACTIVE. No confirmatory testing is required. Blood Venous blood specimen / Unknown Venipuncture / Unknown 01/23/2025 1:09 PM EST 01/23/2025 1:13 PM EST Sheila Jerry MD LAB BLOOD ORDERABLES Final Result [facility] [address] [place] [id number] * CBC w/o diff (01/23/2025 11:47 AM EST) WBC Count 7.52 3.70 - 10.30 10*3/uL LAB HEMATOLOGY METHOD 01/23/2025 12:26 PM EST [facility] RBC Count 4.86 3.90 - 5.20 10*6/uL LAB HEMATOLOGY METHOD 01/23/2025 12:26 PM EST [facility] HGB 14.5 11.2 - 15.7 g/dL LAB HEMATOLOGY METHOD 01/23/2025 12:26 PM EST [facility] HCT 42.8 34.0 - 45.0 % LAB HEMATOLOGY METHOD 01/23/2025 12:26 PM EST [facility] Platelet Count 211 155 - 369 10*3/uL LAB HEMATOLOGY METHOD 01/23/2025 12:26 PM EST [facility] MCV 88 79 - 98 fL LAB HEMATOLOGY METHOD 01/23/2025 12:26 PM EST [facility] MCH 29.8 26.0 - 32.0 pg LAB HEMATOLOGY METHOD 01/23/2025 12:26 PM EST [facility] MCHC 33.9 30.7 - 35.5 g/dL LAB HEMATOLOGY METHOD 01/23/2025 12:26 PM EST [facility] RDW 13.2 11.5 - 14.5 % LAB HEMATOLOGY METHOD 01/23/2025 12:26 PM EST [facility] MPV 8.8 8.8 - 12.5 fL LAB HEMATOLOGY METHOD 01/23/2025 12:26 PM EST [facility] nRBC 0.0 <=0.0 per 100 WBCs LAB HEMATOLOGY METHOD 01/23/2025 12:26 PM EST [facility] Blood Venous blood specimen / Unknown Venipuncture / Unknown 01/23/2025 11:47 AM EST 01/23/2025 12:23 PM EST Sheila Jerry MD LAB BLOOD ORDERABLES Final Result [facility] [address] [place] [address] * POCT Drugs of Abuse (01/22/2025 11:33 [...] Normal Normal POC UDS Kit Lot Number [id number] POC UDS Kit Expiration 2026-08-15 POC UDS Collection Observed? Not Observed Urine 01/22/2025 11:3 3 PM EST Joe Frazier APRN POINT OF CARE TEST ENTER/ED IT ORDERABLES Final Result * Acute Hepatitis Panel (06/03/2024 11:49 AM EDT) Hepatitis B Surf Antigen Negative Negative 06/03/2024 2:14 PM EDT [facility] Hepatitis C Antibody Negative Negative 06/03/2024 2:14 PM EDT [facility] Hepatitis A Antibody IgM Negative Negative 06/03/2024 2:14 PM EDT [facility] Hepatitis B Core Antibody IgM Negative Negative 06/03/2024 2:14 PM EDT [facility] Blood Venous blood specimen / Unknown Venipuncture / Unknown 06/03/2024 11:49 AM EDT 06/03/2024 11:50 AM EDT us Lorin Melendez APRN LAB BLOOD ORDERABLES Kasandra mancilla Result [facility] [address] [place] [address] from Last 3 Months or Most Recently Relevant to Health Maintenance Insurance [facility] MEDICARE Advance Directives * Full Code (Latest Code Status on File) Date Activated Date Inactivated Comments 01/23/2025 3:39 AM 01/28/2025 5:59 PM Question Answer Comments I have reviewed the capacity from the link above and, if needed, have updated to appropriate status: Yes Care Teams Estimator Lumber Relationship Specialty Start Date End Date Marvin Breaux MD [address] [facility] [address] [place] [address] PCP - General 05/27/24
--- OUTSIDE RECORDS SUMMARY | 2025-02-03 04:14 | XMS_ITS | Clinical Summary ---
Author Organization [id number] ([place], [place], [place], [place], [place]) Address [address] [place] [address] Care Team Providers Care Garage Worker Name Role Phone Marvin Breaux MD Primary Care Provider [phone] Allergies Active Allergy Reactions Criticality Noted Date [...] ) Active Problems No known active problems Encounters Date Type Department Care Team Description 01/02/2025 2:30 PM EST Procedure Visit [facility] Neurology - [address] [place] [address] Olivia Celis MD Chronic migraine [...] rded Speak language other than Citizen [place] at home Not on file 03/09/2023 Want [...] Description 04/02/2025 2:30 PM EST Procedure Visit [facility] Neurology - [address] [place] [address] Olivia Celis MD [address] [place] [address] Health Maintenance Due Date Last [...] Medicare Initial AWV [id number] 02/28/2024 COVID-19 VACCINE (3 - season) 10/28/202407/2020, 05/16/2020 Influenza Vaccine (#1) 2024 Lipid Panel 05/06/2027 05/05/2022 Insurance [id number] [place] [address] [employer] MEDICARE COMPLETE MAP Care Teams Garage Worker Relationship Specialty Start Date End Date Marvin Breaux MD [address] [place] [address] [place] [address] PCP - General General Internal Medicine 10/13/22
--- OUTSIDE RECORDS SUMMARY | 2025-02-03 04:14 | XMS_ITS | Encounter Summary ---
Author Organization Healthcare Address [address] [place] [address] Care Team Providers Care Chaplaincy Name Role Phone Marvin Breaux MD Primary Care Provider [phone] Encounter Details Date Type Department Care Team (Latest Contact Info) Description 01/22/2025 Travel Social History Tobacco Use Types Packs/Day [...] on file documented as of this encounter Functional Status * Over the past 2 weeks, how often have you been bothered by any of the following problems? Question Answer Date of Assessment Author Patient Health Questionnaire -2 Score 0 01/22/2025 6:02 PM Rosanne Fields RN * Calculated C-SSRS Risk Score (Lifetime/Recent) Answer Date of Assessment Author No Risk Indicated 01/22/2025 6:01 PM Rosanne Jarrett RN * Over the past 2 weeks, [...] Fields RN documented as of this encounter Plan of Treatment Upcoming Encounters Date Type Department Care Team (Late st Contact Info) Description 02/13/2025 10:50 AM EST Office Visit [place] [facility] [address] [place] [address] Lorin Melendez L, STEEPLECHASE JOCKEY [address] [place] [address] documented as of this encounter [...] documented as of this encounter Care Teams Chaplaincy Relationship Specialty Start Date End Date Marvin Breaux MD [address] [address] [place] [address] PCP - General 05/27/24 documented as of this encounter
--- OUTSIDE RECORDS SUMMARY | 2025-02-03 04:14 | XMS_ITS | Clinical Summary ---
Author Organization [facility] Address [address] [place] [address] Care Team Providers Care Skills Auditor Name Role Phone Marvin Breaux MD Primary Care Provider [phone] Allergies Active Allergy Reactions Criticality Noted Date [...] MG/0.1ML nasal spray Call 911. Don't prime. [place] in 1 nostril for overdose. Repeat in [...] or training? Not on file Preferred Language Arabic 12/27/2022 Comments Unknown Sex and Gender Information [...] Annual Gynecologic Pelvic and Breast Exam 1967 TDAP/TD VACCINES (1 - Tdap) 03/22/1997 03/21/1997 MAMMOGRAM 2007 COLOGUARD 2012 COLON CANCER SCREENING 5 YEAR SIGMOIDOSCOPY 2012 COLONOSCOPY [address] CANCER SCREENING 2012 CT COLONOGRAPHY 2012 FECAL OCCULT BLOOD TEST 2012 FIT Testing (1 year) 2012 Pneumococcal Vaccine 50+ (1 of 1 - PCV) 2017 ZOSTER VACCINE (1 of 2) 2017 ANNUAL PHYSICAL 12/27/2022 INFLUENZA VACCINE 09/27/2024 HEPATITIS C SCREENING Completed 01/23/2025 Medical Devices Implanted Type Area Application Support Consultant Device Identifier Shelf Expiration Date Model / Serial / Lot Cmt Bone Palacos R Hi/Visc 1x40 - [id number] Implanted:Qty : 2 on 12/29/2022 by Rhett Borja MD at [facility] Implant Left: Knee [employer] [id number] 04/27/2027 [id number] / / [id number] Dev Contrl Tiss Stratafix Spiral Mncryl Pls Ps 3/0 30cm Ud - [id number] Implanted:Qty : 1 on 12/29/2022 by Rhett Borja MD at [facility] Implant Left: Knee [employer] J AND J [id number] 04/26/2024 [id number] / / [id number] Dev Contrl Tiss Stratafix Symm Pds Plus Barbra Ct-1 60cm - [id number] Implanted:Qty : 1 on 12/29/2022 by Rhett Borja MD at [facility] Implant Left: Knee [employer] J [employer] J 05/27/2024 [id number] / / [id number] Insrt Art/Kn Legion Ps Hf Xlpe Sz3to4 9mm - [id number] Implanted:Qty : 1 on 12/29/2022 by Rhett Borja MD at [facility] Implant Left: Knee [employer] [id number] 08/12/2032 [id number] / / [id number] Pat Gen2 Resrf 29mm - [id number] Implanted:Qty : 1 on 12/29/2022 by Rhett Borja MD at [facility] Implant Left: Knee [employer] [id number] 06/29/2032 [id number] / / [id number] Comp Fem Legion Oxinium Ps Sz6 Lt - [id number] Implanted:Qty : 1 on 12/29/2022 by Rhett Borja MD at [facility] Implant Left: Knee [employer] [id number] 05/06/2032 [id number] / / [id number] Base Tib/Kn Gen2 Nonpor Ti Sz4 Lt - [id number] Implanted:Qty : 1 on 12/29/2022 by Rhett Borja MD at [facility] Implant Left: Knee [employer] [id number] 05/24/2032 [id number] / / [id number] Totl Kn Jovan Darnell Nephew - [id number] Implanted:Qty : 1 on 12/29/2022 by Rhett Borja MD at [facility] Implant Left: Rosie [employer] DACIA [id number] / / Insurance [facility] MEDICARE ADVANTAGE Advance Directives * CPR (Attempt to Resuscitate) (Latest Code Status on File) Date Activated Date Inactivated Comments 12/29/2022 2:31 PM 12/29/2022 8:02 PM Question Answer Comments Code Status (Patient has no pulse and is not breathing): CPR (Attempt to Resuscitate) Medical Interventions (Patie nt has pulse or is breathing): Full Support Level Of Support Discussed With: Patient Care Teams Skills Auditor Relationship Specialty Start Date End Date Marvin Breaux MD [address] [facility] [address] [place] [address] PCP - General Internal Medicine 12/22/22
--- OUTSIDE RECORDS SUMMARY | 2025-02-03 04:14 | XMS_ITS | Encounter Summary ---
Author Organization Healthcare Address [address] [place] [address] Care Team Providers Care Cemetery Laborer Name Role Phone Marvin Breaux MD Primary Care Provider [phone] Encounter Details Date Type Department Care Team (Late st Contact Info) Description 01/23/2025 Plan of Care Documentation [facility] Inpatient Psychiatry [address] [place] [address] Social History Tobacco Use Types Packs/Day Years [...] documented as of this encounter Functional Status documented as of this encounter Mental Status * Question Answer Entry Date Author Best Enciso 01/23/2025 9:05 PM EST Miranda Diaz RN documented in this encounter Plan of Treatment Upcoming Encounters Date Type Department Care Team (Late st Contact Info) Description 02/13/2025 10:50 AM EST Office Visit [place] [facility] [address] [place] [address] Lorin Melendez, ENGLISH TEACHER [address] [place] [address] documented as of this encounter [...] documented as of this encounter Care Teams Cemetery Laborer Relationship Specialty Start Date End Date Marvin Breaux MD [address] [facility] [address] [place] [address] PCP - General 05/27/24 documented as of this encounter
--- OUTSIDE RECORDS SUMMARY | 2025-02-03 04:14 | XMS_ITS | Encounter Summary ---
Author Organization Healthcare Address [address] [place] [address] Care Team Providers Care Township Supervisor Name Role Phone Marvin Breaux MD Primary Care Provider [phone] Encounter Details Date Type Department Care Team (Late Contact Info) Description 10/21/2024 Results Follow-Up [facility] Medicine Specialties [address] [place] [address] Lorin Melendez, DIRECT CUSTOMER SERVICE REPRESENTATIVE [address] [place] [address] Social History Tobacco Use Types [...] Department Care Team (Late Contact Info) Description 02/13/2025 10:50 AM EST Office Visit [facility] Medicine Specialties [address] [place] [address] Nora Lorin L, DIRECT CUSTOMER SERVICE REPRESENTATIVE [address] [place] [address] documented as of this encounter Visit Diagnoses Not on filedocumented in this encounter Additional Health Concerns Assessment Noted Time A fall risk assessment has been complete d for the patient 10/17/2024 1:46 PM EDT A Body Mass Index follow-up plan has been documented for the patient 10/17/2024 2:38 PM EDT documented as of this encounter Care Teams Township Supervisor Relationship Specialty Start Date End Date Marvin Breaux MD [address] [place], [place] [address] [address] [place] [address] PCP - General 05/27/24 documented as of this encounter
--- NOTE | 2025-02-03 04:22 | HMH.EDGENADL ---
Discharge Plan Disposition Patient Disposition: Admitted Condition: Fair Prescriptions Prescriptions: No Action prednisone 20 mg tablet 20 mg PO BID Qty: 10 0RF Rx Instructions: administer with food or milk rosuvastatin 5 mg tablet 5 mg PO DAILY Qty: 90 1RF hydrocodone-acetaminophen 10-325 mg tablet 1 tab PO Q6H PRN (Reason: pain) Qty: 120 0RF losartan 50 mg tablet 50 mg PO DAILY cetirizine 10 mg tablet 10 mg PO DAILY alendronate 70 mg tablet 70 mg PO WEEKLY metoprolol succinate 100 mg tablet extended release 24 hr 100 mg PO BID leflunomide 20 mg tablet 20 mg PO DAILY montelukast 10 mg tablet 10 mg PO DAILY hydroxychloroquine 200 mg tablet 200 mg PO DAILY Humira Pen 40 mg/0.8 mL pen injector kit 40 mg SQ DIRECTED Rx Instructions: Biweekly Nurtec ODT 75 mg tablet,disintegrating 75 mg PO NEEDED PRN (Reason: migraine) Clinical Impressions Clinical Impression: Acute hyponatremia, Psychosis, Homicidal ideation Print Language Print Language: Nepali Discharge ED Provider: Yessi Rodriguez General Adult HPI General Chief complaint: Psychiatric Symptoms Stated complaint: Psychiatric Time Seen by Provider: 02/03/25 04:05 History of Present Illness HPI narrative: 59-year-old female with history of schizophrenia, hyponatremia, hypertension, rheumatoid arthritis, hyperlipidemia presents to the ER with EMS. 911 was called by the patient's because the patient was coming after him reportedly attempting to kill him. Patient has a history of schizophrenia not currently taking her medications. She has had recent psychotic episodes. She was recently admitted to this facility for hyponatremia then transferred to for psych treatment according to my review of records. No medications were administered by EMS prior to arrival. EMS reports patient believes she is talking to God and that God is directing her to cast out demons. One of the EMS paramedics was annointed by olive oil by the patient. On further discussion, patient reports her rail technician at [facility] was possessed and she was being told by God to kill him to get rid of the demons. She states she confused her with the rail technician and was therefore coming after him tonight to kill him. She has looked at multiple staff and stated that they need to get the evil out . Denies suicidal ideation. She is oriented to self, location, year but tangential and clearly responding to internal stimuli. She denies any pain. Will not answer other questions. Related Data Home Medications ?Medication ?Instructions ?Recorded ?Confirmed adalimumab 40 mg/0.8 mL 40 mg SQ DIRECTED 01/19/25 02/01/25 subcutaneous pen kit (Humira Pen) alendronate 70 mg tablet 70 mg PO WEEKLY 01/19/25 02/01/25 cetirizine 10 mg tablet 10 mg PO DAILY 01/19/25 02/01/25 hydroxychloroquine 200 mg tablet 200 mg PO DAILY 01/19/25 02/01/25 leflunomide 20 mg tablet 20 mg PO DAILY 01/19/25 02/01/25 losartan 50 mg tablet 50 mg PO DAILY 01/19/25 02/01/25 metoprolol succinate 100 mg 100 mg PO BID 01/19/25 02/01/25 tablet,extended release 24 hr montelukast 10 mg tablet 10 mg PO DAILY 01/19/25 02/01/25 rimegepant 75 mg disintegrating 75 mg PO NEEDED PRN migraine 01/19/25 02/01/25 tablet (Nurtec ODT) Previous Rx's ?Medication ?Instructions ?Recorded hydrocodone 10 mg-acetaminophen 1 tab PO Q6H PRN pain #120 tabs 01/30/25 325 mg tablet rosuvastatin 5 mg tablet 5 mg PO DAILY #90 tabs 01/30/25 prednisone 20 mg tablet 20 mg PO BID #10 tabs 02/01/25 Allergies Allergy/AdvReac Type Severity Reaction Status Date / Time latex Allergy Intermediate I-RASH Verified 02/01/25 14:01 varenicline Allergy Mild SWEATS Verified 02/01/25 14:01 [facility] Disclaimer: The information contained in this section may have been updated after the patient was seen, as this information can be updated by other users. 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 Peripheral vascular disease, unspecified Benign essential HTN Unspecified asthma, uncomplicated Nicotine dependence, unspecified, with unspecified nicotine-induced disorders Chronic obstructive pulmonary disease, unspecified Rheumatoid arthritis with rheumatoid factor of unspecified site without organ or systems involvement Hyperlipidemia Surgical History History of left knee replacement Hx of breast reduction, elective History of knee replacement Family History Other No significant family history Social History Smoking Status: Never smoker alcohol intake: never substance use type: denies use current occupational status: disabled Travel in the last 8 weeks?: None caffeine: Yes Have you lived/traveled outside US in past 30 days?: No Contact w/someone who lives/traveled outside US past 30 days?: No Exposure to someone with infectious disease in past 14 days?: No Do you have a fever (greater than 100.4 F or 38 C)?: No Have you tested positive for COVID-19?: No Exposed to someone with COVID-19 in past 14 days?: No Do you have a sore throat?: No Do you have a cough?: No Do you have any weakness?: No Do you have any diarrhea?: No Are you experiencing any unusual bleeding?: No Do you have any muscle aches/pain?: No Do you have any abdominal pain?: No Are you experiencing loss of taste or smell?: No Other Medical History Have you received the Flu Vaccine for this season: No Have you received the Pneumonia Vaccine: No ROS Obtained: Yes Systems reviewed as appropriate & no additional complaints except as documented Limited secondary to psychosis Physical Exam General General appearance: alert and in no apparent distress Head Head exam: atraumatic and normocephalic Eye Eye exam: Present PERRL and EOMI ENT ENT exam: Present mucous membranes moist Neck Neck exam: Present normal inspection and full ROM Chest Chest inspection: Present symmetric chest wall rise Respiratory Respiratory exam: Present normal lung sounds bilaterally; Absent respiratory distress, wheezes or stridor Cardiovascular Cardiovascular exam: Present regular rate and normal rhythm Abdominal Exam Abdominal exam: Present soft; Absent distention or tenderness Extremities Exam Extremities exam: Present full ROM and normal capillary refill; Absent edema Neurological Exam Neurological exam: Present alert and oriented X3 (Oriented to self, location, year, but otherwise tangential and will refuse to answer some questions until we get the evil out ); Absent motor sensory deficit Psychiatric Psychiatric exam: Present normal affect, agitated, homicidal ideation (Plans to go kill the rail technician at [facility]) and other (Patient has tangential speech, she states we need to get the evil out of us . She keeps saying there are demons around, she will stop talking to us and start chanting to herself, she is clearly responding to internal stimuli. She is not able to be redirected in these moments.) Skin Skin exam: Present warm and dry Medical Decision Making Medical Records Medical records reviewed: Yes I reviewed the patient's medical records. Screening: Per USPSTF and CDC recommendations, given the prevalence of disease in our region, it is our hospital?s policy to screen for HIV and viral Hepatitis for all patients aged 18 and over and those with ongoing risk factors. Toni Inquiry Pt receiving controlled substance: No Vital Signs: 02/03/25 04:35 02/03/25 06:30 Temperature 98.6 F Temperature Source Tympanic Pulse Rate 75 Pulse Rate [Right] 80 Respiratory Rate 18 16 Blood Pressure 141/74 H Blood Pressure [Right Arm] 141/72 H Blood Pressure Mean [Right Arm] 95 02 Sat by Pulse Oximetry 99 98 Oxygen Delivery Method Room Air Room Air Lab Data Lab Results 02/03/25 04:17: VBG pH 7.35, VBG pCO2 39.5, VBG pO2 51.8 H, VBG HCO3 21.2 L, VBG Total CO2 22.4 L, VBG O2 Saturation 84.4 H, VBG Base Excess -4.5 L, VBG Lactic Acid 1.8 02/03/25 04:20: Sodium 117 L, Potassium 3.8, Chloride 88 L, Carbon Dioxide 21 L, Anion Gap 11.8, BUN 18 H, Creatinine 1.10 H, Estimated Creat Clear 89, Estimated GFR 51 L, Est GFR ( Amer) 62, Glucose 86, Calcium 8.4, Magnesium 1.7, Total Bilirubin 0.7, AST 49 H, ALT 35, Alkaline Phosphatase 83, Troponin I < 0.01, Total Protein 7.6, Albumin 4.5, Globulin 3.1, Albumin/Globulin Ratio 1.5, Lipase 61, TSH 2.40, Free T4 1.93, Serum HCG, Qual Negative, Salicylates < 1.0 L, Acetaminophen < 10 L, Plasma/Serum Alcohol < 10 02/03/25 05:16: WBC 5.8, RBC 4.29, Hgb 12.8, Hct 36.6 L, MCV 85.3, MCH 29.8, MCHC 35.0, RDW 12.7, Plt Count 182, MPV 8.8, Neut % (Auto) 65.9, Lymph % (Auto) 22.4, Burnett % (Auto) 9.9 H, Eos % (Auto) 0.9, Baso % (Auto) 0.7, Neut # (Auto) 3.9, Lymph # (Auto) 1.3, Burnett # (Auto) 0.6, Eos # (Auto) 0.1, Baso # (Auto) 0.0, PT 11.1, INR 1.00, HCV Ab WILLIS w/Rflx PCR Qn Negative, HIV Ag/Ab Combo Qual Negative 02/03/25 05:16 02/03/25 04:20 Orders (Tests/Meds): ED MEDICATIONS Generic Name Dose Route Start Last Admin Trade Name Freq PRN Reason Stop Dose Admin Haloperidol Lactate 5 mg 02/03/25 04:19 02/03/25 04:56 Haloperidol Lactate 5 Mg/Ml Vial IV 03/05/25 04:18 5 mg ONCE PRN Administration Agitation Midazolam HCl 5 mg 02/03/25 04:19 02/03/25 06:12 Midazolam 5mg/Ml 1ml Vial IV 03/05/25 04:18 5 mg ONCE PRN Administration Agitation Discontinued Medications Generic Name Dose Route Start Last Admin Trade Name Freq PRN Reason Stop Dose Admin Lactated Ringer's 1,000 mls @ 999 mls/hr 02/03/25 04:20 02/03/25 05:20 Lactated Ringer's 1000 Ml Bag IV 02/03/25 05:20 999 mls/hr .Q1H1M ONE Administration Sodium Chloride 150 mls @ 450 mls/hr 02/03/25 06:15 02/03/25 06:23 Sod Chloride 3% 500ml Bag (Hypertonic) IV 02/03/25 06:34 450 mls/hr .Q20M ONE Administration Midazolam HCl 5 mg 02/03/25 06:02 02/03/25 06:34 Midazolam 5mg/Ml 1ml Vial IV 02/03/25 06:03 Not Given ONCE ONE Miscellaneous 1 each 02/03/25 05:57 Pharmacy Consult Request NOTAPPLIC 02/03/25 05:58 CONSULT PHARMACY ONE ORDERS Category Date Time Status Acetaminophen Stat Lab 02/03/25 04:20 Completed BMP [Basic Metabolic Panel] Stat Lab 02/03/25 05:46 Ordered Complete Blood Count Auto Diff Stat Lab 02/03/25 05:16 Completed Comprehensive Metabolic Panel Stat Lab 02/03/25 04:20 Completed Drug Screen,Urine Stat Lab 02/03/25 04:17 Ordered Ethyl Alcohol Stat Lab 02/03/25 04:20 Completed Free T4 (Free Thyroxine) Stat Lab 02/03/25 04:20 Completed HCG Qualitative, Serum Stat Lab 02/03/25 04:20 Completed HIV Combo Stat Lab 02/03/25 05:16 Completed Hepatitis C Ab Qual. W/ RFX Stat Lab 02/03/25 05:16 Completed Lipase Stat Lab 02/03/25 04:20 Completed Magnesium Stat Lab 02/03/25 04:20 Completed Osmolality Stat Lab 02/03/25 05:16 Received Prothrombin Time INR Stat Lab 02/03/25 05:16 Completed Salicylate Stat Lab 02/03/25 04:20 Completed Sodium,Urine Random Stat Lab 02/03/25 04:17 Ordered Thyroid Stimulating Hormone Stat Lab 02/03/25 04:20 Completed Troponin I Q3H Lab 02/03/25 07:30 Ordered Troponin I Q3H Lab 02/03/25 10:30 Ordered Troponin I Stat Lab 02/03/25 04:20 Completed Urinalysis and Microscopic Stat Lab 02/03/25 04:17 Ordered Venous Blood Gas Stat RT 02/03/25 04:17 Completed ECG Request Stat Y 02/03/25 04:17 Ordered Medical Decision Narrative: In summary, this 59-year-old female with comorbidities described in HPI presents to the emergency department today with agitation, psychosis, tangential speech, homicidal ideation. On initial evaluation patient is hemodynamically stable, afebrile, she is a GCS 15 but has homicidal ideation, responding to internal stimuli, tangential speech, remainder of exam is unremarkable. Differential diagnosis includes but is not limited to electrolyte abnormality, dehydration, SIADH, medication noncompliance, medication side effect, psychosis, homicidal ideation, I considered the possibility of intracranial lesion but patient has no focal neurologic deficit and has had recent intracranial imaging that showed suspected meningioma but was otherwise unremarkable so I do not believe CT head is indicated at this time. Based on these concerns, I ordered hematologic and serum labs, ECG, tox labs, urine studies, thyroid studies. Patient initially allowed us to place IV but then would not allow us to draw all the blood that we needed. She stated we were filled with the demons and would not allow it. She stated she wanted to leave and was fine and could not be redirected. She clearly has no insight into her condition or capacity to make the decision to leave at this time. For her safety to allow for workup, Haldol and Versed were administered. She tolerated this well. ECG was obtained as were the other labs. ECG personally interpreted demonstrates sinus rhythm, rate 69, normal axis, normal FL, QTc is prolonged at 475. Additional Haldol will not be administered since I do not want to exacerbate the prolonged QT. No STEMI Patient received LR initially as well as the Haldol and Versed as outlined for treatment. Labs personally reviewed demonstrate no leukocytosis or anemia, normal platelets, PT/INR normal, VBG with normal pH, no hypercarbia, VBG lactic normal, CMP notable for severe hyponatremia sodium is 117. Thankfully patient is not seizing but this is concerning and I am not able to medically clear her for psychiatric treatment at this time. She also has evidence of mild kidney dysfunction creatinine up to 1.1 from 0.8 previously. Magnesium normal, troponin undetectable less than 0.01, lipase normal, thyroid studies normal, hCG negative, salicylates, acetaminophen, alcohol negative. Urinalysis and UDS pending. Regarding the hyponatremia, patient has already received LR, I reached out to the [facility] pharmacist who recommended 150 mL 3% hypertonic saline to be administered over 20 minutes as a bolus. We discussed that she does not require continued boluses since she is not having seizure. I appreciate his recommendations. This is being administered. Patient woke up and required Versed again to allow us to continue monitoring and managing her. She is resting comfortably at this time. I reached out to the hospitalist for admission of this patient for treatment of hyponatremia since she cannot be cleared for psychiatric evaluation at this time. I spoke with Myriam, and she stated Dr. Chamberlain does not like to admit patients to this facility who are going to require psychiatric care because we do not have inpatient psych here. She states that the patient was previously deemed to not have capacity and had to be transferred to . She requested that the patient be transferred to [facility] where they would be able to treat her hyponatremia and then continue her care with psychiatric treatment. We reached out to [facility] and unfortunately [facility] does not have capacity to take this patient because she would meet ICU level requirements because of her severe hyponatremia and they do not have any ICU beds. They offered to transfer the patient to [facility] instead, but stated that if they transferred her to [place] they would simply treat her hyponatremia and then transfer her to a psych facility. I reached out to the hospitalist here again and spoke with Dr. Branch about this because transferring the patient to a facility that does not have psych just to treat her hyponatremia is something that we could simply treat here without having to transfer the patient. We discussed this case further and he agrees that since [facility] does not have capacity to take this patient she is appropriate for admission here for continued management of her hyponatremia to be followed with psychiatric evaluation once cleared. He graciously accepted the patient for admission. She was admitted in stable condition. Critical Care Critical Care Time Critical Care Time: Yes Attestation: On 02/03/25, the high probability of a clinically significant, sudden or life threatening deterioration of the following system(s) required my full and direct attention, intervention and personal management. The time I documented below is in addition to time spent performing reported procedures but includes the following listed in this critical care notation. Total Time Total Critical Care Time: 35
[2025-02-03 04:31] LABS: Lactate Venous 1.8 mmol/L (0.4-2.0); VBG HCO3 21.2 mmol/L (23-30); VBG PCO2 39.5 mmol/L (35-51); VBG PH 7.35 mmol/L (7.31-7.41); VBG PO2 51.8 mmol/L (28-40)
[2025-02-03 04:40] LABS: HCG Qualitative, Serum Negative (Negative)
[2025-02-03 04:53] LABS: Alanine Aminotransferase 35 U/L (12-78); Albumin Level 4.5 g/dl (3.5-5.0); Albumin/Globulin Ratio 1.5 (1.1-1.8); Alkaline Phosphatase 83 U/L (38-126); Anion Gap 11.8 mEq/L (5-15); Aspartate Amino Transferase 49 U/L (14-36); Bilirubin,Total 0.7 mg/dl (0.2-1.3); Blood Urea Nitrogen 18 mg/dl (7-17); Calcium 8.4 mg/dl (8.4-10.2); Carbon Dioxide 21 mmol/L (22.0-30.0); Chloride 88 mmol/L (98-107); Creatinine,Serum 1.10 mg/dl (0.52-1.04); Estimated Glomerular Filt Rate 51 ml/min (>60); GFR (African American) 62 ML/MIN (>60); Globulin 3.1 g/dL (1.3-3.2); Glucose 86 mg/dl (74-100); Lipase 61 U/L (23-300); Magnesium 1.7 mg/dl (1.6-2.3); Potassium 3.8 mmoL/L (3.5-5.1); Sodium 117 mmol/L (136-145); Total Protein,Serum 7.6 g/dl (6.3-8.2)
[2025-02-03] MEDS: HALOPERIDOL LACTATE 5 MG/ML VIAL IV (04:56)
[2025-02-03] MEDS: MIDAZOLAM 5MG/ML 1ML VIAL 5 MG IV ×2 (04:56→06:12)
[2025-02-03 05:10] LABS: Free T4 (Free Thyroxine) 1.93 ng/dl (0.78-2.19)
--- NOTE | 2025-02-03 05:18 | ECG_ITS ---
APPROVED REPORT Exam: Resting ECG HR:69 bpm ECG Measurements Heart Rate 69 AXES MO 175 P 57 QRSd 98 QRS 28 QT 456 T 48 QTc 475 Conclusion SINUS RHYTHM PROLONGED QT INTERVAL ABNORMAL ECG Electronically signed by : GLADIS LAGUNA, 02/04/2025 06:01:20
[2025-02-03] MEDS: LACTATED RINGERS 1000ML 1,000 ML 999 ML IV (05:20)
[2025-02-03 05:23] LABS: Acetaminophen < 10 ug/ml (10-30); Creatinine Clearance Estimated 89 mL/min (50-200); Salicylate < 1.0 mg/dL (2.0-20.0); Troponin I < 0.01 ng/ml (0.00-0.034)
[2025-02-03 05:24] LABS: Thyroid Stimulating Hormone 2.40 uIU/mL (0.465-4.68)
[2025-02-03 05:38] LABS: INR 1.00 (0.9-1.1); Prothrombin Time 11.1 seconds (10.1-12.5)
[2025-02-03 05:42] LABS: Hematocrit 36.6 % (37.0-47.0); Hemoglobin 12.8 g/dL (12.2-16.2); Immature Granulocytes % 0.2 %; Mean Corpuscular HGB Conc 35.0 g/dL (31.8-35.4); Mean Corpuscular Hemoglobin 29.8 pg (27.0-31.2); Mean Corpuscular Volume 85.3 fl (81-99); Nucleated Red Blood Cells % 0 %; Platelet Count 182 K/mm3 (142-424); Red Blood Count 4.29 M/mm3 (4.20-5.40); Red Cell Distribution Width-SD 39.3 fL; White Blood Count 5.8 K/mm3 (4.8-10.8)
[2025-02-03] MEDS: SODIUM CHLORIDE 3 % 150 ML 450 ML IV (06:23)
--- NOTE | 2025-02-03 06:32 | PC.NURSE ---
PT has personal phone and glasses. Phone and items laying on bedside table
[2025-02-03 06:44] LABS: Hepatitis C Ab Qual. W/ RFX NEGATIVE (Negative)
--- NOTE | 2025-02-03 07:18 | PC.NURSE ---
called [facility] to cancel transfer to [facility] per Dr Rodriguez
[2025-02-03] MEDS: MIDAZOLAM 2MG/2ML VIAL 2 MG IV (07:23)
[2025-02-03 07:32] LABS: Chloride 95 mmol/L (98-107); Potassium 3.2 mmoL/L (3.5-5.1); Sodium 126 mmol/L (136-145)
[2025-02-03 07:35] LABS: Anion Gap 13.2 mEq/L (5-15); Blood Urea Nitrogen 17 mg/dl (7-17); Calcium 7.0 mg/dl (8.4-10.2); Carbon Dioxide 21 mmol/L (22.0-30.0); Creatinine Clearance Estimated 109 mL/min (50-200); Creatinine,Serum 0.90 mg/dl (0.52-1.04); Estimated Glomerular Filt Rate 65 ml/min (>60); GFR (African American) 78 ML/MIN (>60); Glucose 60 mg/dl (74-100)
--- NOTE | 2025-02-03 07:35 | PC.NURSE ---
Called report to VALENTE Salazar
--- NOTE | 2025-02-03 07:58 | HMH.PHAINT1 ---
Pharmacy Intervention Comments: Home medication list verified using list from most recent discharge from this facility (01/22/25)
--- NOTE | 2025-02-03 08:28 | P.HP_ITS ---
<Statement entered by Ryan Branch MD - 02/04/25 15:43> Agree with plan of care as outlined by the MEASUREMENT DEPARTMENT CHIEF CLERK. History of Present Illness *Admission Date: 02/03/25 *Reason for visit:: psychosis *History of present illness: Ms. Haynes is a 59-year-old female who presented to the emergency department this morning via EMS. She has a primary medical history of schizophrenia, hyponatremia, psychogenic polydipsia, hypertension, rheumatoid arthritis, hyperlipidemia. EMS was called to the patient's home after she reportedly attempted to kill her . She has a history of schizophrenia and has recently been admitted to our facility, discharged to [facility] for inpatient psychiatric care. Patient states that God is telling her she needs to cast out all demons. Patient states she was trying to kill her clinical asst and confused her for him. She continues to maintain that multiple people need to get the evil out . Patient denies suicidal ideation, is oriented to self, location, year but continues to respond to internal stimuli. Patient was found to be hyponatremic in the emergency department, sodium 117. She was given hypertonic saline and repeat BMP shows sodium at 126. Patient has psychogenic polydipsia, and drinks approximately 10 L of fluid at least per day per her . Patient was evaluated during a prior admission, 01/22/2025, by our behavioral health team who recommended inpatient psych. At that time patient was agreeable to be discharged and go POV to [facility] services. After speaking with patient's he states that she was at for a few days but has still been unwell since being home. Patient's states she is very delusional and is at harm to others and possibly herself. The emergency department attempted to transfer patient to [facility] who has inpatient psychiatric services but unfortunately their facility was full. Patient was admitted to our facility for management of her hyponatremia and psychiatric evaluation. [facility] Disclaimer: The information contained in this section may have been updated after the patient was seen, as this information can be updated by other users. 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 Peripheral vascular disease, unspecified Benign essential HTN Unspecified asthma, uncomplicated Nicotine dependence, unspecified, with unspecified nicotine-induced disorders Chronic obstructive pulmonary disease, unspecified Rheumatoid arthritis with rheumatoid factor of unspecified site without organ or systems involvement Hyperlipidemia Surgical History History of left knee replacement Hx of breast reduction, elective History of knee replacement Family History Other No significant family history Social History Smoking Status: Never smoker alcohol intake: never substance use type: denies use current occupational status: disabled Travel in the last 8 weeks?: None caffeine: Yes Have you lived/traveled outside [place] in past 30 days?: No Contact w/someone who lives/traveled outside [place] past 30 days?: No Exposure to someone with infectious disease in past 14 days?: No Do you have a fever (greater than 100.4 F or 38 C)?: No Have you tested positive for COVID-19?: No Exposed to someone with COVID-19 in past 14 days?: No Do you have a sore throat?: No Do you have a cough?: No Do you have any weakness?: No Do you have any diarrhea?: No Are you experiencing any unusual bleeding?: No Do you have any muscle aches/pain?: No Do you have any abdominal pain?: No Are you experiencing loss of taste or smell?: No Other Medical History Have you received the Flu Vaccine for this season: No Have you received the Pneumonia Vaccine: No Review of Systems *Neurologic Neurologic: Reports as per HPI and Reports behavioral changes Psychiatric Psychiatric: Reports auditory hallucinations, Reports behavioral changes and Reports homicidal ideation Meds Home Medications and Allergies Home Medications ?Medication ?Instructions ?Recorded ?Confirmed ?Type adalimumab 40 mg/0.8 mL 40 mg SQ DIRECTED 5 02/03/25 History subcutaneous pen kit (Humira Pen) alendronate 70 mg tablet 70 mg PO WEEKLY 01/19/2510/21 History cetirizine 10 mg tablet 10 mg PO DAILY 01/19/2510/21 History hydroxychloroquine 200 mg tablet 200 mg PO DAILY 01/1902/03/25 History leflunomide 20 mg tablet 20 mg PO DAILY 01/19/2510/21 History losartan 50 mg tablet 50 mg PO DAILY 01/19/2510/21 History metoprolol succinate 100 mg 100 mg PO BID 01/19/2510/21 History tablet,extended release 24 hr montelukast 10 mg tablet 10 mg PO HS 01/19/25 5 History rimegepant 75 mg disintegrating 75 mg PO NEEDED PRN migraine 01/19/25 02/03/25 History tablet (Nurtec ODT) hydrocodone 10 mg-acetaminophen 1 tab PO Q6H PRN pain #120 tabs 01/30/25 02/03/25 Rx 325 mg tablet rosuvastatin 5 mg tablet 5 mg PO HS 02/03/25 02/03/25 History New Prescriptions to Start Prescriptions: Allergies Allergy/AdvReac Type Severity Reaction Status Date / Time latex Allergy Intermediate I-RASH Verified 02/01/25 14:01 varenicline Allergy Mild SWEATS Verified 02/01/25 14:01 Exam Data for Last 24 hours Vital signs and Labs for Last 24 Hours: Temp Pulse Resp BP Pulse Ox O2 Del Method 98.3 F 60 16 120/78 98 Room Air 02/03/25 07:39 02/03/25 07:39 02/03/25 07:39 02/03/25 07:39 02/03/25 07:29 02/03/25 07:39 Laboratory Results - last 24 hr 02/03/25 04:17: VBG pH 7.35, VBG pCO2 39.5, VBG pO2 51.8 H, VBG HCO3 21.2 L, VBG Total CO2 22.4 L, VBG O2 Saturation 84.4 H, VBG Base Excess -4.5 L, VBG Lactic Acid 1.8 02/03/25 04:20: Sodium 117 L, Potassium 3.8, Chloride 88 L, Carbon Dioxide 21 L, Anion Gap 11.8, BUN 18 H, Creatinine 1.10 H, Estimated Creat Clear 89, Estimated GFR 51 L, Est GFR ( Amer) 62, Glucose 86, Calcium 8.4, Magnesium 1.7, Total Bilirubin 0.7, AST 49 H, ALT 35, Alkaline Phosphatase 83, Troponin I < 0.01, Total Protein 7.6, Albumin 4.5, Globulin 3.1, Albumin/Globulin Ratio 1.5, Lipase 61, TSH 2.40, Free T4 1.93, Serum HCG, Qual Negative, Salicylates < 1.0 L , Acetaminophen < 10 L, Plasma/Serum Alcohol < 10 02/03/25 05:16: WBC 5.8, RBC 4.29, Hgb 12.8, Hct 36.6 L, MCV 85.3, MCH 29.8, MCHC 35.0, RDW 12.7, Plt Count 182, MPV 8.8, Neut % (Auto) 65.9, Lymph % (Auto) 22.4, Hayes % (Auto) 9.9 H, Eos % (Auto) 0.9, Baso % (Auto) 0.7, Neut # (Auto) 3.9, Lymph # (Auto) 1.3, Hayes # (Auto) 0.6, Eos # (Auto) 0.1, Baso # (Auto) 0.0, PT 11.1, INR 1.00, HCV Ab WILLIS w/Rflx PCR Qn Negative, HIV Ag/Ab Combo Qual Negative 02/03/25 06:59: Sodium 126 L, Potassium 3.2 L, Chloride 95 L, Carbon Dioxide 21 L, Anion Gap 13.2, BUN 17, Creatinine 0.90, Estimated Creat Clear 109, Estimated GFR 65, Est GFR ( Amer) 78 D, Glucose 60 L D, Calcium 7.0 L I & O for Last 24 hours: Intake & Output 01/31/25 02/01/25 02/02/25 02/03/25 23:59 23:59 23:59 23:59 Intake Total 1150 / 1150 Balance 1150 / 1150 Weight 99.79 kg Constitutional Constitutional: no acute distress *Routine HEENT Exam Head: Present normocephalic and atraumatic Eye: Present EOMI, PERRL and normal accommodation ENT: Present mucous membranes moist *Routine Neck Exam Neck: Present supple and full ROM *Routine Respiratory Exam Respiratory: Present normal respiratory effort *Routine Cardiovascular Exam Cardiovascular: Present RRR, Normal S1 and Normal S2 *Routine Abdominal Exam Abdominal: Present soft and normoactive bowel sounds *Routine Rectal Exam Rectal:: deferred *Routine Genitalia Exam Genitalia:: deferred *Routine Extremities Exam Extremities: Present full ROM, pulses intact and normal capillary refill *Routine Skin Exam Skin: Present intact *Routine Neurological Exam Neurological: Present altered mental status Routine Psychiatric Exam Psychiatric: Present homicidal ideation, auditory hallucinations and agitated; Absent good judgment Assessment and Plan *Assessment and plan (1) Psychosis: Status: Acute Category: Medical Code(s): F29 - Unspecified psychosis not due to a substance or known physiological condition (2) Homicidal ideation: Status: Acute Category: Medical Code(s): R45.850 - Homicidal ideations (3) Schizophrenia: Status: Acute Qualifiers: Schizophrenia type: unspecified Qualified Code(s): F20.9 - Schizophrenia, unspecified Category: Medical Code(s): F20.9 - Schizophrenia, unspecified (4) Acute hyponatremia: Status: Acute Category: Medical Code(s): E87.1 - Hypo-osmolality and hyponatremia (5) Psychogenic polydipsia: Status: Acute Category: Medical Code(s): R63.1 - Polydipsia; F54 - Psychological and behavioral factors associated with disorders or diseases classified elsewhere (6) Hypokalemia: Status: Acute Category: Medical Code(s): E87.6 - Hypokalemia Plan Ms. Haynes is a 59-year-old female who was admitted to the hospital for acute hyponatremia and acute psychosis due to schizophrenia. Hospital medicine was consulted and agreed to admit the patient, plan of care as follows: #Acute hyponatremia #Psychogenic polydipsia ? Patient initial sodium was 117, patient was given bolus of hypertonic saline in the emergency department, recheck of sodium was 126. Patient placed on a fluid restriction of 2 L/day. Patient has a known history of psychogenic polydipsia. Per patient's spouse she can drink up to 24 Mountain Dew's daily. ? Rechecking BMP at noon, patient placed on seizure precautions, no signs of seizure activity. ? Initiated D5 NS at 100 mL/H to ensure sodium levels did not increase too quickly. #Acute psychosis #Schizophrenia #Homicidal ideation ? Patient is currently in acute psychosis, is having auditory hallucinations. She states to me I have to get the evil out . She also keeps repeating kill, kill, kill . Patient was placed on one-on-one observation patient, does deny suicidal ideation. Patient states that she was not trying to kill her but trying to kill her clinical asst who has evil demons inside of him but mistakenly took her for the clinical asst. ? Patient was admitted at our facility 2 times in the last month both for psychosis and hyponatremia. Patient discharged on 01/22/2025 and patient spouse drove her to inpatient [facility] where she was therefore a few days per the . Discussion with the was had and he states he cannot handle her at home and she needs inpatient therapy. ? Discussion was had with patient, myself, and aids social worker (Kimber Mcdaniels) who discussed possibility of transferring to inpatient psych. Patient states she is not going to an inpatient facility, she is going to go home. At this time I felt it necessary to obtain an involuntary hold status due to patient's psychosis, homicidal ideation, and possible harm to others or self. ? Haldol 5 mg IV ordered as needed for psychosis. #Hypokalemia ? Patient's potassium 3.2, replacing orally per protocol. Continued home medications of atorvastatin 5 mg daily, Plaquenil 200 mg daily, Avapro 75 mg daily, Claritin 10 mg daily, metoprolol 100 mg daily, singular 10 mg at bedtime, Ubrelvy 50 mg as needed for headache. Full code One-to-one observation VTE?Lovenox Regular diet?fluid restriction 2L
[2025-02-03 08:30] LABS: Troponin I < 0.01 ng/ml (0.00-0.034)
[2025-02-03] MEDS: IRBESARTAN 75MG TABLET 75 MG PO (09:19)
[2025-02-03] MEDS: LORATADINE 10MG TABLET 10 MG PO (09:19)
[2025-02-03] MEDS: METOPROLOL SUCCINATE XL 100MG TABLET 100 MG PO (09:19)
[2025-02-03] MEDS: HYDROXYCHLOROQUINE SULFATE 200MG TABLET 200 MG PO (09:19)
[2025-02-03] MEDS: MAGNESIUM SULFATE IN WATER 2 GM/50 ML PIGGYBACK IV ×2 (09:44→11:28)
[2025-02-03] MEDS: POTASSIUM CHLORIDE 20MEQ TAB 40 MEQ PO ×2 (09:45→12:59)
[2025-02-03 10:22] LABS: Microscopic, Urine URINE MICROSCOPIC (MICROSCOPIC)
--- NOTE | 2025-02-03 10:42 | SW/DCPLANNER ---
Addendum entered by [facility] 02/03/25 15:20: Patient discharged w/ [facility] to [facility]. Addendum entered by [facility] 02/03/25 13:53: Zoom has been completed w/ [facility] and patient has been accepted for transfer for Involuntary Hold. I have updated patient regarding situation. I will also call and update patient's . Addendum entered by [facility] 02/03/25 11:53: [facility] Medhat Flores has signed off on involuntary hold. Patient information including [phone] have been faxed to [facility] for review. Original Note: Patient expressed to Jodi Diaz that she is not willing to go to inpatient psych. Due to patient being a harm to herself/others Jodi Diaz has recommended involuntary hold. CM will begin the process for involuntary hold this morning.
[2025-02-03 10:54] LABS: Bilirubin,Urine Negative (Negative); Color,Urine YELLOW (Yellow); Glucose,Urine (UA) Negative (Negative); Ketones,Urine Negative (Negative); Leukocyte Esterase,Urine 1+ (Negative); PH,Urine 6.0 (5.0-8.5); Protein,Urine Negative (Negative); Specific Gravity, Urine <= 1.005 (1.005-1.030); Urobilinogen,Urine 0.2 EU/dl (0.2)
[2025-02-03 11:05] LABS: Sodium,Urine Random < 5.0 mmol/L (30-90)
[2025-02-03 11:08] LABS: Amphetamine/Metha Screen,Urine Negative ng/ml (<1000); Barbiturates Screen,Urine Negative ng/ml (<200); Benzodiazepines Screen,Urine Positive ng/ml (<200); Methadone Screen,Urine Negative ng/ml (<300); Opiate Screen,Urine Positive ng/ml (<300); Phencyclidine Screen,Urine Negative ng/ml (<25)
[2025-02-03 11:21] LABS: Troponin I < 0.01 ng/ml (0.00-0.034)
[2025-02-03 11:52] LABS: Bacteria,Urine 4+ /lpf; Renal Epithelial Cells,Urine Occasional #/lpf (0)
[2025-02-03 12:31] LABS: Anion Gap 13.7 mEq/L (5-15); Blood Urea Nitrogen 15 mg/dl (7-17); Calcium 8.2 mg/dl (8.4-10.2); Carbon Dioxide 22 mmol/L (22.0-30.0); Chloride 99 mmol/L (98-107); Creatinine Clearance Estimated 109 mL/min (50-200); Creatinine,Serum 0.90 mg/dl (0.52-1.04); Estimated Glomerular Filt Rate 65 ml/min (>60); GFR (African American) 78 ML/MIN (>60); Glucose 93 mg/dl (74-100); Potassium 3.7 mmoL/L (3.5-5.1); Sodium 131 mmol/L (136-145)
--- NOTE | 2025-02-03 13:53 | P.DS_ITS ---
<Statement entered by Ryan Branch MD - 02/04/25 15:40> Agree with plan of care as outlined by the MILK TESTER. General Admission date:: 02/03/25 Discharge date: 02/03/25 HPI HPI HPI: Ms. Haynes is a 59-year-old female who presented to the emergency department this morning via EMS. She has a primary medical history of schizophrenia, hyponatremia, psychogenic polydipsia, hypertension, rheumatoid arthritis, hyperlipidemia. EMS was called to the patient's home after she reportedly attempted to kill her . She has a history of schizophrenia and has recently been admitted to our facility, discharged to [facility] for inpatient psychiatric care. Patient states that God is telling her she needs to cast out all demons. Patient states she was trying to kill her gastroenterology teacher and confused her for him. She continues to maintain that multiple people need to get the evil out . Patient denies suicidal ideation, is oriented to self, location, year but continues to respond to internal stimuli. Patient was found to be hyponatremic in the emergency department, sodium 117. She was given hypertonic saline and repeat BMP shows sodium at 126. Patient has psychogenic polydipsia, and drinks approximately 10 L of fluid at least per day per her . Patient was evaluated during a prior admission, 01/22/2025, by our behavioral health team who recommended inpatient psych. At that time patient was agreeable to be discharged and go POV to [facility] services. After speaking with patient's he states that she was at for a few days but has still been unwell since being home. Patient's states she is very delusional and is at harm to others and possibly herself. The emergency department attempted to transfer patient to [facility] who has inpatient psychiatric services but unfortunately their facility was full. Patient was admitted to our facility for management of her hyponatremia and psychiatric evaluation. Hospital Course Hospital Course Hospital Course: Ms. Haynes is a 59-year-old female who was admitted to the hospital for acute hyponatremia and acute psychosis due to schizophrenia. Hospital medicine was consulted and agreed to admit the patient, hospital course as follows: #Acute hyponatremia #Psychogenic polydipsia ? Patient initial sodium was 117, patient was given bolus of hypertonic saline in the emergency department, recheck of sodium was 131. Patient placed on a fluid restriction of 2 L/day. Patient has a known history of psychogenic polydipsia. Per patient's spouse she can drink up to 24 Mountain Dew's daily. ?Sodium levels to be checked regularly at discharge to ensure hyponatremia/hypernatremia does not occur. #Acute psychosis #Schizophrenia #Homicidal ideation ? Patient is currently in acute psychosis, is having auditory hallucinations. She states to me I have to get the evil out . She also keeps repeating kill, kill, kill . Patient was placed on one-on-one observation patient, does deny suicidal ideation. Patient states that she was not trying to kill her but trying to kill her gastroenterology teacher who has evil demons inside of him but mistakenly took her for the gastroenterology teacher. ? Patient was admitted at our facility 2 times in the last month both for psychosis and hyponatremia. Patient discharged on 01/22/2025 and patient spouse drove her to inpatient [facility] where she was therefore a few days per the . Discussion with the was had and he states he cannot handle her at home and she needs inpatient therapy. ? Discussion was had with patient, myself, and social services technician (Kimber Mcdaniels) who discussed possibility of transferring to inpatient psych. Patient states she is not going to an inpatient facility, she is going to go home. At this time I felt it necessary to obtain an involuntary hold status due to patient's psychosis, homicidal ideation, and possible harm to others or self. Involuntary hold was approved and patient will be transported to [facility] for inpatient psychiatric assessment and care. ? Patient did receive Haldol and Versed in the ED upon admission for her acute psychosis. #Hypokalemia: Patient's potassium 3.2, replaced per protocol Continued home medications of atorvastatin 5 mg daily, Plaquenil 200 mg daily, Avapro 75 mg daily, Claritin 10 mg daily, metoprolol 100 mg daily, singular 10 mg at bedtime, Ubrelvy 50 mg as needed for headache. Total time spent on discharge 38 minutes in counseling, documentation, chart review, and direct care with patient. Exam Data for Last 24 hours Vital signs and Labs for Last 24 Hours: Temp Pulse Resp BP Pulse Ox O2 Del Method 97.3 F L 70 16 119/82 100 Room Air 02/03/25 08:00 02/03/25 08:00 02/03/25 08:00 02/03/25 08:00 02/03/25 08:00 02/03/25 13:00 Laboratory Results - last 24 hr 02/03/25 04:17: VBG pH 7.35, VBG pCO2 39.5, VBG pO2 51.8 H, VBG HCO3 21.2 L, VBG Total CO2 22.4 L, VBG O2 Saturation 84.4 H, VBG Base Excess -4.5 L, VBG Lactic Acid 1.8 02/03/25 04:20: Sodium 117 L, Potassium 3.8, Chloride 88 L, Carbon Dioxide 21 L, Anion Gap 11.8, BUN 18 H, Creatinine 1.10 H, Estimated Creat Clear 89, Estimated GFR 51 L, Est GFR ( Amer) 62, Glucose 86, Calcium 8.4, Magnesium 1.7, Total Bilirubin 0.7, AST 49 H, ALT 35, Alkaline Phosphatase 83, Troponin I < 0.01, Total Protein 7.6, Albumin 4.5, Globulin 3.1, Albumin/Globulin Ratio 1.5, Lipase 61, TSH 2.40, Free T4 1.93, Serum HCG, Qual Negative, Salicylates < 1.0 L , Acetaminophen < 10 L, Plasma/Serum Alcohol < 10 02/03/25 05:16: WBC 5.8, RBC 4.29, Hgb 12.8, Hct 36.6 L, MCV 85.3, MCH 29.8, MCHC 35.0, RDW 12.7, Plt Count 182, MPV 8.8, Neut % (Auto) 65.9, Lymph % (Auto) 22.4, [place] % (Auto) 9.9 H, Eos % (Auto) 0.9, Baso % (Auto) 0.7, Neut # (Auto) 3.9, Lymph # (Auto) 1.3, [place] # (Auto) 0.6, Eos # (Auto) 0.1, Baso # (Auto) 0.0, PT 11.1, INR 1.00, HCV Ab IWLLIS w/Rflx PCR Qn Negative, HIV Ag/Ab Combo Qual Negative 02/03/25 06:59: Sodium 126 L, Potassium 3.2 L, Chloride 95 L, Carbon Dioxide 21 L, Anion Gap 13.2, BUN 17, Creatinine 0.90, Estimated Creat Clear 109, Estimated GFR 65, Est GFR ( Amer) 78 D, Glucose 60 L D, Calcium 7.0 L, Troponin I < 0.01 02/03/25 10:10: Urine Color Yellow, Urine Appearance Slightly cloudy, Urine pH 6.0, Ur Specific Thida <= 1.005, Urine Protein Negative, Urine Glucose (UA) Negative, Urine Ketones Negative, Urine Blood 1+ A, Urine Nitrate Negative, Urine Bilirubin Negative, Urine Urobilinogen 0.2, Ur Leukocyte Esterase 1+ A, Urine RBC 3-5, Urine WBC 3-5, Ur Squamous Epith Cells 3-5, Ur Renal Epithelial Cell Occasional, Urine Bacteria 4+, Urine Yeast Occasional, Urine Sodium < 5.0 L , Urine Opiates Screen Positive H, Urine Methadone Screen Negative, Ur Barbituates Screen Negative, Ur Phencyclidine Scrn Negative, Ur Amphetamines Screen Negative, U Benzodiazepines Scrn Positive H, Urine Cocaine Screen Negative, U Marijuana (THC) Screen Negative 02/03/25 10:15: Troponin I < 0.01 02/03/25 12:08: Sodium 131 L, Potassium 3.7, Chloride 99, Carbon Dioxide 22, Anion Gap 13.7, BUN 15, Creatinine 0.90, Estimated Creat Clear 109, Estimated GFR 65, Est GFR ( Amer) 78, Glucose 93 D, Calcium 8.2 L I & O for Last 24 hours: Intake & Output 01/31/25 02/01/25 02/02/25 02/03/25 23:59 23:59 23:59 23:59 Intake Total 1490 / 1490 Output Total 200 / 200 Balance 1290 / 1290 Weight 99.79 kg Constitutional Constitutional: no acute distress, obese and cooperative *Routine HEENT Exam Head: Present normocephalic Eye: Present EOMI and PERRL ENT: Present mucous membranes moist *Routine Neck Exam Neck: Present supple; Absent lymphadenopathy *Routine Respiratory Exam Respiratory: Present CTA bilaterally *Routine Cardiovascular Exam Cardiovascular: Present RRR *Routine Abdominal Exam Abdominal: Present soft and normoactive bowel sounds; Absent tenderness *Routine Extremities Exam Extremities: Absent cyanosis, clubbing or edema *Routine Skin Exam Skin: Present warm; Absent rash *Routine Neurological Exam Neurological: Present alert and oriented X3 Routine Psychiatric Exam Psychiatric: Present homicidal ideation, auditory hallucinations and manic Results Data Completed and Pending Labs on day of discharge: Labs from last 24 hours 02/03/25 02/03/25 02/03/25 12:08 10:15 10:10 WBC RBC Hgb Hct MCV MCH MCHC RDW Plt Count MPV Neut % (Auto) Lymph % (Auto) [place] % (Auto) Eos % (Auto) Baso % (Auto) Neut # (Auto) Lymph # (Auto) [place] # (Auto) Eos # (Auto) Baso # (Auto) PT INR VBG pH VBG pCO2 VBG pO2 VBG HCO3 VBG Total CO2 VBG O2 Saturation VBG Base Excess VBG Lactic Acid Sodium 131 L Potassium 3.7 Chloride 99 Carbon Dioxide 22 Anion Gap 13.7 BUN 15 Creatinine 0.90 Estimated Creat Clear 109 Estimated GFR 65 Est GFR ( Amer) 78 Glucose 93 D Calcium 8.2 L Magnesium Total Bilirubin AST ALT Alkaline Phosphatase Troponin I < 0.01 Total Protein Albumin Globulin Albumin/Globulin Ratio Lipase TSH Free T4 Serum HCG, Qual Urine Color Yellow Urine Appearance Slightly cloudy Urine pH 6.0 Ur Specific Thida <= 1.005 Urine Protein Negative Urine Glucose (UA) Negative Urine Ketones Negative Urine Blood 1+ A Urine Nitrate Negative Urine Bilirubin Negative Urine Urobilinogen 0.2 Ur Leukocyte Esterase 1+ A Urine RBC 3-5 Urine WBC 3-5 Ur Squamous Epith Cells 3-5 Ur Renal Epithelial Cell Occasional Urine Bacteria 4+ Urine Yeast Occasional Urine Sodium < 5.0 L Salicylates Urine Opiates Screen Positive H Urine Methadone Screen Negative Acetaminophen Ur Barbituates Screen Negative Ur Phencyclidine Scrn Negative Ur Amphetamines Screen Negative U Benzodiazepines Scrn Positive H Urine Cocaine Screen Negative U Marijuana (THC) Screen Negative Plasma/Serum Alcohol HCV Ab WILLIS w/Rflx PCR Qn HIV Ag/Ab Combo Qual 02/03/25 02/03/25 02/03/25 06:59 05:16 04:20 WBC 5.8 RBC 4.29 Hgb 12.8 Hct 36.6 L MCV 85.3 MCH 29.8 MCHC 35.0 RDW 12.7 Plt Count 182 MPV 8.8 Neut % (Auto) 65.9 Lymph % (Auto) 22.4 [place] % (Auto) 9.9 H Eos % (Auto) 0.9 Baso % (Auto) 0.7 Neut # (Auto) 3.9 Lymph # (Auto) 1.3 [place] # (Auto) 0.6 Eos # (Auto) 0.1 Baso # (Auto) 0.0 PT 11.1 INR 1.00 VBG pH VBG pCO2 VBG pO2 VBG HCO3 VBG Total CO2 VBG O2 Saturation VBG Base Excess VBG Lactic Acid Sodium 126 L 117 L Potassium 3.2 L 3.8 Chloride 95 L 88 L Carbon Dioxide 21 L 21 L Anion Gap 13.2 11.8 BUN 17 18 H Creatinine 0.90 1.10 H Estimated Creat Clear 109 89 Estimated GFR 65 51 L Est GFR ( Amer) 78 D 62 Glucose 60 L D 86 Calcium 7.0 L 8.4 Magnesium 1.7 Total Bilirubin 0.7 AST 49 H ALT 35 Alkaline Phosphatase 83 Troponin I < 0.01 < 0.01 Total Protein 7.6 Albumin 4.5 Globulin 3.1 Albumin/Globulin Ratio 1.5 Lipase 61 TSH 2.40 Free T4 1.93 Serum HCG, Qual Negative Urine Color Urine Appearance Urine pH Ur Specific Thida Urine Protein Urine Glucose (UA) Urine Ketones Urine Blood Urine Nitrate Urine Bilirubin Urine Urobilinogen Ur Leukocyte Esterase Urine RBC Urine WBC Ur Squamous Epith Cells Ur Renal Epithelial Cell Urine Bacteria Urine Yeast Urine Sodium Salicylates < 1.0 L Urine Opiates Screen Urine Methadone Screen Acetaminophen < 10 L Ur Barbituates Screen Ur Phencyclidine Scrn Ur Amphetamines Screen U Benzodiazepines Scrn Urine Cocaine Screen U Marijuana (THC) Screen Plasma/Serum Alcohol < 10 HCV Ab WILLIS w/Rflx PCR Qn Negative HIV Ag/Ab Combo Qual Negative 02/03/25 04:17 WBC RBC Hgb Hct MCV MCH MCHC RDW Plt Count MPV Neut % (Auto) Lymph % (Auto) [place] % (Auto) Eos % (Auto) Baso % (Auto) Neut # (Auto) Lymph # (Auto) [place] # (Auto) Eos # (Auto) Baso # (Auto) PT INR VBG pH 7.35 VBG pCO2 39.5 VBG pO2 51.8 H VBG HCO3 21.2 L VBG Total CO2 22.4 L VBG O2 Saturation 84.4 H VBG Base Excess -4.5 L VBG Lactic Acid 1.8 Sodium Potassium Chloride Carbon Dioxide Anion Gap BUN Creatinine Estimated Creat Clear Estimated GFR Est GFR ( Amer) Glucose Calcium Magnesium Total Bilirubin AST ALT Alkaline Phosphatase Troponin I Total Protein Albumin Globulin Albumin/Globulin Ratio Lipase TSH Free T4 Serum HCG, Qual Urine Color Urine Appearance Urine pH Ur Specific Thida Urine Protein Urine Glucose (UA) Urine Ketones Urine Blood Urine Nitrate Urine Bilirubin Urine Urobilinogen Ur Leukocyte Esterase Urine RBC Urine WBC Ur Squamous Epith Cells Ur Renal Epithelial Cell Urine Bacteria Urine Yeast Urine Sodium Salicylates Urine Opiates Screen Urine Methadone Screen Acetaminophen Ur Barbituates Screen Ur Phencyclidine Scrn Ur Amphetamines Screen U Benzodiazepines Scrn Urine Cocaine Screen U Marijuana (THC) Screen Plasma/Serum Alcohol HCV Ab WILLIS w/Rflx PCR Qn HIV Ag/Ab Combo Qual DS: Diagnosis Discharge Diagnosis (1) Psychosis: Status: Acute Code(s): F29 - Unspecified psychosis not due to a substance or known physiological condition (2) Homicidal ideation: Status: Acute Code(s): R45.850 - Homicidal ideations (3) Schizophrenia: Status: Acute Code(s): F20.9 - Schizophrenia, unspecified Qualifiers: Schizophrenia type: unspecified Qualified Code(s): F20.9 - Schizophrenia, unspecified (4) Acute hyponatremia: Status: Acute Code(s): E87.1 - Hypo-osmolality and hyponatremia (5) Psychogenic polydipsia: Status: Acute Code(s): R63.1 - Polydipsia; F54 - Psychological and behavioral factors associated with disorders or diseases classified elsewhere (6) Hypokalemia: Status: Acute Code(s): E87.6 - Hypokalemia Meds Home Medications and Allergies Home Medications ?Medication ?Instructions ?Recorded ?Confirmed ?Type adalimumab 40 mg/0.8 mL 40 mg SQ DIRECTED 5 02/03/25 History subcutaneous pen kit (Humira Pen) alendronate 70 mg tablet 70 mg PO WEEKLY 01/19/2510/21 History cetirizine 10 mg tablet 10 mg PO DAILY 01/19/2510/21 History hydroxychloroquine 200 mg tablet 200 mg PO DAILY 01/1902/03/25 History leflunomide 20 mg tablet 20 mg PO DAILY 01/19/2510/21 History losartan 50 mg tablet 50 mg PO DAILY 01/19/2510/21 History metoprolol succinate 100 mg 100 mg PO BID 01/19/2510/21 History tablet,extended release 24 hr montelukast 10 mg tablet 10 mg PO HS 01/19/25 5 History rimegepant 75 mg disintegrating 75 mg PO NEEDED PRN migraine 01/19/25 02/03/25 History tablet (Nurtec ODT) hydrocodone 10 mg-acetaminophen 1 tab PO Q6H PRN pain #120 tabs 01/30/25 02/03/25 Rx 325 mg tablet rosuvastatin 5 mg tablet 5 mg PO HS 02/03/25 02/03/25 History New Prescriptions to Start Prescriptions: Allergies Allergy/AdvReac Type Severity Reaction Status Date / Time latex Allergy Intermediate I-RASH Verified 02/01/25 14:01 varenicline Allergy Mild SWEATS Verified 02/01/25 14:01 Discharge Plan Disposition Patient Disposition: Xfer Psychiatric Hosp Condition: Fair Discharge Order Discharge Orders: Discharge Order (Routine); Ordered 02/03/25 Ordered By: Alicia Diaz Follow up Plan Prescriptions/Medication Reconciliation: Continued hydrocodone-acetaminophen 10-325 mg tablet 1 tab PO Q6H PRN (Reason: pain) Qty: 120 0RF losartan 50 mg tablet 50 mg PO DAILY cetirizine 10 mg tablet 10 mg PO DAILY alendronate 70 mg tablet 70 mg PO WEEKLY metoprolol succinate 100 mg tablet extended release 24 hr 100 mg PO BID leflunomide 20 mg tablet 20 mg PO DAILY montelukast 10 mg tablet 10 mg PO HS hydroxychloroquine 200 mg tablet 200 mg PO DAILY Humira Pen 40 mg/0.8 mL pen injector kit 40 mg SQ DIRECTED Rx Instructions: Biweekly Nurtec ODT 75 mg tablet,disintegrating 75 mg PO NEEDED PRN (Reason: migraine) rosuvastatin 5 mg tablet 5 mg PO HS Problem Reconciliation Problems Reviewed?: Yes Patient Discharge Instructions ACTIVITY: Continue current activity DIET: continue same diet Patient Instructions: Schizophrenia (Alternative Therapy) Print Language: Swedish Providers Primary Care Provider: Marvin Breaux Admit Provider: Ryan Branch Attending Provider: Ryan Branch
[2025-02-05 07:34] LABS: Osmolality, Urine 81 mOsmol/kg (.)
== END 2025-02-03 15:16 ==
LOC: ER 05:31 → 2ND 07:17
PROVIDERS: Admitting Provider Student in an Organized Health Care Education/Training Program; Emergency Provider Emergency Medicine; PCP Internal Medicine; Visit Provider Student in an Organized Health Care Education/Training Program
DX: F29 Unspecified psychosis not due to a substance or known physiological condition (principal); R45.850 Homicidal ideations; F20.9 Schizophrenia, unspecified; E87.1 Hypo-osmolality and hyponatremia; J44.1 Chronic obstructive pulmonary disease with (acute) exacerbation; I10 Essential (primary) hypertension; R63.1 Polydipsia; I45.81 Long QT syndrome; F54 Psychological and behavioral factors associated with disorders or diseases classified elsewhere; E87.6 Hypokalemia; M06.9 Rheumatoid arthritis, unspecified; E87.5 Hyperkalemia; Z79.899 Other long term (current) drug therapy; Z79.51 Long term (current) use of inhaled steroids; Z79.83 Long term (current) use of bisphosphonates; Z79.620 Long term (current) use of immunosuppressive biologic; Z91.040 Latex allergy status; Z88.9 Allergy status to unspecified drugs, medicaments and biological substances
CPT/HCPCS: 36415; 80048; 80053; 80307; 80320; 80329; 81001; 82803; 83690; 83735; 83930; 83935; 84439; 84443; 84484; 84540; 84703; 85025; 85610; 86803; 87086; 87389; 93005; 96361; 96365; 96366; 96367; 96372; 96375; 96376; 99285; G0378; J1630; J1650; J2250; J3475; J7042; J7120; J7131

== ENCOUNTER 2025-02-07 17:59 | Emergency (ER) | payer MEDICARE, SELFPAY ==
--- OUTSIDE RECORDS SUMMARY | 2025-01-02 14:30 | XMS_ITS | Encounter Summary ---
Author Organization [employer] ([place], [place], [place], [place], [place]) Address [address] [place] [address] Care Team Providers Care Assistant Corporate Secretary Name Role Phone Marvin Breaux MD Primary Care Provider [phone] Reason for Visit * Reason Comments Migraine * Clinic Procedure (Routine) - Authorized Specialty Diagnoses / Procedures Referred By Dheeraj spann Referred To Contact Neurology Diagnoses Chronic migraine without aura, intractable, with status migrainosus Botox HAWLEY 200 Units [facility] MCR B&B Exp: 10/09/25 Procedures [facility] BOTOX Olivia Celis MD [address] [place] [address] Phone: tel: fax: Olivia Celis MD [address] [place] [address] Phone: tel: fax: Referral ID Status Reason Start Date Expiration Date V isits Requested Visits Authorized [id number] Authorized 10/10/2024 10/09/2025 5 5 Encounter Details Date Type Department Care Team (Latest Contact Info) Description 01/02/2025 2:30 PM EST Procedure Visit [facility] Neurology - [place] [address] [place] [phone] Olivia Celis MD [address] [place] [address] Chronic migraine without aura, with intractable migraine, so stated, with status migrainosus (Primary Dx) Social History Tobacco Use Types Packs/Day Years Used Date Smoking Tobacco: Never Assessed Family and Community Support Answer Anson e Recorded Help with Day to Day Activities Not on file 03/09/2023 Feeling Lonely or Isolated Not on file 03/09 Educational Attainment Answer Date David rded Speak language other than [place] Citizen at home Not on file 03/09/2023 Want [...] 10 units divided amongst 2 site(s) Right shredder tender: 2.5 units divided amongst 1 site(s) Left shredder tender: 2.5 units divided amongst 1 site(s) Procerus [...] to Botox injections. [facility] Return in about 12 weeks (around 03/27/2025) for botox. 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 documented in this encounter Miscellaneous Notes * Addendum Note - Roxi Jimenez - 01/02/2025 2:30 PM ESTAddended by: ROXI JIMENEZ on: 01/06/2025 04:39 PM Modules accepted: Orders 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 documented in this encounter Plan of Treatment Upcoming Encounters Date Type Department Care Team (Late st Contact Info) Description 04/02/2025 2:30 PM EST Procedure Visit [facility] [place] [address] [facility] [address] [place] [address] Olivia Celis MD [address] [facility] [address] [place] [address] documented as of this encounter Visit Diagnoses [...] er documented in this encounter Care Teams Assistant Corporate Secretary Relationship Specialty Start Date End Date Marvin Breaux MD [address] [place] [address] PCP - General General Internal Medicine 10/13/22 documented as of this encounter
--- OUTSIDE RECORDS SUMMARY | 2025-01-22 17:56 | XMS_ITS | Encounter Summary ---
Author Organization [facility] Address [address] [place] [address] Care Team Providers Care Marketing Assistant Name Role Phone Marvin Breaux MD Primary Care Provider [phone] Reason for Visit * Reason Comments Hallucinations * Auth/Cert (Routine) Specialty Diagnoses / Procedures Referred By Contac t Referred To Contact Diagnoses Psychosis, unspecified psychosis type (CMS/HCC) Angelina Beebe, DO [address] [place] [address] Phone: tel: fax: [facility] S Inpatient Psychiatry [address] [place] [address] Phone: tel: Referral ID Status Reason Start Date Expiration Date Visits Re quested Visits Authorized [id number] 1 1 Encounter Details Date Type Department Care Team (Latest Contact Info) Description 01/22/2025 5:56 PM EST - 01/28/2025 3:10 PM EST Hospital Encounter [facility] Inpatient Psychiatry [address] [place] [address] Angelina Beebe DO [address] [place] [address] Rhett Reeves MD [address] [place] [address] Psychosis, unspecified psychosis type (CMS/HCC) (Primary Dx) Discharge Disposition: Home or Self Care Social History Tobacco Use Types Packs/Day Years Used Date Smoking Tobacco: Former Cigarettes 1 44 S tarted: 1979 Passive Smoke Exposure: Past Smokeless Tobacco: Never Alcohol Use Standard Drinks/Week Comments Not Currently 0 (1 standard drink = 0.6 oz pur e alcohol) PHQ-2 Answer Date Recorded Patient Health Questionnaire-2 Score 0 01/22/2025 PHQ-9 Answer Date Recorded Patient Health Questionnaire-9 Score 0 01/22/2025 Social Connection and Isolation Panel Answer Date Recorded In a typical week, how many times do you talk on the phone with family, friends, or neighbors? Once a week 02/04/2025 How often do you get togethe r with friends or relatives? More than three times a week 02/04/2025 How often do you attend chur ch or cheondoism services? More than 4 times per year 02/04/2025 Do you belong to any clubs o r organizations such as scientology groups, unions, fraternal or athletic groups, or school groups? Yes 02/04/2025 How often do you attend meet ings of the clubs or organizations you belong to? More than 4 times per year 02/04/2025 Are you , , di vorced, , never , or living with a partner? 02/04/2025 AUDIT-C Answer Date Recorded Q1: How often do you have a drink containing alcohol? Never 02/04/2025 Q2: How many drinks containi ng alcohol do you have on a typical day when you are drinking? Patient does not drink Q3: How often do you have si x or more drinks on one occasion? Never 02/04/2025 [facility] - Occupational Stress Questionnaire Answer Date Recorded Do you feel stress - tense, restless, nervous, or anxious, or unable to sleep at night because your mind is troubled all the time - these days? To some extent 02/04/2025 Exercise Vital Sign Answer Date Recorde d On average, how many days pe r week do you engage in moderate to strenuous exercise (like a brisk walk)? 0 days 02/04/2025 On average, how many minutes do you engage in exercise at this level? 0 min 02/04/2025 Hunger Vital Sign Answer Date Recorded Within the past 12 months, y ou worried that your food would run out before you got the money to buy more. Never true 02/05/20 25 Within the past 12 months, t he food you bought just didn't last and you didn't have money to get more. Never true 02/04/2025 PRAPARE - Transportation Answer Date Re corded In the past 12 months, has l ack of transportation kept you from medical appointments or from getting medications? No 10/2024 In the past 12 months, has l ack of transportation kept you from meetings, work, or from getting things needed for daily living? No 02/04/2025 Housing Stability Vital Sign Answer Anson e Recorded In the last 12 months, was t here a time when you were not able to pay the mortgage or rent on time? No 02/04/2025 In the past 12 months, how m any times have you moved where you were living? 2 02/04/2025 At any time in the past 12 m [facility], were you homeless or living in a [facility] (including now)? No 02/04/[address] [facility] Utilities Answer Date Recorded In the past 12 months has th e electric, gas, oil, or water company threatened to shut off services in your home? No 02/04/2025 Comments No Sex and Gender Information Value Date Recorded Sex Assigned at Not on file Legal Sex Female 8:15 PM EDT Gender Identity Not on file Sexual Orientation Not on file documented as of this encounter Last Filed Vital Signs Vital Sign Reading Time Taken Comments Blood Pressure 152/88 01/28/2025 5:47 AM EST Pulse 74 01/28/2025 5:47 AM EST Temperature 36.4 C (97.5 F) 01/28/2025 5:47 AM EST Respiratory Rate 16 01/23/2025 3:00 AM EST Oxygen Saturation 92% 01/28/2025 5:47 AM EST Inhaled Oxygen Concentration - - Weight 93 kg (205 lb) 01/23/2025 5:43 AM EST Height 175.3 cm (5' 9 ) 01/23/2025 5:43 AM EST Body Mass Index 30.27 01/23/2025 5:43 AM EST documented in this encounter Functional Status * AUDIT-C Score Answer Date of Assessment Author 0 02/04/2025 7:36 PM EST Toribio Jose RN * Question Answer Date of Assessment Author Q1: How often do you have a drink containing alcohol? Never 02/04/2025 7:36 PM Benita Noland RN Q2: How many drinks containing alcohol do you have on a typical day when you are drinking? Patient does not drink 02/04/2025 7:36 PM Benita Noland RN Q3: How often do you have six or more drinks on one occasion? Never 02/04/2025 7:36 PM Benita Noland RN * Question Answer Date of Assessment Author Scale Used Fernie 02/05/2025 10:22 AM Colton Edwards RN * Over the past 2 weeks, how often have you been bothered by any of the following problems? Question Answer Date of Assessment Author Patient Health Questionnaire -2 Score 0 01/22/2025 6:02 PM Rosanne Fields RN * Calculated C-SSRS Risk Score (Lifetime/Recent) Answer Date of Assessment Author No Risk Indicated 02/04/2025 12:39 AM EST Naomi Stephens * Over the past 2 weeks, how often have you been bothered by any of the following problems? Question Answer Date of Assessment Author Little interest or pleasure in doing things Not at all 01/22/2025 6:02 PM Rosanne Fields RN Feeling down, depressed, or hopeless Not at all 01/22/2025 6:02 PM Rosanne Fields RN Trouble falling or staying asleep, or sleeping too much Not at all 01/22/2025 6:02 PM Rosanne Fields RN Feeling tired or having little energy Not at all 01/22/2025 6:02 PM Rosanne iFelds RN Poor appetite or overeating Not at all 01/22/2025 6: 02 PM Rosanne iFelds RN Feeling bad about yourself - or that you are a failure or have let yourself or your family down Not at all 01/22/2025 6:02 PM Rosanne Fields RN Trouble concentrating on things, such as reading the newspaper or watching television Not at all 01/22/2025 6:02 PM Rosanne Fields RN Moving or speaking so slowly that other people could have noticed. Or the opposite - being so fidgety or restless that you have been moving around a lot more than usual Not at all 01/22/2025 6:02 PM Rosanne Fields RN Thoughts that you would be better off or hurting yourself in some way Not at all 01/22/2025 6:02 PM Rosanne Fields, RN Patient Health Questionnaire-9 Score 0 01/22/2025 6:02 PM Rosanne Fields RN * Question Answer Date of Assessment Author 1. Wish to be (Past 1 Month) No 025 12:39 AM Naomi Martinez 2. Non-Specific Active Suici jason Thoughts (Past 1 Month) No 02/04/2025 12:39 AM Naomi Martinez 6. Suicidal Behavior (Lifetime) No 12:39 AM Naomi Martinez documented as of this encounter Mental Status * Question Answer Entry Date Author Scale Used Fernie 02/05/2025 10:22 AM Colton Edwards RN documented in this encounter Medications at Time of Discharge Adalimumab (Humira, 2 Pen,) 40 MG/0.8ML Auto-injector KitIndications:Rheu matoid Arthritis Inject 1 each under the skin every 14 days. 2 each 5 10/17/2024 alendronate (Fosamax) 70 MG tabletIndications:O steoporosis Take 1 tablet by mouth 1 time per week. 09/02/2024 botulinum toxin Type A, Cosm, (Botox) 100 units reconstituted solution injectionIndication s:Migraines cetirizine (ZyrTEC) 10 MG tabletIndications:S easonal Allergic Rhinitis Take 1 tablet by mouth daily. 04/12/2024 cholecalciferol (Vitamin D-3) 250 MCG (48460 UT) capsuleIndications: VItamin Supplement Take 1 capsule by mouth daily. clobetasol (Temovate) 0.05 % creamIndications:De rmatitis Apply 1 Application topically as needed (itchiness). cyanocobalamin 2500 MCG tabletIndications:v itamin supplement Take 2 tablets by mouth daily. folic acid (Folvite) 1 MG tabletIndications:v itamin supplement Take 1 tablet by mouth 1 time each day. HYDROcodone-acetami nophen (Brinklow) 10-325 MG tabletIndications:P ain Take 1 tablet by mouth 4 times a day as needed for moderate pain or severe pain. 06/01/2024 hydroxychloroquine (Plaquenil) 200 MG tabletIndications:R heumatoid Arthritis Take 1 tablet by mouth daily. 05/08/2024 leflunomide (Arava) 20 MG tabletIndications:R heumatoid Arthritis Take 1 tablet by mouth daily. 03/26/2024 losartan (Cozaar) 50 MG tabletIndications:H ypertension Take 1 tablet by mouth daily. 03/02/2024 Lysine 1000 MG tabletIndications:n utrional support Take 1,000 mg by mouth daily. metoprolol succinate XL (Toprol-XL) 100 MG 24 hr tabletIndications:H ypertension Take 1 tablet by mouth 2 times a day. Do not crush or chew. montelukast (Singulair) 10 MG tabletIndications:A sthma Take 1 tablet by mouth nightly. Nurtec 75 MG orally disintegrating tabletIndications:M igraine Dissolve 1 tablet on the tongue as needed (migraine). Max 75mg/day 01/05/2024 rosuvastatin (Crestor) 5 MG tabletIndications:H yperlipidemia Take 1 tablet by mouth nightly. ARIPiprazole (Abilify) 15 MG tabletIndications:P sychosis Take 1 tablet by mouth daily. 30 tablet 01/29/2025 02/08/20 25 venlafaxine XR (Effexor-XR) 150 MG 24 hr capsuleIndications: Mood diorder Take 1 capsule by mouth daily with breakfast. Do not crush or chew. 30 capsule 01/29/2025 02/08/20 25 documented as of this encounter Miscellaneous Notes * Care Plan - Benita Jose RN - 01/28/2025 3:53 PM EST Problem: Adult Behavioral Health Plan of Care Goal: Plan of Care Review 01/28/2025 1553 by Benita Jose RN Outcome: Met 01/28/2025 1138 by Benita Jose RN Outcome: Ongoing, Progressing Flowsheets Taken 01/28/2025 1138 by Benita Jose RN Progress: improving Taken 01/28/2025 0341 by Shawn Younger RN Patient Agreement with Plan of Care: agrees Plan of Care Reviewed With: patient Goal: Patient-Specific Goal (Individualization) 01/28/2025 1553 by Benita Jose RN Outcome: Met 01/28/2025 1138 by Benita Jose RN Outcome: Ongoing, Progressing Flowsheets Taken 01/28/2025 1138 by Benita Jose RN Patient/Family-Specific Goals (Include Timeframe): patient hopes to attend groups- goal met Individualized Care Needs: q15 min checks Anxieties, Fears or Concerns: denies Taken 01/28/2025 0341 by Shawn Younger RN Patient Personal Strengths: expressive of emotions expressive of needs Goal: Adheres to Safety Considerations for Self and Others 01/28/2025 1553 by Benita Jose RN Outcome: Met 01/28/2025 1138 by Benita Jose RN Outcome: Ongoing, Progressing Flowsheets (Taken 01/28/2025 0341 by Shawn Younger RN) Adheres to Safety Considerations for Self and Others: making progress toward outcome Goal: Optimized Coping Skills in Response to Life Stressors 01/28/2025 1553 by Benita Jose RN Outcome: Met 01/28/2025 1138 by Benita Jose RN Outcome: Ongoing, Progressing Flowsheets (Taken 01/28/2025 034 by Shawn Younger RN) Optimized Coping Skills in Response to Life Stressors: making progress toward outcome Problem: Psychotic Signs/Symptoms Goal: Improved Mood Symptoms 01/28/2025 1553 by Benita Jose RN Outcome: Met 01/28/2025 1138 by Benita Jose RN Outcome: Ongoing, Progressing Flowsheets (Taken 01/28/2025 1138) Mutually Determined Action Steps (Improved Mood Symptoms): identifies personal treatment goal Goal: Decreased Sensory Symptoms (Psychotic Signs/Symptoms) 01/28/2025 1553 by Benita Jose RN Outcome: Met 01/28/2025 1138 by Benita Jose RN Outcome: Ongoing, Progressing Flowsheets (Taken 01/28/2025 0341 by Shawn Younger RN) Mutually Determined Action Steps (Decreased Sensory Symptoms): adheres to medication regimen * Nursing Note - Benita Jose RN - 01/28/2025 3:13 PM EST Patient discharged from unit at 1510 accompanied by [facility] staff- ambulatory. Patient denies current SI/HI/AVH at time of discharge. Patient's belongings/valuables returned and patient verified return of belongings. Safety plan, medications, discharge appointment, crisis information, and discharge summ sammi reviewed with the patient. Patient was offered family/significant other involvement which patient accepted- . Patient was given the opportunity to ask questions and verbally stated understanding of all information reviewed. Discharge review took place at nurses station. Pt understands that they can return to [facility] ED at any time for further psychiatric evaluation or call the suicide hotline which was provided in paperwork. * Addendum Note - Edyta Cummings - 01/28/2025 3:10 PM ESTEncounter addended by: Edyta Cummings on: 02/05/2025 2:02 PM Actions taken: Charge Capture section accepted * [facility] - Benita Jose RN - 01/28/2025 3:02 PM EST Images from the original note were not included. [id number] Recognizing Suicide Warning Signs in Yourself People who are thinking about suicide may not know they are depressed. Certain thoughts, feelings, and actions can be signals that let you know you may need help. The best thing you can do is watch for signs that you may be at risk. Then, ask for help. You can talk with your regular health care provider or get help from a mental health provider. Depression Depression is a treatable illness, just like diabetes or heart disease. And like those illnesses, depression is not something that you can just snap out of. To feel better, treatment is needed before depression gets to a point that it can endanger your life. To know if depression is causing you to feel like ending your life, ask yourself: ? Do I feel worthless, guilty, helpless, or hopeless? ? Have I been feeling sad, down, or blue on most days? ? Have I lost interest in my work or people I used to enjoy? ? Do I have trouble sleeping or do I sleep too much? ? Do I eat more or less than normal? ? Do I feel tired, weak, and low on energy? ? Do I feel restless and unable to sit still? ? Do I have trouble thinking or making choices? ? Do I cry more than normal? ? Do I feel life isn't worth living? Warning signs for suicide Contact your health care provider or get help right away if you have any of the warning signs below. You can also call a mental health clinic or the Suicide and Crisis Lifeline for help and support. Warning signs for suicide include: ? Thinking often about taking your life. ? Planning how you may attempt it. ? Talking or writing about suicide. ? Feeling that is the only solution to your problems. ? Feeling a pressing need to make out your will or arrange your . ? Giving away things you own. ? Taking part in risky behaviors, such as having sex with someone you don't know, or drinking and driving. ? Buying a lethal weapon, such as a gun, or hoarding medicines that could be used in an overdose. In a crisis, call or text 988 If you are in immediate risk of harming yourself or others, call 988. When you call or text 988, you will be connected to trained crisis counselors at the Suicide and Crisis Lifeline. An online chat is also available. Lifeline is free and available 19/09. To learn more For more information about depression and suicide prevention: ? Suicide and Crisis Lifeline at Junk4Junk.org or call 986 or 9-738-168-TALK (611-860-3813) ? National [place] on Mental Illness at www.britton.org or 318-082-0756 ? Mental Health Kellie at www.nmha.org or 853-737-5620 ? National [place] of Mental Health at www.nimh.nih.gov or 884-145-7298 Last Reviewed Date: 2024 00:00:00 ?? 8122-0544 [employer]. All rights reserved. This information is not intended as a substitute for professional medical care. Always follow your healthcare professional's instructions. * Callum Sanchez - Benita Jose RN - 01/28/2025 3:02 PM EST Images from the original note were not included. [id number] Warning Signs of Suicide and What To Do If you think a person may be suicidal, ask them. Say, Have you thought about suicide? Asking won't make it more likely that they will try to do it. In fact, many people with suicidal thoughts say they are relieved when the question is asked. If they say yes, they may already have a plan. They may know how and when they will attempt it. Find out as much as you can. A plan that is detailed and easy to carry out means the person is in danger right now. Know the warning signs The warning signs for suicide include: ? Threats or talk of suicide ? Talking about and dying ? Change in eating habits ? Change in sleeping habits, such as not sleeping or sleeping all of the time ? Feeling hopeless ? Suddenly buying a gun or other weapon ? Saying things such as Soon, I won't be a problem or Nothing matters ? Giving away things they own ? Making out a will or planning their ? Suddenly being happy or calm after being depressed Who?s at risk? Some things put a person at a higher risk of attempting suicide. They include: ? A history of suicide in their family ? Past suicide attempts ? Alcohol and drug use, along with impulsive behaviors ? Having a mood disorder, such as depression or bipolar disorder ? History of trauma or abuse including bullying ? Major loss, such as a divorce or of a loved one ? Money problems ? Legal problems ? Having access to a lethal weapon (such as a gun in the home) ? Long-term (chronic) physical illness, including chronic pain ? Being around others with suicidal behavior Getting help Don't try to handle this alone. Get the person to a trained healthcare provider. Suicidal thoughts may be a sign of depression. This is a serious but treatable illness. Call a mental health clinic or a licensed mental healthcare provider in your area right away. This may be a: ? Psychiatrist ? Clinical psychologist ? Psychiatric or licensed clinical social work supervisor ? Marriage and family counselor ? Clergy person When to call for crisis help If the person is at immediate risk, call or text the 988 Suicide & Crisis Lifeline at 988. Tellthe crisis counselor you need help for a person who is thinking about suicide. Or take the person to the nearest emergency room. Don't leave the person alone. Anyone who is at immediate risk of suicide needs care right away. Theperson must be constantly watched. They must never be left alone. Crisis help resources These services are free and available 19/09: ? 988 Suicide & Crisis Lifeline. Call or text 988. Lifeline can also be reached at 947-446-4255(901-554-ONQZ). An online chat choice is also available. Lifeline is free and available 19/09. ? ? National [place] on Mental Illness ([place]) at www.britton.org. Call 895-084-7196. Or text [place] to 470132. ? Mental Health Kellie at www.mhanational.org. Call 988. Or text MHA to 645421. ? Veterans Crisis Line at www.veteranscrisisline.net. Call 988 then press 1. Or text a message to 572360. Last Reviewed Date: 2023 00:00:00 ?? 3696-5686 [employer]. All rights reserved. This information is not intended as a substitute for professional medical care. Always follow your healthcare professional's instructions. * Callum NievesCHAPITO - Benita Jose RN - 01/28/2025 3:02 PM EST Images from the original note were not included. [id number] Aripiprazole IMPORTANT WARNING: Important warning for older adults with dementia: Older adults with dementia (loss of memory and brain function) may have an increased chance of if treated with antipsychotic medications such as aripiprazole. Older adults with dementia may also have an increased risk of a stroke or ministroke during treatment with antipsychotics. Aripiprazole is not approved by the Food and Drug Administration (FDA) for the treatment of behavior problems in older adults with dementia. Important warning for people who have depression: Children, teenagers, and young adults who take antidepressants to treat depression or other mental illnesses have a greater risk of becoming suicidal. This is especially of concern at the beginning of treatment and any time that your dose is changed. You, your family, or your caregiver should call your doctor right away if you experience any of the following symptoms: new or worsening depression;thinking about harming or killing yourself, or planning or trying to do so; extreme worry; agitation; panic attacks; difficulty falling asleep or staying asleep; aggressive behavior; irritability; acting without thinking; severe restlessness; and angie (frenzied, abnormally excited mood). Be sure that your family or caregiver knows which symptoms may be serious so they can call the doctor if you are unable to seek treatment on your own. You will be given the Medication Guide. Read the information carefully and ask your doctor or pharmacist if you have any questions. You can also visit https://www.fda.gov/Drugs/DrugSafety/sez369291.htm to obtain the Medication Guide. Talk to your doctor about the risks of taking aripiprazole. WHY is this medicine prescribed? Aripiprazole is used to treat: ? schizophrenia (a mental illness that affects how a person thinks, feels and behaves) ? bipolar disorder (a disease that causes depression, angie, and other abnormal moods) ? major depressive disorder ? irritability symptoms (aggression, temper tantrums, mood changes) in those with autistic disorder(a developmental problem that affects how individuals communicate, learn and behave) ? Tourette's disorder (a condition causing involuntary, repetitive movements or sounds) Aripiprazole is in a class of medications called atypical antipsychotics. It works by changing the activity of certain natural substances in the brain. HOW should this medicine be used? Aripiprazole comes as a tablet and a solution (liquid) to take by mouth. It also comes as an orallydisintegrating tablet (a tablet that dissolves quickly in the mouth) and a film to place on the tongue. Take once a day with or without food. Take aripiprazole at around the same time every day. Take aripiprazole exactly as directed. Do not take more or less of it or take it more often than prescribed by your doctor. Use an oral syringe or dosing cup (measuring device) to accurately measure and take your dose of aripiprazole solution. Do not use a household spoon or cup. Ask your pharmacist for a measuring deviceif one is not included with your medication. Swallow the tablets whole; do not divide, crush, or chew. Use dry hands to peel back the foil packaging of the orally disintegrating tablet. Do not try to push it through the foil. Immediately take out the tablet. Place the entire tablet on your tongue. Do not try to split the tablet. The tablet will quickly dissolve and can be swallowed without liquid. If necessary, liquid can be used to take the orally disintegrating tablet. Place the film on the top of the tongue. It should dissolve in saliva and can be swallowed. Do not chew the film. Use only one film at a time. Do not cut or split the film. Your doctor may start you on a low dose of aripiprazole and gradually increase or decrease your dose depending on how well the medication works for you and the side effects you experience. Aripiprazole may help control your symptoms but will not cure your condition. It may take 2 weeks or longer before you feel the full benefit of aripiprazole. Continue to take aripiprazole even if youfeel well. Do not stop taking aripiprazole without talking to your doctor. Are there OTHER USES for this medicine? This medication may be prescribed for other uses; ask your doctor or pharmacist for more information. What SPECIAL PRECAUTIONS should I follow? Before taking aripiprazole, ? tell your doctor or pharmacist if you are allergic to this drug, any part of this drug, or any other drugs, foods or substances. Tell your doctor or pharmacist about the allergy and what symptoms you had. ? tell your doctor and pharmacist what prescription and nonprescription medications, vitamins, nutritional supplements, and herbal products you are taking or plan to take while taking aripiprazole. Your doctor may need to change the doses of your medications or monitor you carefully for side effects. ? The following nonprescription drugs or herbal products may interact with aripiprazole: Ira'swort. Be sure to let your doctor and pharmacist know that you are taking this medication before youstart taking aripiprazole. Do not start this medication while taking aripiprazole without discussing with your healthcare provider. ? tell your doctor if you have severe diarrhea or vomiting or you think you may be dehydrated. [place] your doctor if you have or have ever had heart disease, heart failure, a heart attack, an irregular heartbeat, high or low blood pressure, a stroke, a ministroke, seizures, a low number of whiteblood cells, dyslipidemia (high cholesterol levels), trouble keeping your balance, or any conditionthat makes it difficult for you to swallow. Tell your doctor if you or anyone in your family use orhave ever used street drugs or have overused prescription medication or alcohol or has or has ever had diabetes, obsessive compulsive disorder, impulse-control disorder, bipolar disorder, or an impulsive personality. Also tell your doctor if you have ever had to stop taking a medication for mental illness because of severe side effects ? tell your doctor if you are , plan to become , or are . If you become while taking aripiprazole, call your doctor. Aripiprazole may cause problems in newborns following delivery if it is taken during the last months of . ? if you are having surgery, including dental surgery, tell the doctor or dentist that you are taking aripiprazole. ? you should know that aripiprazole may make you drowsy. Do not drive a car or operate machinery until you know how this medication affects you. ? you should know that alcohol can add to the drowsiness caused by this medication. Do not drink alcohol while taking aripiprazole. ? you should know that you may experience hyperglycemia (increases in your blood sugar) while you are taking this medication, even if you do not already have diabetes. If you have schizophrenia, you are more likely to develop diabetes than people who do not have schizophrenia, and taking aripiprazole or similar medications may increase this risk. Tell your doctor immediately if you have any of the following symptoms while you are taking aripiprazole: extreme thirst, frequent urination, extreme hunger, blurred vision, or weakness. It is very important to call your doctor as soon as you have any of these symptoms, because high blood sugar that is not treated can cause a serious condition called ketoacidosis. Ketoacidosis may become life-threatening if it is not treated at an early stage. Symptoms of ketoacidosis include dry mouth, nausea and vomiting, shortness of breath, breath that smells fruity, and decreased consciousness. ? you should know that aripiprazole may cause dizziness, lightheadedness, and fainting when you getup too quickly from a lying position. This is more common when you first start taking aripiprazole.To avoid this problem, get out of bed slowly, resting your feet on the floor for a few minutes before standing up. ? you should know that aripiprazole may make it harder for your body to cool down when it gets veryhot. Tell your doctor if you plan to do vigorous exercise or be exposed to extreme heat. ? if you have phenylketonuria (PKU, an inherited condition in which a special diet must be followedto prevent damage to your brain that can cause severe intellectual disability), you should know that the orally disintegrating tablets contain phenylalanine. ? If you have diabetes, you should know that aripiprazole solution contains sugar. ? you should know that some people who have taken medications such as aripiprazole have developed gambling problems or other intense urges or behaviors that were compulsive or unusual for them, such as increased sexual urges or behaviors, excessive shopping, and binge eating. Call your doctor if you have intense urges to shop, eat, have sex, or jack, or you are unable to control your behavior. Tell your family members about this risk so that they can call the doctor even if you do not realizethat these behaviors such as have become a problem. ? you should know that when aripiprazole is used to treat children, it should be used as part of a treatment program that may include counseling and special education. Be sure that your child followsall of his or her doctor's or therapist's instructions. What SPECIAL DIETARY instructions should I follow? Talk to your doctor about drinking grapefruit juice and eating grapefruit while taking this medicine. Be sure to drink plenty of water every day while you are taking this medication. What should I do IF I FORGET to take a dose? Take the missed dose as soon as you remember it. However, if it is almost time for the next dose, skip the missed dose and continue your regular dosing schedule. Do not take a double dose to make up for a missed one. What SIDE EFFECTS can this medicine cause? Some side effects can be serious. If you experience any of the following symptoms or those listed in the IMPORTANT WARNING section or the SPECIAL PRECAUTIONS section, call your doctor immediately: ? rash; hives; itching; swelling of the eyes, face, mouth, lips, tongue, or throat; or difficulty breathing or swallowing ? difficulty breathing or swallowing ? seizures ? uncontrollable moevments of the face, tongue, or other body parts ? fever; stiff muscles; sweating; confusion; sweating; or fast, pounding, or irregular heartbeat ? problems with coordination or increased falls ? tightening of the neck muscles or throat tightness Aripiprazole may cause other side effects. Call your doctor if you have any unusual problems while taking this medication. If you experience a serious side effect, you or your doctor may send a report to the Food and Drug Administration's (FDA) MedWatch Adverse Event Reporting program online (https://www.fda.gov/Safety/MedWatch) or by phone ( ). What should I know about STORAGE and DISPOSAL of this medication? Keep this medication in the container it came in, tightly closed, and out of reach of children. Store at room temperature and away from excess heat and moisture (not in the bathroom). Store the orally disintegrating tablets and the oral film in their sealed packages, and use immediately after opening the package Dispose of any unused aripiprazole solution 6 months after you open the bottle or when the expiration date marked on the bottle has passed, whichever is sooner. Keep all medication out of sight and reach of children as many containers are not child resistant. Always lock safety caps. Place the medication in a safe location - one that is up and away and out of their sight and reach.https://www.upandaway.org Dispose of unneeded medications in a way so that pets, children, and other people cannot take them.Do not flush this medication down the toilet. Use a medicine take-back program. Talk to your pharmacist about take-back programs in your community. Visit the FDA's Safe Disposal of Medicines website ( https://goo.gl/c4Rm4p) for more information. What should I do in case of OVERDOSE? In case of overdose, call the poison control helpline at . Information is also available online at https://www.poisonhelp.org/help. If the victim has collapsed, had a seizure, has trouble breathing, or can't be awakened, immediately call emergency services at 911. Symptoms of overdose may include the following: ? drowsiness ? weakness ? widened pupils (black circles in the middle of the eyes) ? nausea ? vomiting ? changes in heartbeat ? movements that you cannot control ? confusion ? seizures ? loss of consciousness What OTHER INFORMATION should I know? Keep all appointments with your doctor and the laboratory. Your doctor may order laboratory tests before and during your treatment with aripiprazole. Do not let anyone else take your medication. Ask your pharmacist any questions you have about refilling your prescription. Keep a written list of all of the prescription and nonprescription (jeyf-usp-zjhsobk) medicines vitamins, minerals, and dietary supplements you are taking. Bring this list with you each time you visit a doctor or if you are admitted to the hospital. You should carry the list with you in case of kaleb gencies. Brand Name(s): ? Abilify?? ? Abilify Mycite? Mezofy? Opipza?? also available generically ?? This branded product is no longer on the market. Generic alternatives may be available. This report on medications is for your information only, and is not considered individual patient advice. Because of the changing nature of drug information, please consult your physician or pharmacist about specific clinical use. The [employer] represents that the information provided hereunder was formulated with a reasonable standard of care, and in conformity with professional standards in the field. The [employer] makes no representations or warranties, express or implied, including, but not limited to, any implied warranty of merchantability and/or fitness for a particular purpose, with respect to such information and specifically disclaims all such warranties. Users are advised that decisions regarding drug therapy are complex medical decisions requiring the independent, informed decision of an appropriate health rn transitional care, and the information is provided for informational purposes only. The entire monograph for a drug should be reviewed for a thorough understanding of the drug's actions, uses and side effects. The [employer] does not endorse or recommend the use of any drug.The information is not a substitute for medical care. AHFS?? Patient Medication Information?. ?? Copyright, 2023. The [employer]??, [address], [address], [place], [place]. All Rights Reserved. Duplication for commercial use must be authorized by [facility]. Selected Revisions: December 11, 2024. AHFS?? Patient Medication Information?. ?? Copyright, 2024 * Callum Sanchez - Benita Jose RN - 01/28/2025 3:02 PM EST Images from the original note were not included. [id number] Venlafaxine IMPORTANT WARNING: Medications such as venlafaxine may increase the risk of suicidal thoughts and actions. This increase was found in children, teenagers, and young adults (less than 24 years of age). The risk may be more likely with the first few months of treatment and when the dose is increased. Call your doctor right away if you experience any of the following symptoms: new or worsening depression; thinking about harming or killing yourself, or planning or trying to do so; extreme worry; agitation; panic attacks; difficulty falling asleep or staying asleep; aggressive behavior; irritability; acting without thinking; severe restlessness; and frenzied abnormal excitement. Be sure that your family or caregiver knows which symptoms may be serious so they can call the doctor if you are unable to do so. The doctor or pharmacist will give you the Medication Guide. Read the information carefully and askyour doctor or pharmacist if you have any questions. You also can obtain the Medication Guide from ttps://www.fda.gov/Drugs/DrugSafety/ojw409636.htm. Talk to your doctor about the risks of taking venlafaxine. WHY is this medicine prescribed? Venlafaxine is used to treat depression, generalized anxiety disorder (URIEL; excessive worrying thatis difficult to control), social anxiety disorder (extreme fear of interacting with others or performing in front of others that interferes with normal life), and panic disorder (sudden, unexpected attacks of extreme fear and worry about these attacks). Venlafaxine is in a class of medications called selective serotonin and norepinephrine reuptake inhibitors (SNRIs). It works by increasing the amounts of serotonin and norepinephrine, natural substances in the brain that help maintain mental balance. HOW should this medicine be used? Venlafaxine comes as a tablet or extended-release capsule to take by mouth. Take the tablet two or three times a day with food. Take the extended-release capsule once daily in the morning or evening with food. Take venlafaxine at around the same time(s) every day. Take venlafaxine exactly as directed. Do not take more or less of it or take it more often or for alonger period of time than prescribed by your doctor. Swallow the extended-release capsule whole; do not split, chew, or crush it, or place it in water. If you cannot swallow the extended-release capsule, you may carefully open the capsule and sprinkle the entire contents on a spoonful of applesauce. Swallow (without chewing) this mixture immediately after preparation. Then drink a glass of water to make sure that you have swallowed all of the medication. Your doctor will probably start you on a low dose of venlafaxine and gradually increase your dose, not more often than once every 4 to 7 days. It may take several weeks or longer for you to feel the full benefit of this medication. Do not stop taking venlafaxine without talking to your doctor. Your doctor will probably decrease your dose gradually. If you suddenly stop taking venlafaxine, you may experience withdrawal symptoms such as agitation; anxiety; tiredness; confusion; mood changes; headache; dizziness; irritability; frenzied or abnormal excitement; lack of coordination; trouble falling asleep or staying asleep; nightmares; nausea; vomiting; loss of appetite; diarrhea; dry mouth; sweating; uncontrollable shaking of a part of the body; ringing in the ears; blurred vision; seizures; or burning, tingling, numbness, or electricshock-like feelings in any part of the body. Tell your doctor if you experience any of these symptoms. Are there OTHER USES for this medicine? Venlafaxine is also sometimes used to treat hot flashes (hot flushes; sudden strong feelings of heat and sweating) in women who have experienced menopause ('change of life'; the end of monthly menstrual periods) or who are taking medication to treat breast cancer. Talk to your doctor or pharmacist about the risks of using venlafaxine to treat your condition. This medication is sometimes prescribed for other uses; ask your doctor or pharmacist for more information. What SPECIAL PRECAUTIONS should I follow? Before taking venlafaxine, ? tell your doctor or pharmacist if you are allergic to this drug, any part of this drug, or any other drugs, foods or substances. Tell your doctor or pharmacist about the allergy and what symptoms you had. ? tell your doctor or pharmacist if you are taking the following medications or have stopped takingthem within the past two weeks: monoamine oxidase (MAO) inhibitor, such as isocarboxazid , linezolid, methylene blue, phenelzine, selegiline, and tranylcypromine. If you stop taking venlafaxine, yourdoctor will tell you that you should wait at least 7 days before you start to take an MAO inhibitor. ? some medications should not be taken with venlafaxine. Other medications may cause dosing changesor extra monitoring when taken with venlafaxine. Make sure you have discussed any medications you are currently taking or plan to take before starting venlafaxine with your doctor and pharmacist. Before starting, stopping, or changing any medications while taking venlafaxine, please get the advice of your doctor or pharmacist. ? the following nonprescription or herbal products may interact with venlafaxine: Ira's wort; tryptophan; cimetidine (Tagamet??). Be sure to let your doctor and pharmacist know that you are taking these medications before you start taking venlafaxine. Do not start any of these medications while taking venlafaxine without discussing with your healthcare provider. ? tell your doctor if you drink or have ever drunk large amounts of alcohol or use or have ever used street drugs or overused prescription medications. Also tell your doctor if you have recently had a heart attack and if you have or have ever had high blood pressure, high blood cholesterol seizures, glaucoma (increased pressure in the eye that may cause loss of sight), or heart, kidney, liver, orthyroid disease. ? tell your doctor if you are , especially if you are in the last few months of your , or if you plan to become or are breast- feeding. If you become while taking venlafaxine, call your doctor. ? you should know that this medication may make you drowsy and may affect your judgment, thinking, and movements. Do not drive a car or operate machinery until you know how this medication affects you. ? talk to your doctor about the safe use of alcoholic beverages during your treatment with venlafaxine. Alcohol can make the side effects of venlafaxine worse ? you should know that venlafaxine may cause angle-closure glaucoma (a condition where the fluid issuddenly blocked and unable to flow out of the eye causing a quick, severe increase in eye pressurewhich may lead to a loss of vision). Talk to your doctor about having an eye examination before youstart taking this medication. If you have nausea, eye pain, changes in vision, such as seeing colored rings around lights, and swelling or redness in or around the eye, call your doctor or get emergency medical treatment right away. What SPECIAL DIETARY instructions should I follow? Unless your doctor tells you otherwise, continue your normal diet. What should I do IF I FORGET to take a dose? Take the missed dose as soon as you remember it. However, if it is almost time for your next dose, skip the missed dose and continue your regular dosing schedule. Do not take a double dose to make upfor a missed one. If you are taking the extended-release capsules, do not take more than one dose per day. What SIDE EFFECTS can this medicine cause? Some side effects can be serious. If you experience any of the following symptoms or those listed in the IMPORTANT WARNING or SPECIAL PRECAUTIONS sections, call your doctor immediately: ? rash; hives; itching; difficulty breathing or swallowing ? fast, pounding, or irregular heartbeat ? difficulty breathing, cough, chest pain ? seizures ? unusual bruising or bleeding ? fever, sweating, confusion, fast or irregular heartbeat, severe muscle stiffness or twitching, nausea, vomiting, or diarrhea ? hallucinations (seeing things or hearing voices that do not exist) ? coma (loss of consciousness for a period of time) Venlafaxine may cause other side effects. Call your doctor if you have any unusual problems while you are taking this medication. If you experience a serious side effect, you or your doctor may send a report to the Food and Drug Administration's (FDA) MedWatch Adverse Event Reporting program online (https://www.fda.gov/Safety/MedWatch) or by phone ( ). What should I know about STORAGE and DISPOSAL of this medication? Keep this medication in the container it came in, tightly closed, and out of reach of children. Store it at room temperature and away from excess heat and moisture (not in the bathroom). Keep all medication out of sight and reach of children as many containers are not child-resistant. Always lock safety caps. Place the medication in a safe location - one that is up and away and out of their sight and reach. https://www.[employer].org Dispose of unneeded medications in a way so that pets, children, and other people cannot take them.Do not flush this medication down the toilet. Use a medicine take-back program. Talk to your pharmacist about take-back programs in your community. Visit the FDA's Safe Disposal of Medicines website h ttps://goo.gl/c4Rm4p for more information. What should I do in case of OVERDOSE? In case of overdose, call the poison control helpline at . Information is also available online at https://www.poisonhelp.org/help. If the victim has collapsed, had a seizure, has trouble breathing, or can't be awakened, immediately call emergency services at 585. Symptoms of overdose may include: ? dizziness ? nausea ? vomiting ? burning, tingling, or numbness of the hands and feet ? hot and cold spells ? sleepiness ? seizures ? fast, slow, or irregular heartbeat ? coma (loss of consciousness for a period of time) What OTHER INFORMATION should I know? Keep all appointments with your doctor. Do not let anyone else take your medication. Ask your pharmacist any questions you have about refilling your prescription. Keep a written list of all of the prescription and nonprescription (neta-uir-jveglfi) medicines, vitamins, minerals, and dietary supplements you are taking. Bring this list with you each time you visit a doctor or if you are admitted to the hospital. You should carry the list with you in case of galo rgencies. Brand Name(s): ? Effexor? Effexor?? XR also available generically ?? This branded product is no longer on the market. Generic alternatives may be available. This report on medications is for your information only, and is not considered individual patient advice. Because of the changing nature of drug information, please consult your physician or pharmacist about specific clinical use. The [employer] represents that the information provided hereunder was formulated with a reasonable standard of care, and in conformity with professional standards in the field. The [employer] makes no representations or warranties, express or implied, including, but not limited to, any implied warranty of merchantability and/or fitness for a particular purpose, with respect to such information and specifically disclaims all such warranties. Users are advised that decisions regarding drug therapy are complex medical decisions requiring the independent, informed decision of an appropriate health rn transitional care, and the information is provided for informational purposes only. The entire monograph for a drug should be reviewed for a thorough understanding of the drug's actions, uses and side effects. The [employer] does not endorse or recommend the use of any drug.The information is not a substitute for medical care. AHFS?? Patient Medication Information?. ?? Copyright, 2023. [employer]??, [address], [address], [place], [place]. All Rights Reserved. Duplication for commercial use must be authorized by [facility]. Selected Revisions: December 11, 2024. AHFS?? Patient Medication Information?. ?? Copyright, 2024 * Callum Sanchez - Benita Jose RN - 01/28/2025 3:02 PM EST Images from the original note were not included. [id number] Venlafaxine IMPORTANT WARNING: Medications such as venlafaxine may increase the risk of suicidal thoughts and actions. This increase was found in children, teenagers, and young adults (less than 24 years of age). The risk may be more likely with the first few months of treatment and when the dose is increased. Call your doctor right away if you experience any of the following symptoms: new or worsening depression; thinking about harming or killing yourself, or planning or trying to do so; extreme worry; agitation; panic attacks; difficulty falling asleep or staying asleep; aggressive behavior; irritability; acting without thinking; severe restlessness; and frenzied abnormal excitement. Be sure that your family or caregiver knows which symptoms may be serious so they can call the doctor if you are unable to do so. The doctor or pharmacist will give you the Medication Guide. Read the information carefully and askyour doctor or pharmacist if you have any questions. You also can obtain the Medication Guide from ttps://www.fda.gov/Drugs/DrugSafety/edj750384.htm. Talk to your doctor about the risks of taking venlafaxine. WHY is this medicine prescribed? Venlafaxine is used to treat depression, generalized anxiety disorder (URIEL; excessive worrying thatis difficult to control), social anxiety disorder (extreme fear of interacting with others or performing in front of others that interferes with normal life), and panic disorder (sudden, unexpected attacks of extreme fear and worry about these attacks). Venlafaxine is in a class of medications called selective serotonin and norepinephrine reuptake inhibitors (SNRIs). It works by increasing the amounts of serotonin and norepinephrine, natural substances in the brain that help maintain mental balance. HOW should this medicine be used? Venlafaxine comes as a tablet or extended-release capsule to take by mouth. Take the tablet two or three times a day with food. Take the extended-release capsule once daily in the morning or evening with food. Take venlafaxine at around the same time(s) every day. Take venlafaxine exactly as directed. Do not take more or less of it or take it more often or for alonger period of time than prescribed by your doctor. Swallow the extended-release capsule whole; do not split, chew, or crush it, or place it in water. If you cannot swallow the extended-release capsule, you may carefully open the capsule and sprinkle the entire contents on a spoonful of applesauce. Swallow (without chewing) this mixture immediately after preparation. Then drink a glass of water to make sure that you have swallowed all of the medication. Your doctor will probably start you on a low dose of venlafaxine and gradually increase your dose, not more often than once every 4 to 7 days. It may take several weeks or longer for you to feel the full benefit of this medication. Do not stop taking venlafaxine without talking to your doctor. Your doctor will probably decrease your dose gradually. If you suddenly stop taking venlafaxine, you may experience withdrawal symptoms such as agitation; anxiety; tiredness; confusion; mood changes; headache; dizziness; irritability; frenzied or abnormal excitement; lack of coordination; trouble falling asleep or staying asleep; nightmares; nausea; vomiting; loss of appetite; diarrhea; dry mouth; sweating; uncontrollable shaking of a part of the body; ringing in the ears; blurred vision; seizures; or burning, tingling, numbness, or electricshock-like feelings in any part of the body. Tell your doctor if you experience any of these symptoms. Are there OTHER USES for this medicine? Venlafaxine is also sometimes used to treat hot flashes (hot flushes; sudden strong feelings of heat and sweating) in women who have experienced menopause ('change of life'; the end of monthly menstrual periods) or who are taking medication to treat breast cancer. Talk to your doctor or pharmacist about the risks of using venlafaxine to treat your condition. This medication is sometimes prescribed for other uses; ask your doctor or pharmacist for more information. What SPECIAL PRECAUTIONS should I follow? Before taking venlafaxine, ? tell your doctor or pharmacist if you are allergic to this drug, any part of this drug, or any other drugs, foods or substances. Tell your doctor or pharmacist about the allergy and what symptoms you had. ? tell your doctor or pharmacist if you are taking the following medications or have stopped takingthem within the past two weeks: monoamine oxidase (MAO) inhibitor, such as isocarboxazid , linezolid, methylene blue, phenelzine, selegiline, and tranylcypromine. If you stop taking venlafaxine, yourdoctor will tell you that you should wait at least 7 days before you start to take an MAO inhibitor. ? some medications should not be taken with venlafaxine. Other medications may cause dosing changesor extra monitoring when taken with venlafaxine. Make sure you have discussed any medications you are currently taking or plan to take before starting venlafaxine with your doctor and pharmacist. Before starting, stopping, or changing any medications while taking venlafaxine, please get the advice of your doctor or pharmacist. ? the following nonprescription or herbal products may interact with venlafaxine: Ravenna's wort; tryptophan; cimetidine (Tagamet??). Be sure to let your doctor and pharmacist know that you are taking these medications before you start taking venlafaxine. Do not start any of these medications while taking venlafaxine without discussing with your healthcare provider. ? tell your doctor if you drink or have ever drunk large amounts of alcohol or use or have ever used street drugs or overused prescription medications. Also tell your doctor if you have recently had a heart attack and if you have or have ever had high blood pressure, high blood cholesterol seizures, glaucoma (increased pressure in the eye that may cause loss of sight), or heart, kidney, liver, orthyroid disease. ? tell your doctor if you are , especially if you are in the last few months of your , or if you plan to become or are breast- feeding. If you become while taking venlafaxine, call your doctor. ? you should know that this medication may make you drowsy and may affect your judgment, thinking, and movements. Do not drive a car or operate machinery until you know how this medication affects you. ? talk to your doctor about the safe use of alcoholic beverages during your treatment with venlafaxine. Alcohol can make the side effects of venlafaxine worse ? you should know that venlafaxine may cause angle-closure glaucoma (a condition where the fluid issuddenly blocked and unable to flow out of the eye causing a quick, severe increase in eye pressurewhich may lead to a loss of vision). Talk to your doctor about having an eye examination before youstart taking this medication. If you have nausea, eye pain, changes in vision, such as seeing colored rings around lights, and swelling or redness in or around the eye, call your doctor or get emergency medical treatment right away. What SPECIAL DIETARY instructions should I follow? Unless your doctor tells you otherwise, continue your normal diet. What should I do IF I FORGET to take a dose? Take the missed dose as soon as you remember it. However, if it is almost time for your next dose, skip the missed dose and continue your regular dosing schedule. Do not take a double dose to make upfor a missed one. If you are taking the extended-release capsules, do not take more than one dose per day. What SIDE EFFECTS can this medicine cause? Some side effects can be serious. If you experience any of the following symptoms or those listed in the IMPORTANT WARNING or SPECIAL PRECAUTIONS sections, call your doctor immediately: ? rash; hives; itching; difficulty breathing or swallowing ? fast, pounding, or irregular heartbeat ? difficulty breathing, cough, chest pain ? seizures ? unusual bruising or bleeding ? fever, sweating, confusion, fast or irregular heartbeat, severe muscle stiffness or twitching, nausea, vomiting, or diarrhea ? hallucinations (seeing things or hearing voices that do not exist) ? coma (loss of consciousness for a period of time) Venlafaxine may cause other side effects. Call your doctor if you have any unusual problems while you are taking this medication. If you experience a serious side effect, you or your doctor may send a report to the Food and Drug Administration's (FDA) MedWatch Adverse Event Reporting program online (https://www.fda.gov/Safety/MedWatch) or by phone ( ). What should I know about STORAGE and DISPOSAL of this medication? Keep this medication in the container it came in, tightly closed, and out of reach of children. Store it at room temperature and away from excess heat and moisture (not in the bathroom). Keep all medication out of sight and reach of children as many containers are not child-resistant. Always lock safety caps. Place the medication in a safe location - one that is up and away and out of their sight and reach. https://www.upandaway.org Dispose of unneeded medications in a way so that pets, children, and other people cannot take them.Do not flush this medication down the toilet. Use a medicine take-back program. Talk to your pharmacist about take-back programs in your community. Visit the FDA's Safe Disposal of Medicines website h ttps://goo.gl/c4Rm4p for more information. What should I do in case of OVERDOSE? In case of overdose, call the poison control helpline at . Information is also available online at https://www.poisonhelp.org/help. If the victim has collapsed, had a seizure, has trouble breathing, or can't be awakened, immediately call emergency services at 911. Symptoms of overdose may include: ? dizziness ? nausea ? vomiting ? burning, tingling, or numbness of the hands and feet ? hot and cold spells ? sleepiness ? seizures ? fast, slow, or irregular heartbeat ? coma (loss of consciousness for a period of time) What OTHER INFORMATION should I know? Keep all appointments with your doctor. Do not let anyone else take your medication. Ask your pharmacist any questions you have about refilling your prescription. Keep a written list of all of the prescription and nonprescription (lyyo-mhz-cxrojwk) medicines, vitamins, minerals, and dietary supplements you are taking. Bring this list with you each time you visit a doctor or if you are admitted to the hospital. You should carry the list with you in case of galo rgencies. Brand Name(s): ? Effexor? Effexor?? XR also available generically ?? This branded product is no longer on the market. Generic alternatives may be available. This report on medications is for your information only, and is not considered individual patient advice. Because of the changing nature of drug information, please consult your physician or pharmacist about specific clinical use. The [employer] represents that the information provided hereunder was formulated with a reasonable standard of care, and in conformity with professional standards in the field. The [employer] makes no representations or warranties, express or implied, including, but not limited to, any implied warranty of merchantability and/or fitness for a particular purpose, with respect to such information and specifically disclaims all such warranties. Users are advised that decisions regarding drug therapy are complex medical decisions requiring the independent, informed decision of an appropriate health rn transitional care, and the information is provided for informational purposes only. The entire monograph for a drug should be reviewed for a thorough understanding of the drug's actions, uses and side effects. The [employer] does not endorse or recommend the use of any drug.The information is not a substitute for medical care. AHFS?? Patient Medication Information?. ?? Copyright, 2023. The [employer]??, [address], [address], [place], [place]. All Rights Reserved. Duplication for commercial use must be authorized by [facility]. Selected Revisions: December 11, 2024. AHFS?? Patient Medication Information?. ?? Copyright, 2024 * Group Note - Keyona Mera - 01/28/2025 2:30 PM EST Group Topic: Music Therapy Group Date: 01/28/2025 Start Time: 1330 End Time: 1410 Facilitators: Keyona Mera Department: [facility] Integrative Medicine Virtual Dept. Number of Participants: 6 Treatment Modality: Group Music Therapy Interventions Utilized: breathing techniques, music listening, music-assisted relaxation, playing instruments/drumming, singing, Goals Addressed: Reduce anxiety, depression, and Increase autonomy and control, coping skills, self-regulation, Name: Maru Haynes Date of : 1965 MR: [id number] Patient Attendance: No, Comments: Pt was invited, but did not attend. Plan: pt will be encouraged to attend groups, * Discharge Summary - Kimberly Monge MD - 01/28/2025 1:56 PM EST Images from the original note were not included. [facility] Behavioral Health Unit Discharge Summary Admit Date/Time: 01/22/2025 5:56 PM Admitting Attending: Angelina Beebe Discharge Date: 01/28/25 Length of Stay: 5 Days Discharge Attending Physician: Rhett Reeves MD PCP name and Address: Marvin Breaux MD [address] [place] [address] [address] / [place] [address] Referring provider name and address: No referring provider defined for this encounter. Chief Concern and Brief History of Present Illness Excerpt from note by Joe Frazier dated 01/22/25 - Maru Debbi Haynes is a 59 y.o. female presenting with reported hx of schizophrenia presenting via private vehicle with with increase hallucinations. Patient reports that she has been hearing voices. She states that she believes in God and was trying to pray to him. Jonny Hargrove had told her to cry uncontrollably and that it would allow God to get to her, however, when she saw saviors/angels and was unable to get to God. She denies substance use and alcohol use. She denies SI/HI. The rest of the exam was limited due to symptom burden. Outside hospital stated that she was positive for UTI and started on cefdinir 300mg BID for 3 days. Upon interview today patient endorses that she feels well. Says that she was let into the spiritualrealm and got afraid of her 3 days ago, resulting in her running away from him and trippingover some rocks. Endorses hearing the spirits talk with her intermittently, says she is connected with a heavily father and we will do his bidding. Says she has been on Abilify and that has worked well for her in the past. Hospital Course and Condition on Discharge Prior to U admission, patient was initially evaluated by [facility] physician/[facility] who determined further inpatient psychiatric management was needed. On initial U evaluation, patient demonstrated auditory hallucinations. Initial workup (vitals, physical exam, labs) revealed metabolic labs grossly within normal limits, UDS Negative, and no other notable findings on initial work up.. Following medication reconciliation by pharmacy, patient's home medication regimen was found to include Venlafaxine 150 mg BID, and Aripiprazole 10 mg. Over the course of [facility] admission, the following medication changes were made: Increased Aripiprazole to 15 mg, decreased venlafaxine to 150 mg daily Patient tolerated treatment well without notable side effects, EPS. Patient demonstrated improvement in symptom burden, and by day of discharge, patient demonstrated resolution of delusions and resolution of auditory hallucinations. Over hospital course, patient was calm, cooperative, and demonstrated no aggression or acting out behaviors. Hospital course was not co mplicated. Prognosis is guarded and dependant upon following up with care recommendations. Patient and her safety relation, spouse Tod, agree to safety planning, including: denying access to firearms, being available should the patient need to contact them, attending outpatient follow-up, and returning to nearest ED or calling 911 with new or worsening symptoms, including active SI. A problem- based plan addressing psychiatric and medical co-morbidities as well as reasoning in formulation is available below. Risk Assessment: Patient is not currently at an acutely elevated risk of harm to self or others given resolution of mood burden and bizarre delusions. Patient is not demonstrating ANY suicidal intent, DOES NOT appearto be able to control impulsivity, and IS NOT exhibiting pervasive mood symptom burden impacting daily functioning and any psychiatric symptom burden impacting safety/daily functioning. It should be noted that this patient is at a chronically elevated risk at baseline due to the following exhibitedrisk factors NOT modifiable by hospitalization demonstrated in their history: chronic medical/physical illness and impulsivity. The patient does, however, exhibit the following strengths/protective factors: calm/cooperative, adherent to current medications, demonstrating resolution of symptoms, andconnected with an outpatient provider, motivation for change, cultural/spiritual cheondoism involvement, access to housing, and knowledge of medications. Risk factors modifiable by psychiatric hospitalization include acute exacerbation of a suspected psychiatric condition requiring treatment and arerecommended to be addressed by initiating treatment for signs/symptoms of suspected psychiatric condition as appropriate. Involuntary hospitalization on a 72 hour hold for safety, further psychiatric evaluation, and crisis stabilization is not currently indicated. Patient is not holdable under KRS A as she does not meet ALL hold criteria: having a mental illness, being an acute risk of harm to self or others, reasonable expectation of benefit from admission, AND inpatient being least restrictive means of treatment. Formulation: Maru Haynes is a 59 y.o. female with reported PMH HTN, HLD, and RA and past psychiatric historyof schizoaffective disorder that self-presented via private vehicle to [facility] with auditory hallucinations. Patient has previously been hospitalized 4 different times in the past for similar symptoms. She was admitted to [facility] 01[facility]25 for continued management of psychosis. Exacerbation possibly associated with noncompliance on medications. Patient does not currently endorse any psychosocial stressors. Most likely diagnosis at this time is unspecified psychosis, given previous auditory hallucinations and response to internal stimuli. Patient previously endorsed delusions of being poisoned. Today she no longer feels that is true and is spiritually motivated to do well once discharged. She also denies SI/HI/AVH. Cannot rule out primary psychotic disorder such as schizoaffective disorder given historical diagnosis and previous auditory hallucinations and delusions. Discharge Diagnosis Psychosis, unspecified psychosis type ([facility]) Diagnoses: PSYCHIATRIC MANAGEMENT 1.) Psychosis, unspecified CGI Status: Compared to admission, how much has the pt's condition changed? 2 (much improved) PLAN: Continue Abilify 15 mg every day Continue Venlafaxine 150 mg daily Follow up with provider to monitor and adjust medications as needed. MEDICAL MANAGEMENT 1.) HTN CGI Status: Compared to admission, how much has the pt's condition changed? 0 (not assessed) PLAN: Continue Metoprolol succinate ER 100 mg BID Continue home losartan 50 mg daily 2.) HLD CGI Status: Compared to admission, how much has the pt's condition changed? 0 (not assessed) PLAN: Continue Rosuvastatin 5mg at bedtime 3.) RA CGI Status: Compared to admission, how much has the pt's condition changed? 0 (not assessed) PLAN: Restart Leflunomide 20 mg daily and hydroxychloroquine 200 mg daily. 4.) Polydipsia Sodium within normal range. Recommend patient does not drink water excessively. Surgeries and Procedures none Additional Hospital Problem List: Active Hospital Problems *Psychosis, unspecified psychosis type (CMS/HCC) Psychosis (CMS/HCC) Medications at Discharge Medication List .. alendronate 70 MG tablet Commonly known as: Fosamax Take 1 tablet by mouth 1 time per week. ARIPiprazole 15 MG tablet Commonly known as: Abilify Take 1 tablet by mouth daily. Start taking on: January 29, 2025 botulinum toxin Type A (Cosm) 100 units reconstituted solution injection Commonly known as: Botox cetirizine 10 MG tablet Commonly known as: ZyrTEC Take 1 tablet by mouth daily. cholecalciferol 250 MCG (61680 UT) capsule Commonly known as: Vitamin D-3 Take 1 capsule by mouth daily. clobetasol 0.05 % cream Commonly known as: Temovate Apply 1 Application topically as needed (itchiness). cyanocobalamin 2500 MCG tablet Commonly known as: Vitamin B-12 Take 2 tablets by mouth daily. folic acid 1 MG tablet Commonly known as: Folvite Take 1 tablet by mouth 1 (one) time each day. Humira (2 Pen) 40 MG/0.8ML Auto-injector Kit Generic drug: Adalimumab Inject 1 each under the skin every 14 days. HYDROcodone-acetaminophen 10-325 MG tablet Commonly known as: Brinklow Take 1 tablet by mouth 4 times a day as needed for moderate pain or severe pain. hydroxychloroquine 200 MG tablet Commonly known as: Plaquenil Take 1 tablet by mouth daily. leflunomide 20 MG tablet Commonly known as: Arava Take 1 tablet by mouth daily. losartan 50 MG tablet Commonly known as: Cozaar Take 1 tablet by mouth daily. Lysine 1000 MG tablet Take 1,000 mg by mouth daily. metoprolol succinate XL 100 MG 24 hr tablet Commonly known as: Toprol-XL Take 1 tablet by mouth 2 times a day. Do not crush or chew. montelukast 10 MG tablet Commonly known as: Singulair Take 1 tablet by mouth nightly. Nurtec 75 MG orally disintegrating tablet Generic drug: Rimegepant Sulfate Dissolve 1 tablet on the tongue as needed (migraine). Max 75mg/day rosuvastatin 5 MG tablet Commonly known as: Crestor Take 1 tablet by mouth nightly. venlafaxine XR 150 MG 24 hr capsule Commonly known as: Effexor-XR Take 1 capsule by mouth daily with breakfast. Do not crush or chew. Start taking on: January 29, 2025 Where to Get Your Medications These medications were sent to [facility] [place] [id number] ARIPiprazole 15 MG tablet venlafaxine XR 150 MG 24 hr capsule Follow-Up / Post-Discharge Instructions Follow up Recommendations: 1.) She was discharged to Home with significant other. 2.) She should follow up with psychiatry and/or other specialists as per below. 3.) She should also followup with their Primary Care Physician for routine health maintenance. 4.) She was strongly encouraged to keep all future appointments and advised to take all prescribed medications as instructed. 5.) She should abstain from all mood-altering substances except those prescribed by a gyroscope technician. Her primary supports should monitor her for evidence of substance use and should alert her outpatient provider if use is suspected or confirmed. 6.) A safety plan was given at the time of discharge which included instructions to return to the nearest ER if patient becomes suicidal, homicidal, manic, psychotic, or develops any other urgent/emergent symptoms, or to call the [phone] line. 7.) She voiced an understanding of the safety plan. Outpatient Follow-Up Teja Tyson: Monday February 03, 2025 at 1 pm via IN PERSON Test Results Pending At Discharge No pending labs Pertinent Mental Status Exam At Time of Discharge Appearance: appears stated age, well nourished, wearing age appropriate clothing, well-kempt, and good hygiene Behavior: calm, cooperative, age-appropriate, easy to establish rapport, forthcoming about condition and reasons for presentation, and non-verbal body language and communication appropriate throughout interview Eye Contact: appropriate Involuntary Movements: absent Psychomotor Activity: no significant depression or agitation Speech: normal rate, tone and rhythm, appropriate price, and coherent speech Mood: amazing Affect: euthymic, congruent with stated mood, broad, full range of affect, and friendly LOC/Orientation: Awake and Alert, oriented to person, place, time, and general circumstances Cognition/Development/Knowledge: Cognition appears grossly normal, appropriate fund of knowledge for age and level of education Thought Process: linear, organized, goal-directed, and easily understandable, fluid thought-process Thought Content/Perceptions (AVH): clear, age-appropriate, on topic , mood- congruent, and denies auditory/visual hallucination Suicidal Ideation: denied Homicidal Ideation: denied Reliability: patient appears to be reliable and cooperative informant Insight: fair Judgment: fair Discharge Disposition/Condition Disposition: Home with significant other Condition: Stable (s/sx potential problems absent or manageable) greater than 30 minutes was spent on evaluation and management of this patient Ying Zacarias, MS 4 I saw and evaluated the patient with the medical student. I discussed the case with the medical student and agree with the findings and plan as documented. Edits were made to the documentation as appropriate. Kimberly Monge MD PGY-2 Psychiatry [facility] Cosigned by Rhett Reeves MD at 01/29/2025 7:29 AM EST Associated attestation - Rhett Reeves MD - 01/29/2025 7:29 AM EST I saw and evaluated the patient. I discussed the case with the medical student and resident/fellow and agree with the findings and plan as documented. I personally participated in the management of the patient. and I spent >30 minutes of patient care and instruction time in preparation for this discharge. * Group Note - Umm Staples - 01/28/2025 1:10 PM EST Group Topic: Leisure Skills Group Date: 01/28/2025 Start Time: 1100 End Time: 1200 Facilitators: Umm Staples Department: [facility] Inpatient Psychiatry Number of Participants: 6 Group Focus: coping skills and leisure skills Treatment Modality: Leisure Development Interventions utilized were assignment Purpose: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 Norwood Department: [facility] Inpatient Psychiatry Number of Participants: 8 Group Focus: family, problem solving, and self-awareness Treatment Modality: Psychoeducation Interventions utilized were group exercise Purpose: increase insight and regain self-worth Name: Maru Haynes Date of : 1965 MR: [id number] Patient was encouraged. Patient did not attend and rested in her room. Patients Problems: Patient Active Problem List Diagnosis Psychosis (CMS/HCC) Psychosis, unspecified psychosis type (CMS/HCC) * Nursing Note - Marilu Lopez RN - 01/27/2025 1:47 AM EST Pt continuing stay in the Adult BHU. Patient is alert and oriented and denies any current physical discomfort. Has been compliant with current medication regimen. Patient denying any SI/HI/AVH at this time but is RIS and preoccupied during assessment. Pt calm and cooperative, thought blocking, constricted. Bizarre behaviors and RIS. Patient appears to sleep throughout most of the night. Will continue current treatment plan, safety monitoring rounds, and 15 minute checks. Encouraged continued communication between patient and staff for any safety concerns. * Care Plan - Marilu Lopez RN - 01/27/2025 12:58 AM EST Problem: Adult Behavioral Health Plan of Care Goal: Plan of Care Review 01/27/202556 by Marilu Lopez RN Outcome: Ongoing, Progressing Flowsheets (Taken 01/27/202556) Progress: improving Patient Agreement with Plan of Care: agrees Plan of Care Reviewed With: patient 01/27/202554 by Marilu Lopez RN Outcome: Ongoing, Progressing Flowsheets (Taken 01/27/202554) Progress: improving Patient Agreement with Plan of Care: agrees Plan of Care Reviewed With: patient Goal: Patient-Specific Goal (Individualization) 01/27/202556 by Marilu Lopez RN Outcome: Ongoing, Progressing Flowsheets (Taken 01/27/202554) Patient Personal Strengths: medication/treatment adherence Patient Vulnerabilities: lacks insight into illness Patient/Family-Specific Goals (Include Timeframe): pt will be compliant with medications throughoutthe shift Individualized Care Needs: safety, meds, rest Anxieties, Fears or Concerns: denies AVH but is actively RIS and preoccupied, thought blocking/ constricted, denying any concerns 01/27/202554 by Marilu Lopez RN Outcome: Ongoing, Progressing Flowsheets (Taken 01/27/202554) Patient Personal Strengths: medication/treatment adherence Patient Vulnerabilities: lacks insight into illness Patient/Family-Specific Goals (Include Timeframe): pt will be compliant with medications throughoutthe shift Individualized Care Needs: safety, meds, rest Anxieties, Fears or Concerns: denies AVH but is actively RIS and preoccupied, thought blocking/ constricted, denying any concerns Goal: Adheres to Safety Considerations for Self and Others 01/27/202556 by Marilu Lopez RN Outcome: Ongoing, Progressing Flowsheets (Taken 01/27/202556) Adheres to Safety Considerations for Self and Others: making progress toward outcome 01/27/202554 by Marilu Lopez RN Outcome: Ongoing, Progressing Intervention: Develop and Maintain Individualized Safety Plan 01/27/202556 by Marilu Lopez RN Flowsheets (Taken 01/27/202554) Safety Measures: environmental rounds completed safety rounds completed 01/27/202554 by Marilu Lopez RN Flowsheets (Taken 01/27/202554) Safety Measures: environmental rounds completed safety rounds completed Goal: Optimized Coping Skills in Response to Life Stressors 01/27/202556 by Marilu Lopez RN Outcome: Ongoing, Progressing 01/27/202554 by Marilu Lopez RN Outcome: Ongoing, Progressing Intervention: Promote Effective Coping Strategies Flowsheets (Taken 01/27/202556) Supportive Measures: active listening utilized verbalization of feelings encouraged Problem: Psychotic Signs/Symptoms Goal: Improved Mood Symptoms 01/27/202556 by Marilu Lopez RN Outcome: Ongoing, Progressing 01/27/202554 by Marilu Lopez RN Outcome: Ongoing, Progressing Intervention: Optimize Emotion and Mood Flowsheets (Taken 01/27/202556) Supportive Measures: active listening utilized verbalization of feelings encouraged Diversional Activity: television Goal: Decreased Sensory Symptoms (Psychotic Signs/Symptoms) 01/27/202556 by Marilu Lopez RN Outcome: Ongoing, Progressing 01/27/202554 by Marilu Lopez RN Outcome: Ongoing, Progressing Intervention: Minimize and Manage Sensory Impairment Flowsheets (Taken 01/27/202556) Sensory Stimulation Regulation: television on quiet environment promoted * Nursing Note - Sarah Rollins RN - 01/26/2025 3:47 PM EST Pt continues admission on adult behavioral health unit. Pt out and about on the unit today- interactive and cooperative with staff. Pt attended and participated in groups. Hygiene, hydration, and nutrition encouraged. Pt presents with constricted mood and blunted affect. Pt denies SI, HI, but endorses AVH at this time. Pt appears to be RIS. No signs of physical distress noted. Pt alert and oriented x4. Vital signs stable. Pt continues to comply with medication regimen, and will continue to be medicated per EMAR. Encouragement provided and will continue to monitor for safety, encourage patient to voice safety concerns, and implement current plan of care. * Progress Notes - Sheila Jerry MD - 01/26/2025 1:56 PM EST Inpatient Psychiatry Follow Up Note 01/26/25 Subjective: Patient continues to be responding to internal stimuli. Continues to endorse delusions without any insight regarding why she is in the hospital. Sleep: Sleep Total Hours of Sleep: 4 ([id number] Meals: Objective: Temp: [36.3 ??C (97.4 ??F)-36.4 ??C (97.6 ??F)] 36.3 ??C (97.4 ??F) Heart Rate: [76-84] 76 BP: (138-178)/(86-99) 178/99 Mental Status Exam: Appearance: casually dressed Behavior: normal Speech: normal pitch and normal volume Mood: constricted Affect: blunted Thought Process: tangential Thought Content: Delusions: Yes/No Hallucinations Yes/No Homicidal Yes/No Obsessions Yes/No Suicidal Yes Yes No No No Sensorium: person, place, and time/date Cognition: grossly intact Insight: limited Judgment: limited Current Scheduled Medications[1] Current PRN Medications[2] Labs in last 18 hours CBC WBC ?? Hb ?? Plt ?? Hct ?? ANC ?? INR ??, PTT ??, Anti-Xa ?? BMP Na ?? Cl ?? BUN ?? Glu ?? K ?? Co2 ?? Cr ?? Ca ?? iCa ?? Mg ??, Phos ?? Lactate ?? LFT AST ?? AlkPhos ?? T Prot ?? ALK ?? Bili ?? Alb ?? D.Bili ?? No results found for this or any previous visit (from the past 4464 hours). Assessment/Formulation: [age] year old female with a h/o RA, and a previous historyof schizoaffective disorder presenting with an exacerbation of symptoms. Exacerbation possibly associated with noncompliance on medications. Denies any illicit drug use, which is corroborated by negative POCT. Urinary analysis is suggestive of a mild UTI although leukocytes are only trace positive.Mental status exam suggests constricted affect and RTIS. Patient has been on Abilify before. #Schizophrenia - Increase abilify to 15 mg daily. #HTN - Continue metoprolol succinate extended release 100 mg twice daily for hypertension # HLD - Continue rosuvastatin 5 mg at bedtime #RA - Restart leflunomide 20 mg daily and hydroxychloroquine 200 mg daily #Polydipsia - Serum sodium is 133 Meq/L. Will continue to monitor. - serum sodium to be repeated tomorrow. #Lower dose of venlafaxine to 150 mg to approximate the home dose of 100 mg. Patient denies any depressive symptoms. Sheila Jerry MD [1] ARIPiprazole, 15 mg, Oral, Daily cetirizine, 10 mg, Oral, Nightly hydroxychloroquine, 200 mg, Oral, Daily leflunomide, 20 mg, Oral, Daily metoprolol succinate XL, 100 mg, Oral, BID rosuvastatin, 5 mg, Oral, Nightly venlafaxine XR, 150 mg, Oral, Daily with breakfast [2] PRN medications: acetaminophen, aluminum & magnesium hydroxide-simethicone, benzocaine, calcium carbonate, HYDROcodone-acetaminophen, hydrOXYzine pamoate, magnesium hydroxide, melatonin, ocular lubricant, OLANZapine zydis OR OLANZapine, Rimegepant Sulfate, sodium chloride * Nursing Note - Ace Abbasi RN - 01/26/2025 3:32 AM EST Patient alert and oriented X4. Patient states feeling ok today. Patient presents with calm mood. Patient noted to be cooperative with staff. Patient rates depression 0 on scale 0-10 (10 being the worst). Patient rates anxiety 0 on scale 0-10 (10 being the worst). Patient denies feeling hopeless about the future. Patient denies SI/HI/AVH. Patient denies self-harm thoughts and behaviors. Patient reported not really pain and having fine sleeping, but noted that she did not sleep well tonight. Patient reported having fine appetite. Patient stated nothing bothering her. No signs of physical distress noted. Though content appears grossly organized. Vital signs stable. Patient compliant with medication regimen and will continue to be medicated per EMAR. Patient encouraged to notify staff of any concerns. Continue current plan of care. Patient is progressing toward treatment goals, Optimized Coping Skills in Response to Life Stressors, Adheres to Safety Considerations for Self and Others. Staff will continue to provide encouragement and monitor patient Q15min checks as well as hourly nursing rounds. * Care Plan - Aec Abbasi RN - 01/26/2025 12:22 AM EST Problem: Adult Behavioral Health Plan of Care Goal: Plan of Care Review Outcome: Ongoing, Progressing Flowsheets (Taken 01/26/202519) Progress: improving Patient Agreement with Plan of Care: agrees Plan of Care Reviewed With: patient Goal: Patient-Specific Goal (Individualization) Outcome: Ongoing, Progressing Flowsheets Taken 01/26/202519 by Ace Abbasi RN Patient/Family-Specific Goals (Include Timeframe): Patient will be able to report sleeping well tonight Individualized Care Needs: Q15 min checks for safety Anxieties, Fears or Concerns: Denies anxiety Taken 01/24/20251950 by Benita Jose RN Patient Personal Strengths: medication/treatment adherence Taken 01/23/20252143 by Miranda Diaz RN Patient Vulnerabilities: lacks insight into illness Goal: Adheres to Safety Considerations for Self and Others Outcome: Ongoing, Progressing Flowsheets (Taken 01/26/202519) Adheres to Safety Considerations for Self and Others: making progress toward outcome Intervention: Develop and Maintain Individualized Safety Plan Flowsheets (Taken 01/26/202519) Safety Measures: suicide assessment completed monitored by video safety rounds completed Goal: Absence of New-Onset Illness or Injury Outcome: Ongoing, Progressing Intervention: Identify and Manage Fall Risk Flowsheets (Taken 01/25/2025234) Safety Promotion/Fall Prevention: clutter-free environment maintained nonskid shoes/slippers when out of bed safety round/check completed Goal: Optimized Coping Skills in Response to Life Stressors Outcome: Ongoing, Progressing Flowsheets (Taken 01/25/2025234) Optimized Coping Skills in Response to Life Stressors: making progress toward outcome Intervention: Promote Effective Coping Strategies Flowsheets (Taken 01/25/2025234) Supportive Measures: active listening utilized relaxation techniques promoted verbalization of feelings encouraged self-care encouraged Goal: Develops/Participates in Therapeutic [place] to Support Successful Transition Outcome: Ongoing, Progressing Flowsheets (Taken 01/25/2025234) Develops/Participates in Therapeutic [place] to Support Successful Transition: making progress toward outcome Intervention: Foster Therapeutic [place] Flowsheets (Taken 01/25/2025234) Trust Relationship/Rapport: care explained questions encouraged choices provided reassurance provided emotional support provided empathic listening provided questions answered Intervention: Mutually Develop Transition Plan Flowsheets (Taken 01/23/2025 0606) Concerns to be Addressed: no discharge needs identified Readmission Within the Last 30 Days: no previous admission in last 30 days Problem: Psychotic Signs/Symptoms Goal: Improved Mood Symptoms Outcome: Ongoing, Progressing Flowsheets (Taken 01/25/2025234) Mutually Determined Action Steps (Improved Mood Symptoms): identifies personal treatment goal Intervention: Optimize Emotion and Mood Flowsheets (Taken 01/25/2025234) Supportive Measures: active listening utilized relaxation techniques promoted verbalization of feelings encouraged self-care encouraged Goal: Decreased Sensory Symptoms (Psychotic Signs/Symptoms) Outcome: Ongoing, Progressing Flowsheets (Taken 01/25/2025234) Mutually Determined Action Steps (Decreased Sensory Symptoms): adheres to medication regimen Intervention: Minimize and Manage Sensory Impairment Flowsheets (Taken 01/25/2025234) Sensory Stimulation Regulation: television on visual stimulation minimized quiet environment promoted * Nursing Note - Griselda Raygoza RN - 01/25/2025 5:43 PM EST Pt continues admission on adult behavioral health unit. Pt out and about on the unit today- interactive and cooperative with staff. Pt attended and participated in groups. Hygiene, hydration, and nutrition encouraged. Pt presents with a tired mood and flat affect. Pt denies SI/HI/AVH at this time. No signs of physical distress noted. Pt alert and oriented x4. Thought content appears grossly organized. Vital signs stable. Pt continues to comply with medication regimen, and will continue to be medicated per EMAR. Encouragement provided and will continue to monitor for safety, encourage patient to voice safety concerns, and implement current plan of care. Lam Raygoza RN * Care Plan - Griselda Raygoza RN - 01/25/2025 1:56 PM EST Problem: Adult Behavioral Health Plan of Care Goal: Plan of Care Review Outcome: Ongoing, Progressing Flowsheets Taken 01/25/2025 1354 by Griselda Raygoza RN Plan of Care Reviewed With: spouse Taken 01/25/2025234 by Ace Abbasi RN Progress: improving Patient Agreement with Plan of Care: agrees Goal: Patient-Specific Goal (Individualization) Outcome: Ongoing, Progressing Flowsheets Taken 01/25/2025 1352 by Griselda Raygoza RN Patient/Family-Specific Goals (Include Timeframe): Pt goal is to sleep well tonight Individualized Care Needs: Q15 min checks and hourly rounding to ensure safety Anxieties, Fears or Concerns: Denies anxiety, concerns Taken 01/24/20251950 by Benita Jose RN Patient Personal Strengths: medication/treatment adherence Taken 01/23/20252143 by Miranda Diaz RN Patient Vulnerabilities: lacks insight into illness Goal: Adheres to Safety Considerations for Self and Others Outcome: Ongoing, Progressing Flowsheets (Taken 01/25/2025234 by Ace Abbasi RN) Adheres to Safety Considerations for Self and Others: making progress toward outcome Intervention: Develop and Maintain Individualized Safety Plan Flowsheets (Taken 01/25/2025234 by Ace Abbasi RN) Safety Measures: suicide assessment completed safety rounds completed monitored by video Goal: Absence of New-Onset Illness or Injury Outcome: Ongoing, Progressing Intervention: Identify and Manage Fall Risk Flowsheets (Taken 01/25/2025234 by Ace Abbasi RN) Safety Promotion/Fall Prevention: clutter-free environment maintained nonskid shoes/slippers when out of bed safety round/check completed Intervention: Prevent Skin Injury Flowsheets (Taken 01/23/20252143 by Miranda Diaz RN) Device Skin Pressure Protection: (not applicable for patient) other (see comments) Skin Protection: (not applicable for patient) other (see comments) Intervention: Prevent VTE (Venous Thromboembolism) Flowsheets (Taken 01/23/20252143 by Miranda Diaz RN) VTE Prevention/Management: previous patient education reinforced Intervention: Prevent Infection Flowsheets (Taken 01/23/20252143 by Miranda Diaz RN) Infection Prevention: rest/sleep promoted Goal: Optimized Coping Skills in Response to Life Stressors Outcome: Ongoing, Progressing Flowsheets (Taken 01/25/2025234 by Ace Abbasi RN) Optimized Coping Skills in Response to Life Stressors: making progress toward outcome Intervention: Promote Effective Coping Strategies Flowsheets (Taken 01/25/2025234 by Ace Abbasi RN) Supportive Measures: active listening utilized relaxation techniques promoted verbalization of feelings encouraged self-care encouraged Goal: Develops/Participates in Therapeutic [place] to Support Successful Transition Outcome: Ongoing, Progressing Flowsheets (Taken 01/25/2025234 by Ace Abbasi RN) Develops/Participates in Therapeutic [place] to Support Successful Transition: making progress toward outcome Intervention: Foster Therapeutic [place] Flowsheets (Taken 01/25/2025234 by Ace Abbasi RN) Trust Relationship/Rapport: care explained questions encouraged choices provided reassurance provided emotional support provided empathic listening provided questions answered Intervention: Mutually Develop Transition Plan Flowsheets Taken 01/25/2025 1354 by Griselda Raygoza RN Outpatient/Agency/Support Group Needs: support group(s) (specify) Transportation Anticipated: family or friend will provide Anticipated Discharge Disposition: home or self-care Transportation Concerns: none Current Discharge Risk: psychiatric illness Patient/Family Anticipated Services at Transition: none Patient/Family Anticipates Transition to: home Offered/Gave Vendor List: no Taken 01/23/20252021 by Francisco Javier Marquez RN Transition Support: community resources reviewed Taken 01/23/2025 06 by Ace Abbasi RN Concerns to be Addressed: no discharge needs identified Readmission Within the Last 30 Days: no previous admission in last 30 days Problem: Psychotic Signs/Symptoms Goal: Improved Mood Symptoms Outcome: Ongoing, Progressing Flowsheets (Taken 01/25/2025234 by Ace Abbasi RN) Mutually Determined Action Steps (Improved Mood Symptoms): identifies personal treatment goal Intervention: Optimize Emotion and Mood Flowsheets Taken 01/25/2025234 by Ace Abbasi RN Supportive Measures: active listening utilized relaxation techniques promoted verbalization of feelings encouraged self-care encouraged Taken 01/23/20252143 by Miranda Diaz RN Diversional Activity: television reading Goal: Decreased Sensory Symptoms (Psychotic Signs/Symptoms) Outcome: Ongoing, Progressing Flowsheets (Taken 01/25/2025234 by Ace Abbasi RN) Mutually Determined Action Steps (Decreased Sensory Symptoms): adheres to medication regimen Intervention: Minimize and Manage Sensory Impairment Flowsheets (Taken 01/25/2025234 by Ace Abbasi RN) Sensory Stimulation Regulation: television on visual stimulation minimized quiet environment promoted * Progress Notes - Sheila Jerry MD - 01/25/2025 1:17 PM EST Inpatient Psychiatry Follow Up Note 01/25/25 Subjective: Patient continues to be responding to internal stimuli. Pacing around in her room while speaking with herself. Unit staff also report the patient consumes much more water than other patients. Does not understand why she needs to be in the hospital. Sleep: Sleep Total Hours of Sleep: 6 (asleep [id number], 7941-5860, 0544-1709) Meals: Objective: Temp: [36.3 ??C (97.4 ??F)] 36.3 ??C (97.4 ??F) Heart Rate: [71-81] 71 BP: (130-160)/(84-93) 160/93 Mental Status Exam: Appearance: casually dressed Behavior: normal Speech: normal pitch and normal volume Mood: constricted Affect: blunted Thought Process: tangential Thought Content: Delusions: Yes/No Hallucinations Yes/No Homicidal Yes/No Obsessions Yes/No Suicidal Yes Yes No No No Sensorium: person, place, and time/date Cognition: grossly intact Insight: limited Judgment: limited Current Scheduled Medications[1] Current PRN Medications[2] Labs in last 18 hours CBC WBC ?? Hb ?? Plt ?? Hct ?? ANC ?? INR ??, PTT ??, Anti-Xa ?? BMP Na ?? Cl ?? BUN ?? Glu ?? K ?? Co2 ?? Cr ?? Ca ?? iCa ?? Mg ??, Phos ?? Lactate ?? LFT AST ?? AlkPhos ?? T Prot ?? ALK ?? Bili ?? Alb ?? D.Bili ?? No results found for this or any previous visit (from the past 4464 hours). Assessment/Formulation: [age] year old female with a h/o RA, and a previous historyof schizoaffective disorder presenting with an exacerbation of symptoms. Exacerbation possibly associated with noncompliance on medications. Denies any illicit drug use, which is corroborated by negative POCT. Urinary analysis is suggestive of a mild UTI although leukocytes are only trace positive.Mental status exam suggests constricted affect and RTIS. Patient has been on Abilify before. #Schizophrenia - Increase abilify to 15 mg daily. #HTN - Continue metoprolol succinate extended release 100 mg twice daily for hypertension # HLD - Continue rosuvastatin 5 mg at bedtime #RA - Restart leflunomide 20 mg daily and hydroxychloroquine 200 mg daily #Polydipsia - Serum sodium is 133 Meq/L. Will continue to monitor. #Lower dose of venlafaxine to 150 mg to approximate the home dose of 100 mg. Patient denies any depressive symptoms. Sheila Jerry MD [1] [START ON 01/26/2025] ARIPiprazole, 15 mg, Oral, Daily cetirizine, 10 mg, Oral, Nightly hydroxychloroquine, 200 mg, Oral, Daily leflunomide, 20 mg, Oral, Daily metoprolol succinate XL, 100 mg, Oral, BID rosuvastatin, 5 mg, Oral, Nightly venlafaxine XR, 150 mg, Oral, Daily with breakfast [2] PRN medications: acetaminophen, aluminum & magnesium hydroxide-simethicone, benzocaine, calcium carbonate, HYDROcodone-acetaminophen, hydrOXYzine pamoate, magnesium hydroxide, melatonin, ocular lubricant, OLANZapine zydis OR OLANZapine, Rimegepant Sulfate, sodium chloride * Group Note - Floyd Johnson - 01/25/2025 11:03 AM EST Group Topic: Goals Group Date: 01/25/2025 Start Time: 1010 End Time: 1050 Facilitators: Floyd Johnson Department: [facility] Inpatient Psychiatry Number of Participants: 19 Group Focus: Goals setting Treatment Modality: Discussion Interventions utilized were: N/A Purpose: Goals Name: Maru Haynes Date of : 1965 MR: [id number] Patient did not attend group but was offer a goals handout. Patients Problems: Patient Active Problem List Diagnosis Psychosis (CMS/HCC) Psychosis, unspecified psychosis type (CMS/HCC) * Nursing Note - Ace Abbasi RN - 01/25/2025 2:43 AM EST Patient alert and oriented X4. Patient states feeling ok today. Patient presents with calm mood. Patient has no depression and anxiety or feeling hopeless about the future. Patient denies SI/HI/AVH. Patient denies self-harm thoughts and behaviors. Patient reported no pain and having better sleeping. Patient reported having fine appetite. Patient stated nothing bothering her. Patient goal for the day is to sleep . No signs of physical distress noted. Though content appears grossly organized. Vital signs stable. Patient compliant with medication regimen and will continue to be medicated per EMAR. Patient encouraged to notify staff of any concerns. Continue current plan of care. Patient is progressing toward treatment goals, Optimized Coping Skills in Response to Life Stressors, Decreased Sensory Symptoms . Staff will continue to provide encouragement and monitor patient Q15min checks as well as hourly nursing rounds. * Care Plan - Ace Abbasi RN - 01/25/2025 2:39 AM EST Problem: Adult Behavioral Health Plan of Care Goal: Plan of Care Review Outcome: Ongoing, Progressing Flowsheets (Taken 01/25/2025 0235) Progress: improving Patient Agreement with Plan of Care: agrees Plan of Care Reviewed With: patient Goal: Patient-Specific Goal (Individualization) Outcome: Ongoing, Progressing Flowsheets Taken 01/25/2025 0235 by Ace Abbasi RN Patient/Family-Specific Goals (Include Timeframe): Patient will be able to report sleeping well tonight Individualized Care Needs: Q15 min checks for safety Anxieties, Fears or Concerns: Denies anxiety, concerns Taken 01/24/20251950 by Benita Jose RN Patient Personal Strengths: medication/treatment adherence Taken 01/23/20252143 by Miranda Diaz RN Patient Vulnerabilities: lacks insight into illness Goal: Adheres to Safety Considerations for Self and Others Outcome: Ongoing, Progressing Flowsheets (Taken 01/25/2025234) Adheres to Safety Considerations for Self and Others: making progress toward outcome Intervention: Develop and Maintain Individualized Safety Plan Flowsheets (Taken 01/25/2025234) Safety Measures: suicide assessment completed safety rounds completed monitored by video Goal: Absence of New-Onset Illness or Injury Outcome: Ongoing, Progressing Intervention: Identify and Manage Fall Risk Flowsheets (Taken 01/25/2025234) Safety Promotion/Fall Prevention: clutter-free environment maintained nonskid shoes/slippers when out of bed safety round/check completed Goal: Optimized Coping Skills in Response to Life Stressors Outcome: Ongoing, Progressing Flowsheets (Taken 01/25/2025234) Optimized Coping Skills in Response to Life Stressors: making progress toward outcome Intervention: Promote Effective Coping Strategies Flowsheets (Taken 01/25/2025234) Supportive Measures: active listening utilized relaxation techniques promoted verbalization of feelings encouraged self-care encouraged Goal: Develops/Participates in Therapeutic [place] to Support Successful Transition Outcome: Ongoing, Progressing Flowsheets (Taken 01/25/2025234) Develops/Participates in Therapeutic [place] to Support Successful Transition: making progress toward outcome Intervention: Foster Therapeutic [place] Flowsheets (Taken 01/25/2025234) Trust Relationship/Rapport: care explained questions encouraged choices provided reassurance provided emotional support provided empathic listening provided questions answered Intervention: Mutually Develop Transition Plan Flowsheets (Taken 01/23/2025 0606) Concerns to be Addressed: no discharge needs identified Readmission Within the Last 30 Days: no previous admission in last 30 days Problem: Psychotic Signs/Symptoms Goal: Improved Mood Symptoms Outcome: Ongoing, Progressing Flowsheets (Taken 01/25/2025234) Mutually Determined Action Steps (Improved Mood Symptoms): identifies personal treatment goal Intervention: Optimize Emotion and Mood Flowsheets (Taken 01/25/2025234) Supportive Measures: active listening utilized relaxation techniques promoted verbalization of feelings encouraged self-care encouraged Goal: Decreased Sensory Symptoms (Psychotic Signs/Symptoms) Outcome: Ongoing, Progressing Flowsheets (Taken 01/25/2025 0235) Mutually Determined Action Steps (Decreased Sensory Symptoms): adheres to medication regimen Intervention: Minimize and Manage Sensory Impairment Flowsheets (Taken 01/25/2025234) Sensory Stimulation Regulation: television on visual stimulation minimized quiet environment promoted * Nursing Note - Benita Jose RN - 01/24/2025 4:00 PM EST Pt continues admission on adult behavioral health unit. Pt out and about on the unit today- interactive, very pleasant, and cooperative with staff. Remains religiously preoccupied, talking about spiritual beings sending [her] messages and Tony preston said I could discharge. In visitation and throughout shift, pt was muttering to self. Pt's was distressed that she has not improved andconcerned about taking her home if she does not improve. Pt spoke with pastoral care. Hygiene, hydration, and nutrition encouraged. Pt presents with calm mood and full affect. Pt denies SI/HI/AVH at this time. No signs of physical distress noted. Pt alert and oriented x4. Thought content appears grossly organized. Pt continues to comply with medication regimen, and will continue to be medicated per EMAR. Encouragement provided and will continue to monitor for safety, encourage patient to voice safety concerns,and implement current plan of care. * Care Plan - Benita Jose RN - 01/24/2025 4:00 PM EST Problem: Adult Behavioral Health Plan of Care Goal: Plan of Care Review Outcome: Ongoing, Progressing Flowsheets (Taken 01/23/20252143 by Miranda Diaz, RN) Progress: improving Patient Agreement with Plan of Care: agrees Plan of Care Reviewed With: patient Note: Med compliant but no improvement in delusions/ RIS Goal: Patient-Specific Goal (Individualization) Outcome: Ongoing, Progressing Flowsheets Taken 01/24/20251950 by Benita Jose RN Patient Personal Strengths: medication/treatment adherence Patient/Family-Specific Goals (Include Timeframe): patient hopes to have a clam and pleasant vistation with - goal met Individualized Care Needs: q15 min checks Anxieties, Fears or Concerns: would like to be discharged Taken 01/23/20252143 by Miranda Diaz RN Patient Vulnerabilities: lacks insight into illness Goal: Adheres to Safety Considerations for Self and Others Outcome: Ongoing, Progressing Flowsheets (Taken 01/23/20252143 by Miranda Diaz RN) Adheres to Safety Considerations for Self and Others: making progress toward outcome Goal: Absence of New-Onset Illness or Injury Outcome: Ongoing, Progressing Note: No injury Goal: Optimized Coping Skills in Response to Life Stressors Outcome: Ongoing, Progressing Flowsheets (Taken 01/23/20252143 by Miranda Diaz RN) Optimized Coping Skills in Response to Life Stressors: making progress toward outcome Goal: Develops/Participates in Therapeutic [place] to Support Successful Transition Outcome: Ongoing, Progressing Flowsheets (Taken 01/23/20252143 by Miranda Diaz RN) Develops/Participates in Therapeutic [place] to Support Successful Transition: making progress toward outcome Problem: Psychotic Signs/Symptoms Goal: Improved Mood Symptoms Outcome: Ongoing, Progressing Flowsheets (Taken 01/24/20251950) Mutually Determined Action Steps (Improved Mood Symptoms): identifies personal treatment goal Goal: Decreased Sensory Symptoms (Psychotic Signs/Symptoms) Outcome: Ongoing, Progressing Flowsheets (Taken 01/23/20252143 by Miranda Diaz RN) Mutually Determined Action Steps (Decreased Sensory Symptoms): adheres to medication regimen * Progress Notes - Sheila Jerry MD - 01/24/2025 3:58 PM EST Inpatient Psychiatry Follow Up Note 01/24/25 Subjective: Patient was seen to be RTIS. Endorses that the heavenly fathers talk with her. Does not see a need to be in the hospital. Although she does say that Abilify has helped her in the past and she would like to restart the medication Sleep: Sleep Total Hours of Sleep: 3 (asleep [id number]) Meals: Objective: Temp: [36.6 ??C (97.8 ??F)-36.6 ??C (97.9 ??F)] 36.6 ??C (97.8 ??F) Heart Rate: [78-88] 88 BP: (122-151)/(83-93) 122/83 Mental Status Exam: Appearance: casually dressed Behavior: normal Speech: normal pitch and normal volume Mood: constricted Affect: blunted Thought Process: tangential Thought Content: Delusions: Yes/No Hallucinations Yes/No Homicidal Yes/No Obsessions Yes/No Suicidal Yes Yes No No No Sensorium: person, place, and time/date Cognition: grossly intact Insight: limited Judgment: limited Current Scheduled Medications[1] Current PRN Medications[2] Labs in last 18 hours CBC WBC ?? Hb ?? Plt ?? Hct ?? ANC ?? INR ??, PTT ??, Anti-Xa ?? BMP Na ?? Cl ?? BUN ?? Glu ?? K ?? Co2 ?? Cr ?? Ca ?? iCa ?? Mg ??, Phos ?? Lactate ?? LFT AST ?? AlkPhos ?? T Prot ?? ALK ?? Bili ?? Alb ?? D.Bili ?? No results found for this or any previous visit (from the past 4464 hours). Assessment/Formulation: [age] year old female with a h/o RA, and a previous historyof schizoaffective disorder presenting with an exacerbation of symptoms. Exacerbation possibly associated with noncompliance on medications. Denies any illicit drug use, which is corroborated by negative POCT. Urinary analysis is suggestive of a mild UTI although leukocytes are only trace positive.Mental status exam suggests constricted affect and RTIS. Patient has been on Abilify before. We will restart this medication. #HTN - Continue metoprolol succinate extended release 100 mg twice daily for hypertension # HLD - Continue rosuvastatin 5 mg at bedtime #RA - Restart leflunomide 20 mg daily and hydroxychloroquine 200 mg daily #Lower dose of venlafaxine to 150 mg to approximate the home dose of 100 mg. Patient denies any depressive symptoms. Sheila Jerry MD [1] ARIPiprazole, 10 mg, Oral, Daily cetirizine, 10 mg, Oral, Nightly hydroxychloroquine, 200 mg, Oral, Daily leflunomide, 20 mg, Oral, Daily metoprolol succinate XL, 100 mg, Oral, BID rosuvastatin, 5 mg, Oral, Nightly [START ON 01/25/2025] venlafaxine XR, 150 mg, Oral, Daily with breakfast [2] PRN medications: acetaminophen, aluminum & magnesium hydroxide-simethicone, benzocaine, calcium carbonate, HYDROcodone-acetaminophen, hydrOXYzine pamoate, magnesium hydroxide, melatonin, ocular lubricant, OLANZapine zydis OR OLANZapine, Rimegepant Sulfate, sodium chloride * Group Note - Conchita Norwood - 01/24/2025 12:54 PM EST Group Topic: Leisure Skills Group Date: 01/24/2025 Start Time: 1100 End Time: 1200 Facilitators: Conchita Norwood Department: [facility] Inpatient Psychiatry Number of Participants: 5 Group Focus: leisure skills Treatment Modality: Leisure Development Interventions utilized were leisure development Purpose: enhance coping skills Name: Maru Haynes Date of : 1965 MR: [id number] Patient was encouraged. Patient did not attend and rested in her room. Patients Problems: Patient Active Problem List Diagnosis Psychosis (CMS/HCC) Psychosis, unspecified psychosis type (CMS/HCC) * Nursing Note - Miranda Diaz RN - 01/24/2025 4:46 AM EST 01/23 cook night: Patient is calm, cooperative, visualized in the milieu watching tv with peers. Patient is medication compliant and denies having anxieties, fears, concerns. Patient seems as thoughshe is confused during assessment and other interactions. Patient grimaces and looks around as if se arching for an answer. Patient awoke 10+ times during the night, requesting water. Patient also complained of urinating frequently. Discussed A1C and diabetes with patient, and patient reports the testing was completed recently with her physician. Last A1C documented in [facility] was 2022. Encouraged patient to speak about symptoms with physician in the morning. Patient denies SI/HI/AVH. Not witnessed responding to internal stimuli tonight. Fifteen minute checks and hourly rounds in place for patient safety purposes. * Care Plan - Miranda Diaz RN - 01/23/2025 9:46 PM EST Problem: Adult Behavioral Health Plan of Care Goal: Plan of Care Review Outcome: Ongoing, Progressing Flowsheets (Taken 01/23/20252143) Progress: improving Patient Agreement with Plan of Care: agrees Plan of Care Reviewed With: patient Goal: Patient-Specific Goal (Individualization) Outcome: Ongoing, Progressing Flowsheets Taken 01/23/20252143 Patient Personal Strengths: no history of violence medication/treatment adherence Patient Vulnerabilities: lacks insight into illness Taken 01/23/20252104 Patient/Family-Specific Goals (Include Timeframe): Patient will continue appropriate engagement with peers during this shift. Individualized Care Needs: Provide therapeutic engagement provide education medication administration provide safe environment through fifteen minute checks and hourly rounds Anxieties, Fears or Concerns: Denies having any concerns, fears or anxieties at present Goal: Adheres to Safety Considerations for Self and Others Outcome: Ongoing, Progressing Flowsheets (Taken 01/23/20252143) Adheres to Safety Considerations for Self and Others: making progress toward outcome Intervention: Develop and Maintain Individualized Safety Plan Flowsheets (Taken 01/23/20252143) Safety Measures: suicide assessment completed self-directed behavior promoted Goal: Absence of New-Onset Illness or Injury Outcome: Ongoing, Progressing Intervention: Identify and Manage Fall Risk Flowsheets (Taken 01/23/20252143) Safety Promotion/Fall Prevention: clutter-free environment maintained room organization consistent Intervention: Prevent Skin Injury Flowsheets (Taken 01/23/20252143) Device Skin Pressure Protection: (not applicable for patient) other (see comments) Skin Protection: (not applicable for patient) other (see comments) Intervention: Prevent VTE (Venous Thromboembolism) Flowsheets (Taken 01/23/20252143) VTE Prevention/Management: previous patient education reinforced Intervention: Prevent Infection Flowsheets (Taken 01/23/20252143) Infection Prevention: rest/sleep promoted Goal: Optimized Coping Skills in Response to Life Stressors Outcome: Ongoing, Progressing Flowsheets (Taken 01/23/20252143) Optimized Coping Skills in Response to Life Stressors: making progress toward outcome Intervention: Promote Effective Coping Strategies Flowsheets (Taken 01/23/20252143) Supportive Measures: self-responsibility promoted self-care encouraged Goal: Develops/Participates in Therapeutic [place] to Support Successful Transition Outcome: Ongoing, Progressing Flowsheets (Taken 01/23/20252143) Develops/Participates in Therapeutic [place] to Support Successful Transition: making progress toward outcome Intervention: Foster Therapeutic [place] Flowsheets (Taken 01/23/20252143) Trust Relationship/Rapport: care explained questions encouraged Problem: Psychotic Signs/Symptoms Goal: Improved Mood Symptoms Outcome: Ongoing, Progressing Flowsheets (Taken 01/23/20252143) Mutually Determined Action Steps (Improved Mood Symptoms): identifies personal treatment goal Intervention: Optimize Emotion and Mood Flowsheets (Taken 01/23/20252143) Supportive Measures: self-responsibility promoted self-care encouraged Diversional Activity: television reading Goal: Decreased Sensory Symptoms (Psychotic Signs/Symptoms) Outcome: Ongoing, Progressing Flowsheets (Taken 01/23/20252143) Mutually Determined Action Steps (Decreased Sensory Symptoms): adheres to medication regimen Intervention: Minimize and Manage Sensory Impairment Flowsheets (Taken 01/23/20252143) Sensory Stimulation Regulation: quiet environment promoted television on * Nursing Note - Francisco Javier Marquez RN - 01/23/2025 8:23 PM EST Pt continues admission on adult behavioral health unit. Pt out and about on the unit today- interactive and cooperative with staff. Pt refused groups. Hygiene, hydration, and nutrition encouraged. Pt presents with calm, pleasant mood and full affect. Pt denies SI/HI/AVH at this time but was observed RIS and does share bizarre delusions of being in the spirit realm . At times patient's speech was tangential and nonsensical. No signs of physical distress noted. Pt alert but disoriented to place and situation. Thought content appears grossly organized. Vital signs stable. Pt continues to comply with medication regimen, and will continue to be medicated per EMAR. Encouragement provided and will continue to monitor for safety, encourage patient to voice safety concerns, and implement current plan of care. * Care Plan - Francisco Javier Marquez RN - 01/23/2025 8:23 PM EST Problem: Adult Behavioral Health Plan of Care Goal: Plan of Care Review Outcome: Ongoing, Progressing Flowsheets Taken 01/23/20252021 by Francisco Javier Marquez RN Progress: improving Taken 01/23/2025605 by Ace Abbasi RN Patient Agreement with Plan of Care: agrees Plan of Care Reviewed With: patient Goal: Patient-Specific Goal (Individualization) Outcome: Ongoing, Progressing Flowsheets Taken 01/23/20252016 by Francisco Javier Marquez RN Patient/Family-Specific Goals (Include Timeframe): pt will attend groups and participate with the milieu today Individualized Care Needs: reorientation Anxieties, Fears or Concerns: pt is concerned with being in the spirit realm Taken 01/23/2025605 by Ace Abbasi RN Patient Personal Strengths: expressive of emotions expressive of needs family/social support no history of violence Patient Vulnerabilities: adverse childhood experience(s) lacks insight into illness Goal: Adheres to Safety Considerations for Self and Others Outcome: Ongoing, Progressing Intervention: Develop and Maintain Individualized Safety Plan Flowsheets (Taken 01/23/2025605 by Ace Abbasi RN) Safety Measures: safety plan mutually developed suicide assessment completed safety rounds completed Goal: Absence of New-Onset Illness or Injury Outcome: Ongoing, Progressing Goal: Optimized Coping Skills in Response to Life Stressors Outcome: Ongoing, Progressing Intervention: Promote Effective Coping Strategies Flowsheets (Taken 01/23/2025605 by Ace Abbasi RN) Supportive Measures: active listening utilized relaxation techniques promoted verbalization of feelings encouraged self-care encouraged Goal: Develops/Participates in Therapeutic [place] to Support Successful Transition Outcome: Ongoing, Progressing Intervention: Foster Therapeutic [place] Flowsheets (Taken 01/23/2025605 by Ace Abbasi RN) Trust Relationship/Rapport: care explained questions encouraged choices provided emotional support provided empathic listening provided questions answered reassurance provided Intervention: Mutually Develop Transition Plan Flowsheets Taken 01/23/20252021 by Francisco Javier Marquez RN Transition Support: community resources reviewed Taken 01/23/2025605 by Ace Abbasi RN Concerns to be Addressed: no discharge needs identified Readmission Within the Last 30 Days: no previous admission in last 30 days Problem: Psychotic Signs/Symptoms Goal: Improved Mood Symptoms Outcome: Ongoing, Progressing Intervention: Optimize Emotion and Mood Flowsheets (Taken 01/23/2025605 by Ace Abbasi RN) Supportive Measures: active listening utilized relaxation techniques promoted verbalization of feelings encouraged self-care encouraged Diversional Activity: television Goal: Decreased Sensory Symptoms (Psychotic Signs/Symptoms) Outcome: Ongoing, Progressing Intervention: Minimize and Manage Sensory Impairment Flowsheets (Taken 01/23/2025605 by Ace Abbasi RN) Sensory Stimulation Regulation: auditory stimulation minimized quiet environment promoted visual stimulation minimized * H&P - Sheila Jerry MD - 01/23/2025 5:09 PM EST IP Psych Initial Eval: IP H&P (MD/DO Evaluation) Chief complaint I'm well now History Of Present Illness Excerpt from note by Joe Frazier dated 01/22/25 - Maru Werner [place] is a 59 y.o. female presenting with reported hx of schizophrenia presenting via private vehicle with with increase hallucinations. Patient reports that she has been hearing voices. She states that she believes in God and was trying to pray to him. Jonny Hargrove had told her to cry uncontrollably and that it would allow God to get to her, however, when she saw saviors/angels and was unable to get to God. She denies substance use and alcohol use. She denies SI/HI. The rest of the exam was limited due to symptom burden. Outside hospital stated that she was positive for UTI and started on cefdinir 300mg BID for 3 days. Upon interview today patient endorses that she feels well. Says that she was let into the spiritualrealm and got afraid of her 3 days ago, resulting in her running away from him and trippingover some rocks. Endorses hearing the spirits talk with her intermittently, says she is connected with a heavily father and we will do his bidding. Says she has been on Abilify and that has worked well for her in the past. Medical ROS: H/O of RA, een by rheumatology at [facility] Review Of Systems: sleep: yes appetite changes: yes weight changes: no energy/anergy: yes interest/pleasure/anhedonia: no somatic symptoms: no libido: no anxiety/panic: yes guilty/hopeless: yes S.I.B.s/risky behavior: yes Collateral: Patient's Emergency Contact Name and phone number: Brice Haynes Home Medications: Home Medications[1] PSYCH Hx: Endorses having had 4 hospitalizations in the past for similar symptoms. Patient is not able to recall where the hospitalizations were, suggested could have been [facility] Medical/Surgical/Social/Family History I have reviewed and updated the patient history. Developmental Hx: FAMILY PSYCH Hx: ERIKA Substance Abuse History: denies Use of Tobacco: reports that she has quit smoking. Her smoking use included cigarettes. She startedsmoking about 45 years ago. She has a 44 pack-year smoking history. She has been exposed to tobaccosmoke. She has never used smokeless tobacco. Denies using any illicit drugs Allergies Chantix [varenicline] and Latex Vitals: Vitals: 01/23/25 1613 BP: (!) 151/93 Pulse: 78 Resp: Temp: 36.6 ??C (97.9 ??F) SpO2: 96% Results Review I have reviewed the latest lab and imaging results. Physical Exam: CVS normal, CTAB, no focal neurological deficits, alert and oriented x4 MENTAL STATUS EXAM: Mental Status Evaluation: Appearance: casually dressed Behavior: normal Speech: normal pitch and normal volume Mood: constricted Affect: blunted Thought Process: tangential Thought Content: Delusions: Yes/No Hallucinations Yes/No Homicidal Yes/No Obsessions Yes/No Suicidal Yes Yes No No No Sensorium: person, place, and time/date Cognition: grossly intact Insight: limited Judgment: limited Suicide Risk assessment: assessed Diagnosis: Assessment & Plan Psychosis, unspecified psychosis type (CMS/HCC) Psychosis (CMS/HCC) [age] year old female with a h/o RA, and a previous history of schizoaffective disorder presenting with an exacerbation of symptoms. Exacerbation possibly associated with noncompliance on medications. Denies any illicit drug use, which is corroborated by negative POCT. Urinary analysis is suggestive of a mild UTI although leukocytes are only trace positive. Mental status exam suggests constricted affect and RTIS. Patient has been on Abilify before. We will restart this medication. #HTN - Continue metoprolol succinate extended release 100 mg twice daily for hypertension # HLD - Continue rosuvastatin 5 mg at bedtime #RA - Restart leflunomide 20 mg daily and hydroxychloroquine 200 mg daily #Lower dose of venlafaxine to 150 mg to approximate the home dose of 100 mg. Patient denies any depressive symptoms. Risk assessment: Patient is at moderate risk for harm to self or others. Pt is currently displaying signs of active depression, anxiety, psychosis, angie. Pt currently denies delusions. Pt is agreeable to voluntary hospitalization/outpatient follow-up. . Pt contracts for safety on the unit. Pt contracts for safety on discharge and agrees to return to the nearest emergency room should there be any of thoughts of harm to self or others. Pt is not displaying acting out/impulsive/dangerous behavior at this time. Medically Ready for Discharge:Anticipated in 5+ Days [1] Medications Prior to Admission Medication Sig Dispense Refill Adalimumab (Humira, 2 Pen,) 40 MG/0.8ML Auto-injector Kit Inject 1 each under the skin every 14 days. 2 each 5 alendronate (Fosamax) 70 MG tablet Take 1 tablet by mouth 1 time per week. ARIPiprazole (Abilify) 10 MG tablet Take 1 tablet by mouth daily. cetirizine (ZyrTEC) 10 MG tablet Take 1 tablet by mouth daily. cholecalciferol (Vitamin D-3) 250 MCG (96966 UT) capsule Take 1 capsule by mouth daily. clobetasol (Temovate) 0.05 % cream Apply 1 Application topically as needed (itchiness). cyanocobalamin 2500 MCG tablet Take 2 tablets by mouth daily. HYDROcodone-acetaminophen ([place]) 10-325 MG tablet Take 1 tablet by mouth 4 times a day as needed for moderate pain or severe pain. hydroxychloroquine (Plaquenil) 200 MG tablet Take 1 tablet by mouth daily. leflunomide (Arava) 20 MG tablet Take 1 tablet by mouth daily. losartan (Cozaar) 50 MG tablet Take 1 tablet by mouth daily. Lysine 1000 MG tablet Take 1,000 mg by mouth daily. metoprolol tartrate (Lopressor) 100 MG tablet Take 1 tablet by mouth 2 times a day. Nurtec 75 MG orally disintegrating tablet Dissolve 1 tablet on the tongue as needed (migraine). Ivb17kb/day venlafaxine (Effexor) 100 MG tablet Take 1 tablet by mouth daily. botulinum toxin Type A, Cosm, (Botox) 100 units reconstituted solution injection folic acid (Folvite) 1 MG tablet Take 1 tablet by mouth 1 (one) time each day. * Consults - Marcia Noriega RN - 01/23/2025 1:24 PM EST Three gold and one green tube obtained from left AC using ultrasound guidance and butterfly needle x1 attempt. Tubes labeled and walked to the lab. * Group Note - Floyd Johnson - 01/23/2025 11:48 AM EST Group Topic: Goals Group Date: 01/23/2025 Start Time: 1014 End Time: 1045 Facilitators: Floyd Johnson Department: [facility] Inpatient Psychiatry Number of Participants: 19 Group Focus: Goals setting Treatment Modality: Discussion Interventions utilized were: N/A Purpose: Goals Name: Maru Haynes Date of : 1965 MR: [id number] Patient did not attend group but was offer a goals handout. Patients Problems: Patient Active Problem List Diagnosis Psychosis (CMS/HCC) Psychosis, unspecified psychosis type (CMS/HCC) * Significant Event - Sowmya Lopez MD - 01/23/2025 6:44 AM EST Images from the original note were not included. Psychiatry Interim Summary 01/23/25 Maru Haynes arrived to [facility] from [facility] for inpatient psychiatric admission. Per Policy, patient was not personally evaluated by this provider overnight, but chart wasreviewed and case discussed with [facility] / consult-liaison provider. Appropriate admission orders were placed. Will be evaluated by treatment team on U in the morning. A resident physician is available at all times for changes or questions regarding care. Please utilize appropriate means of communication which can be viewed on [employer] [place]. Sowmya Lopez MD * Nursing Note - Ace Abbasi RN - 01/23/2025 6:19 AM EST Patient admitted at 0540, alert and oriented X4. Patient states feeling better today but stated I don't know why I am here. Patient presents with depressed mood. Patient noted to be cooperative with staff. Patient rates depression 8 on scale 0-10 (10 being the worst). Patient denies anxiety and feeling hopeless about the future. Patient denies SI/HI/AVH. Patient denies self-harm thoughts and behaviors. Patient reported no pain and having a lot better sleeping now. Patient reported having ok appetite. No signs of physical distress noted. Though content appears grossly organized. Vital signs stable. Patient encouraged to notify staff of any concerns. Continue current plan of care. Patient is progressing toward treatment goals, Decreased Sensory Symptoms, Improved Mood Symptoms . Staff will continue to provide encouragement and monitor patient Q15min checks as well as hourly nursing rounds. * Care Plan - Ace Abbasi RN - 01/23/2025 6:11 AM EST Problem: Adult Behavioral Health Plan of Care Goal: Plan of Care Review Outcome: Ongoing, Progressing Flowsheets (Taken 01/23/2025 0606) Progress: no change Patient Agreement with Plan of Care: agrees Plan of Care Reviewed With: patient Goal: Patient-Specific Goal (Individualization) Outcome: Ongoing, Progressing Flowsheets (Taken 01/23/2025605) Patient Personal Strengths: expressive of emotions expressive of needs family/social support no history of violence Patient Vulnerabilities: adverse childhood experience(s) lacks insight into illness Patient/Family-Specific Goals (Include Timeframe): Patient will be able to report decrease of depression this shift Individualized Care Needs: Q15 min checks for safety Anxieties, Fears or Concerns: Denies anxiety, concerns Goal: Adheres to Safety Considerations for Self and Others Outcome: Ongoing, Progressing Flowsheets (Taken 01/23/2025605) Adheres to Safety Considerations for Self and Others: making progress toward outcome Intervention: Develop and Maintain Individualized Safety Plan Flowsheets (Taken 01/23/2025605) Safety Measures: safety plan mutually developed suicide assessment completed safety rounds completed Goal: Absence of New-Onset Illness or Injury Outcome: Ongoing, Progressing Intervention: Identify and Manage Fall Risk Flowsheets (Taken 01/23/2025605) Safety Promotion/Fall Prevention: activity supervised room organization consistent nonskid shoes/slippers when out of bed Goal: Optimized Coping Skills in Response to Life Stressors Outcome: Ongoing, Progressing Flowsheets (Taken 01/23/2025605) Optimized Coping Skills in Response to Life Stressors: making progress toward outcome Intervention: Promote Effective Coping Strategies Flowsheets (Taken 01/23/2025605) Supportive Measures: active listening utilized relaxation techniques promoted verbalization of feelings encouraged self-care encouraged Goal: Develops/Participates in Therapeutic [place] to Support Successful Transition Outcome: Ongoing, Progressing Flowsheets (Taken 01/23/2025605) Develops/Participates in Therapeutic [place] to Support Successful Transition: making progress toward outcome Intervention: Foster Therapeutic [place] Flowsheets (Taken 01/23/2025605) Trust Relationship/Rapport: care explained questions encouraged choices provided emotional support provided empathic listening provided questions answered reassurance provided Intervention: Mutually Develop Transition Plan Flowsheets (Taken 01/23/2025605) Concerns to be Addressed: no discharge needs identified Readmission Within the Last 30 Days: no previous admission in last 30 days Problem: Psychotic Signs/Symptoms Goal: Improved Mood Symptoms Outcome: Ongoing, Progressing Flowsheets (Taken 01/23/2025605) Mutually Determined Action Steps (Improved Mood Symptoms): identifies personal treatment goal Intervention: Optimize Emotion and Mood Flowsheets (Taken 01/23/2025605) Supportive Measures: active listening utilized relaxation techniques promoted verbalization of feelings encouraged self-care encouraged Diversional Activity: television Goal: Decreased Sensory Symptoms (Psychotic Signs/Symptoms) Outcome: Ongoing, Progressing Flowsheets (Taken 01/23/2025605) Mutually Determined Action Steps (Decreased Sensory Symptoms): adheres to medication regimen Intervention: Minimize and Manage Sensory Impairment Flowsheets (Taken 01/23/2025605) Sensory Stimulation Regulation: auditory stimulation minimized quiet environment promoted visual stimulation minimized * ED Notes - Luba Hugo RN - 01/23/2025 4:57 AM EST Report called to Ace at [facility] and dispatch called to transport. * Progress Notes - Nicole Lopez PA - 01/23/2025 3:16 AM EST [id number] Transfer Maru Haynes [id number] Admit Status: Involuntary - 72hr hold signed by [facility] attending. Hold start date/time 01/23/25 @0300, hold end date/time 01/29/25 @0800 Brief HPI: 59 y.o.female w/ reported history of bipolar, schizophrenia who self- presented via private vehicle to [facility] for increased hallucinations. Admit to [facility] for further evaluation and/or management of psychosis unspecified. UDS negative. Collateral: No attempt to contact collateral Vitals: 01/23/25 0300 BP: Pulse: Resp: 16 Temp: SpO2: Labs Reviewed - No data to display No results found for this or any previous visit (from the past 4464 hours). Medications ordered: Medications acetaminophen (Tylenol) tablet 650 mg (has no administration in time range) aluminum & magnesium hydroxide-simethicone (Mylanta) 200-200-20 MG/5ML oral suspension 10 mL (has no administration in time range) magnesium hydroxide (Milk of Magnesia) 400 MG/5ML suspension 10 mL (has no administration in time range) hydrOXYzine pamoate (Vistaril) capsule 50 mg (has no administration in time range) losartan (Cozaar) tablet 50 mg (has no administration in time range) metoprolol succinate XL (Toprol-XL) 24 hr tablet 100 mg (has no administration in time range) nitrofurantoin (macrocrystal-monohydrate) (Macrobid) capsule 100 mg (100 mg Oral Given 01/22/252110) OLANZapine zydis (ZyPREXA) disintegrating tablet 5 mg (5 mg Sublingual Given 01/22/251826) Admission Diagnosis: Psychosis - F29 Follow-up: N/A The patient is appropriately stable for transport and handoff successfully provided to Sowmya Lopez MD, accepting physician to [facility]. * ED Notes - Luba Hugo, RN - 01/23/2025 12:31 AM EST Staff attempted to do labs on patient and she had several bruises to both arms and stated she had several labs drawn at another hospital, this nurse and Alexia RN attempted to find a vein with visual and vein finder and with all the previous sticks an appropriate vein could not be found and no attempts where made and provider made aware. * ED Provider Notes - Joe Frazier, DACIA - 01/22/2025 5:51 PM EST [facility] Psych Initial Eval Chief Concern & History Of Present Illness Maru Haynes is a 59 y.o. female presenting with reported hx of schizophrenia presenting via private vehicle with with increase hallucinations. Patient reports that she has been hearing voices. She states that she believes in God and was trying to pray to him. Jonny Hargrove had told her to cry uncontrollably and that it would allow God to get to her, however, when she saw saviors/angels and was unable to get to God. She denies substance use and alcohol use. She denies SI/HI. The rest of the exam was limited due to symptom burden. Outside hospital stated that she was positive for UTI and started on cefdinir 300mg BID for 3 days. DASA Score:: 0 Calculated C-SSRS Risk Score (Lifetime/Recent): No Risk Indicated Past Medical and Surgical History not significant other than Past Medical History[1] Allergies Chantix [varenicline] and Latex Medications Current Medications[2] Review of Systems Psychiatric/Behavioral: Positive for hallucinations. Psych Review of Symptoms: Psychotic Symptoms: Bizarre behavior, delusions, disorganized speech, thought broadcasting, disorganization and hallucinations. Hallucination types are positive for auditory and visual. Pertinent Physical Exam findings: Physical Exam Eyes: Pupils: Pupils are equal, round, and reactive to light. Cardiovascular: Rate and Rhythm: Normal rate and regular rhythm. Pulses: Normal pulses. Heart sounds: Normal heart sounds. Pulmonary: Effort: Pulmonary effort is normal. Breath sounds: Normal breath sounds. Musculoskeletal: General: Normal range of motion. Skin: General: Skin is warm and dry. Neurological: Mental Status: She is alert and oriented to person, place, and time. First Recorded Vitals ED Triage Vitals [01/22/25 1755] Temp Heart Rate Resp BP 36.6 ??C (97.8 ??F) (!) 130 -- (!) 157/89 SpO2 Temp src Heart Rate Source Patient Position -- -- -- -- BP Location FiO2 (%) -- -- Labs No results found for this or any previous visit (from the past 24 hours). MENTAL STATUS EXAM: Mental Status Evaluation: Appearance: age appropriate Behavior: restless and fidgety Speech: pressured Mood: euthymic Affect: mood-congruent Thought Process: tangential Thought Content: Delusions: Yes Hallucinations: Yes Homicidal: No Obsessions: No Suicidal: No Plan/Implementation related to SI: n/a Sensorium: person, place, and time/date Cognition: grossly intact Insight: limited Judgment: limited Problem based Plan and Disposition: Unspecified psychosis - Admit to [facility], observe in therapeutic milieu. - Continue home medications if appropriate and available per formulary. -Olanzapine 5mg x1 for symptom burden - PDMP reviewed. - SW to obtain collateral. Connect with outpatient mental health. Determine dispo. - Labs pending and UDS results reviewed - no interventions indicated at this time. - PRNs if indicated. - Suicide Precautions in place. Recommend revaluation within 6 hours. [1] Past Medical History: Diagnosis Date Bipolar 1 disorder (CMS/HCC) Migraines RA (rheumatoid arthritis) (CMS/HCC) Schizophrenic disorder (CMS/HCC) [2] Current Facility-Administered Medications Medication Dose Route Frequency Provider Last Rate Last Admin acetaminophen (Tylenol) tablet 650 mg 650 mg Oral q6h PRN Joe Frazier, MANUFACTURING PROCESS TECHNICIAN aluminum & magnesium hydroxide-simethicone (Mylanta) 200-200-20 MG/5ML oral suspension 10 mL 10mL Oral q6h PRN Joe Frazier, MANUFACTURING PROCESS TECHNICIAN hydrOXYzine pamoate (Vistaril) capsule 50 mg 50 mg Oral q6h PRN Joe Frazier, MANUFACTURING PROCESS TECHNICIAN magnesium hydroxide (Milk of Magnesia) 400 MG/5ML suspension 10 mL 10 mL Oral Daily PRN Joe Frazier, MANUFACTURING PROCESS TECHNICIAN OLANZapine zydis (ZyPREXA) disintegrating tablet 5 mg 5 mg Sublingual Once Joe Frazier, MANUFACTURING PROCESS TECHNICIAN Current Outpatient Medications Medication Sig Dispense Refill Adalimumab (Humira, 2 Pen,) 40 MG/0.8ML Auto-injector Kit Inject 1 each under the skin every 14 days. 2 each 5 alendronate (Fosamax) 70 MG tablet Take 1 tablet by mouth 1 time per week. ARIPiprazole (Abilify) 10 MG tablet Take 1 tablet by mouth daily. cetirizine (ZyrTEC) 10 MG tablet Take 1 tablet by mouth daily. clotrimazole-betamethasone (Lotrisone) cream Apply topically. folic acid (Folvite) 1 MG tablet Take 1 tablet by mouth 1 (one) time each day. HYDROcodone-acetaminophen (Brinklow) 10-325 MG tablet TAKE ONE TABLET BY MOUTH EVERY 6 HOURS NEEDEDFOR PAIN MAY CAUSE DROWSINESS hydroxychloroquine (Plaquenil) 200 MG tablet Take 1 tablet by mouth daily. leflunomide (Arava) 20 MG tablet TAKE ONE TABLET BY MOUTH EVERY DAY FOR RHEUMATOID ARTHRITIS lidocaine (Xylocaine) 5 % ointment Apply 2-4 grams to feet BID as needed for neuropathy. 50 g 1 losartan (Cozaar) 50 MG tablet Take 1 tablet by mouth daily. metoprolol tartrate (Lopressor) 100 MG tablet Take 1 tablet by mouth in the morning and 1 tablet before bedtime. Nurtec 75 MG orally disintegrating tablet Dissolve 1 tablet on the tongue. venlafaxine (Effexor) 100 MG tablet take 1 and 1/2 tablet by mouth twice daily Joe Frazier APRN 01/22/25 183 * ED Triage Notes - Rosanne Bowie, RN - 01/22/2025 5:51 PM EST Maru Haynes is a 59 y.o.female presenting to empath with c/o AH which she believes are not hallucinations, but that she has tapped into the spirit realm of the holy spirit. Pt watched a tik tok of a preacher and he said that if you cry really hard you will reach the spirit realm. Pt has a hx of bipolar and schizophrenia. Pt was brought by . Pt was recently at the hospital and is being treated for a uti. Pt denies si, hi, vh. documented in this encounter Plan of Treatment Upcoming Encounters Date Type Department Care Team (Late st Contact Info) Description 02/13/2025 10:50 AM EST Office Visit [facility] [address] [place] [phone] Lorin Melendez APRN [address] [place] [phone] documented as of this encounter Procedures Procedure Name Priority Date/Time Associated Diagnosis Comments COMPREHENSIVE METABOLIC PANEL, PLASMA Routine 01/28/2025 5:17 AM EST URINALYSIS WITH REFLEX MICROSCOPIC AND CULTURE Timed 01/23/2025 10:08 PM EST URINE PETTY PANEL Timed 01/23/2025 10:0 8 PM EST URINALYSIS MICROSCOPIC FOR UA REFLEX Routine 01/23/2025 10:08 PM EST URINALYSIS WITH REFLEX MICROSCOPIC Timed 01/23/2025 10:08 PM EST TSH STAT 01/23/2025 1:10 PM EST FREE T4, PLASMA STAT 01/23/2025 1:10 PM EST LIPID PROFILE, PLASMA Routine 01/23/2025 1:10 PM EST COMPREHENSIVE METABOLIC PANEL, PLASMA STAT 01/23/2025 1:10 PM EST HEPATITIS B SURFACE ANTIGEN - EMPATH Routine 01/23/2025 1:09 PM EST HEPATITIS C ANTIBODY WITH REFLEX TO HCV QUANT PCR - EMPATH Routine 01/23/2025 1:09 PM EST HIV 1/2 ANTIBODY/ANTIGEN SCREEN W/REFLEX TO HIV 1/2 ANTIBODY DIFFERENTIATION Routine 01/23/2025 1:09 PM EST HIV 1/2 ANTIBODY/ANTIGEN SCREEN WITH REFLEX TO HIV I/II DIFFERENTIATION Routine 01/23/2025 1:09 PM EST CBC W/O DIFFERENTIAL STAT 01/23/2025 11:47 AM EST POCT DRUGS OF ABUSE, URINE STAT 01/22/2025 11:33 PM EST documented in this encounter Results * Comprehensive Metabolic Panel, Plasma (01/28/2025 5:17 AM EST) Pathologist [facility] [place] Glucose, Plasma 94 74 - 99 mg/dL 01/28/2025 5:41 AM EST [facility] BUN, Plasma 9 7 - 21 mg/dL 01/28/2025 5:41 AM EST [facility] Creatinine, Plasma 0.75 0.60 - 1.10 mg/dL 01/28/2025 5:41 AM EST [facility] BUN/Creatinine Ratio 12 01/28/2025 5:41 AM EST [facility] Sodium, Plasma 138 136 - 145 mmol/L 01/28/2025 5:41 AM EST [facility] Potassium, Plasma 4.1 3.6 - 4.9 mmol/L 01/28/2025 5:41 AM EST [facility] Chloride, Plasma 105 97 - 107 mmol/L 01/28/2025 5:41 AM EST [facility] CO2, Plasma 24 22 - 29 mmol/L 01/28/2025 5:41 AM EST [facility] Anion Gap 9 6 - 16 mmol/L 01/28/2025 5:41 AM EST [facility] Total Calcium, Plasma 9.0 8.9 - 10.2 mg/dL 01/28/2025 5:41 AM EST [facility] Total Protein 6.7 6.3 - 7.9 g/dL 01/28/2025 5:41 AM EST [facility] Albumin, Plasma 4.1 3.5 - 5.2 g/dL 01/28/2025 5:41 AM EST [facility] AST, Plasma 16 10 - 35 U/L 01/28/2025 5:41 AM EST [facility] ALT, Plasma 23 10 - 35 U/L 01/28/2025 5:41 AM EST [facility] Alkaline Phosphatase, Plasma 67 46 - 142 U/L 01/28/2025 5:41 AM EST [facility] Total Bilirubin, Plasma 0.3 0.2 - 1.1 mg/dL 01/28/2025 5:41 AM EST [facility] eGFRcr 93.0 mL/min/1.7 3m*2 01/28/2025 5:41 AM EST [facility] Comment:Reported eGFRcr in m L/min/1.73m2 is based the CKD-EPI 2020 equation that does not use a race coefficient. Blood Venous blood specimen / Unknown Venipuncture / Unknown 01/28/2025 5:17 AM EST 01/28/2025 5:19 AM EST us Rhett Reeves MD LAB BLOOD ORDERABLES Final Re sult [facility] [address] [place] [address] * Urinalysis Microscopic Examination (01/23/2025 10:08 PM EST) Urine Urine specimen obtained by clean catch procedure / Unknown Non-blood Collection / Unknown 01/23/2025 10:08 PM EST 01/23/2025 10:11 PM EST us Sheila Jerry MD LAB URINE ORDERABLES Final Result Performing Organization Address City/[facility]/ZIP Co de Phone Number [facility] [address] [place] [address] * Urine Petty Panel (01/23/2025 10:08 PM EST) Extra Reflex urine culture not indicated 01/24/2025 12:01 AM EST [facility] Urine Urine specimen obtained by clean catch procedure / Unknown Non-blood Collection / Unknown 01/23/2025 10:08 PM EST 01/23/2025 10:11 PM EST us Sheila Jerry MD LAB URINE ORDERABLES Final Result Performing Organization Address [facility] de Phone Number [facility] [address] [place] [address] * (ABNORMAL) Urinalysis with reflex microscopic (Culture NOT Included) (01/23/2025 10:08 PM EST) Color, Urine Yellow LAB URINALYSIS - AUTOMATED METHOD 01/23/2025 11:21 PM EST [facility] Clarity, Urine Clear LAB URINALYSIS - AUTOMATED METHOD 01/23/2025 11:21 PM EST [facility] Spec [place], Urine <1.005(L) 1.005 - 1.030 LAB URINALYSIS - AUTOMATED METHOD 01/23/2025 11:21 PM EST [facility] pH, Urine 6.5 5.0 - 8.0 LAB URINALYSIS - AUTOMATED METHOD 01/23/2025 11:21 PM EST [facility] Protein, Urine Negative Negative mg/dL LAB URINALYSIS - AUTOMATED METHOD 01/23/2025 11:21 PM EST [facility] Glucose, Urine Negative Negative mg/dL LAB URINALYSIS - AUTOMATED METHOD 01/23/2025 11:21 PM EST [facility] Ketones, Urine Negative Negative mg/dL LAB URINALYSIS - AUTOMATED METHOD 01/23/2025 11:21 PM EST [facility] Blood, Urine Negative Negative LAB URINALYSIS - AUTOMATED METHOD 01/23/2025 11:21 PM EST [facility] Bilirubin, Urine Negative Negative LAB URINALYSIS - AUTOMATED METHOD 01/23/2025 11:21 PM EST [facility] Urobilinogen, Urine 0.2 0.2 to 1.0 mg/dL LAB URINALYSIS - AUTOMATED METHOD 01/23/2025 11:21 PM EST [facility] Leukocytes, Urine Trace(A) Negative LAB URINALYSIS - AUTOMATED METHOD 01/23/2025 11:21 PM EST [facility] Nitrite, Urine Negative Negative LAB URINALYSIS - AUTOMATED METHOD 01/23/2025 11:21 PM EST [facility] RBC, Urine <1 0 to 3 /HPF 01/23/2025 11:21 PM EST [facility] Comment:This result was prev iously suppressed from the chart. WBC, Urine 0 - 5 0 to 5 /HPF 01/23/2025 11:21 PM EST [facility] Comment:This result was prev iously suppressed from the chart. Squamous Epithelial Cells 0 - 2 0 to 5 /HPF 01/23/2025 11:21 PM EST [facility] Comment:This result was prev iously suppressed from the chart. Hyaline Casts 0 - 2 0 to 5 /LPF 01/23/2025 11:21 PM EST [facility] Comment:This result was prev iously suppressed from the chart. Bacteria, Urine Negative Negative 01/23/2025 11:21 PM EST [facility] Comment:This result was prev iously suppressed from the chart. Urine Urine specimen obtained by clean catch procedure / Unknown Non-blood Collection / Unknown 01/23/2025 10:08 PM EST 01/23/2025 10:11 PM EST Narrative [facility] - 01/23/2025 11:21 PM EST Performed by manual method us Sheila Jerry MD LAB URINE ORDERABLES Final Result [facility] [address] [place] [id number] * (ABNORMAL) Lipid panel (01/23/2025 1:10 PM EST) Cholesterol, Plasma 127 <200 mg/dL 01/23/2025 1:41 PM EST [facility] Comment: Cholesterol Reference Range (age >17 years): Desirable <200 mg/dL Borderline 200 to 239 mg/dL Undesirable >239 mg/dL HDL 65 >=50 mg/dL 01/23/2025 1:41 PM EST [facility] Comment: HDL Cholesterol Reference Ranges (age >17 years): Female, acceptable > or = 50 mg/dL Male, acceptable > or = 40 mg/dL Triglycerides, Plasma 167(H) <150 mg/dL 01/23/2025 1:41 PM EST [facility] Comment: Triglyceride Reference Range (age >17 years): Desirable: <150 mg/dL Borderline high: 150 to 199 mg/dL High: 200 to 499 mg/dL Very high: >499 mg/dL Increased risk of pancreatitis: >1000 mg/dL Cholesterol/HDL Ratio 2 01/23/2025 1:41 PM EST [facility] LDL, Calculated 35 <100 mg/dL 1:41 PM EST [facility] Comment: LDL Cholesterol Reference Range (age >17 years): Optimal: <100 mg/dL Near or above optimal: 100 - 129 mg/dL Borderline high: 130 - 159 mg/dL High: 160 - 189 mg/dL Very high: >189 mg/dL LDL Cholesterol Reference Range (age <18 years): Desirable: <110 mg/dL Borderline: 110 - 129 mg/dL Undesirable: >130 mg/dL LDL Cholesterol is calculated using the Law/NIH equation. Fasting greater than or equal to 12 hours? Unknown 01/23/2025 1:41 PM EST [facility] Blood Venous blood specimen / Unknown Venipuncture / Unknown 01/23/2025 1:10 PM EST 01/23/2025 1:13 PM EST us Sheila Jerry MD LAB BLOOD ORDERABLES Final Result [facility] [address] [place] [address] * Thyroid Stimulating Hormone, Plasma (01/23/2025 1:10 PM EST) Thyroid Stimulating Hormone, Plasma 1.62 0.40 - 4.20 uIU/mL 01/23/2025 1:41 PM EST [facility] Blood Venous blood specimen / Unknown Venipuncture / Unknown 01/23/2025 1:10 PM EST 01/23/2025 1:13 PM EST us Sheila Jerry MD LAB BLOOD ORDERABLES Final Result Performing Organization Address City/[facility]/ZIP Co de Phone Number [facility] [address] [place] [address] * Free T4, Plasma (01/23/2025 1:10 PM EST) Free T4, Plasma 1.4 0.8 - 1.7 ng/dL 01/23/2025 1:41 PM EST [facility] Blood Venous blood specimen / Unknown Venipuncture / Unknown 01/23/2025 1:10 PM EST 01/23/2025 1:13 PM EST Sheila Jerry MD LAB BLOOD ORDERABLES Final Result Performing Organization Address City/[facility] Co de Phone Number [facility] [address] [place] [address] * (ABNORMAL) CMP (01/23/2025 1:10 PM EST) Glucose, Plasma 122(H) 74 - 99 mg/dL 01/23/2025 1:41 PM EST [facility] BUN, Plasma 8 7 - 21 mg/dL 01/23/2025 1:41 PM EST [facility] Creatinine, Plasma 0.79 0.60 - 1.10 mg/dL 01/23/2025 1:41 PM EST [facility] BUN/Creatinine Ratio 10 01/23/2025 1:41 PM EST [facility] Sodium, Plasma 136 136 - 145 mmol/L 01/23/2025 1:41 PM EST [facility] Potassium, Plasma 4.0 3.6 - 4.9 mmol/L 01/23/2025 1:41 PM EST [facility] Chloride, Plasma 99 97 - 107 mmol/L 01/23/2025 1:41 PM EST [facility] CO2, Plasma 25 22 - 29 mmol/L 01/23/2025 1:41 PM EST [facility] Anion Gap 12 6 - 16 mmol/L 01/23/2025 1:41 PM EST [facility] Total Calcium, Plasma 9.7 8.9 - 10.2 mg/dL 01/23/2025 1:41 PM EST [facility] Total Protein 7.1 6.3 - 7.9 g/dL 01/23/2025 1:41 PM EST [facility] Albumin, Plasma 4.4 3.5 - 5.2 g/dL 01/23/2025 1:41 PM EST [facility] AST, Plasma 35 10 - 35 U/L 01/23/2025 1:41 PM EST [facility] ALT, Plasma 30 10 - 35 U/L 01/23/2025 1:41 PM EST [facility] Alkaline Phosphatase, Plasma 70 46 - 142 U/L 01/23/2025 1:41 PM EST [facility] Total Bilirubin, Plasma 0.2 0.2 - 1.1 mg/dL 01/23/2025 1:41 PM EST [facility] eGFRcr 87.4 mL/min/1.7 3m*2 01/23/2025 1:41 PM EST [facility] Comment:Reported eGFRcr in m L/min/1.73m2 is based the CKD-EPI 2020 equation that does not use a race coefficient. Blood Venous blood specimen / Unknown Venipuncture / Unknown 01/23/2025 1:10 PM EST 01/23/2025 1:13 PM EST us Sheila Jerry MD LAB BLOOD ORDERABLES Final Result Performing Organization Address City/[facility] Co de Phone Number [facility] [address] [place] [address] * HIV 1 & 2 Antibody/Antigen Screen (01/23/2025 1:09 PM EST) HIV 1 & 2 Antibody/Antigen Screen Non Reactive Non Reactive 01/23/2025 1:45 PM EST [facility] Comment:Screening for HIV 1 & 2 antibodies, and P24 antigen is NONREACTIVE. No confirmatory testing is required. Blood Venous blood specimen / Unknown Venipuncture / Unknown 01/23/2025 1:09 PM EST 01/23/2025 1:13 PM EST us Sheila Jerry MD LAB BLOOD ORDERABLES Final Result [facility] [address] [place] [address] * Hepatitis C Antibody with Reflex to HCV Quant PCR - [facility] (01/23/2025 1:09 PM EST) Hepatitis C Antibody Negative Negative 01/23/2025 2:23 PM EST [facility] Blood Venous blood specimen / Unknown Venipuncture / Unknown 01/23/2025 1:09 PM EST 01/23/2025 1:13 PM EST Sheila Jerry MD LAB BLOOD ORDERABLES Final Result [facility] [address] [place] [address] * Hepatitis B Surface Antigen - [facility] (01/23/2025 1:09 PM EST) Pathologist [facility] [place] Hepatitis B Surf Antigen Negative Negative 01/23/2025 4:18 PM EST [facility] Blood Venous blood specimen / Unknown Venipuncture / Unknown 01/23/2025 1:09 PM EST 01/23/2025 1:14 PM EST Sheila Jerry MD LAB BLOOD ORDERABLES Final Result [facility] [address] [place] [address] * CBC w/o diff (01/23/2025 11:47 AM EST) Pathologist [facility] [place] WBC Count 7.52 3.70 - 10.30 10*3/uL LAB HEMATOLOGY METHOD 01/23/2025 12:26 PM EST [facility] RBC Count 4.86 3.90 - 5.20 10*6/uL LAB HEMATOLOGY METHOD 01/23/2025 12:26 PM EST [facility] HGB 14.5 11.2 - 15.7 g/dL LAB HEMATOLOGY METHOD 01/23/2025 12:26 PM EST [facility] HCT 42.8 34.0 - 45.0 % LAB HEMATOLOGY METHOD 01/23/2025 12:26 PM EST [facility] Platelet Count 211 155 - 369 10*3/uL LAB HEMATOLOGY METHOD 01/23/2025 12:26 PM EST [facility] MCV 88 79 - 98 fL LAB HEMATOLOGY METHOD 01/23/2025 12:26 PM EST [facility] MCH 29.8 26.0 - 32.0 pg LAB HEMATOLOGY METHOD 01/23/2025 12:26 PM EST [facility] MCHC 33.9 30.7 - 35.5 g/dL LAB HEMATOLOGY METHOD 01/23/2025 12:26 PM EST [facility] RDW 13.2 11.5 - 14.5 % LAB HEMATOLOGY METHOD 01/23/2025 12:26 PM EST [facility] MPV 8.8 8.8 - 12.5 fL LAB HEMATOLOGY METHOD 01/23/2025 12:26 PM EST [facility] nRBC 0.0 <=0.0 per 100 WBCs LAB HEMATOLOGY METHOD 01/23/2025 12:26 PM EST [facility] Blood Venous blood specimen / Unknown Venipuncture / Unknown 01/23/2025 11:47 AM EST 01/23/2025 12:23 PM EST Sheila Jerry MD LAB BLOOD ORDERABLES Final Result [facility] [address] [place] [address] * POCT Drugs of Abuse (01/22/2025 11:33 PM EST) POC Amphetamine Screen, Urine Negative Negative POC Amphetamine Internal QC OK? Yes Positive results should be sent to laboratory for confirmation. POC Barbiturate Screen, Urine Negative Negative POC Barbiturates Internal QC OK? Yes Positive results should be sent to laboratory for confirmation. POC Buprenorphine Screen, Urine Negative Negative POC Buprenorphine Internal QC OK? Yes Positive results should be sent to laboratory for confirmation. POC Benzodiazepines Screen, Urine Negative Negative POC Benzodiazepines Internal QC OK? Yes Positive results should be sent to laboratory for confirmation. POC Cocaine Screen, Urine Negative Negative POC Cocaine Internal QC OK? Yes Positive results should be sent to laboratory for confirmation. POC Methamphetamine Screen, Urine Negative Negative POC Methamphetamine Internal QC OK? Yes Positive results should be sent to laboratory for confirmation. POC Methadone Screen, Urine Negative Negative POC Methadone Internal QC OK? Yes Positive results should be sent to laboratory for confirmation. POC Opiate Screen, Urine Negative Negative POC Opiates Internal QC OK? Yes Positive results should be sent to laboratory for confirmation. POC Oxycodone Screen, Urine Negative Negative POC Oxycodone Internal QC OK? Yes Positive results should be sent to laboratory for confirmation. POC THC Screen, Urine Negative Negative POC THC Internal QC OK? Yes Positive results should be sent to laboratory for confirmation. POC Urine Temperature Normal Normal POC UDS Kit Lot Number [id number] POC UDS Kit Expiration 2026-08-15 POC UDS Collection Observed? Not Observed Urine 01/22/2025 11:3 3 PM EST Joe Frazier APRN POINT OF CARE TEST ENTER/ED IT ORDERABLES Final Result documented in this encounter Visit Diagnoses Diagnosis Psychosis, unspecified psychosis type (CMS/HCC) Psychosis (CMS/HCC) Unspecified psychosis documented in this encounter Admitting Diagnoses Diagnosis Psychosis, unspecified psychosis type (CMS/HCC) documented in this encounter Administered Medications Inactive Administered Medications - up to 3 most recent administrations Medication Order MAR Action Action Date Dose Rate Site aluminum & magnesium hydroxide-simethicone (Mylanta) 200-200-20 MG/5ML oral suspension 10 mL 10 mL, Oral, 4 times daily PRN, Starting on Eda 01/23/25 at 1750, Until Mon01/28/25 at 1754, Routine, indigestion, nausea ARIPiprazole (Abilify) tablet 10 mg 10 mg, Oral, Daily, First dose on Mon01/24/25 at 1215, Until Discontinued, Routine Given 01/25/2025 8:29 AM EST 10 mg Given 01/24/2025 12:44 PM EST 10 mg ARIPiprazole (Abilify) tablet 15 mg 15 mg, Oral, Daily, First dose (after last modification) on Mon01/26/25 at 0900, Until Discontinued, Routine Given 01/28/2025 9:06 AM EST 15 mg Given 01/27/2025 8:23 AM EST 15 mg Given 01/26/2025 10:01 AM EST 15 mg ARIPiprazole (Abilify) tablet 5 mg 5 mg, Oral, Once, 1 dose, On 01/25/25 at 1230, Routine Given 01/25/2025 12:54 PM EST 5 mg benzocaine (Orajel) 10 % mucosal gel 1 Application Mouth/Throat, 4 times daily PRN, Starting on Mon01/23/25 at 1750, Until Mon01/28/25 at 1754, Routine, mild to moderate oral pain calcium carbonate (Tums) chewable tablet 750 mg 750 mg, Oral, 4 times daily PRN, Starting on Mon01/23/25 at 1750, Until Mon01/28/25 at 1754, Routine, heartburn cetirizine (ZyrTEC) tablet 10 mg 10 mg, Oral, Nightly, First dose on Mon01/23/25 at 2100, Until Discontinued, Routine Given 01/27/2025 9:2 3 PM EST 10 mg Given 01/26/2025 8:44 PM EST 10 mg Given 01/25/2025 8:21 PM EST 10 mg HYDROcodone-acetaminophen (Brinklow) 5-325 MG per tablet 10 mg of hydrocodone 10 mg of hydrocodone, Oral, Every 6 hours PRN, Starting on Mon01/23/25 at 0342, Until Mon01/28/25 at 1754, Routine, Moderate/Severe Pain > or =3: CPOT; > or =4: FLACC, PAINAD, NPASS, NRS, Vega-Shah Faces; > or =5: DVPRS, NIPS Given 01/28/2025 1:48 PM EST 10 mg of hydrocodone Given 01/28/2025 5:50 AM EST 10 mg of hydrocodone Given 01/24/2025 10:52 AM EST 10 mg of hydrocodone hydroxychloroquine (Plaquenil) tablet 200 mg 200 mg, Oral, Daily, First dose on Mon01/24/25 at 1645, Until Discontinued, Routine Given 01/28/2025 9:0 5 AM EST 200 mg Given 01/27/2025 8:23 AM EST 200 mg Given 01/26/2025 10:03 AM EST 200 mg hydrOXYzine pamoate (Vistaril) capsule 25 mg 25 mg, Oral, Every 6 hours PRN, Starting on Mon01/23/25 at 1750, Until Mon01/28/25 at 1754, Routine, anxiety, itching leflunomide (Arava) tablet 20 mg 20 mg, Oral, Daily, First dose on Mon01/24/25 at 1645, Until Discontinued, Routine Given 01/28/2025 9:05 AM EST 20 mg Given 01/27/2025 8:23 AM EST 20 mg Given 01/26/2025 10:03 AM EST 20 mg losartan (Cozaar) tablet 50 mg 50 mg, Oral, Once, 1 dose, On Mon01/23/25 at 0900, Routine Given 01/23/2025 10:26 AM EST 50 mg losartan (Cozaar) tablet 50 mg 50 mg, Oral, Daily, First dose on Mon01/27/25 at 1630, Until Discontinued, Routine Given 01/28/2025 6:48 AM EST 50 mg Given 01/27/2025 3:46 PM EST 50 mg magnesium hydroxide (Milk of Magnesia) 400 MG/5ML suspension 15 mL 15 mL, Oral, Daily PRN, Starting on Mon01/23/25 at 1750, Until Mon01/28/25 at 1754, Routine, constipation melatonin tablet 3 mg 3 mg, Oral, Nightly PRN, Starting on Mon01/23/25 at 1750, Until Mon01/28/25 at 1754, Routine, sleep metoprolol succinate XL (Toprol-XL) 24 hr tablet 100 mg 100 mg, Oral, 2 times daily, First dose on Mon01/23/25 at 0900, Until Discontinued, Routine Given 01/28/2025 9:05 AM EST 100 mg Given 01/27/2025 9:23 PM EST 100 mg Given 01/27/2025 8:23 AM EST 100 mg nitrofurantoin (macrocrystal-monohydrate) (Macrobid) capsule 100 mg 100 mg, Oral, 2 times daily, First dose on Mon01/22/25 at 2100, Until Discontinued, Routine Given 01/24/2025 9:08 AM EST 100 mg Given 01/23/2025 8:29 PM EST 100 mg Given 01/23/2025 10:26 AM EST 100 mg ocular lubricant (Artificial Tears) ophthalmic solution 1 drop 1 drop, Both Eyes, As needed, Starting on Mon01/23/25 at 1750, Until Mon01/28/25 at 1754, Routine, irritation, allergies, dry eye OLANZapine (ZyPREXA) injection 5 mg 5 mg, Intramuscular, Every 6 hours PRN, Starting on Mon01/23/25 at 0350, Until Mon01/28/25 at 1754, Routine, agitation, agitation if po refused OLANZapine zydis (ZyPREXA) disintegrating tablet 5 mg 5 mg, Sublingual, Once, 1 dose, On Mon01/22/25 at 1830, STAT Given 01/22/2025 6:27 PM EST 5 mg OLANZapine zydis (ZyPREXA) disintegrating tablet 5 mg 5 mg, Sublingual, Every 6 hours PRN, Starting on Mon01/23/25 at 0350, Until Mon01/28/25 at 1754, Routine, agitation rosuvastatin (Crestor) tablet 5 mg 5 mg, Oral, Nightly, First dose on Eda 01/23/25 at 2100, Until Discontinued, Routine Given 01/27/2025 9:24 PM EST 5 mg Given 01/26/2025 8:44 PM EST 5 mg Given 01/25/2025 8:21 PM EST 5 mg sodium chloride ([place]) 0.65 % nasal spray 1 spray 1 spray, Each Nostril, As needed, Starting on Mon01/23/25 at 1750, Until Mon01/28/25 at 1754, Routine, congestion, nasal irritation venlafaxine XR (Effexor-XR) 24 hr capsule 150 mg 150 mg, Oral, Daily with breakfast, First dose (after last modification) on 01/25/25 at 0800, Until Discontinued, Routine Given 01/28/2025 9:0 5 AM EST 150 mg Given 01/27/2025 8:23 AM EST 150 mg Given 01/26/2025 10:04 AM EST 150 mg venlafaxine XR (Effexor-XR) 24 hr capsule 225 mg 225 mg, Oral, Daily with breakfast, First dose on Eda 01/23/25 at 0900, Until Discontinued, Routine Given 01/24/2025 9:08 AM EST 225 mg Given 01/23/2025 10:26 AM EST 225 mg documented in this encounter Active and Recently Administered Medications Times are shown in EST. Scheduled Medication Order 01/26/2025 01/27/2025 01/28/2025 ARIPiprazole (Abilify) tablet 15 mg 15 mg, Oral, Daily, First dose (after last modification) on 01/26/25 at 0900, Until Discontinued, Routine 1001 (Given - Provider: Maria Antonia Eisenberg RN) 0823 (Given - Provider: José Antonio Barroso RN) 0906 (Given - Provider: Benita Jose, VALENTE) cetirizine (ZyrTEC) tablet 10 mg 10 mg, Oral, Nightly, First dose on Mon01/23/25 at 2100, Until Discontinued, Routine 204 (Given - Provider: Marilu Lopez RN) 2122 (Given - Provider: Shawn Younger RN) hydroxychloroquine (Plaquenil) tablet 200 mg 200 mg, Oral, Daily, First dose on Mon01/24/25 at 1645, Until Discontinued, Routine 1003 (Given - Provider: Maria Antonia Eisenberg RN) 0823 (Given - Provider: José Antonio Barroso RN) 0905 (Given - Provider: Benita Jose RN) leflunomide (Arava) tablet 20 mg 20 mg, Oral, Daily, First dose on Mon01/24/25 at 1645, Until Discontinued, Routine 1003 (Given - Provider: Maria Antonia Eisenberg RN) 0823 (Given - Provider: José Antonio Barroso RN) 0905 (Given - Provider: Benita Jose RN) losartan (Cozaar) tablet 50 mg 50 mg, Oral, Daily, First dose on Mon01/27/25 at 1630, Until Discontinued, Routine 1546 (Given - Provider: José Antonio Barroso RN) 0648 (Given - Provider: Shawn Younger RN - Comment: Given per instructions from provider Moustapha James)0900 (Canceled Entry - Provider: Shawn Younger RN - Comment: Given early this AM per instructions from provider Moustapha James) metoprolol succinate XL (Toprol-XL) 24 hr tablet 100 mg 100 mg, Oral, 2 times daily, First dose on Mon01/23/25 at 0900, Until Discontinued, Routine 1004 (Given - Provider: Maria Antonia Eisenberg RN)2044 (Given - Provider: Marilu Lopez RN) 0823 (Given - Provider: José Antonio Barroso RN)212 (Given - Provider: Shawn Younger RN) 0905 (Given - Provider: Benita Jose, VALENTE) rosuvastatin (Crestor) tablet 5 mg 5 mg, Oral, Nightly, First dose on Eda 01/23/25 at 2100, Until Discontinued, Routine 2043 (Given - Provider: Marilu Lopez RN) 2123 (Given - Provider: Shawn Younger, VALENTE) venlafaxine XR (Effexor-XR) 24 hr capsule 150 mg 150 mg, Oral, Daily with breakfast, First dose (after last modification) on 01/25/25 at 0800, Until Discontinued, Routine 1004 (Given - Provider: Maria Antonia Eisenberg RN) 0823 (Given - Provider: José Antonio Barroso RN) 09 (Given - Provider: Benita Jose RN) PRN Medication Order 01/26/2025 01/27/2025 01/28/2025 aluminum & magnesium hydroxide-simethicone (Mylanta) 200-200-20 MG/5ML oral suspension 10 mL 10 mL, Oral, 4 times daily PRN, Starting on Eda 01/23/25 at 1750, Until Mon01/28/25 at 1754, Routine, indigestion, nausea benzocaine (Orajel) 10 % mucosal gel 1 Application Mouth/Throat, 4 times daily PRN, Starting on Mon01/23/25 at 1750, Until Mon01/28/25 at 1754, Routine, mild to moderate oral pain calcium carbonate (Tums) chewable tablet 750 mg 750 mg, Oral, 4 times daily PRN, Starting on Mon01/23/25 at 1750, Until Mon01/28/25 at 1754, Routine, heartburn HYDROcodone-acetaminophen (Brinklow) 5-325 MG per tablet 10 mg of hydrocodone 10 mg of hydrocodone, Oral, Every 6 hours PRN, Starting on Eda 01/23/25 at 0342, Until Mon01/28/25 at 1754, Routine, Moderate/Severe Pain > or =3: CPOT; > or =4: FLACC, PAINAD, NPASS, NRS, Vega-Shah Faces; > or =5: DVPRS, NIPS 0550 (Given - Provid er: Shawn Younger, VALENTE)1348 (Given - Provider: Katerin Ellis RN) hydrOXYzine pamoate (Vistaril) capsule 25 mg 25 mg, Oral, Every 6 hours PRN, Starting on Mon01/23/25 at 1750, Until Mon01/28/25 at 1754, Routine, anxiety, itching magnesium hydroxide (Milk of Magnesia) 400 MG/5ML suspension 15 mL 15 mL, Oral, Daily PRN, Starting on Mon01/23/25 at 1750, Until Mon01/28/25 at 1754, Routine, constipation melatonin tablet 3 mg 3 mg, Oral, Nightly PRN, Starting on Mon01/23/25 at 1750, Until Mon01/28/25 at 1754, Routine, sleep ocular lubricant (Artificial Tears) ophthalmic solution 1 drop 1 drop, Both Eyes, As needed, Starting on Mon01/23/25 at 1750, Until Mon01/28/25 at 1754, Routine, irritation, allergies, dry eye OLANZapine (ZyPREXA) injection 5 mg(Linked Group 1) 5 mg, Intramuscular, Every 6 hours PRN, Starting on Mon01/23/25 at 0350, Until Mon01/28/25 at 1754, Routine, agitation, agitation if po refused OLANZapine zydis (ZyPREXA) disintegrating tablet 5 mg(Linked Group 1) 5 mg, Sublingual, Every 6 hours PRN, Starting on Mon01/23/25 at 0350, Until Mon01/28/25 at 1754, Routine, agitation Rimegepant Sulfate (Nurtec) orally disintegrating tablet 75 mg 75 mg, Oral, Daily PRN, Starting on Mon01/24/25 at 1555, Until Mon01/28/25 at 1754, Routine, migraine sodium chloride ([place]) 0.65 % nasal spray 1 spray 1 spray, Each Nostril, As needed, Starting on Mon01/23/25 at 1750, Until Mon01/28/25 at 1754, Routine, congestion, nasal irritation Linked Groups Order Group 1: OLANZapine zydis (ZyPREXA) disintegrating tablet 5 mgJump to med 5 mg, Sublingual, Every 6 hours PRN, Starting on Mon01/23/25 at 0350, Until Mon01/28/25 at 1754, Routine, agitation Or OLANZapine (ZyPREXA) injection 5 mgJump to med 5 mg, Intramuscular, Every 6 hours PRN, Starting on Eda 01/23/25 at 0350, Until 01/28/25 at 1754, Routine, agitation, agitation if po refused documented in this encounter Additional Health Concerns Assessment Noted Time PHQ-9 Depression Total Score: 0 01/23/20 6:02 PM EST A fall risk assessment has been complete d for the patient 10/17/2024 1:46 PM EDT A Body Mass Index follow-up plan has been documented for the patient 01/28/2025 3:02 PM EST documented as of this encounter Care Teams Marketing Assistant Relationship Specialty Start Date End Date Marvin Breaux MD [address] [place] [address] [address] [place] [address] PCP - General 05/27/24 documented as of this encounter
--- OUTSIDE RECORDS SUMMARY | 2025-02-04 00:35 | XMS_ITS | Encounter Summary ---
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 MD at 02/05/2025 3:14 PM EST Associated attestation - Ruth Pérez MD - 02/05/2025 3:14 PM EST I saw and evaluated the patient. I discussed the case with the medical student and resident/fellow and agree with the findings and plan as documented. I personally participated in the management of the patient. * H&P - Ronnie Wall MD - 02/04/2025 3:35 AM EST Images from the original note were not included. Subjective Chief complaint Hyponatremia History Of Present Illness Maru Haynes is a 59 y.o. female presenting with past medical history significant for Bipolar 1 Disorder, RA, Schizophrenic Disorder, and psychosis who presents today via EMS as a transfer from [facility] with Abnormal Lab. Per chart review, pt presented to [facility] on 01/22 for increased hallucinations and was found to have a UTI. Pt was ultimately admitted to [facility] and discharged on 01/28. Her aripiprazole was increased to 15 mg and her venlafaxine was decreased to 150 mg at that time. Today, pt was transferred to [facility] from [facility] after stating she needs to stab her to get the evil out of him. Pt was found to be hyponatremia with her initial labs showing NaCl levels of 117 @ 0400 at [facility]. Pt was provided hypertonic IV and improved to 127 @0700, 131 @1200, 137 at 1930. Now, pt presents to [facility] ED c/o being tired and dehydrated. Patient states she is currently feeling better but over the past couple of days she has been very confused and disoriented. Patient denies fever, chills, CP, SOA, N/V/D, SI, HI. Patient has no other complaints at this time. Last meds taken yesterday she thinks. Patient was boarding at [facility] ED and [facility] obs consulted for continued monitoring ofsodium and mental status. Patient has been stable Medical/Surgical/Social/Family History Past Medical History[1] Surgical History[2] Social History[3] Family History[4] Travel History Relevant International Travel History: Travel Screening Question Response Have you been in contact with someone who was sick? No / Unsure Do you have any of the following new or worsening symptoms? None of these Have you traveled internationally or domestically in the last month? No Travel History Travel since 01/05/25 No documented travel since 01/05/25 Immunizations VACCINE / DOSE DATE Flu 01/30/2024 Tetanus 03/21/1997 Pneumovax Shingles Allergies Chantix [varenicline] and Latex Medications Current Medications[5] Objective Physical Exam Constitutional: General: She is not in acute distress. Appearance: She is not ill-appearing. HENT: Head: Normocephalic. Comments: No facial swelling Right Ear: External ear normal. Left Ear: External ear normal. Mouth/Throat: Mouth: Mucous membranes are dry. Pharynx: Oropharynx is clear. Eyes: Extraocular Movements: Extraocular movements intact. Pupils: Pupils are equal, round, and reactive to light. Cardiovascular: Rate and Rhythm: Normal rate and regular rhythm. Heart sounds: Normal heart sounds. Pulmonary: Effort: Pulmonary effort is normal. No respiratory distress. Breath sounds: Normal breath sounds and air entry. No wheezing. Comments: Speaking full sentences. Symmetric chest rise Abdominal: General: Abdomen is flat. There is no distension. Palpations: Abdomen is soft. Tenderness: There is no abdominal tenderness. Musculoskeletal: General: No deformity. Normal range of motion. Cervical back: Normal range of motion. Comments: Atraumatic, moves all extremities spontaneously Skin: General: Skin is warm and dry. Neurological: General: No focal deficit present. Mental Status: She is alert and oriented to person, place, and time. Mental status is at baseline. Comments: Awake Psychiatric: Mood and Affect: Mood normal. Behavior: Behavior normal. Last Recorded Vitals Blood pressure 127/78, pulse 81, temperature 36.6 ??C (97.9 ??F), resp. rate 16, height 1.727 m (5'8 ), SpO2 98%. Results Review I have reviewed the latest lab and imaging results. Assessment & Plan Hyponatremia Labs from 1 week ago with normal sodium, likely represents acute hyponatremia. No changed in mentalstatus/neuro exam since hypertonic saline was given. No focal neuro deficits on my examination. Plan: - q4 sodium checks - Full diet, hold on fluids for now - hold aripiprazole and venlafaxine, all other home meds ordered - consult psych for medication adjustment recommendations - monitor urine output Medically Ready for Discharge:Anticipated Tomorrow [1] Past Medical History: Diagnosis Date Bipolar 1 disorder (CMS/HCC) Migraines RA (rheumatoid arthritis) Schizophrenic disorder (CMS/HCC) [2] Past Surgical History: Procedure Laterality Date NECK SURGERY TOTAL KNEE ARTHROPLASTY [3] Social History Tobacco Use Smoking status: Former Average packs/day: 1 pack/day for 44.0 years (44.0 ttl pk-yrs) Types: Cigarettes Start date: 1979 Passive exposure: Past Smokeless tobacco: Never Vaping Use Vaping status: Former Start date: 04/28/2023 Quit date: 07/28/2023 Substances: Nicotine, Flavoring Devices: Disposable Passive vaping exposure: Yes Substance Use Topics Alcohol use: Not Currently Drug use: Never [4] Family History Problem Relation Name Age of Onset Heart disease Mother Non-Hodgkin's lymphoma Mother [5] No current facility-administered medications for this encounter. Current Outpatient Medications Medication Sig Dispense Refill Adalimumab (Humira, 2 Pen,) 40 MG/0.8ML Auto-injector Kit Inject 1 each under the skin every 14 days. 2 each 5 alendronate (Fosamax) 70 MG tablet Take 1 tablet by mouth 1 time per week. ARIPiprazole (Abilify) 15 MG tablet Take 1 tablet by mouth daily. 30 tablet 0 botulinum toxin Type A, Cosm, (Botox) 100 units reconstituted solution injection cetirizine (ZyrTEC) 10 MG tablet Take 1 tablet by mouth daily. cholecalciferol (Vitamin D-3) 250 MCG (45123 UT) capsule Take 1 capsule by mouth daily. clobetasol (Temovate) 0.05 % cream Apply 1 Application topically as needed (itchiness). cyanocobalamin 2500 MCG tablet Take 2 tablets by mouth daily. folic acid (Folvite) 1 MG tablet Take 1 tablet by mouth 1 (one) time each day. HYDROcodone-acetaminophen (Portage) 10-325 MG tablet Take 1 tablet by [...] succinate XL (Toprol-XL) 100 MG 24 hr tablet Take 1 tablet by mouth 2 times a day. Do not crush or chew. montelukast (Singulair) 10 MG tablet Take 1 tablet by mouth nightly. Nurtec 75 MG orally disintegrating tablet Dissolve 1 tablet on the tongue as needed (migraine). Oay26ou/day rosuvastatin (Crestor) 5 MG tablet Take 1 tablet by mouth nightly. venlafaxine XR (Effexor-XR) 150 MG 24 hr capsule Take 1 capsule by mouth daily with breakfast. Do not crush or chew. 30 capsule 0 Cosigned by Petey Collado MD at 02/04/2025 9:08 AM EST Associated attestation - Petey Collado MD - 02/04/2025 9:08 AM EST I saw and evaluated the patient with the resident/fellow. I discussed the case with the resident/fellow and agree with the findings and plan as documented. I personally spent a total of 35 minutes on this encounter. This time includes face to face with patient, counseling, and discussion and/or coordination of care. * ED Provider Notes - Stephen Bill MD - 02/04/2025 12:35 AM EST Images from the original note were not included. - HPI Chief Complaint Patient presents with Abnormal Lab Maru Haynes is a 59 y.o. female with a past medical history significant for Bipolar 1 Disorder, Schizophrenic Disorder, and psychosis who presents today via EMS as a transfer from [facility] with Abnormal Lab. Per chart review, pt presented to [facility] on 01/22 for increased hallucinations and was found to have a UTI. Pt was ultimately admitted to [facility] and discharged on 01/28. Today, pt was transferred to [facility] from [facility] after stating she needs to stab her to get the evil out of him. Pt was found to be hyponatremia with her initial labs showing NaCl levels of 117 @ 0400 at [facility]. Pt was provided hypertonic IV and improved to 127 @0700 [id number] @1200. Now, pt presents to [facility] ED c/o being tired and dehydrated. Pt endorses knowing of plan to increase sodium at [facility] ED. Patient denies fever, chills, CP, SOA, N/V/D. Patient has no other complaints at this time. History provided by: Patient and medical records park interpreter used: No Patient History Past Medical History[1] Surgical History[2] Family History[3] Social History[4] Allergies: Allergies[5] Physical Exam ED Triage Vitals [02/04/25 0042] Temp Heart Rate Resp BP 36.6 ??C (97.9 ??F) 81 -- 127/78 SpO2 Temp src Heart Rate Source Patient Position 98 % -- -- -- BP Location FiO2 (%) -- -- Physical Exam Constitutional: General: She is not in acute distress. HENT: Head: Normocephalic. Comments: No facial swelling Mouth/Throat: Mouth: Mucous membranes are moist. Pharynx: Oropharynx is clear. Cardiovascular: Rate and Rhythm: Normal rate. Pulmonary: Effort: Pulmonary effort is normal. No respiratory distress. Breath sounds: Normal air entry. Comments: Speaking full sentences. Symmetric chest rise Abdominal: General: There is no distension. Musculoskeletal: General: No deformity. Normal range of motion. Cervical back: Normal range of motion. Comments: Atraumatic, moves all extremities spontaneously Neurological: Mental Status: She is alert. Mental status is at baseline. Comments: Awake Normal neurological exam Psychiatric: Behavior: Behavior normal. No data recorded ED Course & MDM - Clinical Impressions as of 02/04/25 0330 Hyponatremia Maru Haynes is a 59 yrs old female presents today for Chief Complaint Patient presents with Abnormal Lab . Additional history was provided by referring provider from [facility] Complicating her clinical picture is the social fact that her Poor health literacy which puts her at higher risk for treatment failure and subsequent morbidity. Today's care was affected by these factors. Summary of ED Care: Patient is a 59-year-old female who presents today with concerns for osmolar demyelination syndrome. Reportedly had hyponatremia roughly at roughly 4 a.m. the day before arrival and had rapid improvement to roughly 137 x 7:00 p.m.. The [facility] was concerned about the possibility of a osmolar demyelination syndrome even though the patient was completely asymptomatic. She has a normal neurologic exam, speaking clearly in no acute distress. Is placed on hold due the fact that she came from [facility] on a hold for psychosis. She follows commands without difficulty. She is discussed after obtaining basic labs with the Internal Medicine physician and they rec ommended ED observation. Discuss with the ED observation provider and they are agreeable to accept to ED observation at this time Additional MDM Differential Diagnoses: In order to fully explore differential these tests were ordered. All Other Orders Ordered Status Ordering Provider 02/04/25221 Once Specialty: Internal Medicine Provider: (Not yet assigned) Canceled STEPHEN BILL 02/04/25221 Once Canceled STEPHEN BILL 02/04/2540 CBC w/diff STAT Final result STEPHEN BILL 02/04/2540 CMP STAT Final result STEPHEN BILL 02/04/2540 Magnesium STAT Final result STEPHEN BILL 02/04/2540 72 Hour Hold End date: 02/07/2025; End time: 12:41 AM Continuous 72hr Hold Acknowledged STEPHEN BILL Prior Records Review: External records from the chart are reviewed and summarized in the ED course. Reviewed chart from [facility] from visit earlier the day prior Independent Results Review: I saw and interpreted all lab results on labs ordered on the patient. Specific comments on various labs can be found in ED course. Any labs noted in the ED course without specific explanation can be assumed to be pertinent normal results. Prescription Medication Management in ED and Reassessment: Consults and Discussions with other providers: Disposition: Ultimately, this patient was transferred to [facility] (Transfer to [facility]) The encounter diagnosis was Hyponatremia.. Due to the diagnoses patient deemed to require transfer to [facility] for higher level of care. ED Prescriptions None ED Prescriptions None Disposition Observation Date/Time: 02/04/2025/1:05 AM Scribe Attestation: This note was dictated to me, Castillo Pearl, acting as a scribe for Stephen Bill MD. Attending Attestation: The documentation was recorded by Castillo Pearl acting as scribe in my presence at the time of the encounter and accurately reflects the service I personally performed. [1] Past Medical History: Diagnosis Date Bipolar 1 disorder (CMS/HCC) Migraines RA (rheumatoid arthritis) Schizophrenic disorder (CMS/HCC) [2] Past Surgical History: Procedure Laterality Date NECK SURGERY TOTAL KNEE ARTHROPLASTY [3] Family History Problem Relation Name Age of Onset Heart disease Mother Non-Hodgkin's lymphoma Mother [4] Tobacco Use Smoking status: Former Average packs/day: 1 pack/day for 44.0 years (44.0 ttl pk-yrs) Types: Cigarettes Start date: 1979 Passive exposure: Past Smokeless tobacco: Never Vaping Use Vaping status: Former Start date: 04/28/2023 Quit date: 07/28/2023 Substances: Nicotine, Flavoring Devices: Disposable Passive vaping exposure: Yes Substance Use Topics Alcohol use: Not Currently Drug use: Never [5] Allergies Allergen Reactions Chantix [Varenicline] Other - please document in the comment field Sweating profusely Latex Itching and Rash Stephen Bill MD 02/04/25 0330 * ED Triage Notes - Naomi Stephens - 02/04/2025 12:35 AM EST Pt to ED via [place] [employer], pt received blood work from [facility] this morning, was told her Na+ had increased and she needed to come to the hospital. Pt has no complaints at this time. VS normal perEMS. documented in this encounter Plan of Treatment Upcoming Encounters Date Type Department Care Team (Late st Contact Info) Description 02/13/2025 10:50 AM EST [facility] Visit [facility] [address] [place] [address] Lorin Melendez APRN [address] [place] [address] documented as of this encounter Procedures Procedure Name Priority Date/Time Associated Diagnosis Comments RENAL FUNCTION PANEL, PLASMA STAT 02/04/2025 1:58 PM EST C-REACTIVE PROTEIN, PLASMA STAT Add-on 02/04/2025 8:39 AM EST RENAL FUNCTION PANEL, PLASMA STAT 02/04/2025 8:39 AM EST URINALYSIS WITH REFLEX MICROSCOPIC AND CULTURE STAT 02/04/2025 7:49 AM EST URINE PETTY PANEL STAT 02/04/2025 7:49 AM EST URINALYSIS MICROSCOPIC FOR UA REFLEX STAT 02/04/2025 7:49 AM EST DRUG ABUSE SCREEN, URINE STAT 02/04/2025 7:49 AM EST BENZODIAZEPINE, URINE, QUANTITATIVE STAT 02/04/2025 7:49 AM EST URINALYSIS WITH REFLEX MICROSCOPIC STAT 02/04/2025 7:49 AM EST ECG ADULT STAT 02/04/2025 4:53 AM EST TEST QUALITATIVE PLASMA STAT Add-on 02/04/2025 4:45 AM EST RENAL FUNCTION PANEL, PLASMA STAT 02/04/2025 4:45 AM EST CBC WITH AUTO DIFFERENTIAL STAT 02/04/2025 12:52 AM EST MAGNESIUM, PLASMA STAT 02/04/2025 12: 52 AM EST COMPREHENSIVE METABOLIC PANEL, PLASMA STAT 02/04/2025 12:52 AM EST documented in this encounter Results * (ABNORMAL) Renal function panel (02/04/2025 1:58 PM EST) Glucose, Plasma 96 74 - 99 mg/dL 02/04/2025 2:52 PM EST [facility] BUN, Plasma 6(L) 7 - 21 mg/dL 02/04/2025 2:52 PM EST [facility] Creatinine, Plasma 0.73 0.60 - 1.10 mg/dL 02/04/2025 2:52 PM EST [facility] BUN/Creatinine Ratio 8 02/04/2025 2:52 PM EST [facility] Sodium, Plasma 137 136 - 145 mmol/L 02/04/2025 2:52 PM EST [facility] Potassium, Plasma 3.7 3.6 - 4.9 mmol/L 02/04/2025 2:52 PM EST [facility] Chloride, Plasma 104 97 - 107 mmol/L 02/04/2025 2:52 PM EST [facility] CO2, Plasma 22 22 - 29 mmol/L 02/04/2025 2:52 PM EST [facility] Anion Gap 11 6 - 16 mmol/L 02/04/2025 2:52 PM EST [facility] Total Calcium, Plasma 8.4(L) 8.9 - 10.2 mg/dL 02/04/2025 2:52 PM EST [facility] Phosphorus, Plasma 2.6 2.5 - 4.5 mg/dL 02/04/2025 2:52 PM EST [facility] Albumin, Plasma 3.7 3.5 - 5.2 g/dL 02/04/2025 2:52 PM EST [facility] eGFRcr 96.1 mL/min/1.7 3m*2 02/04/2025 2:52 PM EST [facility] Comment:Reported eGFRcr in m L/min/1.73m2 is based the CKD-EPI 2020 equation that does not use a race coefficient. Blood Venous blood specimen / Unknown Venipuncture / Unknown 02/04/2025 1:58 PM EST 02/04/2025 2:01 PM EST us Stephen Bill MD LAB BLOOD ORDERABLES Final Result [facility] [address] [place] [address] * C-reactive protein (02/04/2025 8:39 AM EST) CRP, Plasma 5.7 <=8.0 mg/L 02/04/2025 11:22 AM EST [facility] Blood Venous blood specimen / Unknown Venipuncture / Unknown 02/04/2025 8:39 AM EST 02/04/2025 8:41 AM EST Narrative [facility] - 02/04/2025 11:22 AM EST This CRP test is appropriate for assessment of infection, systemic inflammation and/or tissue injury. To assess cardiovascular disease risk order high sensitivity CRP (CRPH). us Petey Collado MD LAB BLOOD ORDERABLES Final Re sult [facility] [address] [place] [address] * (ABNORMAL) Renal function panel (02/04/2025 8:39 AM EST) Glucose, Plasma 81 74 - 99 mg/dL 02/04/2025 9:00 AM [facility] BUN, Plasma 7 7 - 21 mg/dL 02/04/2025 9:00 AM [facility] Creatinine, Plasma 0.71 0.60 - 1.10 mg/dL 02/04/2025 9:00 AM [facility] BUN/Creatinine Ratio 10 02/04/2025 9:00 AM [facility] Sodium, Plasma 136 136 - 145 mmol/L 02/04/2025 9:00 AM [facility] Potassium, Plasma 4.0 3.6 - 4.9 mmol/L 02/04/2025 9:00 AM [facility] Chloride, Plasma 103 97 - 107 mmol/L 02/04/2025 9:00 AM [facility] CO2, Plasma 23 22 - 29 mmol/L 02/04/2025 9:00 AM [facility] Anion Gap 10 6 - 16 mmol/L 02/04/2025 9:00 AM EST [facility] Total Calcium, Plasma 8.1(L) 8.9 - 10.2 mg/dL 02/04/2025 9:00 AM [facility] Phosphorus, Plasma 2.6 2.5 - 4.5 mg/dL 02/04/2025 9:00 AM EST [facility] Albumin, Plasma 3.7 3.5 - 5.2 g/dL 02/04/2025 9:00 AM EST [facility] eGFRcr 99.3 mL/min/1.7 3m*2 02/04/2025 9:00 AM EST [facility] Comment:Reported eGFRcr in m L/min/1.73m2 is based the CKD-EPI 2020 equation that does not use a race coefficient. Blood Venous blood specimen / Unknown Venipuncture / Unknown 02/04/2025 8:39 AM EST 02/04/2025 8:41 AM EST us Stephen Bill MD LAB BLOOD ORDERABLES Final Result [facility] [address] [place] [address] * Benzodiazepine Confirm Urine (02/04/2025 7:49 AM EST) Alpha OH Alprazolam <20 <20 ng/mL 02/07 6:03 PM EST [facility] Alpha OH Midazolam <20 <20 ng/mL 2024 6:03 PM EST [facility] Alpha [place] Triazolam <20 <20 ng/mL 2024 6:03 PM [facility] Alprazolam <10 <10 ng/mL 02/07/2025 6:03 PM EST [facility] Aminoclonazepam <20 <20 ng/mL 6:03 PM EST [facility] Clonazepam <10 <10 ng/mL 02/07/2025 6:03 PM EST [facility] Diazepam <10 <10 ng/mL 02/07/2025 6:03 PM EST [facility] Lorazepam <20 <20 ng/mL 02/07/2025 6:03 PM [facility] Lorazepam Glucuronide <50 <50 ng/mL 02/07/2025 6:03 PM EST [facility] Midazolam 02/07/2025 6:03 PM EST [facility] Nordiazepam <20 <20 ng/mL 02/07/2025 6:03 PM EST [facility] Oxazepam <20 <20 ng/mL 02/07/2025 6:03 PM EST [facility] Oxazepam Glucuronide <50 <50 ng/mL 01/27 6:03 PM EST [facility] Temazepam <20 <20 ng/mL 02/07/2025 6:03 PM EST [facility] Temazepam Glucuronide <50 <50 ng/mL 02/07/2025 6:03 PM EST [facility] Triazolam 02/07/2025 6:03 PM EST [facility] Urine Urine specimen obtained by clean catch procedure / Unknown Non-blood Collection / Unknown 02/04/2025 7:49 AM EST 02/04/2025 7:51 AM EST Narrative [facility] - 02/07/2025 6:03 PM EST Drug analysis is confirmed by LC-MS/MS (LC Tandem Mass Spectrometry) on Urine specimens. This test was developed and its performance characteristics determined by [facility]. It has not been cleared or approved by the FDA. The laboratory is regulated under CLIA as qualified to perform high-complexity testing. This test is used for clinical purposes. Testing is performed at the [facility]. Petey Collado MD LAB URINE ORDERABLES Final Re sult Performing Organization Address [facility] de Phone Number [facility] [address] [place] [address] * Urinalysis Microscopic Examination (02/04/2025 7:49 AM EST) Urine Urine specimen obtained by clean catch procedure / Unknown Non-blood Collection / Unknown 02/04/2025 7:49 AM EST 02/04/2025 7:51 AM EST Petey Collado MD LAB URINE ORDERABLES Final Re sult Performing Organization Address [facility] Co de Phone Number [facility] [address] [place] [address] * Rapid drug screen, urine (02/04/2025 7:49 AM EST) Amphetamine Screen Urine Negative Cutoff: 500 ng/mL 02/04/2025 8:11 AM [facility] Benzodiazepines Screen Urine Presumptive positive. Confirmation by LC-MS/MS to follow. Cutoff: 200 ng/mL 02/04/2025 8:11 AM [facility] Cannabinoid Screen Urine Negative Cutoff: 50 ng/mL 02/04/2025 8:11 AM [facility] Cocaine Screen Urine Negative Cutoff: 300 ng/mL 02/04/2025 8:11 AM [facility] Barbiturate Screen Urine Negative Cutoff: 200 ng/mL 02/04/2025 8:11 AM [facility] Opiate Screen Urine Negative Cutoff: 300 ng/mL 02/04/2025 8:11 AM [facility] Methadone Screen Urine Negative Cutoff: 300 ng/mL 02/04/2025 8:11 AM [facility] Buprenorphine Screen Urine Negative Cutoff: 10 ng/mL 02/04/2025 8:11 AM [facility] Fentanyl Screen Urine Negative Cutoff: 1 ng/mL 02/04/2025 8:11 AM [facility] Oxycodone Screen Urine Negative Cutoff: 100 ng/mL 02/04/2025 8:11 AM [facility] Urine Urine specimen obtained by clean catch procedure / Unknown Non-blood Collection / Unknown 02/04/2025 7:49 AM EST 02/04/2025 7:51 AM EST us Petey Collado MD LAB URINE ORDERABLES Final Re sult [facility] [address] [place] [address] * Urine Petty Panel (02/04/2025 7:49 AM EST) Extra Reflex urine culture not indicated 02/04/2025 9:02 AM [facility] Urine Urine specimen obtained by clean catch procedure / Unknown Non-blood Collection / Unknown 02/04/2025 7:49 AM EST 02/04/2025 8:00 AM EST us Abhisek A Collado MD LAB URINE ORDERABLES Final Re sult [facility] [address] [place] [address] * (ABNORMAL) Urinalysis with reflex microscopic (Culture NOT Included) (02/04/2025 7:49 AM EST) Color, Urine Yellow LAB URINALYSIS - AUTOMATED METHOD 02/04/2025 8:12 AM [facility] Clarity, Urine Clear LAB URINALYSIS - AUTOMATED METHOD 02/04/2025 8:12 AM [facility] Spec [place], Urine 1.012 1.005 - 1.030 LAB URINALYSIS - AUTOMATED METHOD 02/04/2025 8:12 AM [facility] pH, Urine 6.0 5.0 - 8.0 LAB URINALYSIS - AUTOMATED METHOD 02/04/2025 8:12 AM [facility] Protein, Urine Trace(A) Negative mg/dL LAB URINALYSIS - AUTOMATED METHOD 02/04/2025 8:12 AM [facility] Glucose, Urine Negative Negative mg/dL LAB URINALYSIS - AUTOMATED METHOD 02/04/2025 8:12 AM [facility] Ketones, Urine 15(A) Negative mg/dL LAB URINALYSIS - AUTOMATED METHOD 02/04/2025 8:12 AM [facility] Blood, Urine Small(A) Negative LAB URINALYSIS - AUTOMATED METHOD 02/04/2025 8:12 AM [facility] Bilirubin, Urine Negative Negative LAB URINALYSIS - AUTOMATED METHOD 02/04/2025 8:12 AM [facility] Urobilinogen, Urine 0.2 0.2 to 1.0 mg/dL LAB URINALYSIS - AUTOMATED METHOD 02/04/2025 8:12 AM [facility] Leukocytes, Urine Trace(A) Negative LAB URINALYSIS - AUTOMATED METHOD 02/04/2025 8:12 AM [facility] Nitrite, Urine Negative Negative LAB URINALYSIS - AUTOMATED METHOD 02/04/2025 8:12 AM [facility] RBC, Urine 1 0 to 3 /HPF LAB URINALYSIS - AUTOMATED METHOD 02/04/2025 8:12 AM [facility] Comment:This result was prev iously suppressed from the chart. WBC, Urine 0 - 5 0 to 5 /HPF LAB URINALYSIS - AUTOMATED METHOD 02/04/2025 8:12 AM EST [facility] Comment:This result was prev iously suppressed from the chart. Squamous Epithelial Cells 6 - 10(A) 0 to 5 /HPF LAB URINALYSIS - AUTOMATED METHOD 02/04/2025 8:12 AM EST [facility] Comment:This result was prev iously suppressed from the chart. Hyaline Casts 0 - 2 0 to 5 /LPF LAB URINALYSIS - AUTOMATED METHOD 02/04/2025 8:12 AM EST [facility] Comment:This result was prev iously suppressed from the chart. Bacteria, Urine Negative Negative LAB URINALYSIS - AUTOMATED METHOD 02/04/2025 8:12 AM EST [facility] Comment:This result was prev iously suppressed from the chart. Urine Urine specimen obtained by clean catch procedure / Unknown Non-blood Collection / Unknown 02/04/2025 7:49 AM EST 02/04/2025 7:51 AM EST us Peety Collado MD LAB URINE ORDERABLES Final Re sult [facility] [address] [place] [address] * ECG Adult (02/04/2025 4:53 AM EST) EKG DIAGNOSIS CLASS Abnormal MUSE ECG Ventricular Rate 74 BPM MUSE ECG Atrial Rate 74 BPM MUSE ECG [place] Interval 160 ms MUSE ECG QRSD Interval 82 ms MUSE ECG QT Interval 428 ms MUSE ECG QTC Interval 475 ms MUSE ECG P [place] 38 degrees MUSE ECG R [place] 31 degrees MUSE ECG T Wave [place] 62 degrees MUSE ECG Diagnosis Normal sinus rhythm MUSE ECG Diagnosis Poor R-wave progression ; consider septal infarct, lead placement, or normal variant MUSE ECG Diagnosis Abnormal ECG MUSE ECG Diagnosis MUSE ECG Diagnosis Confirmed by Nola Milligan ([id number]) on 02/04/2025 10:09:35 AM MUSE ECG 02/04/2025 4:53 AM EST 02/04/2025 10:09 AM EST us Petey Collado MD ECG ORDERABLES Final Result MUSE ECG * hCG qualitative (02/04/2025 4:45 AM EST) Test Negative Negative 02/04/2025 6:21 AM EST [facility] Blood Venous blood specimen / Unknown Venipuncture / Unknown 02/04/2025 4:45 AM EST 02/04/2025 5:04 AM EST Narrative [facility] - 02/04/2025 6:21 AM EST Reference Range: Males and non- females: Negative. us Petey Collado MD LAB BLOOD ORDERABLES Final Re sult Performing Organization Address City/[facility]/ZIP Co de Phone Number [facility] [address] [place] [address] * (ABNORMAL) Renal function panel (02/04/2025 4:45 AM EST) Glucose, Plasma 79 74 - 99 mg/dL 02/04/2025 5:37 AM EST [facility] BUN, Plasma 7 7 - 21 mg/dL 02/04/2025 5:37 AM EST [facility] Creatinine, Plasma 0.63 0.60 - 1.10 mg/dL 02/04/2025 5:37 AM EST [facility] BUN/Creatinine Ratio 11 02/04/2025 5:37 AM EST [facility] Sodium, Plasma 138 136 - 145 mmol/L 02/04/2025 5:37 AM EST [facility] Potassium, Plasma 5.0(H) 3.6 - 4.9 mmol/L 02/04/2025 5:37 AM EST [facility] Comment:Hemolyzed - Potassiu m may be falsely elevated by approximately 0.8-1.7 mmol/L. Chloride, Plasma 105 97 - 107 mmol/L 02/04/2025 5:37 AM EST [facility] CO2, Plasma 22 22 - 29 mmol/L 02/04/2025 5:37 AM EST [facility] Anion Gap 11 6 - 16 mmol/L 02/04/2025 5:37 AM EST [facility] Total Calcium, Plasma 8.0(L) 8.9 - 10.2 mg/dL 02/04/2025 5:37 AM EST [facility] Phosphorus, Plasma 2.8 2.5 - 4.5 mg/dL 02/04/2025 5:37 AM EST [facility] Albumin, Plasma 3.7 3.5 - 5.2 g/dL 02/04/2025 5:37 AM EST [facility] eGFRcr 103.6 mL/min/1.7 3m*2 02/04/2025 5:37 AM EST [facility] Comment:Reported eGFRcr in m L/min/1.73m2 is based the CKD-EPI 2020 equation that does not use a race coefficient. Blood Venous blood specimen / Unknown Venipuncture / Unknown 02/04/2025 4:45 AM EST 02/04/2025 5:04 AM EST Stephen Bill MD LAB BLOOD ORDERABLES Final Result Performing Organization Address City/[facility]/ZIP Co de Phone Number [facility] [address] [place] [address] * (ABNORMAL) Magnesium (02/04/2025 12:52 AM EST) Magnesium, Plasma 2.5(H) 1.9 - 2.4 mg/dL 02/04/2025 1:22 AM EST [facility] Blood Venous blood specimen / Unknown Venipuncture / Unknown 02/04/2025 12:52 AM EST 02/04/2025 12:55 AM EST Stephen Bill MD LAB BLOOD ORDERABLES Final Result [facility] [address] [place] [address] * (ABNORMAL) CMP (02/04/2025 12:52 AM EST) Glucose, Plasma 88 74 - 99 mg/dL 02/04/2025 1:22 AM [facility] BUN, Plasma 9 7 - 21 mg/dL 02/04/2025 1:22 AM [facility] Creatinine, Plasma 0.71 0.60 - 1.10 mg/dL 02/04/2025 1:22 AM [facility] BUN/Creatinine Ratio 13 02/04/2025 1:22 AM [facility] Sodium, Plasma 133(L) 136 - 145 mmol/L 02/04/2025 1:22 AM [facility] Potassium, Plasma 4.2 3.6 - 4.9 mmol/L 02/04/2025 1:22 AM [facility] Chloride, Plasma 102 97 - 107 mmol/L 02/04/2025 1:22 AM [facility] CO2, Plasma 24 22 - 29 mmol/L 02/04/2025 1:22 AM [facility] Anion Gap 7 6 - 16 mmol/L 02/04/2025 1:22 AM [facility] Total Calcium, Plasma 8.4(L) 8.9 - 10.2 mg/dL 02/04/2025 1:22 AM [facility] Total Protein 6.6 6.3 - 7.9 g/dL 02/04/2025 1:22 AM [facility] Albumin, Plasma 4.0 3.5 - 5.2 g/dL 02/04/2025 1:22 AM [facility] AST, Plasma 33 10 - 35 U/L 02/04/2025 1:22 AM [facility] ALT, Plasma 24 10 - 35 U/L 02/04/2025 1:22 AM [facility] Alkaline Phosphatase, Plasma 74 46 - 142 U/L 02/04/2025 1:22 AM [facility] Total Bilirubin, Plasma 0.2 0.2 - 1.1 mg/dL 02/04/2025 1:22 AM [facility] eGFRcr 99.3 mL/min/1.7 3m*2 02/04/2025 1:22 AM [facility] Comment:Reported eGFRcr in m L/min/1.73m2 is based the CKD-EPI 2020 equation that does not use a race coefficient. Blood Venous blood specimen / Unknown Venipuncture / Unknown 02/04/2025 12:52 AM EST 02/04/2025 12:55 AM EST us Stephen Bill MD LAB BLOOD ORDERABLES Final Result [facility] [address] [place] [address] * (ABNORMAL) CBC w/diff (02/04/2025 12:52 AM EST) WBC Count 5.45 3.70 - 10.30 10*3/uL LAB HEMATOLOGY METHOD 02/04/2025 12:57 AM EST [facility] RBC Count 4.34 3.90 - 5.20 10*6/uL LAB HEMATOLOGY METHOD 02/04/2025 12:57 AM EST [facility] HGB 12.9 11.2 - 15.7 g/dL LAB HEMATOLOGY METHOD 02/04/2025 12:57 AM EST [facility] HCT 37.7 34.0 - 45.0 % LAB HEMATOLOGY METHOD 02/04/2025 12:57 AM EST [facility] Platelet Count 144(L) 155 - 369 10*3/uL LAB HEMATOLOGY METHOD 02/04/2025 12:57 AM EST [facility] MCV 87 79 - 98 fL LAB HEMATOLOGY METHOD 02/04/2025 12:57 AM EST [facility] MCH 29.7 26.0 - 32.0 pg LAB HEMATOLOGY METHOD 02/04/2025 12:57 AM EST [facility] MCHC 34.2 30.7 - 35.5 g/dL LAB HEMATOLOGY METHOD 02/04/2025 12:57 AM EST [facility] RDW 13.2 11.5 - 14.5 % LAB HEMATOLOGY METHOD 02/04/2025 12:57 AM EST [facility] MPV 8.8 8.8 - 12.5 fL LAB HEMATOLOGY METHOD 02/04/2025 12:57 AM EST [facility] nRBC 0.0 <=0.0 per 100 WBCs LAB HEMATOLOGY METHOD 02/04/2025 12:57 AM EST [facility] Differential Type Automated LAB HEMATOLOGY METHOD 02/04/2025 12:57 AM EST [facility] Neutrophils % 69 % LAB HEMATOLOGY METHOD 02/04/2025 12:57 AM EST [facility] Lymphocytes % 20 % LAB HEMATOLOGY METHOD 02/04/2025 12:57 AM EST [facility] Monocytes % 10 % LAB HEMATOLOGY METHOD 02/04/2025 12:57 AM EST [facility] Eosinophils % 1 % LAB HEMATOLOGY METHOD 02/04/2025 12:57 AM [facility] Basophils % 0 % LAB HEMATOLOGY METHOD 02/04/2025 12:57 AM EST [facility] Immature Granulocytes % 0 % LAB HEMATOLOGY METHOD 02/04/2025 12:57 AM [facility] Neutrophils Absolute 3.75 1.60 - 6.10 10*3/uL LAB HEMATOLOGY METHOD 02/04/2025 12:57 AM EST [facility] Lymphocytes Absolute 1.07(L) 1.20 - 3.90 10*3/uL LAB HEMATOLOGY METHOD 02/04/2025 12:57 AM [facility] Monocytes Absolute 0.53 0.30 - 0.90 10*3/uL LAB HEMATOLOGY METHOD 02/04/2025 12:57 AM EST [facility] Eosinophils Absolute 0.06 0.00 - 0.50 10*3/uL LAB HEMATOLOGY METHOD 02/04/2025 12:57 AM EST [facility] Basophils Absolute 0.02 0.00 - 0.10 10*3/uL LAB HEMATOLOGY METHOD 02/04/2025 12:57 AM EST [facility] Immature Granulocytes Absolute 0.02 0.00 - 0.06 10*3/uL LAB HEMATOLOGY METHOD 02/04/2025 12:57 AM EST [facility] Blood Venous blood specimen / Unknown Venipuncture / Unknown 02/04/2025 12:52 AM EST 02/04/2025 12:55 AM EST Narrative [facility] - 02/04/2025 12:57 AM EST Therapeutic decision making should be based on absolute values, rather than percentages. us Stephen Bill MD LAB BLOOD ORDERABLES Final Result [facility] [address] [place] [address] documented in this encounter Visit Diagnoses Diagnosis Hyponatremia- Primary Hyposmolality and/or hyponatremia documented in this encounter Administered Medications Inactive Administered Medications - up to 3 most recent administrations Medication Order MAR Action Action Date Dose Rate Site acetylcysteine (NAC) capsules 600 mg 600 mg, Oral, 2 times daily, First dose on Mon02/04/25 at 0900, Until DiscontinuedIndications:nutr ional support Given 02/04/2025 9:10 AM EST 600 mg cetirizine (ZyrTEC) tablet 10 mg 10 mg, Oral, Daily, First dose on Mon02/04/25 at 0900, Until Discontinued, RoutineIndications:Seasonal Allergic Rhinitis Given 02/04/2025 9:11 AM EST 10 mg cholecalciferol (Vitamin D-3) capsule 10,000 Units 10,000 Units, Oral, Daily, First dose on Mon02/04/25 at 0900, Until DiscontinuedIndications:Javier min Supplement Given 02/04/2025 9:09 AM EST 10,000 Units cyanocobalamin (Vitamin B-12) tablet 5,000 mcg 5,000 mcg, Oral, Daily, First dose on Mon02/04/25 at 0900, Until DiscontinuedIndications:javier min supplement Given 02/04/2025 9:09 AM EST 5,000 mcg folic acid (Folvite) tablet 1 mg 1 mg, Oral, Daily, First dose on Mon02/04/25 at 0900, Until Discontinued, RoutineIndications:vitamin supplement Given 02/04/2025 9:09 AM EST 1 mg hydroxychloroquine (Plaquenil) tablet 200 mg 200 mg, Oral, Daily, First dose on Mon02/04/25 at 0900, Until Discontinued, RoutineIndications:Rheumatoi d Arthritis Given 02/04/2025 9:10 AM EST 200 mg leflunomide (Arava) tablet 20 mg 20 mg, Oral, Daily, First dose on Mon02/04/25 at 0900, Until Discontinued, RoutineIndications:Rheumatoi d Arthritis Given 02/04/2025 9:10 AM EST 20 mg losartan (Cozaar) tablet 50 mg 50 mg, Oral, Daily, First dose on Mon02/04/25 at 0900, Until Discontinued, Routine Given 02/04/2025 9:10 AM EST 50 mg metoprolol succinate XL (Toprol-XL) 24 hr tablet 100 mg 100 mg, Oral, 2 times daily, First dose on Mon02/04/25 at 0900, Until DiscontinuedIndications:Hype rtension Given 02/04/2025 9:10 AM EST 100 mg sodium chloride 0.9 % flush 10 mL 10 mL, Intravenous, Every 12 hours, First dose on Mon02/04/25 at 0455, Until Discontinued, Routine Given 02/04/2025 9:11 AM EST 10 mL sodium chloride 0.9 % flush 10 mL 10 mL, Intravenous, As needed, Starting on Mon02/04/25 at 0448, Until Mon02/04/25 at 1658, Routine, line care documented in this encounter Active and Recently Administered Medications Times are shown in EST. Scheduled Medication Order 02/02/2025 02/03/2025 02/04/2025 acetylcysteine (NAC) capsules 600 mg 600 mg, Oral, 2 times daily, First dose on Mon02/04/25 at 0900, Until Discontinued 909 (Given - Provid er: Marva Dover RN) cetirizine (ZyrTEC) tablet 10 mg 10 mg, Oral, Daily, First dose on Mon02/04/25 at 0900, Until Discontinued, Routine 910 (Given - Provid er: Marva Dover RN) cholecalciferol (Vitamin D-3) capsule 10,000 Units 10,000 Units, Oral, Daily, First dose on Mon02/04/25 at 0900, Until Discontinued 908 (Given - Provid er: Marva Dover RN) cyanocobalamin (Vitamin B-12) tablet 5,000 mcg 5,000 mcg, Oral, Daily, First dose on Mon02/04/25 at 0900, Until Discontinued 908 (Given - Provid er: Marva Dover RN) folic acid (Folvite) tablet 1 mg 1 mg, Oral, Daily, First dose on Mon02/04/25 at 0900, Until Discontinued, Routine 908 (Given - Provid er: Marva Dover RN) hydroxychloroquine (Plaquenil) tablet 200 mg 200 mg, Oral, Daily, First dose on Mon02/04/25 at 0900, Until Discontinued, Routine 909 (Given - Provid er: Marva Dover RN) leflunomide (Arava) tablet 20 mg 20 mg, Oral, Daily, First dose on Mon02/04/25 at 0900, Until Discontinued, Routine 909 (Given - Provid er: Marva Dover RN) losartan (Cozaar) tablet 50 mg 50 mg, Oral, Daily, First dose on Mon02/04/25 at 0900, Until Discontinued, Routine 909 (Given - Provid er: Marva Dover RN) metoprolol succinate XL (Toprol-XL) 24 hr tablet 100 mg 100 mg, Oral, 2 times daily, First dose on Mon02/04/25 at 0900, Until Discontinued 09 (Given - Provid er: Marva Dover RN) montelukast (Singulair) tablet 10 mg 10 mg, Oral, Nightly, First dose on Mon02/04/25 at 2100, Until Discontinued, Routine rosuvastatin (Crestor) tablet 5 mg 5 mg, Oral, Nightly, First dose on Mon02/04/25 at 2100, Until Discontinued, Routine sodium chloride 0.9 % flush 10 mL(Linked Group 1) 10 mL, Intravenous, Every 12 hours, First dose on Mon02/04/25 at 0455, Until Discontinued, Routine 910 (Given - Provid er: Marva Dover RN)1655 (Due) PRN Medication Order 02/02/2025 02/03/2025 02/04/2025 HYDROcodone-acetaminophen ([place]) 5-325 MG per tablet 10 mg of hydrocodone 10 mg of hydrocodone, Oral, Every 6 hours PRN, Starting on Mon02/04/25 at 0553, Until Mon02/04/25 at 1658, Moderate/Severe Pain > or =3: CPOT; > or =4: FLACC, PAINAD, NPASS, NRS, Vega-Shha Faces; > or =5: DVPRS, NIPS sodium chloride 0.9 % flush 10 mL(Linked Group 1) 10 mL, Intravenous, As needed, Starting on Mon02/04/25 at 0448, Until Mon02/04/25 at 1658, Routine, line care Linked Groups Order Group 1: Insert peripheral IV (CANCELED) Once, On Mon02/04/25 at 0449, For 1 occurrence And Saline lock IV (CANCELED) Once, On Mon02/04/25 at 044, For 1 occurrence And sodium chloride 0.9 % flush 10 mLJump to med 10 mL, Intravenous, Every 12 hours, First dose on Mon02/04/25 at 0455, Until Discontinued, Routine And sodium chloride 0.9 % flush 10 mLJump to med 10 mL, Intravenous, As needed, Starting on Mon02/04/25 at 0448, Until Mon02/04/25 at 1658, Routine, line care documented in this encounter Additional Health Concerns Assessment Noted Time PHQ-9 Depression Total Score: 0 01/23/20 6:02 PM EST A fall risk assessment has been complete d for the patient 10/17/2024 1:46 PM EDT A Body Mass Index follow-up plan has been documented for the patient 02/07/2025 1:19 PM EST documented as of this encounter Care Teams Soda Dialy[employer] Relationship Specialty Start Date End Date Marvin Breaux MD [address] [facility] [address] [place] [address] PCP - General 05/27/24 documented as of this encounter
--- OUTSIDE RECORDS SUMMARY | 2025-02-04 16:56 | XMS_ITS | Encounter Summary ---
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 Reason for Visit * Auth/Cert (Routine) Specialty Diagnoses / Procedures Referred By Dheeraj spann Referred To Contact Diagnoses Psychosis, unspecified psychosis type (CMS/HCC) Rhett Reeves MD [address] [place] [phone] Phone: tel: fax: [facility] [address] [place] [phone] Phone: tel: Referral ID Status Reason Start Date Expiration Date Visits Re quested Visits Authorized [id number] 1 1 Encounter Details Date Type Department Care Team (Latest Contact Info) Description 02/04/2025 4:56 PM EST - 02/07/2025 2:07 PM EST Hospital Encounter [facility] [address] 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 More than 4 times per year 02/04/2025 Do you belong to any clubs o r organizations such as temple groups, unions, fraternal or athletic groups, or [...] more drinks on one occasion? Never 02/04/2025 [facility] [place] [facility] - Occupational Stress Questionnaire Answer Date Recorded [...] any time in the past 12 m [facility], were you homeless or living in a usp (including now)? No 02/04/2025 [facility] Utilities Answer Date Recorded In the past [...] Sign Reading Time Taken Comments Blood Pressure 143/95 02/07/2025 2:04 AM EST Pulse 90 02/07/2025 2:04 AM EST Temperature 36.7 C (98.1 F) 02/07/2025 2:04 AM EST Respiratory Rate - - Oxygen Saturation 96% 02/07/2025 2:04 AM EST Inhaled Oxygen Concentration - - Weight 93 kg (205 lb 0.4 oz) 02/05/2025 2:00 PM EST 01/23/25 Height 172.7 cm (5' 7.99 ) 02/05/2025 3:00 PM ES T Body Mass Index 31.18 02/05/2025 2:00 PM EST documented in this encounter Functional Status * AUDIT-C Score Answer Date of Assessment Author 0 02/04/2025 7:36 PM Toribio Noland RN * Question Answer Date of [...] Date of Assessment Author Scale Used Fernie 02/07/2025 9:52 AM Katerin Wilson RN * Calculated C-SSRS Risk Score (Lifetime/Recent) Answer Date of Assessment Author No Risk Indicated 02/04/2025 12:39 AM Naomi Martinez * Question Answer Date of Assessment Author 1. Wish to be (Past 1 Month) No 12:39 AM Naomi Martinez 2. Non-Specific Active Suici ajson Thoughts (Past 1 Month) No 02/04/2025 12:39 AM Naomi Martinez 6. Suicidal Behavior (Lifetime) No 12:39 AM Naomi Martinez documented as of this encounter Mental Status * Question Answer Entry Date Author Scale Used Fernie 02/07/2025 9:52 AM Katerin Wilson RN documented in this encounter Medications at [...] daily. 04/12/2024 cholecalciferol (Vitamin D-3) 250 MCG (01165 UT) capsuleIndications: VItamin Supplement Take 1 capsule by mouth daily. clobetasol (Temovate) 0.05 % creamIndications:De rmatitis Apply 1 Application topically as needed (itchiness). cyanocobalamin 2500 MCG tabletIndications:v itamin supplement Take 2 tablets by mouth daily. folic acid (Folvite) 1 MG tabletIndications:v itamin supplement Take 1 tablet by mouth 1 time each day. HYDROcodone-acetami nophen (Elba) 10-325 MG tabletIndications:P ain Take 1 tablet [...] yperlipidemia Take 1 tablet by mouth nightly. documented as of this encounter Miscellaneous Notes * Nursing Note - Katerin Ellis RN - 02/07/2025 4:07 PM EST Patient discharged from unit at 1407 accompanied by [facility] staff - ambulatory to [facility] to meet her . Patient denies current SI/HI/AVH at time of discharge, although patient isactively responding to internal stimuli - Providers aware. Patient's belongings/valuables returned and patient verified return of belongings. Safety plan, medications, discharge appointment, crisis in formation, and discharge summary reviewed with the patient. Patient was offered family/significant other involvement which patient declined. Patient was given the opportunity to ask questions and verbally stated understanding of all information reviewed. Discharge review took place at nurses station. Pt understands that they can return to [facility] ED at any time for further psychiatric evaluation or call the suicide hotline which was provided in paperwork. * Care Plan - Katerin Ellis RN - 02/07/2025 4:04 PM EST Problem: Adult Behavioral Health Plan of Care Goal: Plan of Care Review 02/07/2025 1602 by Katerin Ellis RN Outcome: Met Flowsheets (Taken 02/07/2025 1601) Progress: improving Patient Agreement with Plan of Care: agrees Plan of Care Reviewed With: patient 02/07/2025 1602 by Katerin Ellis RN Reactivated 02/07/2025 1601 by Katerin Ellis RN Outcome: Met Flowsheets (Taken 02/07/2025 1601) Progress: improving Patient Agreement with Plan of Care: agrees Plan of Care Reviewed With: patient Goal: Patient-Specific Goal (Individualization) 02/07/2025 1602 by Katerin Ellis RN Outcome: Met Flowsheets Taken 02/07/2025 1601 Patient Personal Strengths: expressive of emotions expressive of needs medication/treatment adherence positive attitude Patient Vulnerabilities: lacks insight into illness limited social skills Taken 02/07/2025 0957 Patient/Family-Specific Goals (Include Timeframe): Patient will not drink above 2000 mL of fluids today Individualized Care Needs: Discharge patient Monitor fluid intake Anxieties, Fears or Concerns: Patient anxious to be discharged 02/07/2025 1602 by Katerin Ellis RN Reactivated 02/07/2025 1601 by Katerin Ellis RN Outcome: Met Flowsheets Taken 02/07/2025 1601 Patient Personal Strengths: expressive of emotions expressive of needs medication/treatment adherence positive attitude Patient Vulnerabilities: lacks insight into illness limited social skills Taken 02/07/2025 0957 Patient/Family-Specific Goals (Include Timeframe): Patient will not drink above 2000 mL of fluids today Individualized Care Needs: Discharge patient Monitor fluid intake Anxieties, Fears or Concerns: Patient anxious to be discharged Goal: Adheres to Safety Considerations for Self and Others 02/07/2025 1602 by Katerin Ellis RN Outcome: Met Flowsheets (Taken 02/07/2025 1601) Adheres to Safety Considerations for Self and Others: achieves outcome 02/07/2025 1602 by Katerin Ellis RN Reactivated 02/07/2025 1601 by Katerin Ellis RN Outcome: Met Flowsheets (Taken 02/07/2025 1601) Adheres to Safety Considerations for Self and Others: achieves outcome Intervention: Develop and Maintain Individualized Safety Plan 02/07/2025 1602 by Katerin Ellis RN Flowsheets (Taken 02/07/2025 1601) Safety Measures: environmental rounds completed monitored by video safety rounds completed 02/07/2025 1601 by Katerin Ellis RN Flowsheets (Taken 02/07/2025 1601) Safety Measures: environmental rounds completed monitored by video safety rounds completed Goal: Absence of New-Onset Illness or Injury 02/07/2025 1602 by Katerin Ellis RN Outcome: Met 02/07/2025 1602 by Katerin Ellis RN Reactivated 02/07/2025 1601 by Katerin Ellis RN Outcome: Met Intervention: Identify and Manage Fall Risk Flowsheets (Taken 02/07/2025 1602) Safety Promotion/Fall Prevention: clutter-free environment maintained nonskid shoes/slippers when out of bed safety round/check completed Goal: Optimized Coping Skills in Response to Life Stressors 02/07/2025 160 by Katerin Ellis RN Outcome: Met Flowsheets (Taken 02/07/2025 1602) Optimized Coping Skills in Response to Life Stressors: achieves outcome 02/07/2025 160 by Katerin Ellis RN Reactivated 02/07/2025 1601 by Katerin Ellis RN Outcome: Met Intervention: Promote Effective Coping Strategies Flowsheets (Taken 02/07/2025 1602) Supportive Measures: active listening utilized self-care encouraged verbalization of feelings encouraged relaxation techniques promoted Goal: Develops/Participates in Therapeutic Darby to Support Successful Transition 02/07/2025 160 by Katerin Ellis RN Outcome: Met Flowsheets (Taken 02/07/2025 1602) Develops/Participates in Therapeutic Darby to Support Successful Transition: achieves outcome 02/07/2025 160 by Katerin Ellis RN Reactivated 02/07/2025 1601 by Katerin Ellis RN Outcome: Met Intervention: Foster Therapeutic Darby Flowsheets (Taken 02/07/2025 1602) Trust Relationship/Rapport: care explained choices provided questions answered questions encouraged thoughts/feelings acknowledged Intervention: Mutually Develop Transition Plan Flowsheets (Taken 02/07/2025 1602) Outpatient/Agency/Support Group Needs: outpatient counseling outpatient medication management Transition Support: community resources reviewed Transportation Anticipated: family or friend will provide Anticipated Discharge Disposition: home with family Transportation Concerns: none Current Discharge Risk: psychiatric illness Concerns to be Addressed: medication mental health Readmission Within the Last 30 Days: no previous admission in last 30 days Patient/Family Anticipated Services at Transition: none Patient/Family Anticipates Transition to: home with family Offered/Gave Vendor List: no Problem: Psychotic Signs/Symptoms Goal: Improved Behavioral Control (Psychotic Signs/Symptoms) 02/07/2025 160 by Katerin Ellis RN Outcome: Met Flowsheets (Taken 02/07/2025 1602) Mutually Determined Action Steps (Improved Behavioral Control): verbalizes personal treatment goal identifies future-oriented goal 02/07/2025 1602 by Katerin Ellis RN Reactivated 02/07/2025 1601 by Katerin Ellis RN Outcome: Met Intervention: Manage Behavior Flowsheets (Taken 02/07/2025 1602) De-Escalation Techniques: appropriate behavior reinforced reoriented Goal: Improved Mood Symptoms 02/07/2025 1602 by Katerin Ellis RN Outcome: Met Flowsheets (Taken 02/07/2025 1602) Mutually Determined Action Steps (Improved Mood Symptoms): identifies personal treatment goal 02/07/2025 1602 by Katerin Ellis RN Reactivated 02/07/2025 1601 by Katerin Ellis RN Outcome: Met Intervention: Optimize Emotion and Mood Flowsheets (Taken 02/07/2025 1602) Supportive Measures: active listening utilized self-care encouraged verbalization of feelings encouraged relaxation techniques promoted Diversional Activity: reading Goal: Improved Sleep (Psychotic Signs/Symptoms) 02/07/2025 1602 by Katerin Ellis RN Outcome: Met Flowsheets (Taken 02/07/2025 1602) Mutually Determined Action Steps (Improved Sleep): sleeps 4-6 hours at night uses relaxation techniques 02/07/2025 1602 by Katerin Ellis RN Reactivated 02/07/2025 1601 by Katerin Ellis RN Outcome: Met Intervention: Promote Healthy Sleep Hygiene Flowsheets (Taken 02/07/2025 1602) Sleep Hygiene Promotion: regular sleep pattern promoted relaxation techniques promoted Goal: Enhanced Social, Occupational or Functional Skills (Psychotic Signs/Symptoms) 02/07/2025 1602 by Katerin Ellis RN Outcome: Met Flowsheets (Taken 02/07/2025 1602) Mutually Determined Action Steps (Enhanced Social, Occupational or Functional Skills): identifies personal strengths identifies support resources 02/07/2025 1602 by Katerin Ellis RN Reactivated 02/07/2025 1601 by Katerin Ellis RN Outcome: Met Intervention: Promote Social, Occupational and Functional Ability Flowsheets (Taken 02/07/2025 1602) Trust Relationship/Rapport: care explained choices provided questions answered questions encouraged thoughts/feelings acknowledged Social Functional Ability Promotion: autonomy promoted social interaction promoted * Callum Sanchez - Katerin Ellis RN - 02/07/2025 1:18 PM EST Images from the original note were not included. [id number] Olanzapine IMPORTANT WARNING: Studies have shown that older adults with dementia (a brain disorder that affects the ability to remember, think clearly, communicate, and perform daily activities and that may cause changes in mood and personality) who take antipsychotics (medications for mental illness) such as olanzapine have an increased chance of during treatment. Older adults with dementia may also have a greater chance of having a stroke or mini-stroke during treatment. Olanzapine is not approved by the Food and Drug Administration (FDA) for the treatment of behavior disorders in older adults with dementia. Talk to the doctor who prescribed this medication if you, afamily member, or someone you care for has dementia and is taking olanzapine. For more information visit the FDA website: https://www.fda.gov/Drugs WHY is this medicine prescribed? Olanzapine is used to treat the symptoms of schizophrenia (a mental illness that causes disturbed or unusual thinking, loss of interest in life, and strong or inappropriate emotions) in adults and teenagers 13 years of age and older. It is also used to treat bipolar disorder (manic depressive disorder; a disease that causes episodes of depression, episodes of angie, and other abnormal moods) in adults and teenagers 13 years of age and older. Olanzapine is in a class of medications called atypical antipsychotics. It works by changing the activity of certain natural substances in the brain. HOW should this medicine be used? Olanzapine comes as a tablet and an orally disintegrating tablet (tablet that dissolves quickly in the mouth) to take by mouth. It is usually taken once a day with or without food. Take olanzapine ataround the same time every day. Follow the directions on your prescription label carefully, and askyour doctor or pharmacist to explain any part you do not understand. Take olanzapine exactly as directed. Do not take more or less of it or take it more often than prescribed by your doctor. Do not try to push the orally disintegrating tablet through the foil. Instead, use dry hands to peel back the foil packaging. Immediately take out the tablet and place it in your mouth. The tablet will quickly dissolve and can be swallowed with or without liquid. Your doctor may start you on a low dose of olanzapine and gradually increase your dose. Olanzapine may help control your symptoms, but it will not cure your condition. It may take severalweeks or longer before you feel the full benefit of olanzapine. Continue to take olanzapine even ifyou feel well. Do not stop taking olanzapine without talking to your doctor. Your doctor will probably want to decrease your dose gradually. Are there OTHER USES for this medicine? This medication may be prescribed for other uses; ask your doctor or pharmacist for more information. What SPECIAL PRECAUTIONS should I follow? Before taking olanzapine, ? tell your doctor and pharmacist if you are allergic to olanzapine or any other medications. ? some medications should not be taken with olanzapine. Other medications may cause dosing changes or extra monitoring when taken with olanzapine. Make sure you have discussed any medications you arecurrently taking or plan to take before starting olanzapine with your doctor and pharmacist. Beforestarting, stopping, or changing any medications while taking olanzapine, please get the advice of your doctor or pharmacist. . ? The following nonprescription products may interact with olanzapine: allergy medications (diphenhydramine, loratadine, fexofenadine, chlorpheniramine or cetirizine); omeprazole (Prilosec). Be sure to let your doctor and pharmacist know that you are taking these medications before you start takingolanzapine. Do not start any of these medications while taking olanzapine without discussing with your healthcare provider. ? tell your doctor if you use or have ever used street drugs or have overused prescription medications and if you have or have ever had a stroke, a mini- stroke, heart disease or a heart attack, an irregular heartbeat, heart failure, urinary problems, seizures, breast cancer, any condition that makes it difficult for you to swallow, trouble keeping your balance, high or low blood pressure, a high level of fats (cholesterol and triglycerides) in your blood, a low number of white blood cells, liver or prostate disease, paralytic ileus (condition in which food cannot move through the intestine); glaucoma (an eye condition), or high blood sugar, or if you or anyone in your family has or has everhad diabetes. Tell your doctor if you have constipation, severe vomiting or diarrhea or signs of dehydration now, or if you develop these symptoms at any time during your treatment. Also tell your doctor if you have ever had to stop taking a medication for mental illness because of severe side effects. ? tell your doctor if you are , especially if you are in the last few months of your , or if you plan to become or are . If you become while taking olanzapine, call your doctor. Olanzapine may cause problems in newborns following delivery if it is taken during the last months of . ? if you are having surgery, including dental surgery, tell the doctor or dentist that you are taking olanzapine. ? you should know that olanzapine may make you drowsy. Do not drive a car or operate machinery until you know how this medication affects you. ? you should know that alcohol can add to the drowsiness caused by this medication. Do not drink alcohol while taking olanzapine. ? tell your doctor if you use tobacco products. Cigarette smoking may decrease the effectiveness ofthis medication. ? you should know that you may experience hyperglycemia (increases in your blood sugar) while you are taking this medication, even if you do not already have diabetes. If you have schizophrenia, you are more likely to develop diabetes than people who do not have schizophrenia, and taking olanzapineor similar medications may increase this risk. Tell your doctor immediately if you have any of the following symptoms while you are taking olanzapine: extreme thirst, frequent urination, extreme hunger, blurred vision, or weakness. It is very important to call your doctor as soon as you have any ofthese symptoms, because high blood sugar can cause a serious condition called ketoacidosis. Ketoacidosis may become life-threatening if it is not treated at an early stage. Symptoms of ketoacidosis include: dry mouth, nausea and vomiting, shortness of breath, breath that smells fruity, and decreased consciousness. ? you should know that olanzapine may cause fast or slow heartbeat, dizziness, lightheadedness, andfainting when you get up too quickly from a lying position. This is more common when you first start taking olanzapine. To avoid this problem, get out of bed slowly, resting your feet on the floor for a few minutes before standing up. ? you should know that olanzapine may make it harder for your body to cool down when it gets very hot. Tell your doctor if you plan to do vigorous exercise or be exposed to extreme heat. ? if you have phenylketonuria (PKU, an inherited condition in which a special diet must be followedto prevent damage to your brain that can cause severe intellectual disability), you should know that the orally disintegrating tablets contain aspartame that forms phenylalanine. ? you should know that when olanzapine is used to treat teenagers, it must be used as part of a total treatment program that may include counseling and educational support. Make sure that your child follows all of the doctor's and/or therapist's instructions. What SPECIAL DIETARY instructions should I follow? Talk to your doctor about eating grapefruit and drinking grapefruit juice while taking this medicine. Be sure to [...] PRECAUTIONS section, call your doctor immediately: ? seizures ? changes in vision ? swelling of the arms, hands, feet, ankles, or lower legs ? unusual movements of your face or body that you cannot control ? falling ? sore throat, fever, chills, and other signs of infection ? very stiff muscles ? excess sweating ? fast or irregular heartbeat ? rash that may occur with fever, swollen glands, or swelling of the face ? skin redness or peeling ? hives ? difficulty breathing or swallowing Olanzapine may cause other side effects. Call your doctor if you have any unusual problems while taking this medication. Taking olanzapine may cause the level of fats in your blood to increase. Talk to your doctor about the risks of taking olanzapine. Teenagers who take olanzapine are more likely than adults who take olanzapine to gain weight, have increased levels of fat in their blood, develop liver problems, and experience side effects such as sleepiness, breast enlargement, and discharge from the breasts. Talk to your child's doctor about the risks of treating your child with olanzapine. Your child's doctor may choose to first prescribe a different medication that does not have these risks. If you experience a serious side effect, [...] heat and moisture (not in the bathroom). Always storethe orally disintegrating tablets in their sealed package, and use them immediately after opening the package. Dispose of unneeded medications in a way so that pets, children, and other people cannot take them.Do not flush this medication down the toilet. Use a medicine take-back program. Talk to your pharmacist about take-back programs in your community. Visit the FDA's Safe Disposal of Medicines website h ttps://goo.gl/c4Rm4p for more information. Keep all medication out of sight and reach of children as many containers are not child-resistant. Always lock safety caps. Place the medication in a safe location - one that is up and away and out of their sight and reach. https://www.upandaway.org What should I do in case of OVERDOSE? In case of overdose, call the poison control helpline at . Information is also available online at https://www.poisonhelp.org/help. If the victim has collapsed, had a seizure, has trouble breathing, or can't be awakened, immediately call emergency services at 911. Symptoms of overdose may include: ? drowsiness ? slurred speech ? agitation ? fast heartbeat ? sudden movements that you cannot control ? coma (loss of consciousness for a period of time) What OTHER INFORMATION should I know? Keep all appointments with your doctor and the laboratory. Your doctor may order certain lab tests to check your body's response to olanzapine. Do not let anyone else take your medication. Ask your pharmacist any questions you have about refilling your prescription. Keep a written list of all of the prescription and nonprescription (akky-thu-rjarkfu) medicines, vitamins, minerals, and dietary supplements you are taking. Bring this list with you each time you visit a doctor or if you are admitted to the hospital. You should carry the list with you in case of galo rgencies. Brand Name(s): ? Zyprexa?? ? Zyprexa?? Zydis ? Symbyax?? (as a combination product containing Fluoxetine, Olanzapine ) also available generically This report on medications is for your information only, and is not considered individual patient advice. Because of the changing nature of drug information, please consult your physician or pharmacist about specific clinical use. The [place] [employer] represents that the information provided hereunder was formulated with a reasonable standard of care, and in conformity with professional standards in the field. The [place] makes no representations or warranties, express or implied, including, but not limited to, any implied warranty of merchantability and/or fitness for a particular purpose, with respect to such information and specifically disclaims all such warranties. Users are advised that decisions regarding drug therapy are complex medical decisions requiring the independent, informed decision of an appropriate health pharmacy customer care specialist, and the information is provided for informational purposes only. The entire monograph for a drug should be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 Signs/Symptoms) Outcome: Ongoing, Progressing Flowsheets (Taken 02/06/20252142) Mutually Determined Action Steps (Improved Sleep): sleeps 4-6 hours at night Goal: Enhanced Social, Occupational or Functional Skills (Psychotic Signs/Symptoms) Outcome: Ongoing, Progressing Flowsheets (Taken 02/06/20252142) Mutually Determined Action Steps (Enhanced Social, Occupational or Functional Skills): identifies personal strengths Intervention: Promote Social, Occupational and Functional Ability Flowsheets (Taken 02/06/20252142) Trust Relationship/Rapport: care explained choices provided empathic listening provided questions encouraged thoughts/feelings acknowledged Social Functional Ability Promotion: opportunity for activity provided self-expression encouraged * Nursing Note - Colton Marin RN - 02/06/2025 5:20 PM EST Pt continues admission on adult [...] plan of care. * Progress Notes - Pamela Israel MD - 02/06/2025 3:53 PM EST Images from the original note were not included. [facility] Daily Progress Note 02/06/2025 Hospital Day #2 Subjective: Per nursing and whiteboard discussion: Nursing reports that in the last 24 hours, patient Maru Haynes, was calm, cooperative, and required no PRN medications for acting out behaviors Per Resident/Rounds Interview: Maru Haynes states that overnight they slept well without nighttime awakenings. This morning, they feel fine. They report No side effects due to medications. Patient reports she does not explicitly hear voices, she only talks to god when she feels like she needs to pray. Informed patient about MRI results showing meningioma. She took the news very well, and was agreeable to follow up with neurosurgery. Additional Collateral: Updated about MRI results and likely discharge tomorrow. ROS: (2-9) Patient denies any problems with [...] the H&P and is unchanged Objective: Temp: [36.7 ??C (98.1 ??F)-36.9 ??C (98.4 ??F)] 36.9 ??C (98.4 ??F) Heart Rate: [91-101] 91 BP: (124-152)/(83-85) 152/85 Sleep: Sleep Total Hours of Sleep: 8 (asleep 3024-3004) Meals: I&O: I/O last 3 completed shifts: In: 1240 (13.3 mL/kg) [P.O.:1240] Out: - (0 mL/kg) Weight: 93 kg I/O this shift: In: 600 [P.O.:600] Out: - EXAMINATION: (12 elements/ 2 systems) [...] rhythm, appropriate price, and coherent speech Mood: fine Affect: euthymic, congruent with stated mood, and broad, full range of affect LOC/Orientation: Awake and Alert, oriented to person, place, time, and general circumstances Cognition/Development/Knowledge: Cognition appears grossly normal, appropriate fund of knowledge for age and level of education Thought Process: linear, organized, and goal-directed Thought Content/Perceptions (AVH): clear, age-appropriate, on topic , mood- congruent, denies auditory/visual hallucination, and does not appear to be reacting to internal stimuli Suicidal Ideation: denied Homicidal Ideation: denied Reliability: patient appears to be reliable and cooperative informant Insight: fair Judgment: fair Medications: Scheduled: Current Scheduled Medications[1] As needed: Current PRN Medications[2] Labs in last 18 hours CBC WBC ?? Hb ?? Plt ?? Hct ?? ANC ?? INR ??, PTT ??, Anti-Xa ?? BMP Na 138 Cl 104 BUN 6 (L) Glu 100 (H) K 3.7 Co2 19 (L) Cr 0.79 Ca 8.5 (L) iCa ?? Mg ??, Phos ?? Lactate ?? LFT AST ?? AlkPhos ?? T Prot ?? ALK ?? Bili ?? Alb ?? D.Bili ?? Encounter Date: 02/04/25 ECG Adult Result Value EKG DIAGNOSIS CLASS Abnormal Ventricular Rate 74 Atrial Rate 74 WA Interval 160 QRSD Interval 82 QT Interval 428 QTC Interval 475 P [place] 38 R [place] 31 T Wave [place] 62 Diagnosis Normal sinus rhythm Diagnosis Poor R-wave progression ; consider septal infarct, lead placement, or normal variant Diagnosis Abnormal ECG Diagnosis Diagnosis Confirmed by Nola Milligan ([id number]) on 02/04/2025 10:09:35 AM *Note: Due to a large number of results and/or encounters for the requested time period, some results have not been displayed. A complete set of results can be found in Results Review. ANTIPSYCHOTIC MONITORING TOOL Current antipsychotic(s): Olanzapine Glucose parameters: Lab Results Component Value Date HGBA1C 5.3 02/03/2025 Lab Results Component Value Date GLUCOSE 100 (H) 02/06/2025 GLUCOSE 94 02/05/2025 Concern for diabetes? No Lipid parameters: Lab Results Component Value Date CHOL 104 02/03/2025 HDL 44 (L) 02/03/2025 LDLCALC 30 02/03/2025 TRIG 189 (H) 02/03/2025 Fasting lipid panel? No Current antidiabetic: N/A Current antilipemic: Rosuvastatin Blood pressure parameters: BP REVIEW BP (ultimate) 02/06/2025 3:39 PM 152/85 02/06/2025 5:31 AM 124/83 02/05/2025 3:00 PM 156/84 02/05/2025 6:03 AM 161/91 Concern for hypertension? Yes Weight parameters: Height: 172.7 cm (5' 7.99 ) Weight: 93 kg (205 lb 0.4 oz) (01/23/25) BMI (Calculated): 31.18 Current antihypertensive: Metoprolol succinate XL 100 mg QTc: 475 EKG Date/Time: 02/04/25 Patient is aged 40-75y and LDL between 70-190 without diabetes, therefore 10-year ASCVD risk calculated below: The ASCVD Risk score (Naheed NUÑEZ, et al., 2019) failed to calculate for the following reasons: The valid total cholesterol range is 130 to 320 mg/dL Patient is already treated with appropriate antilipemic agent. Clinical indication for treatment of metabolic concerns pertaining to ongoing antipsychotic use wasdeferred to primary treatment team for further discussion. Assessment/Plan ASSESSMENT/PLAN Risk Assessment: Patient is currently at an acutely elevated risk of harm to self or others given paranoid delusions. Patient is not demonstrating ANY suicidal intent, DOES NOT appear to be able to control impulsivity, and IS exhibiting any psychiatric symptom burden impacting safety/daily functioning. It should be noted that this patient is at a chronically elevated risk at baseline due to the following exhibited risk factors NOT modifiable by hospitalization demonstrated in their history: historyof psychiatric disorder and impulsivity. The patient does, however, exhibit the following strengths/ protective factors: calm/cooperative, adherent to current medications, demonstrating resolution of symptoms, connected with an outpatient provider, and able to identify reasons for living, cultural/spiritual temple involvement, access to housing, and knowledge of [...] is a 59 y.o. female with a PMHx of HTN, HLD, and RA and reported psychiatric hx of schizophrenia and bipolar disorder who presented to [facility] ED via EMS from facility ([facility]) with concerns of hyponatremia, and admitted 02/04/2025 to Internal Medicine for continued management of h yponatremia. They were subsequently admitted to [facility] 02/04/2025 on 72 hour hold for continued evaluation and management of auditory hallucinations and bizarre delusions. Psychiatric history significant for schizophrenia and bipolar disorder. Recent psychosocial stressors of not having enough conversations with . 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 Patient is not currently endorsing delusions about being poisoned when questioned if she feels safe to return to . She also denies visual and auditory hallucinations, and suicidal ideation. The patient???s prior psychotic episodes are most likely attributable to the newly identified meningioma, as intracranial tumors are known to precipitate delusions and disorganized behavior. 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 2 (much improved) PLAN: Continue Olanzapine 10 mg nightly for psychotic symptoms. Comfort medications PRN Agitation PRNS: Zyprexa 5mg PO/IM Encourage participation in groups and benefit from therapeutic milieu Daily meetings and supportive therapy from treatment team Hold home Abilify 15 mg daily and Venlafaxine 150 mg daily MEDICAL MANAGEMENT 1.) Left Frontoparietal Meningioma Neurosurgery team was consulted Per NS instructions: outpatient neurosurgery referral order placed with follow up in 4 months with repeat MRI 2.) HTN Continue Metoprolol succinate ER 100 mg BID Continue home losartan 50 mg daily 3.) HLD Continue Rosuvastatin 5mg at bedtime 4.) RA Continue Leflunomide 20 mg daily and hydroxychloroquine 200 mg daily. 5.) Polydipsia Sodium within normal range. Recommend patient does not drink water excessively. Disposition: Home with Barriers to discharge: Pending outpatient follow up and safe disposition. I saw and evaluated the patient with the medical student. I discussed the case with the medical student and agree with the findings and plan as documented. This patient was staffed with attending psychiatrist, Dr. Reeves, who agrees with the assessment and plan. Ying Zacarias, MS4 Pamela Israel MD Psychiatry, PGY-1 [facility] [1] cetirizine, 10 mg, Oral, Daily hydroxychloroquine, 200 mg, Oral, Daily leflunomide, 20 mg, Oral, Daily losartan, 50 mg, Oral, Daily metoprolol succinate XL, 100 mg, Oral, BID montelukast, 10 mg, Oral, Nightly OLANZapine zydis, 10 mg, Oral, Nightly rosuvastatin, 5 mg, Oral, Nightly [2] PRN medications: acetaminophen, aluminum & magnesium hydroxide-simethicone, benzocaine, calcium carbonate, clobetasol, HYDROcodone-acetaminophen, hydrOXYzine pamoate, magnesium hydroxide, melatonin, ocular lubricant, OLANZapine zydis OR OLANZapine, sodium chloride Cosigned by Rhett Reeves MD at 02/07/2025 7:33 AM EST Associated attestation - Rhett Reeves MD - 02/07/2025 7:33 AM EST I saw and evaluated the patient. I discussed the case with the medical student and resident/fellow and agree with the findings and plan as documented. I personally participated in the management of the patient. * Group Note - Sheri Guerrero - 02/06/2025 10:36 AM EST Group Topic: Community Group Date: 02/06/2025 Start Time: 929 End Time: 1000 Facilitators: Sheri Guerrero Department: [facility] Inpatient Psychiatry Number of Participants: 6 Group Focus: coping skills Treatment Modality: Patient-Centered Therapy Interventions utilized were exploration Purpose: enhance coping skills Name: Maru Haynes Date of : 1965 MR: [id number] Pt refused group Patients Problems: Patient Active Problem List Diagnosis Psychosis (CMS/HCC) Psychosis, unspecified psychosis type (CMS/HCC) * Care Plan - Colton Marin RN - 02/06/2025 10:32 AM EST Problem: Adult Behavioral Health Plan of Care Goal: Plan of Care Review Outcome: Ongoing, Progressing Flowsheets (Taken 02/06/2025 1031) Progress: improving Patient Agreement with Plan of Care: agrees Goal: Patient-Specific Goal (Individualization) Outcome: Ongoing, Progressing Flowsheets Taken 02/06/2025 1022 Patient/Family-Specific Goals (Include Timeframe): Pt will remain compliant with medications as prescribed throughout the shift Individualized Care Needs: Safety, medications Anxieties, Fears or Concerns: None expressed at this time Taken 02/05/2025 1050 Patient Personal Strengths: expressive of emotions expressive of needs Patient Vulnerabilities: lacks insight into illness Goal: Adheres to Safety Considerations for Self and Others Outcome: Ongoing, Progressing Flowsheets (Taken 02/06/2025 1031) Adheres to Safety Considerations for Self and Others: making progress toward outcome Intervention: Develop and Maintain Individualized Safety Plan Flowsheets (Taken 02/06/2025 1031) Safety Measures: safety rounds completed environmental rounds completed suicide check-in completed monitored by video Goal: Absence of New-Onset Illness or Injury Outcome: Ongoing, Progressing Intervention: Identify and Manage Fall Risk Flowsheets (Taken 02/05/2025 1050) Safety Promotion/Fall Prevention: clutter-free environment maintained Intervention: Prevent Skin Injury Flowsheets (Taken 02/05/2025 1050) Device Skin Pressure Protection: adhesive use limited Skin Protection: protective footwear used Intervention: Prevent VTE (Venous Thromboembolism) Flowsheets (Taken 02/05/2025 2300 by Joaquin Kerr, RN) VTE Prevention/Management: (N/A) other (see comments) Intervention: Prevent Infection Flowsheets (Taken 02/06/2025 1031) Infection Prevention: hand hygiene promoted Goal: Optimized Coping Skills in Response to Life Stressors Outcome: Ongoing, Progressing Flowsheets (Taken 02/06/2025 1031) Optimized Coping Skills in Response to Life Stressors: making progress toward outcome Intervention: Promote Effective Coping Strategies Flowsheets (Taken 02/05/2025 105) Supportive Measures: active listening utilized verbalization of feelings encouraged self-care encouraged positive reinforcement provided Goal: Develops/Participates in Therapeutic Darby to Support Successful Transition Outcome: Ongoing, Progressing Flowsheets (Taken 02/06/2025 1031) Develops/Participates in Therapeutic Darby to Support Successful Transition: making progress toward outcome Intervention: Foster Therapeutic Darby Flowsheets (Taken 02/05/2025 1050) Trust Relationship/Rapport: care explained choices provided emotional support provided empathic listening provided questions encouraged thoughts/feelings acknowledged Intervention: Mutually Develop Transition Plan Flowsheets (Taken 02/05/2025 105) Transportation Concerns: none Patient/Family Anticipated Services at Transition: none Patient/Family Anticipates Transition to: home Problem: Psychotic Signs/Symptoms Goal: Improved Behavioral Control (Psychotic Signs/Symptoms) Outcome: Ongoing, Progressing Flowsheets (Taken 02/05/2025 105) Mutually Determined Action Steps (Improved Behavioral Control): identifies future-oriented goal Goal: Improved Mood Symptoms Outcome: Ongoing, Progressing Goal: Improved Sleep (Psychotic Signs/Symptoms) Outcome: Ongoing, Progressing Goal: Enhanced Social, Occupational or Functional Skills (Psychotic Signs/Symptoms) Outcome: Ongoing, Progressing * Nursing Note - Joaquin Kerr, RN - 02/06/2025 5:47 AM EST Pt continues admission on adult BHU. She returned to the unit from ECT at 1999. Pt is alert and oriented X4. She was cooperative with staff and compliant with her medications. Pt presents with a calmmood and full affect. Her thought content appear grossly organizedShe stated that she was admitted because she wanted to attack her , but she does not feel this way anymore. Pt denies SI/HI/AVH at this time. Her vital signs were stable. Pt stated that her goal for treatment is to be able to be calm and hurt no body. Encouragement was provided for pt to voice any safety concerns to staff.Will continue monitoring for safety and medicating per EMAR. Ashwini implementing plan of care. * Care Plan - Joaquin Kerr RN - 02/05/2025 11:06 PM EST Problem: Adult Behavioral Health Plan of Care Goal: Plan of Care Review Outcome: Ongoing, Progressing Flowsheets (Taken 02/05/2025 1050 by Colton Marin, VALENTE) Progress: improving Patient Agreement with Plan of Care: agrees Plan of Care Reviewed With: patient Goal: Patient-Specific Goal (Individualization) Outcome: Ongoing, Progressing Flowsheets Taken 02/05/2025 2100 by Joaquin Kerr RN Patient/Family-Specific Goals (Include Timeframe): Pt will remain free of harm/injury through the shifts today Individualized Care Needs: Safety rounds Anxieties, Fears or Concerns: Wants to go home Taken 02/05/2025 1050 by Colton Marin, RN Patient Personal Strengths: expressive of emotions expressive of needs Patient Vulnerabilities: lacks insight into illness Goal: Adheres to Safety Considerations for Self and Others Outcome: Ongoing, Progressing Flowsheets (Taken 02/05/2025 1050 by Colton Marin, RN) Adheres to Safety Considerations for Self and Others: making progress toward outcome Intervention: Develop and Maintain Individualized Safety Plan Flowsheets (Taken 02/04/2025 4816 by Sheri Leyva RN) Safety Measures: safety rounds completed monitored by video Goal: Absence of New-Onset Illness or Injury Outcome: Ongoing, Progressing Intervention: Identify and Manage Fall Risk Flowsheets (Taken 02/05/2025 1050 by Colton Marin, RN) Safety Promotion/Fall Prevention: clutter-free environment maintained Intervention: Prevent Skin Injury Flowsheets (Taken 02/05/2025 105 by Colton Marin, RN) Device Skin Pressure Protection: adhesive use limited Skin Protection: protective footwear used Intervention: Prevent VTE (Venous Thromboembolism) Flowsheets (Taken 02/05/2025 2300) VTE Prevention/Management: (N/A) other (see comments) Intervention: Prevent Infection Flowsheets (Taken 02/04/2025 2256 by Sheri Leyva RN) Infection Prevention: hand hygiene promoted Goal: Optimized Coping Skills in Response to Life Stressors Outcome: Ongoing, Progressing Flowsheets (Taken 02/05/2025 105 by Colton Marin, RN) Optimized Coping Skills in Response to Life Stressors: making progress toward outcome Intervention: Promote Effective Coping Strategies Flowsheets (Taken 02/05/20251049 by Colton Marin RN) Supportive Measures: active listening utilized verbalization of feelings encouraged self-care encouraged positive reinforcement provided Goal: Develops/Participates in Therapeutic Darby to Support Successful Transition Outcome: Ongoing, Progressing Flowsheets (Taken 02/05/2025 105 by Colton Marin RN) Develops/Participates in Therapeutic Darby to Support Successful Transition: making progress toward outcome Intervention: Foster Therapeutic Darby Flowsheets (Taken 02/05/2025 105 by Colton Marin, VALENTE) Trust Relationship/Rapport: care explained choices provided emotional support provided empathic listening provided questions encouraged thoughts/feelings acknowledged Intervention: Mutually Develop Transition Plan Flowsheets (Taken 02/05/2025 105 by Colton Marin, RN) Transportation Concerns: none Readmission Within the Last 30 Days: no previous admission in last 30 days Patient/Family Anticipated Services at Transition: none Patient/Family Anticipates Transition to: home Problem: Psychotic Signs/Symptoms Goal: Improved Behavioral Control (Psychotic Signs/Symptoms) Outcome: Ongoing, Progressing Flowsheets (Taken 02/05/2025 105 by Colton Marin, RN) Mutually Determined Action Steps (Improved Behavioral Control): identifies future-oriented goal Intervention: Manage Behavior Flowsheets (Taken 02/05/20251049 by Colton Marin RN) De-Escalation Techniques: appropriate behavior reinforced quiet time facilitated Goal: Improved Mood Symptoms Outcome: Ongoing, Progressing Flowsheets (Taken 02/05/2025 105 by Colton Marin, RN) Mutually Determined Action Steps (Improved Mood Symptoms): engages in physical activity Intervention: Optimize Emotion and Mood Flowsheets (Taken 02/05/2025 1050 by Colton Marin RN) Supportive Measures: active listening utilized verbalization of feelings encouraged self-care encouraged positive reinforcement provided Diversional Activity: art work Goal: Improved Sleep (Psychotic Signs/Symptoms) Outcome: Ongoing, Progressing Flowsheets (Taken 02/04/20252255 by Sheri Leyva RN) Mutually Determined Action Steps (Improved Sleep): sleeps 4-6 hours at night Intervention: Promote Healthy Sleep Hygiene Flowsheets (Taken 02/04/2025 225 by Sheri Leyva RN) Sleep Hygiene Promotion: awakenings minimized room lighting adjusted noise level reduced Goal: Enhanced Social, Occupational or Functional Skills (Psychotic Signs/Symptoms) Outcome: Ongoing, Progressing Flowsheets (Taken 02/05/2025 1050 by Colton Marin RN) Mutually Determined Action Steps (Enhanced Social, Occupational or Functional Skills): identifies personal strengths Intervention: Promote Social, Occupational and Functional Ability Flowsheets Taken 02/05/2025 1050 by Colton Marin RN Trust Relationship/Rapport: care explained choices provided emotional support provided empathic listening provided questions encouraged thoughts/feelings acknowledged Taken 02/04/20252255 by Sheri Leyva RN Social Functional Ability Promotion: opportunity for activity provided self-expression encouraged * Eduardo Haines - 02/05/2025 8:04 PM EST Images from the original note were not included. 1639 Caring for Yourself after Contrast Imaging If you had ORAL contrast: ? You can go back to your normal diet and activities as tolerated. ? Drink plenty of fluids, unless told otherwise. If you had IV contrast: ? You can go back to your normal diet and activities as tolerated. ? Drink plenty of fluids, unless told otherwise. ? Leave a bandage on the site for 30 minutes (where the IV was inserted or blood was drawn). If you had Intravesical (bladder) contrast: ? Return to normal diet and activity. What you need to know about delayed reaction to IV contrast What is IV Contrast? ? Contrast is a dye that is put into your body through an IV. ? It is used for imaging scans such as CT scans and MRIs. ? The contrast makes blood vessels, organs and other parts of your body show up better on the scan. What do I need to do after IV contrast? ? Drink lots of fluids. This will help flush the contrast out of your system. ? Drink 2-3 extra glasses or bottles of water within 4 hours of your scan. What is a contrast reaction? ? A contrast reaction is a bad side effect from the contrast dye. ? It is rare but it does happen. ? They can be mild - such as sneezing, itching, or hives. ? They can be severe - such as trouble breathing, throat swelling, and irregular heart beat. When do these reactions happen? ? They often happen right after the contrast is injected. ? Some happen hours after going home. Go to the nearest Emergency Department right away if you have any of these symptoms after you leavethe clinic or hospital. ? Sneezing ? Itching in your mouth, throat, eyes, ears, or skin ? Rash or hives ? Throwing up or stomach sickness ? High heart rate or ?racing? of your heart ? Feeling dizzy or woozy ? Feeling short of breath or like you can?t take a deep breath ? Feeling very anxious for no other reason It is very important that these reactions be treated. Tell the doctor or nurse that you are having a reaction to IV contrast dye. Do not ignore any sign of a reaction! All reactions must be assessed by a doctor. Call 911 if you are alone and your reaction is more than mild sneezing or itching. If you have a mild reaction, call to speak with a Radiologist, explain that you havehad a contrast reaction, as this needs to be added to your medical record. * Group Note - Umm Staples - 02/05/2025 6:25 PM EST Group Topic: Leisure Skills Group Date: 02/05/2025 Start Time: 1400 End Time: 1700 Facilitators: Umm Staples Department: [facility] Inpatient Psychiatry Number of Participants: 6 Group Focus: coping skills Treatment Modality: Leisure Development Interventions utilized were leisure development Purpose: enhance coping skills Name: Maru Haynes Date of : 1965 MR: [id number] Level of Participation: moderate Quality of Participation: cooperative, engaged, and initiates communication Interactions with others: gave feedback Mood/Affect: appropriate Triggers (if applicable): Cognition: coherent/clear Progress: Moderate Response: Pt was engaged in painting activity throughout. Conversational when approached. Plan: patient will be encouraged to attend all groups Patients Problems: Patient Active Problem List Diagnosis Psychosis (CMS/HCC) Psychosis, unspecified psychosis type (CMS/HCC) * Nursing Note - Colton Marin RN - 02/05/2025 3:37 PM EST Pt continues admission on adult [...] will continue to be medicated per EMAR. PRN Elba provided - effective Encouragement provided and will continue to monitor for safety, encourage patient to voice safety concerns, and implement current plan of care. * Consults - Lynn Wright RD - 02/05/2025 3:03 PM ESTAssociated Order(s): IP CONSULT TO NUTRITION SERVICES Adult Nutrition Evaluation Note Maru Haynes 59 y.o. female CSN: [id number] Room/Bed 349/349A Nutrition evaluation type: assessment Reason for evaluation: provider consult Hospital course: 59 y.o. female who initially presented with hyponatremia. Concern for psychosis and pt was transferred to [facility]. Past medical/ surgical history: Past Medical History[1] Surgical History[2] Social history: former tobacco and vape use Additional comments: Met with pt in the U. Pt reported she has a good appetite and denied GI symptoms.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 RA Continue Leflunomide 20 mg daily and hydroxychloroquine 200 mg daily. 4.) Polydipsia Sodium within normal range. Recommend patient does not drink water excessively. Disposition: TBD Barriers to discharge: psychotic symptom burden I saw and evaluated the patient with the medical student. I discussed the case with the medical student and agree with the findings and plan as documented. This patient was staffed with attending psychiatrist, Dr. Reeves, who agrees with the assessment and plan. Ying Israel MD Psychiatry, PGY-1 [facility] Note to patient: The Cures Act makes medical notes like these [...] profusely Latex Itching and Rash Cosigned by Rhett Reeves MD at 02/06/2025 7:56 AM EST Associated attestation - Rhett Reeves MD - 02/06/2025 7:56 AM EST I saw and evaluated the patient. I discussed the case with the medical student and resident/fellow and agree with the findings and plan as documented. I personally participated in the management of the patient. * Nursing Note - Sheri Leyva RN - 02/05/2025 12:25 AM EST Pt denies SI/HI/AVH at this time. Pt continues to comply with medication regimen, and will continueto be medicated per EMAR. Encouragement provided and will continue to monitor for safety, encouragepatient to voice safety concerns, and implement current plan of care. * Care Plan - Sheri Leyva RN - 02/04/2025 10:59 PM EST Problem: Adult Behavioral Health Plan of Care Goal: Plan of Care Review Outcome: Ongoing, Progressing Flowsheets (Taken 02/04/20252255) Progress: improving Patient Agreement with Plan of Care: agrees Plan of Care Reviewed With: patient Goal: Patient-Specific Goal (Individualization) Outcome: Ongoing, Progressing Flowsheets Taken 02/04/20252255 Patient Personal Strengths: expressive of needs Patient Vulnerabilities: lacks insight into illness Taken 02/04/20252099 Patient/Family-Specific Goals (Include Timeframe): pt will be medication compliant Individualized Care Needs: saftey checks Anxieties, Fears or Concerns: none stated Goal: Adheres to Safety Considerations for Self and Others Outcome: Ongoing, Progressing Flowsheets (Taken 02/04/20252255) Adheres to Safety Considerations for Self and Others: making progress toward outcome Intervention: Develop and Maintain Individualized Safety Plan Flowsheets (Taken 02/04/20252255) Safety Measures: safety rounds completed monitored by video Goal: Absence of New-Onset Illness or Injury Outcome: Ongoing, Progressing Intervention: Identify and Manage Fall Risk Flowsheets (Taken 02/04/20252255) Safety Promotion/Fall Prevention: clutter-free environment maintained Intervention: Prevent Infection Flowsheets (Taken 02/04/20252255) Infection Prevention: hand hygiene promoted Goal: Optimized Coping Skills in Response to Life Stressors Outcome: Ongoing, Progressing Flowsheets (Taken 02/04/20252255) Optimized Coping Skills in Response to Life Stressors: making progress toward outcome Intervention: Promote Effective Coping Strategies Flowsheets (Taken 02/04/20252255) Supportive Measures: active listening utilized self-care encouraged Goal: Develops/Participates in Therapeutic Darby to Support Successful Transition Flowsheets (Taken 02/04/20252255) Develops/Participates in Therapeutic Darby to Support Successful Transition: making progress toward outcome Intervention: Foster Therapeutic Darby Flowsheets (Taken 02/04/20252255) Trust Relationship/Rapport: empathic listening provided questions encouraged care explained Problem: Psychotic Signs/Symptoms Goal: Improved Behavioral Control (Psychotic Signs/Symptoms) Outcome: Ongoing, Progressing Flowsheets (Taken 02/04/20252255) Mutually Determined Action Steps (Improved Behavioral Control): identifies future-oriented goal Intervention: Manage Behavior Flowsheets (Taken 02/04/20252255) De-Escalation Techniques: medication administered Goal: Improved Mood Symptoms Outcome: Ongoing, Progressing Flowsheets (Taken 02/04/20252255) Mutually Determined Action Steps (Improved Mood Symptoms): engages in physical activity Intervention: Optimize Emotion and Mood Flowsheets (Taken 02/04/20252255) Supportive Measures: active listening utilized self-care encouraged Goal: Improved Sleep (Psychotic Signs/Symptoms) Outcome: Ongoing, Progressing Flowsheets (Taken 02/04/20252255) Mutually Determined Action Steps (Improved Sleep): sleeps 4-6 hours at night Intervention: Promote Healthy Sleep Hygiene Flowsheets (Taken 02/04/20252255) Sleep Hygiene Promotion: awakenings minimized room lighting adjusted noise level reduced Goal: Enhanced Social, Occupational or Functional Skills (Psychotic Signs/Symptoms) Outcome: Ongoing, Progressing Flowsheets (Taken 02/04/20252255) Mutually Determined Action Steps (Enhanced Social, Occupational or Functional Skills): identifies personal strengths Intervention: Promote Social, Occupational and Functional Ability Flowsheets (Taken 02/04/20252255) Trust Relationship/Rapport: empathic listening provided questions encouraged care explained Social Functional Ability Promotion: opportunity for activity provided self-expression encouraged * Nursing Note - Benita Jose RN - 02/04/2025 7:27 PM EST Patient arrived to unit at 1656. Patient cooperative with skin/ belongings/ lice check with no significant findings. Pt signed consents. Patient presents with calm mood and full affect. Continues to have temple delusions and thoughts of hurting of hurting her because he is the devil. Alert and oriented x 4. Patient denies SI/HI/VH but endorses AH of voices. Patient was oriented to unit/ policies and given toiletries and given opportunity to ask questions. Will continue to monitor. * Care Plan - Benita Jose RN - 02/04/2025 7:27 PM EST Problem: Adult Behavioral Health Plan of Care Goal: Plan of Care Review Outcome: Ongoing, Progressing Flowsheets (Taken 02/04/20251925) Progress: improving Patient Agreement with Plan of Care: agrees Plan of Care Reviewed With: patient Note: Cooperative with admit Goal: Patient-Specific Goal (Individualization) Outcome: Ongoing, Progressing Flowsheets (Taken 02/04/20251925) Patient Personal Strengths: appropriate judgment/decision-making expressive of emotions expressive of needs family/social support Patient Vulnerabilities: lacks insight into illness Patient/Family-Specific Goals (Include Timeframe): patient hopes to tour unit before 0- goal met Individualized Care Needs: q15 min checks Anxieties, Fears or Concerns: new admission Goal: Adheres to Safety Considerations for Self and Others Outcome: Ongoing, Progressing Flowsheets (Taken 02/04/20251925) Adheres to Safety Considerations for Self and Others: making progress toward outcome Goal: Absence of New-Onset Illness or Injury Outcome: Ongoing, Progressing Note: No injury Goal: Optimized Coping Skills in Response to Life Stressors Outcome: Ongoing, Progressing Flowsheets (Taken 02/04/20251925) Optimized Coping Skills in Response to Life Stressors: making progress toward outcome Goal: Develops/Participates in Therapeutic Darby to Support Successful Transition Outcome: Ongoing, Progressing Flowsheets (Taken 02/04/20251925) Develops/Participates in Therapeutic Darby to Support Successful Transition: making progress toward outcome Problem: Psychotic Signs/Symptoms Goal: Improved Behavioral Control (Psychotic Signs/Symptoms) Outcome: Ongoing, Progressing Flowsheets (Taken 02/04/20251925) Mutually Determined Action Steps (Improved Behavioral Control): identifies future-oriented goal Goal: Improved Mood Symptoms Outcome: Ongoing, Progressing Flowsheets (Taken 02/04/20251925) Mutually Determined Action Steps (Improved Mood Symptoms): identifies personal treatment goal acknowledges progress Goal: Improved Sleep (Psychotic Signs/Symptoms) Outcome: Ongoing, Progressing Flowsheets (Taken 02/04/20251925) Mutually Determined Action Steps (Improved Sleep): remains out of bed during day Goal: Enhanced Social, Occupational or Functional Skills (Psychotic Signs/Symptoms) Outcome: Ongoing, Progressing Flowsheets (Taken 02/04/20251925) Mutually Determined Action Steps (Enhanced Social, Occupational or Functional Skills): identifies support resources * Significant Event - Antonio Reardon MD - 02/04/2025 5:05 PM EST Images from the original note were not included. Psychiatry Interim Summary 02/04/2025 Maru Haynes arrived to [facility] Behavioral Health Unit from [facility] Service(s) for inpatient psychiatric admission. Per Policy, patient was personally seen by this provider on arrival to unit. Questions/concerns addressed. Chart reviewed and case discussed with consult-liaison provider. Patient remains medically appropriate for treatment on an inpatient psychiatric unit. Will be evaluated by treatment team on U in the morning. A resident physician is available at all times for changes or questions regarding care. Please utilize appropriate means of communication which can be viewed on [employer] [place]. 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 Expected: 06/07/2025, Expires: 08/10/2026 documented as of this encounter Procedures Procedure Name Priority Date/Time Associated Diagnosis Comments BASIC METABOLIC PANEL, PLASMA Routine 02/06/2025 7:08 AM EST MR HEAD W AND WO IV CONTRAST Routine 02/05/2025 8:04 PM EST PHOSPHORUS, PLASMA Routine 02/05/2025 5: 10 AM EST MAGNESIUM, PLASMA Routine 02/05/2025 5:1 0 AM EST BASIC METABOLIC PANEL, PLASMA Routine 02/05/2025 5:10 AM EST documented in this encounter Results * (ABNORMAL) Basic Metabolic Panel, Plasma (02/06/2025 7:08 AM EST) Glucose, Plasma 100(H) 74 - 99 mg/dL 02/06/2025 7:47 AM EST [facility] BUN, Plasma 6(L) 7 - 21 mg/dL 02/06/2025 7:47 AM EST [facility] Creatinine, Plasma 0.79 0.60 - 1.10 mg/dL 02/06/2025 7:47 AM EST [facility] BUN/Creatinine Ratio 8 02/06/2025 7:47 AM EST [facility] Sodium, Plasma 138 136 - 145 mmol/L 02/06/2025 7:47 AM EST [facility] Potassium, Plasma 3.7 3.6 - 4.9 mmol/L 02/06/2025 7:47 AM EST [facility] Chloride, Plasma 104 97 - 107 mmol/L 02/06/2025 7:47 AM EST [facility] CO2, Plasma 19(L) 22 - 29 mmol/L 02/06/2025 7:47 AM EST [facility] Anion Gap 15 6 - 16 mmol/L 02/06/2025 7:47 AM EST [facility] Total Calcium, Plasma 8.5(L) 8.9 - 10.2 mg/dL 02/06/2025 7:47 AM EST [facility] eGFRcr 87.4 mL/min/1.7 3m*2 02/06/2025 7:47 AM EST [facility] Comment:Reported eGFRcr in m L/min/1.73m2 is based the CKD-EPI 2020 equation that does not use a race coefficient. Blood Venous blood specimen / Unknown Venipuncture / Unknown 02/06/2025 7:08 AM EST 02/06/2025 7:26 AM EST us Rhett Reeves MD LAB BLOOD ORDERABLES Final Re sult [facility] [address] [place] [address] * MR Head w and wo IV Contrast (02/05/2025 8:04 PM EST) Anatomical Region Laterality Modality Head Magnetic Resonan ce Impressions 02/06/2025 12:05 AM EST 1. Moderate nonspecific white matter changes which may be related to chronic small vessel ischemia and are somewhat advanced for age. Alternative differential considerations include vasculopathy, infectious, or inflammatory etiologies. 2. Small extra-axial enhancing lesion along the left frontoparietal convexity, most likely representing meningioma. No significant mass effect. CRITICAL RESULT: No. COMMUNICATION: Per this written report. Drafted by Satya Sosa MD on 02/05/2025 11:47 PM Final report signed by Satya Sosa MD on 02/06/2025 12:05 AM Narrative 02/06/2025 12:05 AM EST CLINICAL INDICATION: Mental status change, unknown cause TECHNIQUE: Multiplanar multiecho sequences were performed through the brain utilizing T1 and T2 weighting, as well as either axial susceptibility weighted or gradient echo sequences, and axial diffusion weighted images. Imaging was performed with and without contrast administration: 9.3 mL of Gadavist. COMPARISON: None. FINDINGS: Diagnostic Quality: Adequate. Extra-axial enhancing lesion along the left frontoparietal convexity measuring 9 x 9 mm in the coronal plane (series 14 image 18). There are dural tails of enhancement adjacent to the lesion. The findings are suggestive of meningioma. No significant mass effect. No additional enhancing intracranial lesions are identified. Moderate patchy T2 hyperintensity within the supratentorial white matter, which is nonspecific, but may be related to chronic small vessel ischemia, and is somewhat advanced for age. The ventricles and sulci are normal in size. There is no abnormal parenchymal susceptibility artifact or restricted diffusion. Vascular Flow Voids: Normal. Paranasal Sinuses and Mastoid Air Cells: Retention cysts in the right maxillary sinus. Partial bilateral mastoid opacification. Orbits: No definite masses within the limitations of the study. Extracranial Findings: None. Craniocervical Junction and Skull Base: No tonsillar ectopia or mass is present. Procedure Note Satya Sosa MD - 02/06/2025 CLINICAL INDICATION: Mental status change, unknown cause TECHNIQUE: Multiplanar multiecho sequences were performed through the brain utilizingT1 and T2 weighting, as well as either axial susceptibility weighted orgradient echo sequences, and axial diffusion weighted images. Imaging wasperformed with and without contrast administration: 9.3 mL of Gadavist. COMPARISON: None. FINDINGS: Diagnostic Quality: Adequate. Extra-axial enhancing lesion along the left frontoparietal convexitymeasuring 9 x 9 mm in the coronal plane (series 14 image 18). There aredural tails of enhancement adjacent to the lesion. The findings aresuggestive of meningioma. No significant mass effect. No additionalenhancing intracranial lesions are identified. Moderate patchy T2 hyperintensity within the supratentorial white matter,which is nonspecific, but may be related to chronic small vessel ischemia,and is somewhat advanced for age. The ventricles and sulci are normal in size. There is no abnormal parenchymal susceptibility artifact or restricteddiffusion. Vascular Flow Voids: Normal. Paranasal Sinuses and Mastoid Air Cells: Retention cysts in the rightmaxillary sinus. Partial bilateral mastoid opacification. Orbits: No definite masses within the limitations of the study. Extracranial Findings: None. Craniocervical Junction and Skull Base: No tonsillar ectopia or mass ispresent. IMPRESSION: 1. Moderate nonspecific white matter changes which may be related tochronic small vessel ischemia and are somewhat advanced for age.Alternative differential considerations include vasculopathy, infectious,or inflammatory etiologies. 2. Small extra-axial enhancing lesion along the left frontoparietalconvexity, most likely representing meningioma. No significant masseffect. CRITICAL RESULT: No. COMMUNICATION: Per this written report. Drafted by Satya Sosa MD on 02/05/2025 11:47 PM Final report signed by Satya Sosa MD on 02/06/2025 12:05 AM us Rhett Reeves MD IM MRI PROCEDURES Final Resu lt * Phosphorus (02/05/2025 5:10 AM EST) Phosphorus, Plasma 3.1 2.5 - 4.5 mg/dL 02/05/2025 5:58 AM EST [facility] Blood Venous blood specimen / Unknown Venipuncture / Unknown 02/05/2025 5:10 AM EST 02/05/2025 5:36 AM EST us Rhett Reeves MD LAB BLOOD ORDERABLES Final Re sult Performing Organization Address City/[facility]/ZIP Co de Phone Number [facility] [address] [place] [address] * Magnesium (02/05/2025 5:10 AM EST) Magnesium, Plasma 2.1 1.9 - 2.4 mg/dL 02/05/2025 5:58 AM EST [facility] Blood Venous blood specimen / Unknown Venipuncture / Unknown 02/05/2025 5:10 AM EST 02/05/2025 5:36 AM EST us Rhett Reeves MD LAB BLOOD ORDERABLES Final Re sult Performing Organization Address [facility] de Phone Number [facility] [address] [place] [address] * (ABNORMAL) Basic Metabolic Panel, Plasma (02/05/2025 5:10 AM EST) Glucose, Plasma 94 74 - 99 mg/dL 02/05/2025 5:58 AM EST [facility] BUN, Plasma 5(L) 7 - 21 mg/dL 02/05/2025 5:58 AM EST [facility] Creatinine, Plasma 0.71 0.60 - 1.10 mg/dL 02/05/2025 5:58 AM EST [facility] BUN/Creatinine Ratio 7 02/05/2025 5:58 AM EST [facility] Sodium, Plasma 144 136 - 145 mmol/L 02/05/2025 5:58 AM EST [facility] Potassium, Plasma 3.7 3.6 - 4.9 mmol/L 02/05/2025 5:58 AM EST [facility] Chloride, Plasma 112(H) 97 - 107 mmol/L 02/05/2025 5:58 AM EST [facility] CO2, Plasma 21(L) 22 - 29 mmol/L 02/05/2025 5:58 AM EST [facility] Anion Gap 11 6 - 16 mmol/L 02/05/2025 5:58 AM EST [facility] Total Calcium, Plasma 8.3(L) 8.9 - 10.2 mg/dL 02/05/2025 5:58 AM EST [facility] eGFRcr 99.3 mL/min/1.7 3m*2 02/05/2025 5:58 AM EST [facility] Comment:Reported eGFRcr in m L/min/1.73m2 is based the CKD-EPI 2020 equation that does not use a race coefficient. 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 HTN (hypertension) Unspecified essential hypertension HLD (hyperlipidemia) Other and unspecified hyperlipidemia Rheumatoid arthritis (CMS/HCC) Polydipsia Meningioma (CMS/HCC) Benign neoplasm of cerebral meninges documented in this encounter Admitting Diagnoses Diagnosis Psychosis, unspecified psychosis type (CMS/HCC) documented in this encounter Administered Medications Active Administered Medications - up to 3 most recent administrations Medication Order MAR Action Action Date Dose Rate Site acetaminophen (Tylenol) tablet 650 mg 650 mg, Oral, Every 6 hours PRN, Starting on Mon02/04/25 at 1216, Until Discontinued, Routine, Mild + Pain > or =1: CPOT, DVPRS, FLACC, PAINAD, NPASS, NRS, Vega-Shah Faces; > or =2: NIPS , Moderate/Severe Pain > or =3: CPOT; > or =4: FLACC, PAINAD, NPASS, NRS, Vega-Shah Faces; > or =5: DVPRS, NIPS , headaches Given 02/06/2025 8:14 PM EST 650 mg Given 02/06/2025 4:07 PM EST 650 mg aluminum & magnesium hydroxide-simethicone (Mylanta) 200-200-20 MG/5ML oral suspension 10 mL 10 mL, Oral, 4 times daily PRN, Starting on Mon02/04/25 at 1216, Until Discontinued, Routine, indigestion, nausea benzocaine (Orajel) 10 % mucosal gel 1 Application Mouth/Throat, 4 times daily PRN, Starting on Mon02/04/25 at 1216, Until Discontinued, Routine, mild to moderate oral pain calcium carbonate (Tums) chewable tablet 750 mg 750 mg, Oral, 4 times daily PRN, Starting on Mon02/04/25 at 1216, Until Discontinued, Routine, heartburn cetirizine (ZyrTEC) tablet 10 mg 10 mg, Oral, Daily, First dose on Mon02/05/25 at 0900, Until Discontinued, RoutineIndications:Seasonal Allergic Rhinitis Given 02/07/2025 8:4 9 AM EST 10 mg Given 02/06/2025 8:55 AM EST 10 mg Given 02/05/2025 9:47 AM EST 10 mg HYDROcodone-acetaminophen (Elba) 5-325 MG per tablet 10 mg of hydrocodone 10 mg of hydrocodone, Oral, Every 4 hours PRN, Starting on Mon02/04/25 at 1228, Until Discontinued, Moderate/Severe Pain > or =3: CPOT; > or =4: FLACC, PAINAD, NPASS, NRS, Vega-Shah Faces; > or =5: DVPRS, NIPSIndications:Pain Given 02/07/2025 8:56 AM EST 10 mg of hydroco done Given 02/06/2025 9:13 AM EST 10 mg of hydrocodone Given 02/05/2025 10:15 AM EST 10 mg of hydrocodone hydroxychloroquine (Plaquenil) tablet 200 mg 200 mg, Oral, Daily, First dose on Mon02/05/25 at 0900, Until Discontinued, RoutineIndications:Rheumatoid Arthritis Given 02/07/2025 8:49 AM EST 200 mg Given 02/06/2025 9:13 AM EST 200 mg Given 02/05/2025 9:47 AM EST 200 mg hydrOXYzine pamoate (Vistaril) capsule 25 mg 25 mg, Oral, Every 6 hours PRN, Starting on Mon02/04/25 at 1216, Until Discontinued, Routine, anxiety, itching Given 02/06/2025 8:16 PM EST 25 mg Given 02/05/2025 10:42 PM EST 25 mg Given 02/04/2025 8:32 PM EST 25 mg leflunomide (Arava) tablet 20 mg 20 mg, Oral, Daily, First dose on Mon02/05/25 at 0900, Until Discontinued, RoutineIndications:Rheumatoid Arthritis Given 02/07/2025 8:49 AM EST 20 m g Given 02/06/2025 9:13 AM EST 20 mg Given 02/05/2025 9:48 AM EST 20 mg losartan (Cozaar) tablet 50 mg 50 mg, Oral, Daily, First dose on Mon02/05/25 at 0900, Until Discontinued, RoutineIndications:Hypertension Given 02/07/2025 8:49 AM EST 50 mg Given 02/06/2025 8:55 AM EST 50 mg Given 02/05/2025 9:46 AM EST 50 mg magnesium hydroxide (Milk of Magnesia) 400 MG/5ML suspension 15 mL 15 mL, Oral, Daily PRN, Starting on Mon02/04/25 at 1216, Until Discontinued, Routine, constipation melatonin tablet 3 mg 3 mg, Oral, Nightly PRN, Starting on Mon02/04/25 at 1216, Until Discontinued, Routine, sleep Given 02/06/2025 8:17 PM EST 3 mg Given 02/04/2025 8:32 PM EST 3 mg metoprolol succinate XL (Toprol-XL) 24 hr tablet 100 mg 100 mg, Oral, 2 times daily, First dose on Mon02/04/25 at 2100, Until DiscontinuedIndications:Hypertension Given 02/07/2025 8:49 AM EST 100 mg Given 02/06/2025 8:16 PM EST 100 mg Given 02/06/2025 8:55 AM EST 100 mg montelukast (Singulair) tablet 10 mg 10 mg, Oral, Nightly, First dose on Mon02/04/25 at 2100, Until Discontinued, RoutineIndications:Asthma Given 02/06/2025 8:14 PM EST 10 mg Given 02/05/2025 9:40 PM EST 10 mg Given 02/04/2025 8:32 PM EST 10 mg ocular lubricant (Artificial Tears) ophthalmic solution 1 drop 1 drop, Both Eyes, As needed, Starting on Mon02/04/25 at 1216, Until Discontinued, Routine, irritation, allergies, dry eye OLANZapine (ZyPREXA) injection 5 mg 5 mg, Intramuscular, Every 6 hours PRN, Starting on Mon02/04/25 at 1217, Until Discontinued, Routine, agitation, severe agitation if PO refused OLANZapine zydis (ZyPREXA) disintegrating tablet 10 mg 10 mg, Oral, Nightly, First dose on Mon02/04/25 at 2100, Until Discontinued, Routine Given 02/06/2025 8:16 PM EST 10 mg Given 02/05/2025 9:40 PM EST 10 mg Given 02/04/2025 8:37 PM EST 10 mg OLANZapine zydis (ZyPREXA) disintegrating tablet 5 mg 5 mg, Sublingual, Every 6 hours PRN, Starting on Mon02/04/25 at 1217, Until Discontinued, Routine, agitation rosuvastatin (Crestor) tablet 5 mg 5 mg, Oral, Nightly, First dose on Mon02/04/25 at 2100, Until Discontinued, RoutineIndications:Hyperlipidemia Given 02/06/2025 8:17 PM EST 5 mg Given 02/05/2025 9:40 PM EST 5 mg Given 02/04/2025 8:31 PM EST 5 mg sodium chloride ([place]) 0.65 % nasal spray 1 spray 1 spray, Each Nostril, As needed, Starting on Mon02/04/25 at 1216, Until Discontinued, Routine, congestion, nasal irritation Inactive Administered Medications - up to 3 most recent administrations Medication Order MAR Action Action Date Dose Rate Site gadobutrol (Gadavist) injection 9.3 mL 9.3 mL (0.1 mL/kg 93 kg), Intravenous, Once in imaging, 1 dose, Starting on Mon02/05/25 at 1936, Until Mon02/05/25 at 1956, Routine, Imaging Protocol Orders Given 02/05/2025 7:56 PM EST 9.3 mL documented in this encounter Active and Recently Administered Medications Times are shown in EST. Scheduled Medication Order 02/05/2025 02/06/2025 02/07/2025 cetirizine (ZyrTEC) tablet 10 mg 10 mg, Oral, Daily, First dose on Mon02/05/25 at 0900, Until Discontinued, Routine 0947 (Given - Provider: Colton Marin RN)1913 (MAR Hold - Provider: Physician Mary Montoya MD - Reason: Patient on Leave of Absence)2017 (APR Unhold - Provider: Physician Mary Montoya MD) 0855 (Given - Provider: Colton Marin RN) 0849 (Given - Provider: Katerin Ellis, VALENTE) gadobutrol (Gadavist) injection 9.3 mL (COMPLETED) 9.3 mL (0.1 mL/kg 93 kg), Intravenous, Once in imaging, 1 dose, Starting on Mon02/05/25 at 1936, Until Mon02/05/25 at 195, Routine, Imaging Protocol Orders 1935 (APR Hold - Provider: Physician Mary Montoya MD - Reason: Patient on Leave of Absence)1955 (Given - Provider: Eduardo Watson)2017 (APR Unhold - Provider: Physician Mary Montoya MD) hydroxychloroquine (Plaquenil) tablet 200 mg 200 mg, Oral, Daily, First dose on Mon02/05/25 at 0900, Until Discontinued, Routine 0947 (Given - Provider: Colton Marin RN)1913 (APR Hold - Provider: Physician Mary Montoya MD - Reason: Patient on Leave of Absence)2017 (APR Unhold - Provider: Physician Mary Montoya MD) 0913 (Given - Provider: Colton Marin RN) 0849 (Given - Provider: Katerin Ellis RN) leflunomide (Arava) tablet 20 mg 20 mg, Oral, Daily, First dose on Mon02/05/25 at 0900, Until Discontinued, Routine 0948 (Given - Provider: Colton Marin RN)1913 (APR Hold - Provider: Physician Mary Montoya MD - Reason: Patient on Leave of Absence)2017 (APR Unhold - Provider: Physician Mary Montoya MD) 0913 (Given - Provider: Colton Marin RN) 0849 (Given - Provider: Katerin Ellis, VALENTE) losartan (Cozaar) tablet 50 mg 50 mg, Oral, Daily, First dose on Mon02/05/25 at 0900, Until Discontinued, Routine 0946 (Given - Provider: Colton Marin RN)1913 ([facility] Hold - Provider: Physician Mary Montoya MD - Reason: Patient on Leave of Absence)2017 (APR Unhold - Provider: Physician Mary Montoya MD) 0855 (Given - Provider: Colton Marin RN) 0849 (Given - Provider: Katerin Ellis, VALENTE) metoprolol succinate XL (Toprol-XL) 24 hr tablet 100 mg 100 mg, Oral, 2 times daily, First dose on Mon02/04/25 at 2100, Until Discontinued 0947 (Given - Provider: Colton Marin RN)1913 (MAR Hold - Provider: Physician Mary Montoya MD - Reason: Patient on Leave of Absence)2017 (MAR Unhold - Provider: Physician Mary Montoya MD)2138 (Given - Provider: Monster Cardoso II, RN) 0855 (Given - Provider: Colton Marin RN)2015 (Given - Provider: Joaquin Kerr RN) 0849 (Given - Provider: Katerin Ellis, VALENTE)2099 (Due) montelukast (Singulair) tablet 10 mg 10 mg, Oral, Nightly, First dose on Mon02/04/25 at 2099, Until Discontinued, Routine 1913 (MAR Hold - Provider: Physician Mary Montoya MD - Reason: Patient on Leave of Absence)2017 (MAR Unhold - Provider: Physician Mary Montoya MD)2139 (Given - Provider: Monster Cardoso II, RN) 2013 (Given - Provider: Joaquin Kerr RN) 2099 (Due) OLANZapine zydis (ZyPREXA) disintegrating tablet 10 mg 10 mg, Oral, Nightly, First dose on Mon02/04/25 at 2100, Until Discontinued, Routine 1913 (APR Hold - Provider: Physician Mary Montoya MD - Reason: Patient on Leave of Absence)2017 (APR Unhold - Provider: Physician Mary Montoya MD)2139 (Given - Provider: Monster Cardoso II, RN) 2015 (Given - Provider: Joaquin Kerr RN) 2099 (Due) rosuvastatin (Crestor) tablet 5 mg 5 mg, Oral, Nightly, First dose on Mon02/04/25 at 2100, Until Discontinued, Routine 1913 (APR Hold - Provider: Physician Mary Montoya MD - Reason: Patient on Leave of Absence)2017 (MAR Unhold - Provider: Physician Mary Montoya MD)2139 (Given - Provider: Monster Cardoso II, RN) 2016 (Given - Provider: Joaquin Kerr RN) 2100 (Due) PRN Medication Order 02/05/2025 02/06/2025 02/07/2025 acetaminophen (Tylenol) tablet 650 mg 650 mg, Oral, Every 6 hours PRN, Starting on Mon02/04/25 at 1216, Until Discontinued, Routine, Mild + Pain > or =1: CPOT, DVPRS, FLACC, PAINAD, NPASS, NRS, Vega-Shah Faces; > or =2: NIPS , Moderate/Severe Pain > or =3: CPOT; > or =4: FLACC, PAINAD, NPASS, NRS, Vega-Shah Faces; > or =5: DVPRS, NIPS , headaches 1913 (MAR Hold - Provider: Physician Mary Montoya MD - Reason: Patient on Leave of Absence)2017 (MAR Unhold - Provider: Physician Mary Montoya MD) 160 (Given - Provider: Marcia Carr RN)2013 (Given - Provider: Joaquin Kerr RN) aluminum & magnesium hydroxide-simethicone (Mylanta) 200-200-20 MG/5ML oral suspension 10 mL 10 mL, Oral, 4 times daily PRN, Starting on Mon02/04/25 at 1216, Until Discontinued, Routine, indigestion, nausea 1913 (MAR Hold - Provider: Physician Mary Montoya MD - Reason: Patient on Leave of Absence)2017 (MAR Unhold - Provider: Physician Mary Montoya MD) benzocaine (Orajel) 10 % mucosal gel 1 Application Mouth/Throat, 4 times daily PRN, Starting on Mon02/04/25 at 1216, Until Discontinued, Routine, mild to moderate oral pain 1913 (MAR Hold - Provider: Physician Mary Montoya MD - Reason: Patient on Leave of Absence)2017 (MAR Unhold - Provider: Physician Mary Montoya MD) calcium carbonate (Tums) chewable tablet 750 mg 750 mg, Oral, 4 times daily PRN, Starting on Mon02/04/25 at 1216, Until Discontinued, Routine, heartburn 191 (MAR Hold - Provider: Physician Mary Montoya MD - Reason: Patient on Leave of Absence)2017 (MAR Unhold - Provider: Physician Mary Montoya MD) clobetasol (Temovate) 0.05 % cream 1 Application Topical, As needed, Starting on Mon02/04/25 at 1224, Until Discontinued, Routine, itchiness 191 (APR Hold - Provider: Physician Mary Montoya MD - Reason: Patient on Leave of Absence)2017 (APR Unhold - Provider: Physician Mary Montoya MD) HYDROcodone-acetaminophen ([place]ba) 5-325 MG per tablet 10 mg of hydrocodone 10 mg of hydrocodone, Oral, Every 4 hours PRN, Starting on Mon02/04/25 at 1228, Until Discontinued, Moderate/Severe Pain > or =3: CPOT; > or =4: FLACC, PAINAD, NPASS, NRS, Vega-Shah Faces; > or =5: DVPRS, NIPS 1015 (Given - Provider: Colton Marin RN)1913 (APR Hold - Provider: Physician Mary Montoya MD - Reason: Patient on Leave of Absence)2017 (APR Unhold - Provider: Physician Mary Montoya MD) 0913 (Given - Provider: Colton Marin RN) 0856 (Given - Provider: Katerin Ellis RN) hydrOXYzine pamoate (Vistaril) capsule 25 mg 25 mg, Oral, Every 6 hours PRN, Starting on Mon02/04/25 at 1216, Until Discontinued, Routine, anxiety, itching 1913 (APR Hold - Provider: Physician Mary Montoya MD - Reason: Patient on Leave of Absence)2017 ([facility] Unhold - Provider: Physician Mary Montoya MD)2241 (Given - Provider: Monster Cardoso II, RN) 2015 (Given - Provider: Joaquin Kerr RN) magnesium hydroxide (Milk of Magnesia) 400 MG/5ML suspension 15 mL 15 mL, Oral, Daily PRN, Starting on Mon02/04/25 at 1216, Until Discontinued, Routine, constipation 191 (APR Hold - Provider: Physician Mary Montoya MD - Reason: Patient on Leave of Absence)2017 (APR Unhold - Provider: Physician Mary Montoya MD) melatonin tablet 3 mg 3 mg, Oral, Nightly PRN, Starting on Mon02/04/25 at 1216, Until Discontinued, Routine, sleep 191 (APR Hold - Provider: Physician Mary Montoya MD - Reason: Patient on Leave of Absence)2017 (APR Unhold - Provider: Physician Mychart Dt, MD) 2016 (Given - Provider: Joaquin Kerr RN) ocular lubricant (Artificial Tears) ophthalmic solution 1 drop 1 drop, Both Eyes, As needed, Starting on Mon02/04/25 at 1216, Until Discontinued, Routine, irritation, allergies, dry eye 1913 (APR Hold - Provider: Physician Mary Montoya MD - Reason: Patient on Leave of Absence)2017 (APR Unhold - Provider: Physician Mary Montoya MD) OLANZapine (ZyPREXA) injection 5 mg(Linked Group 1) 5 mg, Intramuscular, Every 6 hours PRN, Starting on Mon02/04/25 at 1217, Until Discontinued, Routine, agitation, severe agitation if PO refused 1913 (APR Hold - Provider: Physician Mary Montoya MD - Reason: Patient on Leave of Absence)2017 (APR Unhold - Provider: Physician Mary Montoya MD) OLANZapine zydis (ZyPREXA) disintegrating tablet 5 mg(Linked Group 1) 5 mg, Sublingual, Every 6 hours PRN, Starting on Mon02/04/25 at 1217, Until Discontinued, Routine, agitation 1913 (APR Hold - Provider: Physician Mary Montoya MD - Reason: Patient on Leave of Absence)2017 (APR Unhold - Provider: Physician Mary Montoya MD) sodium chloride ([place]) 0.65 % nasal spray 1 spray 1 spray, Each Nostril, As needed, Starting on Mon02/04/25 at 1216, Until Discontinued, Routine, congestion, nasal irritation 1913 (APR Hold - Provider: Physician Mary Montoya MD - Reason: Patient on Leave of Absence)2017 (APR Unhold - Provider: Physician Mary Montoya MD) Linked Groups Order Group 1: OLANZapine zydis (ZyPREXA) disintegrating tablet 5 mgJump to med 5 mg, Sublingual, Every 6 hours PRN, Starting on Mon02/04/25 at 1217, Until Discontinued, Routine, agitation Or OLANZapine (ZyPREXA) injection 5 mgJump to med 5 mg, Intramuscular, Every 6 hours PRN, Starting on Mon02/04/25 at 1217, Until Discontinued, Routine, agitation, severe agitation if PO refused documented in this encounter Additional Health Concerns Assessment Noted Time PHQ-9 Depression Total Score: 0 01/23/20 6:02 PM EST A fall risk assessment has been complete d for the patient 10/17/2024 1:46 PM EDT A Body Mass Index follow-up plan has been documented for the patient 02/07/2025 1:19 PM EST documented as of this encounter Care Teams Coat Finisher Relationship Specialty Start Date End Date Marvin Breaux MD [address] [place] [address] [address] [place] [address] PCP - General 05/27/24 documented as of this encounter
[2025-02-07] VITALS (7 sets, daily range): BP systolic 123–195; BP diastolic 75–111; PULSE 86–109; RESP 18–20; TEMP 36.9; O2SAT 96–100; BMI 28.7
--- NOTE | 2025-02-07 18:10 | XR_ITS ---
PROCEDURE INFORMATION: Exam: XR Chest Exam date and time: 02/07/2025 6:27 PM Age: 59 years old Clinical indication: Shortness of breath; Additional info: Short of breath TECHNIQUE: Imaging protocol: Radiologic exam of the chest. Views: 1 view. COMPARISON: CT ANGIO CHEST 01/21/2025 3:05 AM FINDINGS: Lungs: Prominent interstitial markings of the lung bases with scattered opacities suggest mild pulmonary edema. Pleural spaces: Unremarkable. No pleural effusion. No pneumothorax. Heart/Mediastinum: Unremarkable. No cardiomegaly. Bones/joints: Unremarkable. IMPRESSION: Prominent interstitial markings of the lung bases with scattered opacities suggest mild pulmonary edema.
--- OUTSIDE RECORDS SUMMARY | 2025-02-07 18:11 | XMS_ITS | Encounter Summary ---
Author Organization [employer] ([place], [place], [place], [place], [place]) Address [address] [place] [address] Care Team Providers Care Punch Machine Hand Name Role Phone Marvin Breaux MD Primary Care Provider [phone] Encounter Details Date Type Department Care Team (Latest Contact Info) Description 01/02/2025 Travel Social History Tobacco Use Types Packs/Day Years Used Date Smoking Tobacco: Never Assessed Family and Community Support Answer Anson e Recorded Help with Day to Day Activities Not on file 03/09/2023 Feeling Lonely or Isolated Not on file 03/09 Educational Attainment Answer Date David rded Speak language other than Cameroonian at home Not on file 03/09/2023 Want [...] Description 04/02/2025 2:30 PM EST Procedure Visit [facility] - [place] [address] [place] [address] Olivia Celis MD [address] [place], [place] [id number] documented as of this encounter Visit Diagnoses Not on filedocumented in this encounter Care Teams Punch Machine Hand Relationship Specialty Start Date End Date Marvin Breaux MD [address] [place] [address] PCP - General General Internal Medicine 10/13/22 documented as of this encounter
--- OUTSIDE RECORDS SUMMARY | 2025-02-07 18:11 | XMS_ITS | Encounter Summary ---
Author Organization Healthcare Address [address] [place] [address] Care Team Providers Care Communication Professor Name Role Phone Marvin Breaux MD Primary Care Provider [phone] Encounter Details Date Type Department Care Team (Late st Contact Info) Description 05/03/2022 Lab Requisition [facility] Services [address] [place] [address] Andreea Mello, PA [address] [place] [address] Routine general medical examination at [...] Description 02/13/2025 10:50 AM EST Office [facility] [address] [place] [address] Lorin Melendez, DIRECTOR OF CATEGORY MANAGEMENT [address] [place] [address] documented as of this encounter Visit Diagnoses Diagnosis Routine general medical examination at a health care facility documented in this encounter Care Teams Communication Professor Relationship Specialty Start Date End Date Marvin Breaux MD [address] [place] [id number] PCP - General 05/27/24 documented as of this encounter
--- OUTSIDE RECORDS SUMMARY | 2025-02-07 18:11 | XMS_ITS | Encounter Summary ---
Author Organization Healthcare Address [address] [place] [address] Care Team Providers Care Multimedia Designer Name Role Phone Marvin Breaux MD Primary Care Provider [phone] Encounter Details Date Type Department Care Team (Late st Contact Info) Description 05/03/2022 Lab Requisition [facility] [address] [place] [address] Andreea Mello, PA [address] [place] [address] Routine general medical examination at [...] Description 02/13/2025 10:50 AM EST Office Visit [place] [facility] [address] [place] [address] Lorin Melendez, MEDICAL BILLING INSTRUCTOR [address] [place] [address] documented as of this encounter [...] O RDERABLES Final Result Performing Organization Address City/State/[facility] Co de Phone Number [facility] [address] [place] [address] documented in this encounter Visit Diagnoses Diagnosis Routine general medical examination at a health care facility documented in this encounter Care Teams Multimedia Designer Relationship Specialty Start Date End Date Marvin Breaux MD [address] [place] [address] [address] [place] [address] PCP - General 05/27/24 documented as of this encounter
--- OUTSIDE RECORDS SUMMARY | 2025-02-07 18:11 | XMS_ITS | Encounter Summary ---
Author Organization Healthcare Address [address] [place] [address] Care Team Providers Care Alarm Signaler Name Role Phone Marvin Breaux MD Primary Care Provider [phone] Encounter Details Date Type Department Care Team (Late st Contact Info) Description 05/05/2022 Lab Requisition [facility] [address] [place] [address] Andreea Mello, PA [address] [place] [address] Routine general medical examination at [...] Description 02/13/2025 10:50 AM EST Office Visit [place] [facility] [address] [place] [address] Lorin Melendez, OPERATOR AUTOMATED PROCESS [address] [place] [address] documented as of this encounter [...] - 4.20 uIU/mL 05/05/2022 10:05 AM EST [facility] Blood Venous blood specimen / Unknown Venipuncture / Unknown 05/05/2022 7:13 AM EST 05/05/2022 8:15 AM EST Narrative [facility] - 05/05/2022 10:05 AM EST Trimester Specific Ranges TSH ( IU/mL) 1st Trimester 0.1 - 3.0 2nd Trimester 0.19 - 4.06 3rd Trimester 0.3 - 3.7 us Andreea [facility] LAB BLOOD ORDERABLES Final R esult [facility] [address] [place] [address] * hCG, Total Beta, Quantitative, Plasma (05/05/2022 7:13 AM EST) hCG, Total Beta 1.94 <5 mIU/mL 05/05/2022 10:05 AM EST [facility] Blood Venous blood specimen / Unknown Venipuncture / Unknown 05/05/2022 7:13 AM EST 05/05/2022 8:15 AM EST [facility] HEALTHCARE LAB - 05/05/2022 10:05 AM EST [...] ORDERABLES Final R esult Performing Organization Address City/[facility]/ZIP Co de Phone Number HEALTHCARE LAB [address] [place] [address] * Serum Drug Screen (05/05/2022 7:13 AM EST) 9 Carboxy THC <5 <5 ng/mL 05/07/2022 10:35 PM EST [facility] Alprazolam <5 <5 ng/mL 05/07/2022 10:35 PM EST [facility] Amphetamine <10 <10 ng/mL 05/07/2022 10:35 PM EST [facility] Benzolyecgonine <20 <20 ng/mL 10:35 PM EST [facility] Buprenorphine <1 <1 ng/mL 05/07/2022 10:35 PM EST [facility] Butalbital <50 <50 ng/mL 05/07/2022 10:35 PM [facility] Clonazepam <5 <5 ng/mL 05/07/2022 10:35 PM [facility] Codeine <5 <5 ng/mL 05/07/2022 10:35 PM [facility] Diazepam <5 <5 ng/mL 05/07/2022 10:35 PM [facility] Fentanyl <1 <1 ng/mL 05/07/2022 10:35 PM [facility] Hydrocodone <2 <2 ng/mL 05/07/2022 10:35 PM [facility] Hydromorphone <5 <5 ng/mL 05/07/2022 10:35 PM [facility] Lorazepam <5 <5 ng/mL 05/07/2022 10:35 PM [facility] MDA <10 <10 ng/mL 05/07/2022 10:35 PM [facility] MDMA <10 <10 ng/mL 05/07/2022 10:35 PM [facility] Meperidine <5 <5 ng/mL 05/07/2022 10:35 PM [facility] Methadone <10 <10 ng/mL 05/07/2022 10:35 PM [facility] Methadone Metabolite <10 <10 ng/mL 04/27 10:35 PM [facility] Methamphetamine <10 <10 ng/mL 10:35 PM [facility] Midazolam <5 <5 ng/mL 05/07/2022 10:35 PM [facility] Morphine <2 <2 ng/mL 05/07/2022 10:35 PM [facility] Norbuprenorphine <5 <5 ng/mL 05/08/19 10:35 PM [facility] Nordiazepam <10 <10 ng/mL 05/07/2022 10:35 PM [facility] Oxazepam <5 <5 ng/mL 05/07/2022 10:35 PM [facility] Oxycodone <2 <2 ng/mL 05/07/2022 10:35 PM [facility] Oxymorphone <2 <2 ng/mL 05/07/2022 10:35 PM [facility] Phenobarbital <50 <50 ng/mL 05/07/2022 10:35 PM EST [facility] Temazepam <5 <5 ng/mL 05/07/2022 10:35 PM EST [facility] Tramadol <20 <20 ng/mL 05/07/2022 10:35 PM EST [facility] Blood Venous blood specimen / Unknown Venipuncture / Unknown 05/05/2022 7:13 AM EST 05/05/2022 8:13 AM EST Narrative [facility] - 05/07/2022 10:35 PM EST Test performed by LC-MS/MS at the [facility]. This test was developed and its performance characteristics determined by [facility]. It has not been cleared or approved by the FDA. The laboratory is regulated under CLIA as qualified to perform high-complexity testing. This test is used for clinical purposes. Andreea [facility]ello [facility] BLOOD ORDERABLES Final R esult Performing Organization Address City/[facility] Co de Phone Number [facility] [address] [place] [address] * Vitamin D 25 Hydroxy (05/05/2022 7:13 AM EST) Vitamin D 25 Hydroxy 29.1 20.0 - 80.0 ng/mL 05/05/2022 11:27 AM EST [facility] Comment: Vitamin D, 25-Hydroxy reference range, age 18 years and up: Deficiency: <12 ng/mL Insufficiency: 12 to 19 ng/mL Sufficiency: 20 to 80 ng/mL Possible toxicity: >100 ng/mL Blood Venous blood specimen / Unknown Venipuncture / Unknown 05/05/2022 7:13 AM EST 05/05/2022 8:14 AM EST [facility] BLOOD ORDERABLES Final R esult Performing Organization Address City/[facility] Co de Phone Number [facility] [address] [place] [address] * (ABNORMAL) CBC and Differential (05/05/2022 7:13 AM EST) WBC Count 5.17 3.70 - 10.30 10*3/uL LAB HEMATOLOGY METHOD 05/05/2022 9:32 AM EST [facility] RBC Count 4.23 3.90 - 5.20 10*6/uL LAB HEMATOLOGY METHOD 05/05/2022 9:32 AM EST [facility] HGB 12.8 11.2 - 15.7 g/dL LAB HEMATOLOGY METHOD 05/05/2022 9:32 AM EST [facility] HCT 37.5 34.0 - 45.0 % LAB HEMATOLOGY METHOD 05/05/2022 9:32 AM EST [facility] Platelet Count 254 155 - 369 10*3/uL LAB HEMATOLOGY METHOD 05/05/2022 9:32 AM EST [facility] MCV 89 79 - 98 fL LAB HEMATOLOGY METHOD 05/05/2022 9:32 AM EST [facility] MCH 30.3 26.0 - 32.0 pg LAB HEMATOLOGY METHOD 05/05/2022 9:32 AM EST [facility] MCHC 34.1 30.7 - 35.5 g/dL LAB HEMATOLOGY METHOD 05/05/2022 9:32 AM EST [facility] RDW 13.3 11.5 - 14.5 % LAB HEMATOLOGY METHOD 05/05/2022 9:32 AM EST [facility] MPV 8.7(L) 8.8 - 12.5 fL LAB HEMATOLOGY METHOD 05/05/2022 9:32 AM EST [facility] nRBC 0.0 <=0.0 per 100 WBCs LAB HEMATOLOGY METHOD 05/05/2022 9:32 AM EST [facility] Differential Type Automated LAB HEMATOLOGY METHOD 05/05/2022 9:32 AM EST [facility] Neutrophils % 65.0 % LAB HEMATOLOGY METHOD 05/05/2022 9:32 AM EST [facility]ALTH[facility]ARE [facility] Lymphocytes % 21.0 % LAB HEMATOLOGY METHOD 05/05/2022 9:32 AM EST [facility] Monocytes % 11.0 % LAB HEMATOLOGY METHOD 05/05/2022 9:32 AM EST [facility] Eosinophils % 2.0 % LAB HEMATOLOGY METHOD 05/05/2022 9:32 AM EST [facility] Basophils % 1.0 % LAB HEMATOLOGY METHOD 05/05/2022 9:32 AM EST [facility] Immature Granulocytes % 0.0 % LAB HEMATOLOGY METHOD 05/05/2022 9:32 AM EST [facility] Neutrophils Absolute 3.36 1.60 - 6.10 10*3/uL LAB HEMATOLOGY METHOD 05/05/2022 9:32 AM EST [facility] Lymphocytes Absolute 1.08(L) 1.20 - 3.90 [...] LAB HEMATOLOGY METHOD 05/05/2022 9:32 AM EST [facility] Immature Granulocytes Absolute 0.02 0.00 - [...] ORDERABLES Final R esult Performing Organization Address City/State/[facility] Co de Phone Number HEALTHCARE LAB [address] [place] [address] * Hemoglobin A1c (05/05/2022 7:13 AM EST) Hemoglobin A1c 5.2 <5.7 % 05/05/2022 10:34 AM EST [facility] Blood Venous blood specimen / [...] Adults <6.0% Children and Adolescents <7.5% Source: [place] Diabetes [employer]. Standards of medical care in diabetes,2017. Diabetes Care.2017:40 (suppl 1):S1-S135. HbA1c assay performed by an ion-exchange chromatography method that is certified traceable to the DCCT. Andreea [facility] LAB BLOOD ORDERABLES Final R esult [facility] [address] [place] [address] * Lipid panel (05/05/2022 7:13 AM EST) Fasting greater than or equal to 8 hours? Unknown 05/05/2022 10:05 AM EST [facility] Cholesterol, Plasma 133 <200 mg/dL 05/05/2022 10:05 AM EST [facility] Comment: Cholesterol Reference Range (age >17 years): Desirable <200 mg/dL Borderline 200 to 239 mg/dL Undesirable >239 mg/dL HDL 60 >=50 mg/dL 05/05/2022 10:05 AM EST [facility] Comment: HDL Cholesterol Reference Ranges (age >17 years): Female, acceptable > or = 50 mg/dL Male, acceptable > or = 40 mg/dL Triglycerides, Plasma 74 <150 mg/dL 05/05/2022 10:05 AM EST [facility] Comment: Triglyceride Reference Range (age >17 years): Desirable: <150 mg/dL Borderline high: 150 to 199 mg/dL High: 200 to 499 mg/dL Very high: >499 mg/dL Increased risk of pancreatitis: >1000 mg/dL Cholesterol/HDL Ratio 2 05/05/2022 10:05 AM EST [facility] LDL, Calculated 58.2 <100 mg/dL 10:05 AM EST [facility] Comment: LDL Cholesterol Reference Range (age [...] [facility] LAB BLOOD ORDERABLES Final R esult [facility] [address] [place] [address] * (ABNORMAL) Comprehensive metabolic panel (05/05/2022 7:13 AM EST) Glucose, Plasma 98 74 - 99 mg/dL 05/05/2022 10:05 AM [facility] BUN, Plasma 5(L) 7 - 21 mg/dL 05/05/2022 10:05 AM [facility] Creatinine, Plasma 0.92 0.60 - 1.10 mg/dL 05/05/2022 10:05 AM [facility] BUN/Creatinine Ratio 5 05/05/2022 10:05 AM [facility] Sodium, Plasma 137 136 - 145 mmol/L 05/05/2022 10:05 AM [facility] Potassium, Plasma 3.2(L) 3.7 - 4.8 mmol/L 05/05/2022 10:05 AM [facility] Chloride, Plasma 99 97 - 107 mmol/L 05/05/2022 10:05 AM [facility] CO2, Plasma 26 22 - 29 mmol/L 05/05/2022 10:05 AM [facility] Anion Gap 12 6 - 16 mmol/L 05/05/2022 10:05 AM [facility] Total Calcium, Plasma 8.9 8.9 - 10.2 mg/dL 05/05/2022 10:05 AM [facility] Total Protein 6.2(L) 6.3 - 7.9 g/dL 05/05/2022 10:05 AM [facility] Albumin, Plasma 3.6 3.5 - 5.2 g/dL 05/05/2022 10:05 AM [facility] AST, Plasma 52(H) 11 - 32 U/L 05/05/2022 10:05 AM [facility] ALT, Plasma 55(H) 8 - 33 U/L 05/05/2022 10:05 AM [facility] Alkaline Phosphatase, Plasma 73 35 - [...] the two equations, please see laboratory website: [email or web address] Blood Venous blood specimen / Unknown Venipuncture / Unknown 05/05/2022 7:13 AM EST 05/05/2022 8:15 AM EST us Andreea [facility] LAB BLOOD ORDERABLES Final R esult Performing Organization Address City/State/[facility] Co ak Phone Number HEALTHCARE LAB [address] [place] [id number] documented in this encounter Visit Diagnoses Diagnosis Routine general medical examination at a health care facility documented in this encounter Care Teams Alarm Signaler Relationship Specialty Start Date End Date Marvin Breaux MD [address] [place] [address] [address] [place] [address] PCP - General 05/27/24 documented as of this encounter
--- OUTSIDE RECORDS SUMMARY | 2025-02-07 18:11 | XMS_ITS | Encounter Summary ---
Author Organization Healthcare Address [address] [place] [address] Care Team Providers Care Textile Dyer Name Role Phone Marvin Breaux MD Primary Care Provider [phone] Encounter Details Date Type Department Care Team (Late st Contact Info) Description 05/04/2022 Lab Requisition [facility] [address] [place] [address] Andreea Mello, PA [address] [place] [address] Routine general medical examination at [...] Description 02/13/2025 10:50 AM EST Office Visit [place] [facility] [address] [place] [address] Lorin Melendez, ASSOCIATE PROFESSOR OF LAW [address] [place] [address] documented as of this encounter Visit Diagnoses Diagnosis Routine general medical examination at a health care facility documented in this encounter Care Teams Textile Dyer Relationship Specialty Start Date End Date Marvin Breaux MD [address] [facility] [address] [place] [address] PCP - General 05/27/24 documented as of this encounter
--- OUTSIDE RECORDS SUMMARY | 2025-02-07 18:11 | XMS_ITS | Encounter Summary ---
Author Organization Healthcare Address [address] [place] [address] Care Team Providers Care Retail Field Representative Name Role Phone Marvin Breaux MD Primary Care Provider [phone] Encounter Details Date Type Department Care Team (Latest Contact Info) Description 02/04/2025 Travel Social History Tobacco Use Types Packs/Day [...] often do you attend chur ch or confucianist services? More than 4 times per year 02/04/2025 Do you belong to any clubs o r organizations such as congregational groups, unions, fraternal or athletic groups, or [...] more drinks on one occasion? Never 02/04/2025 [facility] Occupat ional Health - Occupational Stress [...] any time in the past 12 m [facility], were you homeless or living in a retirement (including now)? No 02/04/2025 [facility] Utilities Answer Date Recorded In the past [...] as of this encounter Functional Status * AUDIT-C Score [...] Date of Assessment Author Scale Used Fernie 02/04/2025 9:00 PM Sheri Paez RN * Calculated C-SSRS Risk Score (Lifetime/Recent) [...] Answer Entry Date Author Scale Used Fernie 02/04/2025 9:00 PM Sheri Paez RN documented in this encounter Plan of Treatment Upcoming Encounters Date Type Department Care Team (Late st Contact Info) Description 02/13/2025 10:50 AM EST Office Visit [place] [facility] [address] [place] [address] Lorin Melendez, DACIA [address] [place] [address] documented as of this encounter [...] documented as of this encounter Care Teams Retail Field Representative Relationship Specialty Start Date End Date Marvin Breaux MD [address] [place] [address] [address] [place] [address] PCP - General 05/27/24 documented as of this encounter
--- OUTSIDE RECORDS SUMMARY | 2025-02-07 18:11 | XMS_ITS | Referral Summary ---
Author Organization [employer] ([place], [place], [place], [place], [place]) Address [address] [place] [address] Care Team Providers Care Cell Biologist Name Role Phone Marvin Breaux MD Primary Care Provider [phone] Encounters Date Type Department Care Team Description 01/02/2025 Travel 01/02/2025 2:30 PM EST Procedure Visit [facility] [address] [place] [address] [address] [place] [address] Olivia Celis MD Chronic migraine without aura, with intractable migraine, so stated, with status migrainosus (Primary Dx) from Last 3 Months Allergies Active Allergy Reactions Criticality Noted Date Comments Latex 07/21/2022 Medications HYDROcodone-acet aminophen (NORCO 10-325) 10-325 mg per tablet Take 1 tablet by mouth every 6 (six) hours as needed. 2 Active leflunomide (ARAVA) 20 MG tablet Take 20 mg by mouth daily. 2 Active clotrimazole-bet amethasone (LOTRISONE) 1-0.05 % cream Apply topically 2 [...] skin. Active rimegepant (Nurtec ODT) 75 mg TbDLIndications: Chronic migraine without aura, with intractable migraine, so stated, with status migrainosus Take 75 mg by mouth as needed (at onset of migraine, max 1 tablet in 24 hours) for up to 30 days. 8 tablet 11 5 02/06/20 25 Active Problems No known active problems Social History Tobacco Use Types Packs/Day Years Used Date Smoking Tobacco: Never Assessed Family and Community Support Answer [place] e Recorded Help with Day to Day Activities Not on file 03/09/2023 Feeling Lonely or Isolated Not on file 03/09 Educational Attainment Answer Date David rded Speak language other than Paraguayan at home Not on file 03/09/2023 Want [...] Description 04/02/2025 2:30 PM EST Procedure Visit [facility] Neu[facility] - [facility] [address] [facility] [place] [address] Olivia Celis MD [address] [facility] [address] [place] [address] Insurance AARP MEDICARE COMPLETE MAP Care Teams Cell Biologist Relationship Specialty Start Date End Date Marvin Breaux MD [address] [place] [address] PCP - General General Internal Medicine 10/13/22
--- OUTSIDE RECORDS SUMMARY | 2025-02-07 18:11 | XMS_ITS | Encounter Summary ---
Author Organization Healthcare Address [address] [place] [address] Care Team Providers Care Commercial Coordinator Name Role Phone Marvin Breaux MD Primary Care Provider [phone] Encounter Details Date Type Department Care Team (Late st Contact Info) Description 02/04/2025 Plan of Care Documentation [facility] Psychiatry [address] [place] [address] Social History Tobacco Use Types [...] often do you attend chur ch or hoahaoism services? More than 4 times per year 02/04/2025 Do you belong to any clubs o r organizations such as mu-ism groups, unions, fraternal or athletic groups, or [...] drinks on one occasion? Never 02/04/2025 [facility] - Occupational Stress Questionnaire Answer Date Recorded [...] any time in the past 12 m [facility], were you homeless or living in a custodial (including now)? No 02/04/2025 [facility] Utilities Answer Date Recorded In the [...] Author Scale Used Fernie 02/04/2025 9:00 PM EST Sheri Orielly RN documented in this encounter Plan of Treatment Upcoming Encounters Date Type Department Care Team (Late st Contact Info) Description 02/13/2025 10:50 AM EST Office Visit [place] [facility] [address] [place] [address] Lorin Melendez, DEVELOPMENT CONSULTANT [address] [place] [address] documented as of this encounter Visit Diagnoses Not on filedocumented in this encounter Additional Health Concerns Assessment Noted Time PHQ-9 Depression Total Score: 0 01/23/20 25 6:02 PM EST A fall risk assessment has been complete d for the patient 10/17/2024 1:46 PM EDT A Body Mass Index follow-up plan has been documented for the patient 02/07/2025 1:19 PM EST documented as of this encounter Care Teams Commercial Coordinator Relationship Specialty Start Date End Date Marvin Breaux MD [address] [place] [address] [address] [place] [address] PCP - General 05/27/24 documented as of this encounter
--- OUTSIDE RECORDS SUMMARY | 2025-02-07 18:11 | XMS_ITS | Clinical Summary ---
Author Organization [employer] ([place], [place], [place], [place], [place]) Address [address] [place] [address] Care Team Providers Care Roaster Helper Name Role Phone Marvin Breaux MD Primary Care Provider [phone] Allergies Active Allergy Reactions Criticality Noted Date [...] 25 Active Problems No known active problems Encounters Date Type Department Care Team Description 01/02/2025 2:30 PM EST Procedure Visit [facility] Neurology - [facility] [address] [place] [address] Olivia Celis MD Chronic migraine [...] Date David rded Speak language other than Panamanian at home Not on file 03/09/2023 Want [...] Description 04/02/2025 2:30 PM EST Procedure Visit [facility] Neurology - [facility] [address] [place] [address] Olivia Celis MD [address] [place] [address] Health Maintenance Due Date Last [...] Medicare Initial AWV [id number] 02/28/2024 COVID-19 VACCINE (2024- season) 10/28/202407/2020, 05/16/2020 Influenza Vaccine (#1) 2024 Lipid Panel 05/06/2027 05/05/2022 [place] [id number] AARP MEDICARE COMPLETE MAP Care Teams Roaster Helper Relationship Specialty Start Date End Date Marvin Breaux MD [address] [place] [address] PCP - General General Internal Medicine 10/13/22
--- OUTSIDE RECORDS SUMMARY | 2025-02-07 18:11 | XMS_ITS | Encounter Summary ---
Author Organization Healthcare Address [address] [place] [address] Care Team Providers Care Weaver Axminster Name Role Phone Marvin Breaux MD Primary Care Provider [phone] Encounter Details Date Type Department Care Team (Latest Contact Info) Description 02/05/2025 Travel Social History Tobacco Use Types Packs/Day [...] often do you attend chur ch or yazidi services? More than 4 times per year 02/04/2025 Do you belong to any clubs o r organizations such as druze groups, unions, fraternal or athletic groups, or [...] more drinks on one occasion? Never 02/04/2025 [facility] of Occupat ional Health - Occupational Stress [...] any time in the past 12 m [facility], were you homeless or living in a fci (including now)? No 02/04/2025 [facility] Utilities Answer Date Recorded In the past [...] Entry Date Author Scale Used Fernie 02/05/2025 10:00 PM EST Joaquin Kerr RN documented in this encounter Plan of Treatment Upcoming Encounters Date Type Department Care Team (Late st Contact Info) Description 02/13/2025 10:50 AM EST Office Visit [place] [facility] [address] [place] [address] Lorin Melendez, MACHINE PLASTER MIXER [address] [place] [address] documented as of this encounter [...] documented as of this encounter Care Teams Weaver Axminster Relationship Specialty Start Date End Date Marvin Breaux MD [address] [facility] [address] [place] [address] PCP - General 05/27/24 documented as of this encounter
--- OUTSIDE RECORDS SUMMARY | 2025-02-07 18:12 | XMS_ITS | Encounter Summary ---
Author Organization Healthcare Address [address] [place] [address] Care Team Providers Care Agricultural Economist Name Role Phone Marvin Breaux MD Primary Care Provider [phone] Encounter Details Date Type Department Care Team (Late st Contact Info) Description 01/23/2025 Plan of Care Documentation [facility] Inpatient Psychiatry [address] [place] [address] Social History Tobacco Use Types [...] Best Enciso 01/23/2025 9:05 PM EST Miranda iDaz RN documented in this encounter Plan of Treatment Upcoming Encounters Date Type Department Care Team (Late st Contact Info) Description 02/13/2025 10:50 AM EST Office Visit [place] [facility] [address] [place] [address] Lorin Melendez, SKID STRAPPER [address] [place] [address] documented as of this encounter [...] documented as of this encounter Care Teams Agricultural Economist Relationship Specialty Start Date End Date Marvin Breaux MD [address] [facility] [address] [place] [address] PCP - General 05/27/24 documented as of this encounter
--- OUTSIDE RECORDS SUMMARY | 2025-02-07 18:12 | XMS_ITS | Encounter Summary ---
Author Organization Healthcare Address [address] [place] [address] Care Team Providers Care Local Driver Name Role Phone Marvin Breaux MD Primary Care Provider [phone] Encounter Details Date Type Department Care Team (Late st Contact Info) Description 02/03/2025 Lab Requisition [facility] [address] [place] [address] Keara Sanford MD [address] [place], [place] [id number] Routine general medical examination at a health [...] often do you attend chur ch or yazdanism services? More than 4 times per year 02/04/2025 Do you belong to any clubs o r organizations such as restoration groups, unions, fraternal or athletic groups, or [...] more drinks on one occasion? Never 02/04/2025 [facility] - Occupational [...] any time in the past 12 m [facility], were you homeless or living in a fpc (including now)? No 02/04/2025 [facility] Utilities Answer Date Recorded In the [...] Date of Assessment Author Scale Used Fernie 02/06/2025 9:00 PM Joaquin Milton RN * Calculated C-SSRS Risk Score (Lifetime/Recent) [...] Answer Entry Date Author Scale Used Fernie 02/06/2025 9:00 PM Joaquin Milton RN documented in this encounter Plan of Treatment Upcoming Encounters Date Type Department Care Team (Late st Contact Info) Description 02/13/2025 10:50 AM EST [facility] [address] [place] [id number] Lorin Melendez, DACIA [address] [place] [address] documented as of this encounter Procedures Procedure Name Priority Date/Time Associated Diagnosis Comments HEPATITIS B SURFACE ANTIGEN - [facility] STAT 02/03/2025 7:30 PM EST Routine general medical examination at a health care facility HEPATITIS C ANTIBODY WITH REFLEX TO HCV QUANT PCR - H STAT 02/03/2025 7:30 PM EST Routine general medical examination at a health care facility HIV 1/2 ANTIBODY/ANTIGEN SCREEN W/REFLEX TO HIV 1/2 ANTIBODY DIFFERENTIATION Routine 02/03/2025 7:30 PM EST Routine general medical examination at a health care facility HIV 1/2 ANTIBODY/ANTIGEN SCREEN WITH REFLEX TO HIV I/II DIFFERENTIATION STAT 02/03/2025 7:30 PM EST Routine general medical examination at a health care facility CBC W/O DIFFERENTIAL STAT 02/03/2025 7:30 PM EST Routine general medical examination at a health care facility TSH STAT 02/03/2025 7:30 PM EST Routine general medical examination at a health care facility FREE T4, PLASMA STAT 02/03/2025 7:30 PM EST Routine general medical examination at a health care facility HEMOGLOBIN A1C STAT 02/03/2025 7:30 PM EST Routine general medical examination at a health care facility LIPID PROFILE, PLASMA STAT 02/03/2025 7:30 PM EST Routine general medical examination at a health care facility COMPREHENSIVE METABOLIC PANEL, PLASMA STAT 02/03/2025 7:30 PM EST Routine general medical examination at a health care facility documented in this encounter Results * HIV 1 & 2 Antibody/Antigen Screen (02/03/2025 7:30 PM EST) HIV 1 & 2 Antibody/Antigen Screen Non Reactive Non Reactive 02/03/2025 10:44 PM EST [facility] Comment:Screening for HIV 1 & 2 antibodies, and P24 antigen is NONREACTIVE. No confirmatory testing is required. Blood Venous blood specimen / Unknown Venipuncture / Unknown 02/03/2025 7:30 PM EST 02/03/2025 7:37 PM EST us Keara Sanford MD LAB BLOOD ORDERABLES Final Resu lt Performing Organization Address City/[facility]/ZIP Co de Phone Number [facility] [address] [place] [address] * TSH (02/03/2025 7:30 PM EST) Pathologist [facility] Thyroid Stimulating Hormone, Plasma 1.09 0.40 - 4.20 uIU/mL 02/03/2025 10:40 PM EST [facility] Blood Venous blood specimen / Unknown Venipuncture / Unknown 02/03/2025 7:30 PM EST 02/03/2025 7:37 PM EST Result Nieves Sanford MD LAB BLOOD ORDERABLES Final Resu lt Performing Organization Address [facility] Co de Phone Number [facility] [address] [place] [address] * T4, free (02/03/2025 7:30 PM EST) Free T4, Plasma 1.6 0.8 - 1.7 ng/dL 02/03/2025 10:40 PM EST [facility] Blood Venous blood specimen / Unknown Venipuncture / Unknown 02/03/2025 7:30 PM EST 02/03/2025 7:37 PM EST Result Nieves Sanford MD LAB BLOOD ORDERABLES Final Resu lt Performing Organization Address City/[facility] Co de Phone Number [facility] [address] [place] [address] * Hemoglobin A1c (02/03/2025 7:30 PM EST) Hemoglobin A1c 5.3 <5.7 % 02/03/2025 11:05 PM EST [facility] Blood Venous blood specimen / Unknown Venipuncture / Unknown 02/03/2025 7:30 PM EST 02/03/2025 7:37 PM EST Narrative [facility] - 02/03/2025 11:05 PM EST HA1C Interpretive Data: Diagnosis of Diabetes: Diabetic > or = 6.5% Pre-diabetic 5.7 to 6.4% Non-diabetic < or = 5.6% Glycemic Targets for Type I and Type II Diabetics: Non- Adults <7.0% Adults <6.0% Children and Adolescents <7.5% Source: [place] [employer]. Standards of medical care in diabetes,2017. Diabetes Care.2017:40 (suppl 1):S1-S135. us Keara Sanford MD LAB BLOOD ORDERABLES Final Resu lt [facility] [address] [place] [address] * (ABNORMAL) Lipid panel (02/03/2025 7:30 PM EST) Cholesterol, Plasma 104 <200 mg/dL 02/03/2025 10:40 PM EST [facility] Comment: Cholesterol Reference Range (age >17 years): Desirable <200 mg/dL Borderline 200 to 239 mg/dL Undesirable >239 mg/dL HDL 44(L) >=50 mg/dL 02/03/2025 10:40 PM EST [facility] Comment: HDL Cholesterol Reference Ranges (age >17 years): Female, acceptable > or = 50 mg/dL Male, acceptable > or = 40 mg/dL Triglycerides, Plasma 189(H) <150 mg/dL 02/03/2025 10:40 PM EST [facility] Comment: Triglyceride Reference Range (age >17 years): Desirable: <150 mg/dL Borderline high: 150 to 199 mg/dL High: 200 to 499 mg/dL Very high: >499 mg/dL Increased risk of pancreatitis: >1000 mg/dL Cholesterol/HDL Ratio 2 02/03/2025 10:40 PM EST [facility] LDL, Calculated 30 <100 mg/dL 10:40 PM EST [facility] Comment: LDL Cholesterol Reference Range [...] than or equal to 12 hours? Unknown 02/03/2025 10:40 PM EST [facility] Blood Venous blood specimen / Unknown Venipuncture / Unknown 02/03/2025 7:30 PM EST 02/03/2025 7:37 PM EST us Keara Sanford MD LAB BLOOD ORDERABLES Final Resu lt [facility] [address] [place] [address] * (ABNORMAL) Comprehensive metabolic panel (02/03/2025 7:30 PM EST) Glucose, Plasma 87 74 - 99 mg/dL 02/03/2025 10:40 PM EST [facility] BUN, Plasma 13 7 - 21 mg/dL 02/03/2025 10:40 PM EST [facility] Creatinine, Plasma 0.76 0.60 - 1.10 mg/dL 02/03/2025 10:40 PM EST [facility] BUN/Creatinine Ratio 17 02/03/2025 10:40 PM EST [facility] Sodium, Plasma 137 136 - 145 mmol/L 02/03/2025 10:40 PM EST [facility] Potassium, Plasma 4.6 3.6 - 4.9 mmol/L 02/03/2025 10:40 PM EST [facility] Chloride, Plasma 103 97 - 107 mmol/L 02/03/2025 10:40 PM EST [facility] CO2, Plasma 23 22 - 29 mmol/L 02/03/2025 10:40 PM EST [facility] Anion Gap 11 6 - 16 mmol/L 02/03/2025 10:40 PM EST [facility] Total Calcium, Plasma 8.3(L) 8.9 - 10.2 mg/dL 02/03/2025 10:40 PM EST [facility] Total Protein 6.6 6.3 - 7.9 g/dL 02/03/2025 10:40 PM EST [facility] Albumin, Plasma 3.8 3.5 - 5.2 g/dL 02/03/2025 10:40 PM EST [facility] AST, Plasma 33 10 - 35 U/L 02/03/2025 10:40 PM EST [facility] ALT, Plasma 26 10 - 35 U/L 02/03/2025 10:40 PM EST [facility] Alkaline Phosphatase, Plasma 79 46 - 142 U/L 02/03/2025 10:40 PM EST [facility] Total Bilirubin, Plasma 0.2 0.2 - 1.1 mg/dL 02/03/2025 10:40 PM EST [facility] eGFRcr 91.5 mL/min/1.7 3m*2 02/03/2025 10:40 PM EST [facility] Comment:Reported eGFRcr in m L/min/1.73m2 is based the CKD-EPI 2020 equation that does not use a race coefficient. Blood Venous blood specimen / Unknown Venipuncture / Unknown 02/03/2025 7:30 PM EST 02/03/2025 7:37 PM EST us Keara Sanford MD LAB BLOOD ORDERABLES Final Resu lt [facility] [address] [place] [address] * CBC W/O Differential (02/03/2025 7:30 PM EST) WBC Count 5.52 3.70 - 10.30 10*3/uL LAB HEMATOLOGY METHOD 02/03/2025 10:24 PM EST [facility] RBC Count 4.43 3.90 - 5.20 10*6/uL LAB HEMATOLOGY METHOD 02/03/2025 10:24 PM EST [facility] HGB 13.1 11.2 - 15.7 g/dL LAB HEMATOLOGY METHOD 02/03/2025 10:24 PM EST [facility] HCT 38.9 34.0 - 45.0 % LAB HEMATOLOGY METHOD 02/03/2025 10:24 PM EST [facility] Platelet Count 178 155 - 369 10*3/uL LAB HEMATOLOGY METHOD 02/03/2025 10:24 PM EST [facility] MCV 88 79 - 98 fL LAB HEMATOLOGY METHOD 02/03/2025 10:24 PM EST [facility] MCH 29.6 26.0 - 32.0 pg LAB HEMATOLOGY METHOD 02/03/2025 10:24 PM EST [facility] MCHC 33.7 30.7 - 35.5 g/dL LAB HEMATOLOGY METHOD 02/03/2025 10:24 PM EST [facility] RDW 13.1 11.5 - 14.5 % LAB HEMATOLOGY METHOD 02/03/2025 10:24 PM EST [facility] MPV 9.9 8.8 - 12.5 fL LAB HEMATOLOGY METHOD 02/03/2025 10:24 PM EST [facility] nRBC 0.0 <=0.0 per 100 WBCs LAB HEMATOLOGY METHOD 02/03/2025 10:24 PM EST [facility] Blood Venous blood specimen / Unknown Venipuncture / Unknown 02/03/2025 7:30 PM EST 02/03/2025 7:37 PM EST us Keara Sanford MD LAB BLOOD ORDERABLES Final Resu lt [facility] [address] [place] [address] * Hepatitis B Surface Antigen - [facility] (02/03/2025 7:30 PM EST) Hepatitis B Surf Antigen Negative Negative 02/03/2025 11:15 PM EST [facility] Blood Venous blood specimen / Unknown Venipuncture / Unknown 02/03/2025 7:30 PM EST 02/03/2025 7:37 PM EST us Keara Sanford MD LAB BLOOD ORDERABLES Final Resu lt [facility] [address] [place] [address] * Hepatitis C Antibody with Reflex to HCV Quant PCR - [facility] (02/03/2025 7:30 PM EST) Hepatitis C Antibody Negative Negative 02/03/2025 10:44 PM EST [facility] Blood Venous blood specimen / Unknown Venipuncture / Unknown 02/03/2025 7:30 PM EST 02/03/2025 7:37 PM EST us Keara Sanford MD LAB BLOOD ORDERABLES Final Resu lt [facility] [address] [place] [address] documented in this encounter Visit Diagnoses Diagnosis Routine general medical examination at a health care facility documented in this encounter Additional Health Concerns Assessment Noted Time PHQ-9 Depression Total Score: 0 01/23/20 6:02 PM EST A fall risk assessment has been complete d for the patient 10/17/2024 1:46 PM EDT A Body Mass Index follow-up plan has been documented for the patient 01/28/2025 3:02 PM EST documented as of this encounter Care Teams Local Driver Relationship Specialty Start Date End Date Marvin Breaux MD [address] [place] [address] [address] [place] [address] PCP - General 05/27/24 documented as of this encounter
--- OUTSIDE RECORDS SUMMARY | 2025-02-07 18:13 | XMS_ITS | Encounter Summary ---
Author Organization Healthcare Address [address] [place] [address] Care Team Providers Care Educational Aide Name Role Phone Marvin Breaux MD Primary Care Provider [phone] Encounter Details Date Type Department Care Team [...] Visit [place] [facility] [address] [place] [address] Lorin Melendez L, WOOD SCIENCE PROFESSOR [address] [place] [address] documented as of this encounter [...] documented as of this encounter Care Teams Educational Aide Relationship Specialty Start Date End Date Marvin Breaux MD [address] [facility] [address] [place] [address] PCP - General 05/27/24 documented as of this encounter
--- OUTSIDE RECORDS SUMMARY | 2025-02-07 18:13 | XMS_ITS | Clinical Summary ---
Author Organization [facility] Address [address] [place] [address] Care Team Providers Care Land Acquisition Analyst Name Role Phone Marvin Breaux MD Primary Care Provider [phone] Allergies Active Allergy Reactions Criticality Noted Date Comments Varenicline Other - please docum ent in the comment field High 06/03/2024 Sweating profusely Latex Itching,Rash Medium 09/24/2020 Medications cetirizine (ZyrTEC) 10 MG tabletIndications :Seasonal Allergic Rhinitis Take 1 tablet by mouth daily. 025 Active folic acid (Folvite) 1 MG tabletIndications :vitamin supplement Take 1 tablet by mouth 1 time each day. Active HYDROcodone-aceta minophen (Rillito) 10-325 MG tabletIndications :Pain Take 1 tablet by mouth 4 times a day as needed for moderate pain or severe pain. 025 Active hydroxychloroquin e (Plaquenil) 200 MG tabletIndications :Rheumatoid Arthritis Take 1 tablet by mouth daily. 025 Active leflunomide (Arava) 20 MG tabletIndications :Rheumatoid Arthritis Take 1 tablet by mouth daily. 025 Active losartan (Cozaar) 50 MG tabletIndications :Hypertension Take 1 tablet by mouth daily. 025 Active Nurtec 75 MG orally disintegrating tabletIndications :Migraine Dissolve 1 tablet on the tongue as needed (migraine). Max 75mg/day 024 Active alendronate (Fosamax) 70 MG tabletIndications :Osteoporosis Take 1 tablet by mouth 1 time per week. 025 Active Adalimumab (Humira, 2 Pen,) 40 MG/0.8ML Auto-injector KitIndications:Rh eumatoid Arthritis Inject 1 each under the skin every 14 days. 2 each 5 025 Active clobetasol (Temovate) 0.05 % creamIndications: Dermatitis Apply 1 Application topically as needed (itchiness). Active botulinum toxin Type A, Cosm, (Botox) 100 units reconstituted solution injectionIndicati ons:Migraines Active Lysine 1000 MG tabletIndications :nutrional support Take 1,000 mg by mouth daily. Active cyanocobalamin 2500 MCG tabletIndications :vitamin supplement Take 2 tablets by mouth daily. Active cholecalciferol (Vitamin D-3) 250 MCG (24367 UT) capsuleIndication s:VItamin Supplement Take 1 capsule by mouth daily. Active rosuvastatin (Crestor) 5 MG tabletIndications :Hyperlipidemia Take 1 tablet by mouth nightly. Active montelukast (Singulair) 10 MG tabletIndications :Asthma Take 1 tablet by mouth nightly. Active metoprolol succinate XL (Toprol-XL) 100 MG 24 hr tabletIndications :Hypertension Take 1 tablet by mouth 2 times a day. Do not crush or chew. Active OLANZapine (ZyPREXA) 10 MG tabletIndications :psychosis secondary to medical condition Take 1 tablet by mouth nightly. 30 tablet 025 2025 Active ARIPiprazole (Abilify) 10 MG tablet Take 1 tablet by mouth daily. 2024 Discontinued(S top Taking at Discharge) clotrimazole-beta methasone (Lotrisone) cream Apply topically. 2024 Discontinued(E ntered in Error) metoprolol tartrate (Lopressor) 100 MG tablet Take 1 tablet by mouth 2 times a day. 024 2024 Discontinued(E ntered in Error) venlafaxine (Effexor) 100 MG tablet Take 1.5 tablets by mouth 2 times a day. 025 2024 Discontinued(S top Taking at Discharge) lidocaine (Xylocaine) 5 % ointment Apply 2-4 grams to feet BID as needed for neuropathy. 50 g 1 025 2024 Discontinued(E ntered in Error) ARIPiprazole (Abilify) 15 MG tabletIndications :Psychosis Take 1 tablet by mouth daily. 30 tablet 025 2024 Discontinued venlafaxine XR (Effexor-XR) 150 MG 24 hr capsuleIndication s:Mood diorder Take 1 capsule by mouth daily with breakfast. Do not crush or chew. 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 Encounters Date Type Department Care Team Description 02/05/2025 Travel 02/04/2025 4:56 PM EST - 02/07/2025 2:07 PM EST Hospital Encounter [facility] Inpatient Psychiatry [address] [place] [address] Shawn Lemus MD Potter, Samuel J, MD Meningioma ([facility]) (Primary Dx); 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 Discharge Disposition: Home or Self Care 02/04/2025 12:35 AM EST - 02/04/2025 4:55 PM EST Hospital Encounter [facility] Emergency Department [address] [place] [address] Stephen Kaufman MD Patel, Abhisek A, MD Hyponatremia (Primary Dx) Discharge Disposition: Psychiatric Hospital 02/04/2025 Plan of Care Documentation [facility] Inpatient Psychiatry [address] [place] [address] 02/04/2025 Travel 02/03/2025 Lab Requisition [facility] [address] [place] [id number] Keara [place] MD Routine general medical examination at a health care facility 01/23/2025 Plan of Care Documentation [facility] Inpatient Psychiatry [address] [place] [address] 01/22/2025 5:56 PM EST - 01/28/2025 3:10 PM EST Hospital Encounter [facility] Inpatient Psychiatry [address] [place] [address] Angelina Beebe DO Potter, Samuel J, MD [...] How often do you attend chur or restoration services? More than 4 times per year 02/04/2025 Do you belong to any clubs o r organizations such as presybeterian groups, unions, fraternal or athletic groups, or [...] more drinks on one occasion? Never 02/04/2025 [place] [employer] [facility] - Occupational Stress [...] any time in the past [address] [facility], were you homeless or living in a residential (including now)? No 02/04/2025 [facility] Utilities Answer Date Recorded In the [...] F) 02/07/2025 2:04 AM EST Respiratory Rate 16 02/04/2025 4:30 PM EST Oxygen Saturation 96% 02/07/2025 2:04 AM EST Inhaled Oxygen Concentration - - Weight 93 kg (205 lb 0.4 oz) 02/05/2025 2:00 PM EST 01/23/25 Height 172.7 cm (5' 7.99 ) 02/05/2025 3:00 PM ES T Body Mass Index 31.18 02/05/2025 2:00 PM EST Plan of Treatment Upcoming Encounters Date Type Department Care Team (Late st Contact Info) Description 02/13/2025 10:50 AM EST [facility] Visit [facility] [address] [place] [address] Lorin Melendez, DACIA [address] [place] [address] Health Maintenance Due Date Last [...] Years (1 of 1 - PCV) 2017 [id number] Vaccine (3 - season) 2024 01/02/2021, 05/16/2020 [facility]-Influenza Vaccine (#1) 2024 01/30/2024 [facility]-Depression Screening 01/22/2026 025, 01/22/2025 [facility]-Hepatitis C Screening Completed 06/03/2024 [facility]-Obesity Intervention Completed 025, 10/17/2024, 06/03/2024 [facility]-HIV Screening Completed 02/03/2025, 01/23/2025 HPV Vaccines (No Doses Required) Completed [facility]-HIB Vaccines Aged Out No longer e [...] PANEL, PLASMA Routine 02/05/2025 5:10 AM EST RENAL FUNCTION PANEL, PLASMA STAT 02/04/2025 1:58 PM EST C-REACTIVE PROTEIN, PLASMA STAT Add-on 02/04/2025 8:39 AM EST RENAL FUNCTION PANEL, PLASMA STAT 02/04/2025 8:39 AM EST BENZODIAZEPINE, URINE, QUANTITATIVE STAT 02/04/2025 7:49 AM EST URINALYSIS MICROSCOPIC FOR UA REFLEX STAT 02/04/2025 7:49 AM EST DRUG ABUSE SCREEN, URINE STAT 02/04/2025 7:49 AM EST URINE PETTY PANEL STAT 02/04/2025 7:49 AM EST URINALYSIS WITH REFLEX MICROSCOPIC STAT 02/04/2025 7:49 AM EST URINALYSIS WITH REFLEX MICROSCOPIC AND CULTURE STAT 02/04/2025 7:49 AM EST ECG ADULT STAT 02/04/2025 4:53 AM EST TEST QUALITATIVE PLASMA STAT Add-on 02/04/2025 4:45 AM EST RENAL FUNCTION PANEL, PLASMA STAT 02/04/2025 4:45 AM EST MAGNESIUM, PLASMA STAT 02/04/2025 12: 52 AM EST COMPREHENSIVE METABOLIC PANEL, PLASMA STAT 02/04/2025 12:52 AM EST CBC WITH AUTO DIFFERENTIAL STAT 02/04/2025 12:52 AM EST HIV 1/2 ANTIBODY/ANTIGEN SCREEN WITH REFLEX [...] EST Routine general medical examination at a [facility] care facility HIV 1/2 ANTIBODY/ANTIGEN SCREEN W/REFLEX TO HIV 1/2 ANTIBODY DIFFERENTIATION Routine 02/03/2025 7:30 PM EST Routine general medical examination at a [facility] care facility HEPATITIS B SURFACE ANTIGEN - H STAT 02/03/2025 7:30 PM EST Routine general medical examination at a [facility] facility HEPATITIS C ANTIBODY WITH REFLEX TO HCV QUANT PCR - [facility] STAT 02/03/2025 7:30 PM EST Routine general medical examination at a [facility] facility COMPREHENSIVE METABOLIC PANEL, PLASMA Routine 01/28/2025 5:17 [...] Recently Relevant to Health Maintenance Results * (ABNORMAL) Basic Metabolic Panel, Plasma (02/06/2025 7:08 AM EST) Only the most recent of2 resultswithin the time period is included. Glucose, Plasma 100(H) 74 - 99 mg/dL 02/06/2025 7:47 AM EST [facility] BUN, Plasma 6(L) 7 - 21 mg/dL 02/06/2025 7:47 AM EST [facility] Creatinine, Plasma 0.79 0.60 - 1.10 mg/dL 02/06/2025 7:47 AM EST [facility] BUN/Creatinine Ratio 8 02/06/2025 7:47 AM EST [facility] Sodium, Plasma 138 136 - 145 mmol/L 02/06/2025 7:47 AM EST [facility] Potassium, Plasma 3.7 3.6 - 4.9 mmol/L 02/06/2025 7:47 AM EST [facility] Chloride, Plasma 104 97 - 107 mmol/L 02/06/2025 7:47 AM EST [facility] CO2, Plasma 19(L) 22 - 29 mmol/L 02/06/2025 7:47 AM EST [facility] Anion Gap 15 6 - 16 mmol/L 02/06/2025 7:47 AM EST [facility] Total Calcium, Plasma 8.5(L) 8.9 - 10.2 mg/dL 02/06/2025 7:47 AM EST [facility] eGFRcr 87.4 mL/min/1.7 3m*2 02/06/2025 7:47 AM EST [facility] Comment:Reported eGFRcr in m L/min/1.73m2 is based the CKD-EPI 2020 equation that does not use a race coefficient. Blood Venous blood specimen / Unknown Venipuncture / Unknown 02/06/2025 7:08 AM EST 02/06/2025 7:26 AM EST us Rhett Reeves MD LAB BLOOD ORDERABLES Final Re sult [facility] [address] [place] [id number] * MR Head w and wo IV [...] 02/06/2025 12:05 AM us Rhett Reeves MD IMG MRI PROCEDURES Final Resu lt * Phosphorus (02/05/2025 5:10 AM EST) Phosphorus, Plasma 3.1 2.5 - 4.5 mg/dL 02/05/2025 5:58 AM EST [facility] Blood Venous blood specimen / Unknown Venipuncture / Unknown 02/05/2025 5:10 AM EST 02/05/2025 5:36 AM EST us Rhett Reeves MD LAB BLOOD ORDERABLES Final Re sult Performing Organization Address City/[facility]/ZIP Co de Phone Number [facility] [address] [place] [address] * Magnesium (02/05/2025 5:10 AM EST) Only the most recent of2 resultswithin the time period is included. Magnesium, Plasma 2.1 1.9 - 2.4 mg/dL 02/05/2025 5:58 AM EST [facility] Blood Venous blood specimen / Unknown Venipuncture / Unknown 02/05/2025 5:10 AM EST 02/05/2025 5:36 AM EST us Rhett Reeves MD LAB BLOOD ORDERABLES Final Re sult Performing Organization Address City/[facility]/ZIP Co de Phone Number [facility] [address] [place] [address] * (ABNORMAL) Renal function panel (02/04/2025 1:58 PM EST) Only the most recent of3 resultswithin the time period is included. Glucose, Plasma 96 74 - 99 mg/dL 02/04/2025 2:52 PM EST [facility] BUN, Plasma 6(L) 7 - 21 mg/dL 02/04/2025 2:52 PM EST [facility] Creatinine, Plasma 0.73 0.60 - 1.10 mg/dL 02/04/2025 2:52 PM EST [facility] BUN/Creatinine Ratio 8 02/04/2025 2:52 PM EST [facility] Sodium, Plasma 137 136 - 145 mmol/L 02/04/2025 2:52 PM EST [facility] Potassium, Plasma 3.7 3.6 - 4.9 mmol/L 02/04/2025 2:52 PM EST [facility] Chloride, Plasma 104 97 - 107 mmol/L 02/04/2025 2:52 PM EST [facility] CO2, Plasma 22 22 - 29 mmol/L 02/04/2025 2:52 PM EST [facility] Anion Gap 11 6 - 16 mmol/L 02/04/2025 2:52 PM EST [facility] Total Calcium, Plasma 8.4(L) 8.9 - 10.2 mg/dL 02/04/2025 2:52 PM EST [facility] Phosphorus, Plasma 2.6 2.5 - 4.5 mg/dL 02/04/2025 2:52 PM EST [facility] Albumin, Plasma 3.7 3.5 - 5.2 g/dL 02/04/2025 2:52 PM EST [facility] eGFRcr 96.1 mL/min/1.7 3m*2 02/04/2025 2:52 PM EST [facility] Comment:Reported eGFRcr in m L/min/1.73m2 is based the CKD-EPI 2020 equation that does not use a race coefficient. Blood Venous blood specimen / Unknown Venipuncture / Unknown 02/04/2025 1:58 PM EST 02/04/2025 2:01 PM EST us Stephen Kaufman MD LAB BLOOD ORDERABLES Final Result [facility] [address] [place] [address] * C-reactive protein (02/04/2025 8:39 AM EST) CRP, Plasma 5.7 <=8.0 mg/L 02/04/2025 11:22 AM EST [facility] Blood Venous blood specimen / Unknown Venipuncture / Unknown 02/04/2025 8:39 AM EST 02/04/2025 8:41 AM EST Narrative [facility] - 02/04/2025 11:22 AM EST This CRP test is appropriate for assessment of infection, systemic inflammation and/or tissue injury. To assess cardiovascular disease risk order high sensitivity CRP (CRPH). us Petey Collado MD LAB BLOOD ORDERABLES Final Re sult Performing Organization Address [facility] de Phone Number [facility] [address] [place] [address] * Urine Petty Panel (02/04/2025 7:49 AM EST) Only the most recent of2 resultswithin the time period is included. Extra Reflex urine culture not indicated 02/04/2025 9:02 AM EST [facility] Urine Urine specimen obtained by clean catch procedure / Unknown Non-blood Collection / Unknown 02/04/2025 7:49 AM EST 02/04/2025 8:00 AM EST us Petey Collado MD LAB URINE ORDERABLES Final Re sult Performing Organization Address [facility] de Phone Number [facility] [address] [place] [address] * Urinalysis Microscopic Examination (02/04/2025 7:49 AM EST) Only the most recent of2 resultswithin the time period is included. Urine Urine specimen obtained by clean catch procedure / Unknown Non-blood Collection / Unknown 02/04/2025 7:49 AM EST 02/04/2025 7:51 AM EST us Petey Collado MD LAB URINE ORDERABLES Final Re sult Performing Organization Address [facility] [place] [address] * Rapid drug screen, urine (02/04/2025 7:49 AM EST) Amphetamine Screen Urine Negative Cutoff: 500 ng/mL 02/04/2025 8:11 AM [facility] Benzodiazepines Screen Urine Presumptive positive. Confirmation by LC-MS/MS to follow. Cutoff: 200 ng/mL 02/04/2025 8:11 AM [facility] Cannabinoid Screen Urine Negative Cutoff: 50 ng/mL 02/04/2025 8:11 AM [facility] Cocaine Screen Urine Negative Cutoff: 300 ng/mL 02/04/2025 8:11 AM [facility] Barbiturate Screen Urine Negative Cutoff: 200 ng/mL 02/04/2025 8:11 AM [facility] Opiate Screen Urine Negative Cutoff: 300 ng/mL 02/04/2025 8:11 AM [facility] Methadone Screen Urine Negative Cutoff: 300 ng/mL 02/04/2025 8:11 AM [facility] Buprenorphine Screen Urine Negative Cutoff: 10 ng/mL 02/04/2025 8:11 AM [facility] Fentanyl Screen Urine Negative Cutoff: 1 ng/mL 02/04/2025 8:11 AM [facility] Oxycodone Screen Urine Negative Cutoff: 100 ng/mL 02/04/2025 8:11 AM [facility] Urine Urine specimen obtained by clean catch procedure / Unknown Non-blood Collection / Unknown 02/04/2025 7:49 AM EST 02/04/2025 7:51 AM EST us Petey Collado MD LAB URINE ORDERABLES Final Re sult [facility] [address] [place] [address] * Benzodiazepine Confirm Urine (02/04/2025 7:49 AM EST) [facility] [place] Alprazolam <20 <20 ng/mL 02/07 6:03 PM [facility] [place] Midazolam <20 <20 ng/mL 2024 6:03 PM [facility] [place] Triazolam <20 <20 ng/mL 2024 6:03 PM [facility] Alprazolam <10 <10 ng/mL 02/07/2025 6:03 PM EST [facility] Aminoclonazepam <20 <20 ng/mL 6:03 PM [facility] Clonazepam <10 <10 ng/mL 02/07/2025 6:03 PM EST [facility] Diazepam <10 <10 ng/mL 02/07/2025 6:03 PM [facility] Lorazepam <20 <20 ng/mL 02/07/2025 6:03 PM [facility] Lorazepam Glucuronide <50 <50 ng/mL 02/07/2025 6:03 PM [facility] Midazolam 02/07/2025 6:03 PM [facility] Nordiazepam <20 <20 ng/mL 02/07/2025 6:03 PM [facility] Oxazepam <20 <20 ng/mL 02/07/2025 6:03 PM [facility] Oxazepam Glucuronide <50 <50 ng/mL 01/27 6:03 PM [facility] Temazepam <20 <20 ng/mL 02/07/2025 6:03 PM [facility] Temazepam Glucuronide <50 <50 ng/mL 02/07/2025 6:03 PM [facility] Triazolam 02/07/2025 6:03 PM [facility] Urine Urine specimen obtained by clean catch procedure / Unknown Non-blood Collection / Unknown 02/04/2025 7:49 AM EST 02/04/2025 7:51 AM EST [facility] - 02/07/2025 6:03 PM EST Drug analysis is confirmed by LC-MS/MS (LC Tandem Mass Spectrometry) on Urine specimens. This test was developed and its performance characteristics determined by [facility]. It has not been cleared or approved by the FDA. The laboratory is regulated under CLIA as qualified to perform high-complexity testing. This test is used for clinical purposes. Testing is performed at the [facility], Special [facility] Laboratory. us Petey Collado MD LAB URINE ORDERABLES Final Re sult [facility] [address] [place] [address] * (ABNORMAL) Urinalysis with reflex microscopic (Culture NOT Included) (02/04/2025 7:49 AM EST) Only the most recent of2 resultswithin the time period is included. Color, Urine Yellow LAB URINALYSIS - AUTOMATED METHOD 02/04/2025 8:12 AM EST [facility] Clarity, Urine Clear LAB URINALYSIS - AUTOMATED METHOD 02/04/2025 8:12 AM [facility] Spec [place], Urine 1.012 1.005 - 1.030 LAB URINALYSIS - AUTOMATED METHOD 02/04/2025 8:12 AM [facility] pH, Urine 6.0 5.0 - 8.0 LAB URINALYSIS - AUTOMATED METHOD 02/04/2025 8:12 AM [facility] Protein, Urine Trace(A) Negative mg/dL LAB URINALYSIS - AUTOMATED METHOD 02/04/2025 8:12 AM [facility] Glucose, Urine Negative Negative mg/dL LAB URINALYSIS - AUTOMATED METHOD 02/04/2025 8:12 AM [facility] Ketones, Urine 15(A) Negative mg/dL LAB URINALYSIS - AUTOMATED METHOD 02/04/2025 8:12 AM [facility] Blood, Urine Small(A) Negative LAB URINALYSIS - AUTOMATED METHOD 02/04/2025 8:12 AM [facility] Bilirubin, Urine Negative Negative LAB URINALYSIS - AUTOMATED METHOD 02/04/2025 8:12 AM [facility] Urobilinogen, Urine 0.2 0.2 to 1.0 mg/dL LAB URINALYSIS - AUTOMATED METHOD 02/04/2025 8:12 AM [facility] Leukocytes, Urine Trace(A) Negative LAB URINALYSIS - AUTOMATED METHOD 02/04/2025 8:12 AM [facility] Nitrite, Urine Negative Negative LAB URINALYSIS - AUTOMATED METHOD 02/04/2025 8:12 AM [facility] RBC, Urine 1 0 to 3 /HPF LAB URINALYSIS - AUTOMATED METHOD 02/04/2025 8:12 AM [facility] Comment:This result was prev iously suppressed from the chart. WBC, Urine 0 - 5 0 to 5 /HPF LAB URINALYSIS - AUTOMATED METHOD 02/04/2025 8:12 AM EST [facility] Comment:This result was prev iously suppressed from the chart. Squamous Epithelial Cells 6 - 10(A) 0 to 5 /HPF LAB URINALYSIS - AUTOMATED METHOD 02/04/2025 8:12 AM EST [facility] Comment:This result was prev iously suppressed from the chart. Hyaline Casts 0 - 2 0 to 5 /LPF LAB URINALYSIS - AUTOMATED METHOD 02/04/2025 8:12 AM EST [facility] Comment:This result was prev iously suppressed from the chart. Bacteria, Urine Negative Negative LAB URINALYSIS - AUTOMATED METHOD 02/04/2025 8:12 AM EST [facility] Comment:This result was prev iously suppressed from the chart. Urine Urine specimen obtained by clean catch procedure / Unknown Non-blood Collection / Unknown 02/04/2025 7:49 AM EST 02/04/2025 7:51 AM EST Petey Collado MD LAB URINE ORDERABLES Final Re sult [facility] [address] [place] [address] * ECG Adult (02/04/2025 4:53 AM EST) EKG DIAGNOSIS CLASS Abnormal MUSE ECG Ventricular Rate 74 BPM MUSE ECG Atrial Rate 74 BPM MUSE ECG CA Interval 160 ms MUSE ECG QRSD Interval 82 ms MUSE ECG QT Interval 428 ms MUSE ECG QTC Interval 475 ms MUSE ECG P [place] 38 degrees MUSE ECG R [place] 31 degrees MUSE ECG T Wave [place] 62 degrees MUSE ECG Diagnosis Normal sinus [...] * hCG qualitative (02/04/2025 4:45 AM EST) Pathologist [facility] Test Negative Negative 02/04/2025 6:21 AM EST [facility] Blood Venous blood specimen / Unknown Venipuncture / Unknown 02/04/2025 4:45 AM EST 02/04/2025 5:04 AM EST Narrative [facility] - 02/04/2025 6:21 AM EST Reference Range: Males and non- females: Negative. us Petey Collado MD LAB BLOOD ORDERABLES Final Re sult [facility] [address] [place] [address] * (ABNORMAL) CBC w/diff (02/04/2025 12:52 AM EST) [facility] WBC Count 5.45 3.70 - 10.30 10*3/uL LAB HEMATOLOGY METHOD 02/04/2025 12:57 AM EST [facility] RBC Count 4.34 3.90 - 5.20 10*6/uL LAB HEMATOLOGY METHOD 02/04/2025 12:57 AM EST [facility] HGB 12.9 11.2 - 15.7 g/dL LAB HEMATOLOGY METHOD 02/04/2025 12:57 AM EST [facility] HCT 37.7 34.0 - 45.0 % LAB HEMATOLOGY METHOD 02/04/2025 12:57 AM EST [facility] Platelet Count 144(L) 155 - 369 10*3/uL LAB HEMATOLOGY METHOD 02/04/2025 12:57 AM EST [facility] MCV 87 79 - 98 fL LAB HEMATOLOGY METHOD 02/04/2025 12:57 AM EST [facility] MCH 29.7 26.0 - 32.0 pg LAB HEMATOLOGY METHOD 02/04/2025 12:57 AM EST [facility] MCHC 34.2 30.7 - 35.5 g/dL LAB HEMATOLOGY METHOD 02/04/2025 12:57 AM EST [facility] RDW 13.2 11.5 - 14.5 % LAB HEMATOLOGY METHOD 02/04/2025 12:57 AM EST [facility] MPV 8.8 8.8 - 12.5 fL LAB HEMATOLOGY METHOD 02/04/2025 12:57 AM [facility] nRBC 0.0 <=0.0 per 100 WBCs LAB HEMATOLOGY METHOD 02/04/2025 12:57 AM [facility] Differential Type Automated LAB HEMATOLOGY METHOD 02/04/2025 12:57 AM [facility] Neutrophils % 69 % LAB HEMATOLOGY METHOD 02/04/2025 12:57 AM [facility] Lymphocytes % 20 % LAB HEMATOLOGY METHOD 02/04/2025 12:57 AM EST [facility] Monocytes % 10 % LAB HEMATOLOGY METHOD 02/04/2025 12:57 AM [facility] Eosinophils % 1 % LAB HEMATOLOGY METHOD 02/04/2025 12:57 AM [facility] Basophils % 0 % LAB HEMATOLOGY METHOD 02/04/2025 12:57 AM [facility] Immature Granulocytes % 0 % LAB HEMATOLOGY METHOD 02/04/2025 12:57 AM [facility] Neutrophils Absolute 3.75 1.60 - 6.10 10*3/uL LAB HEMATOLOGY METHOD 02/04/2025 12:57 AM [facility] Lymphocytes Absolute 1.07(L) 1.20 - 3.90 10*3/uL LAB HEMATOLOGY METHOD 02/04/2025 12:57 AM [facility] Monocytes Absolute 0.53 0.30 - 0.90 10*3/uL LAB HEMATOLOGY METHOD 02/04/2025 12:57 AM [facility] Eosinophils Absolute 0.06 0.00 - 0.50 10*3/uL LAB HEMATOLOGY METHOD 02/04/2025 12:57 AM [facility] Basophils Absolute 0.02 0.00 - 0.10 10*3/uL LAB HEMATOLOGY METHOD 02/04/2025 12:57 AM [facility] Immature Granulocytes Absolute 0.02 0.00 - 0.06 10*3/uL LAB HEMATOLOGY METHOD 02/04/2025 12:57 AM [facility] Blood Venous blood specimen / Unknown Venipuncture / Unknown 02/04/2025 12:52 AM EST 02/04/2025 12:55 AM EST [facility]ARE LAB - 02/04/2025 12:57 AM EST Therapeutic decision making should be based on absolute values, rather than percentages. us Stephen Kaufman MD LAB BLOOD ORDERABLES Final Result [facility] [address] [place] [address] * (ABNORMAL) CMP (02/04/2025 12:52 AM EST) Only the most recent of4 resultswithin the time period is included. Glucose, Plasma 88 74 - 99 mg/dL 02/04/2025 1:22 AM EST [facility] BUN, Plasma 9 7 - 21 mg/dL 02/04/2025 1:22 AM EST [facility] Creatinine, Plasma 0.71 0.60 - 1.10 mg/dL 02/04/2025 1:22 AM EST [facility] BUN/Creatinine Ratio 13 02/04/2025 1:22 AM EST [facility] Sodium, Plasma 133(L) 136 - 145 mmol/L 02/04/2025 1:22 AM EST [facility] Potassium, Plasma 4.2 3.6 - 4.9 mmol/L 02/04/2025 1:22 AM EST [facility] Chloride, Plasma 102 97 - 107 mmol/L 02/04/2025 1:22 AM EST [facility] CO2, Plasma 24 22 - 29 mmol/L 02/04/2025 1:22 AM EST [facility] Anion Gap 7 6 - 16 mmol/L 02/04/2025 1:22 AM EST [facility] Total Calcium, Plasma 8.4(L) 8.9 - 10.2 mg/dL 02/04/2025 1:22 AM EST [facility] Total Protein 6.6 6.3 - 7.9 g/dL 02/04/2025 1:22 AM EST [facility] Albumin, Plasma 4.0 3.5 - 5.2 g/dL 02/04/2025 1:22 AM EST [facility] AST, Plasma 33 10 - 35 U/L 02/04/2025 1:22 AM EST [facility] ALT, Plasma 24 10 - 35 U/L 02/04/2025 1:22 AM EST [facility] Alkaline Phosphatase, Plasma 74 46 - 142 U/L 02/04/2025 1:22 AM EST [facility] Total Bilirubin, Plasma 0.2 0.2 - 1.1 mg/dL 02/04/2025 1:22 AM EST [facility] eGFRcr 99.3 mL/min/1.7 3m*2 02/04/2025 1:22 AM EST [facility] Comment:Reported eGFRcr in m L/min/1.73m2 is based the CKD-EPI 2020 equation that does not use a race coefficient. Blood Venous blood specimen / Unknown Venipuncture / Unknown 02/04/2025 12:52 AM EST 02/04/2025 12:55 AM EST us Stephen Kaufman MD LAB BLOOD ORDERABLES Final Result Performing Organization Address [facility] Co de Phone Number [facility] [address] [place] [address] * Hepatitis B Surface Antigen - [facility] (02/03/2025 7:30 PM EST) Hepatitis B Surf Antigen Negative Negative 02/03/2025 11:15 PM EST [facility] Blood Venous blood specimen / Unknown Venipuncture / Unknown 02/03/2025 7:30 PM EST 02/03/2025 7:37 PM EST us Keara [place] MD LAB BLOOD ORDERABLES Final Resu lt Performing Organization Address [facility] de Phone Number [facility] [address] [place] [address] * Hepatitis C Antibody with Reflex to HCV Quant PCR - [facility] (02/03/2025 7:30 PM EST) Hepatitis C Antibody Negative Negative 02/03/2025 10:44 PM EST [facility] Blood Venous blood specimen / Unknown Venipuncture / Unknown 02/03/2025 7:30 PM EST 02/03/2025 7:37 PM EST us Keara [place] MD LAB BLOOD ORDERABLES Final Resu lt Performing Organization Address City/[facility] Co de Phone Number [facility] [address] [place] [address] * HIV 1 & 2 Antibody/Antigen Screen (02/03/2025 7:30 PM EST) Only the most recent of2 resultswithin the time period is included. [facility] HIV 1 & 2 Antibody/Antigen Screen Non Reactive Non Reactive 02/03/2025 10:44 PM EST [facility] Comment:Screening for HIV 1 & 2 antibodies, and P24 antigen is NONREACTIVE. No confirmatory testing is required. Blood Venous blood specimen / Unknown Venipuncture / Unknown 02/03/2025 7:30 PM EST 02/03/2025 7:37 PM EST us Keara [place] MD LAB BLOOD ORDERABLES Final Resu lt [facility] [address] [place] [address] * CBC W/O Differential (02/03/2025 7:30 PM EST) Only the most recent of2 resultswithin the time period is included. [facility] WBC Count 5.52 3.70 - 10.30 10*3/uL LAB HEMATOLOGY METHOD 02/03/2025 10:24 PM EST [facility] RBC Count 4.43 3.90 - 5.20 10*6/uL LAB HEMATOLOGY METHOD 02/03/2025 10:24 PM EST [facility] HGB 13.1 11.2 - 15.7 g/dL LAB HEMATOLOGY METHOD 02/03/2025 10:24 PM EST [facility] HCT 38.9 34.0 - 45.0 % LAB HEMATOLOGY METHOD 02/03/2025 10:24 PM EST [facility] Platelet Count 178 155 - 369 10*3/uL LAB HEMATOLOGY METHOD 02/03/2025 10:24 PM EST [facility] MCV 88 79 - 98 fL LAB HEMATOLOGY METHOD 02/03/2025 10:24 PM EST [facility] MCH 29.6 26.0 - 32.0 pg LAB HEMATOLOGY METHOD 02/03/2025 10:24 PM EST [facility] MCHC 33.7 30.7 - 35.5 g/dL LAB HEMATOLOGY METHOD 02/03/2025 10:24 PM EST [facility] RDW 13.1 11.5 - 14.5 % LAB HEMATOLOGY METHOD 02/03/2025 10:24 PM EST [facility] MPV 9.9 8.8 - 12.5 fL LAB HEMATOLOGY METHOD 02/03/2025 10:24 PM EST [facility] nRBC 0.0 <=0.0 per 100 WBCs LAB HEMATOLOGY METHOD 02/03/2025 10:24 PM EST [facility] Blood Venous blood specimen / Unknown Venipuncture / Unknown 02/03/2025 7:30 PM EST 02/03/2025 7:37 PM EST us Keara [place] MD LAB BLOOD ORDERABLES Final Resu lt Performing Organization Address City/[facility] [place] [address] * TSH (02/03/2025 7:30 PM EST) Only the most recent of2 resultswithin the time period is included. Thyroid Stimulating Hormone, Plasma 1.09 0.40 - 4.20 uIU/mL 02/03/2025 10:40 PM EST [facility] Blood Venous blood specimen / Unknown Venipuncture / Unknown 02/03/2025 7:30 PM EST 02/03/2025 7:37 PM EST Result Nieves [place] MD LAB BLOOD ORDERABLES Final Resu lt Performing Organization Address City/[facility]/[place] [address] * T4, free (02/03/2025 7:30 PM EST) Only the most recent of2 resultswithin the time period is included. Free T4, Plasma 1.6 0.8 - 1.7 ng/dL 02/03/2025 10:40 PM EST [facility] Blood Venous blood specimen / Unknown Venipuncture / Unknown 02/03/2025 7:30 PM EST 02/03/2025 7:37 PM EST us Keara [place] MD LAB BLOOD ORDERABLES Final Resu lt Performing Organization Address [facility]/ZIP Co de Phone Number [facility] [address] [place] [address] * Hemoglobin A1c (02/03/2025 7:30 PM EST) Hemoglobin A1c 5.3 <5.7 % 02/03/2025 11:05 PM EST [facility] Blood Venous blood specimen / Unknown Venipuncture / Unknown 02/03/2025 7:30 PM EST 02/03/2025 7:37 PM EST Narrative [facility] - 02/03/2025 11:05 PM EST HA1C Interpretive Data: Diagnosis of Diabetes: Diabetic > or = 6.5% Pre-diabetic 5.7 to 6.4% Non-diabetic < or = 5.6% Glycemic Targets for Type I and Type II Diabetics: Non- Adults <7.0% Adults <6.0% Children and Adolescents <7.5% Source: [place] [employer]. Standards of medical care in diabetes,2017. Diabetes Care.2017:40 (suppl 1):S1-S135. Keara [place] MD LAB BLOOD ORDERABLES Final Resu lt Performing Organization Address [facility] de Phone Number [facility] [address] [place] [address] * (ABNORMAL) Lipid panel (02/03/2025 7:30 PM EST) Only the most recent of2 resultswithin the time period is included. Cholesterol, Plasma 104 <200 mg/dL 02/03/2025 10:40 PM EST [facility] Comment: Cholesterol Reference Range (age >17 years): Desirable <200 mg/dL Borderline 200 to 239 mg/dL Undesirable >239 mg/dL HDL 44(L) >=50 mg/dL 02/03/2025 10:40 PM EST [facility] Comment: HDL Cholesterol Reference Ranges (age >17 years): Female, acceptable > or = 50 mg/dL Male, acceptable > or = 40 mg/dL Triglycerides, Plasma 189(H) <150 mg/dL 02/03/2025 10:40 PM EST [facility] Comment: Triglyceride Reference Range (age >17 years): Desirable: <150 mg/dL Borderline high: 150 to 199 mg/dL High: 200 to 499 mg/dL Very high: >499 mg/dL Increased risk of pancreatitis: >1000 mg/dL Cholesterol/HDL Ratio 2 02/03/2025 10:40 PM EST [facility] LDL, Calculated 30 <100 mg/dL 10:40 PM EST [facility] Comment: LDL Cholesterol Reference Range (age [...] 12 hours? Unknown 02/03/2025 10:40 PM EST [facility] Blood Venous blood specimen / Unknown Venipuncture / Unknown 02/03/2025 7:30 PM EST 02/03/2025 7:37 PM EST us Keara [place] MD LAB BLOOD ORDERABLES Final Resu lt Performing Organization Address City/[facility]/ZIP Co de Phone Number [facility] [address] [place] [address] * Hepatitis B Surface Antigen - [facility] (01/23/2025 1:09 PM EST) Hepatitis B Surf Antigen Negative Negative 01/23/2025 4:18 PM EST [facility] Blood Venous blood specimen / Unknown Venipuncture / Unknown 01/23/2025 1:09 PM EST 01/23/2025 1:14 PM EST us Sheila Jerry MD LAB BLOOD ORDERABLES Final Result Performing Organization Address [facility]/ZIP Co de Phone Number [facility] [address] [place] [address] * Hepatitis C Antibody with Reflex to HCV Quant PCR - [facility] (01/23/2025 1:09 PM EST) Hepatitis C Antibody Negative Negative 01/23/2025 2:23 PM EST HEALTHCARE LAB Blood Venous blood specimen / Unknown Venipuncture / Unknown 01/23/2025 1:09 PM EST 01/23/2025 1:13 PM EST Sheila Jerry MD LAB BLOOD ORDERABLES Final Result [facility]ALTH[facility]ARE LAB [address] [place] [address] * POCT Drugs of Abuse (01/22/2025 11:33 PM EST) Pathologist [facility] POC Amphetamine Screen, Urine Negative Negative POC [...] Normal Normal POC UDS Kit Lot Number [id number] POC UDS Kit Expiration 2026-08-15 POC UDS Collection Observed? Not Observed Urine 01/22/2025 11:3 3 PM EST us Joe Frazier DUAL RATE DEALER POINT OF CARE TEST ENTER/ED IT ORDERABLES Final Result * Acute Hepatitis Panel (06/03/2024 11:49 AM EDT) Hepatitis B Surf Antigen Negative Negative 06/03/2024 2:14 PM EDT [facility] Hepatitis C Antibody Negative Negative 06/03/2024 2:14 PM EDT [facility] Hepatitis A Antibody IgM Negative Negative 06/03/2024 2:14 PM EDT [facility] Hepatitis B Core Antibody IgM Negative Negative 06/03/2024 2:14 PM EDT [facility] Blood Venous blood specimen / Unknown Venipuncture / Unknown 06/03/2024 11:49 AM EDT 06/03/2024 11:50 AM EDT us Lorin Moustapha Melendez DUAL RATE DEALER LAB BLOOD ORDERABLES Kasandra mancilla Result Performing Organization Address City/State/[facility] Co de Phone Number [facility] [address] [place] [address] from Last 3 Months or Most Recently Relevant to Health Maintenance Insurance [facility] MEDICARE Advance Directives * Full Code (Latest Code Status on File) Date Activated Date Inactivated Comments 02/04/2025 4:50 AM 02/04/2025 4:58 PM Question Answer Comments I have reviewed the capacity from the link above and, if needed, have updated to appropriate status: Yes * Full Code Date Activated Date Inactivated Comments 01/23/2025 3:39 AM 01/28/2025 5:59 PM Question Answer Comments I have reviewed the capacity from the link above and, if needed, have updated to appropriate status: Yes Care Teams Land Acquisition Analyst Relationship Specialty Start Date End Date Marvin Breaux MD [facility] [place] [facility] [address] [place] [address] PCP - General 05/27/24
--- OUTSIDE RECORDS SUMMARY | 2025-02-07 18:13 | XMS_ITS | Clinical Summary ---
Author Organization [facility] Address [address] [place] [address] Care Team Providers Care Emt Driver Name Role Phone Marvin Breaux MD Primary Care Provider [phone] Allergies Active Allergy Reactions Criticality Noted Date [...] MG/0.1ML nasal spray Call 911. Don't prime. [place] in 1 nostril for overdose. Repeat in [...] or training? Not on file Preferred Language Amharic 12/27/2022 Comments Unknown Sex and Gender Information [...] Completed 01/23/2025 Medical Devices Implanted Type Area Teacher Theater Arts Device Identifier Shelf Expiration Date Model / Serial / Lot Cmt Bone Palacos R Hi/Visc 1x40 - [id number] Implanted:Qty : 2 on 12/29/2022 by Rhett Borja MD at [facility] Implant Left: Knee [employer] [id number] 04/27/2027 [id number] / / [id number] Dev Contrl Tiss Stratafix Spiral Mncryl Pls Ps 3/0 30cm Ud - [id number] Implanted:Qty : 1 on 12/29/2022 by Rhett Borja MD at [facility] Implant Left: Knee [employer] J [employer] J [id number] 04/26/2024 [id number] / / [id number] Dev Contrl Tiss Stratafix Symm Pds Plus Barbra Ct-1 60cm - [id number] Implanted:Qty : 1 on 12/29/2022 by Rhett Borja MD at [facility] Implant Left: Knee [employer] J 05/27/2024 [id number] / / [id number] Insrt Art/Kn Legion Ps Hf Xlpe Sz3to4 9mm - [id number] Implanted:Qty : 1 on 12/29/2022 by Rhett Borja MD at [facility] Implant Left: Knee [employer] [id number] 08/12/2032 [id number] / / [id number] Pat Gen2 Resrf 29mm - [id number] Implanted:Qty : 1 on 12/29/2022 by Rhett Borja MD at [facility] Implant Left: Knee [employer] [id number] 06/29/2032 [id number] / / [id number] Comp Fem Legion Oxinium Ps Sz6 Lt - [id number] Implanted:Qty : 1 on 12/29/2022 by Rhett Borja MD at [facility] Implant Left: Knee [employer] [id number] 05/06/2032 [id number] / / [id number] Base Tib/Kn Gen2 Nonpor Ti Sz4 Lt - [id number] Implanted:Qty : 1 on 12/29/2022 by Rhett Borja MD at [facility] Implant Left: Knee [employer] [id number] 05/24/2032 [id number] / / [id number] Totl Kn Jovan Darnell Nephew - [id number] Implanted:Qty : 1 on 12/29/2022 by Rhett Borja MD at [facility] Implant Left: Rosie [employer] DACIA [id number] / / Insurance [facility] MEDICARE ADVANTAGE Advance Directives * CPR (Attempt to Resuscitate) (Latest Code Status on File) Date Activated Date Inactivated Comments 12/29/2022 2:31 PM 12/29/2022 8:02 PM Question Answer Comments Code Status (Patient has no pulse and is not breathing): CPR (Attempt to Resuscitate) Medical Interventions (Patie nt has pulse or is breathing): Full Support Level Of Support Discussed With: Patient Care Teams Emt Driver Relationship Specialty Start Date End Date Marvin Breaux MD [address] [facility] [address] [place] [address] PCP - General Internal Medicine 12/22/22
--- OUTSIDE RECORDS SUMMARY | 2025-02-07 18:13 | XMS_ITS | Encounter Summary ---
Author Organization Healthcare Address [address] [place] [address] Care Team Providers Care Reconciling Clerk Name Role Phone Marvin Breaux MD Primary Care Provider [phone] Encounter Details Date Type Department Care Team (Late Contact Info) Description 10/21/2024 Results Follow-Up [facility] Medicine Specialties [address] [place] [address] Lorin Melendez, COPIER FIELD SERVICE TECHNICIAN [address] [place] [address] Social History Tobacco Use Types [...] Description 02/13/2025 10:50 AM EST Office Visit [facility] Medicine Specialties [address] [place] [address] Nora Lorin L, COPIER FIELD SERVICE TECHNICIAN [address] [place] [address] documented as of this encounter Visit Diagnoses Not on filedocumented in this encounter Additional Health Concerns Assessment Noted Time A fall risk assessment has been complete d for the patient 10/17/2024 1:46 PM EDT A Body Mass Index follow-up plan has been documented for the patient 10/17/2024 2:38 PM EDT documented as of this encounter Care Teams Reconciling Clerk Relationship Specialty Start Date End Date Marvin Breaux MD [address] [place], [place] [address] [address] [place] [address] PCP - General 05/27/24 documented as of this encounter
--- NOTE | 2025-02-07 18:15 | ED_ITS ---
<Statement entered by Benita North DO - 02/07/25 23:58> I was consulted by the [facility], and we discussed the complexity of problems being addressed. I approve the treatment and management plan for this patient's care in the emergency department, thus performing a substantial portion of the medical decision making. Benita North DO Discharge Plan Disposition Chief Complaint: Psychiatric Symptoms Prescriptions Prescriptions: No Action hydrocodone-acetaminophen 10-325 mg tablet 1 tab PO Q6H PRN (Reason: pain) Qty: 120 0RF metoprolol succinate 100 mg tablet extended release 24 hr 100 mg PO BID Qty: 180 1RF losartan 50 mg tablet 50 mg PO DAILY cetirizine 10 mg tablet 10 mg PO DAILY alendronate 70 mg tablet 70 mg PO WEEKLY leflunomide 20 mg tablet 20 mg PO DAILY montelukast 10 mg tablet 10 mg PO HS hydroxychloroquine 200 mg tablet 200 mg PO DAILY Humira Pen 40 mg/0.8 mL pen injector kit 40 mg SQ DIRECTED Rx Instructions: Biweekly Nurtec ODT 75 mg tablet,disintegrating 75 mg PO NEEDED PRN (Reason: migraine) rosuvastatin 5 mg tablet 5 mg PO HS Referrals Follow up/Referrals: Marvin Breaux MD [Primary Care Provider, Medical] - See instructions Print Language Print Language: Turkmen Discharge ED Provider: Benita North General Adult HPI <Krissy Roth (ED), [employer] - Last Filed: 02/07/25 20:57> General Chief complaint: Psychiatric Symptoms Stated complaint: Feeling Unwell after drinking soda Time Seen by Provider: 02/07/25 18:05 Mode of Arrival: Ambulatory Source of Information: Patient Description of Symptoms (Recalled from ER Triage Doc. by RN): Patient states that she started drinking a diet Mt Dew about 30-45 minutes ago and thinks that my put arsenic in it States they were arguing about him trying to take their farm from her and that she thinks he is trying to poison her. Patient complaining of nausea, burning in her throat. Patient is able to answer all orientation questions appropriately. Denies any suicidal thoughts. History of Present Illness HPI narrative: 59-year-old female presents to the ED today for being nauseous and having a burning sensation after she drank about half of her Mountain Dew. She says I think my is trying to kill me . Patient denies any suicidal or homicidal thoughts. Patient has nausea and believes her put it in the bottle. Related Data Home Medications ?Medication ?Instructions ?Recorded ?Confirmed adalimumab 40 mg/0.8 mL 40 mg SQ DIRECTED 5 02/03/25 subcutaneous pen kit (Humira Pen) alendronate 70 mg tablet 70 mg PO WEEKLY 01/19/2510/21 cetirizine 10 mg tablet 10 mg PO DAILY 01/19/2510/21 hydroxychloroquine 200 mg tablet 200 mg PO DAILY 01/1902/03/25 leflunomide 20 mg tablet 20 mg PO DAILY 01/19/2510/21 losartan 50 mg tablet 50 mg PO DAILY 01/19/2510/21 montelukast 10 mg tablet 10 mg PO HS 01/19/25 rimegepant 75 mg disintegrating 75 mg PO NEEDED PRN migraine 01/19/25 02/03/25 tablet (Nurtec ODT) rosuvastatin 5 mg tablet 5 mg PO HS 02/03/25 02/03/25 Previous Rx's ?Medication ?Instructions ?Recorded hydrocodone 10 mg-acetaminophen 1 tab PO Q6H PRN pain #120 tabs 01/30/25 325 mg tablet metoprolol succinate 100 mg 100 mg PO BID #180 tabs tablet,extended release 24 hr Allergies Allergy/AdvReac Type Severity Reaction Status Date / Time latex Allergy Intermediate I-RASH Verified 02/01/25 14:01 varenicline Allergy Mild SWEATS Verified 02/01/25 14:01 [facility] <Krissy Roth (ED), [employer] - Last Filed: 02/07/25 20:57> [facility] Disclaimer: The information contained in this section may have been updated after the patient was seen, as this information can be updated by other users. 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 Peripheral vascular disease, unspecified Benign essential HTN Unspecified asthma, uncomplicated Nicotine dependence, unspecified, with unspecified nicotine-induced disorders Chronic obstructive pulmonary disease, unspecified Rheumatoid arthritis with rheumatoid factor of unspecified site without organ or systems involvement Hyperlipidemia Surgical History History of left knee replacement Hx of breast reduction, elective History of knee replacement Family History Other No significant family history Social History (Updated 02/03/25 @ 13:57 by Sheri Blood RN) Smoking Status: Current every day smoker alcohol intake: never substance use type: denies use current occupational status: disabled Travel in the last 8 weeks?: None caffeine: Yes Have you lived/traveled outside [place] in past 30 days?: No Contact w/someone who lives/traveled outside US past 30 days?: No Exposure to someone with infectious disease in past 14 days?: No Do you have a fever (greater than 100.4 F or 38 C)?: No Have you tested positive for COVID-19?: No Exposed to someone with COVID-19 in past 14 days?: No Do you have a sore throat?: No Do you have a cough?: No Do you have any weakness?: No Do you have any diarrhea?: No Are you experiencing any unusual bleeding?: No Do you have any muscle aches/pain?: No Do you have any abdominal pain?: No Are you experiencing loss of taste or smell?: No Other Medical History Have you received the Flu Vaccine for this season: No Have you received the Pneumonia Vaccine: No <Krissy Roth (ED), [employer] - Last Filed: 02/07/25 20:57> ROS Obtained: Yes Systems reviewed as appropriate & no additional complaints except as documented Constitutional Constitutional: Reports as per HPI Physical Exam <Krissy Roth (ED), [employer] - Last Filed: 02/07/25 20:57> General General appearance: alert Head Head exam: normocephalic Eye Eye exam: Present PERRL and EOMI ENT ENT exam: Present normal oropharynx and mucous membranes moist Neck Neck exam: Present full ROM and trachea midline Respiratory Respiratory exam: Present normal lung sounds bilaterally Cardiovascular Cardiovascular exam: Present normal rhythm, tachycardia, normal heart sounds, +S1 and +S2 Abdominal Exam Abdominal exam: Present soft and normal bowel sounds Abdominal tenderness: Present epigastrium Extremities Exam Extremities exam: Present full ROM and normal capillary refill Neurological Exam Neurological exam: Present alert and oriented X3 Skin Skin exam: Present warm and dry Medical Decision Making <Krissy Julianamike (ED), [employer] - Last Filed: 02/07/25 20:57> Medical Records Screening: Per USPSTF and CDC recommendations, given the prevalence of disease in our region, it is our hospital?s policy to screen for HIV and viral Hepatitis for all patients aged 18 and over and those with ongoing risk factors. Toni Inquiry Pt receiving controlled substance: No Toni was queried for this patient: No Vital Signs: 02/07/25 18:08 02/07/25 18:30 02/07/25 18:47 Temperature 98.5 F Temperature Source Oral Pulse Rate 104 H 105 H Pulse Rate [Right Brachial] 109 H Respiratory Rate 18 Blood Pressure 152/101 H 154/96 H Blood Pressure [Right Arm] 195/111 H Blood Pressure Mean [Right Arm] 139 Blood Pressure Source [Right Arm] Automatic Cuff Blood Pressure Position [Right Arm] Sitting 02 Sat by Pulse Oximetry 99 100 96 Oxygen Delivery Method Room Air 02/07/25 19:00 Temperature Temperature Source Pulse Rate 105 H Pulse Rate [Right Brachial] Respiratory Rate Blood Pressure 148/90 H Blood Pressure [Right Arm] Blood Pressure Mean [Right Arm] Blood Pressure Source [Right Arm] Blood Pressure Position [Right Arm] 02 Sat by Pulse Oximetry 96 Oxygen Delivery Method Lab Data Lab Results 02/07/25 18:39: WBC 9.2, RBC 4.25, Hgb 13.0, Hct 36.9 L, MCV 86.8, MCH 30.6, MCHC 35.2, RDW 13.2, Plt Count 253, MPV 8.6, Neut % (Auto) 70.8, Lymph % (Auto) 17.0, [place] % (Auto) 10.5 H, Eos % (Auto) 1.1, Baso % (Auto) 0.4, Neut # (Auto) 6.5, Lymph # (Auto) 1.6, Raw[place] # (Auto) 1.0, Eos # (Auto) 0.1, Baso # (Auto) 0.0, D-Dimer 0.38, Sodium 136, Potassium 4.1, Chloride 104, Carbon Dioxide 18 L, A nion Gap 18.1 H, BUN 10, Creatinine 0.80, Estimated Creat Clear 111, Estimated GFR 74, Est GFR ( Amer) 89, Glucose 119 H, Calcium 9.2, Magnesium 1.8, Total Bilirubin 0.8, AST 27, ALT 25, Alkaline Phosphatase 63, Troponin I < 0.01, Total Protein 8.2, Albumin 4.6, Globulin 3.6 H, Albumin/Globulin Ratio 1.3, Lipase 31 02/07/25 18:47: SARS-CoV-2 (PCR) Detected A, Influenza A Untype (PCR) Not detected, Influenza Type B (PCR) Not detected 02/07/25 18:39 02/07/25 18:39 Orders (Tests/Meds): ED MEDICATIONS Generic Name Dose Route Start Last Admin Trade Name Freq PRN Reason Stop Dose Admin Sodium Chloride 8 ml 02/07/25 18:09 Sodium Chloride 0.9% 10ml Vial IV 03/09/25 18:08 NEEDED PRN dilute pepcid Discontinued Medications Generic Name Dose Route Start Last Admin Trade Name Freq PRN Reason Stop Dose Admin Aspirin 325 mg 02/07/25 18:09 02/07/25 18:44 Aspirin 325mg Tablet PO 02/07/25 18:10 325 mg ONCE ONE Administration Famotidine 20 mg 02/07/25 18:09 02/07/25 18:44 Famotidine 20mg/2ml Vial IV 02/07/25 18:10 20 mg ONCE ONE Administration Ondansetron HCl 4 mg 02/07/25 18:09 02/07/25 18:44 Ondansetron 4mg/2ml Vial IV 02/07/25 18:10 4 mg ONCE ONE Administration ORDERS Category Date Time Status Chest XR -- portable [XR chest portable] Stat Exams 02/07/25 18:10 Completed Arsenic, Blood Stat Lab 02/07/25 18:39 Received CBC [Complete Blood Count Auto Diff] Stat Lab 02/07/25 18:39 Completed Comprehensive Metabolic Panel Stat Lab 02/07/25 18:39 Completed D-Dimer Stat Lab 02/07/25 18:39 Completed Lipase Stat Lab 02/07/25 18:39 Completed Magnesium Stat Lab 02/07/25 18:39 Completed Rapid PCR Covid and Flu A/B Stat Lab 02/07/25 18:47 Completed Trop I [Troponin I] Stat Lab 02/07/25 18:39 Completed Troponin I Q3H Lab 02/08/25 00:15 Ordered Medical Decision Narrative: patient is a 59-year-old female presenting to the emergency department for evaluation of burning in her stomach from drinking half of a mountain. Patient believes that her might be poisoning or with arsenic. Patient is hemodynamically stable and nontoxic-appearing upon arrival, afebrile. Differential diagnosis includes poisoning, reflux, related to brain tumor or schizophrenia. Workup will be conducted with hematologic labs . Initial inventions include crystalloid bolus. Initial workup reviewed by me hematologic labs are remarkable for Sodium today was 136 other electrolytes were normal. Chest x-ray showed mild pulmonary edema. Is COVID-positive today. I talked to several of the nursing staff the patient told that she was homicidal and suicidal. She told me 3 different times that she was not homicidal or suicidal. I do think she is having hallucinations. I talked to Dr. Crowder at [facility] and she accepted to [facility]. She said patient can be evaluated at [facility] ER for suicide and homicidal ideations. Patient safe for discharge to [facility] <Benita North, DO - Last Filed: 02/08/25 00:00> Medical Records Medical records reviewed: Yes I reviewed the patient's medical records. Vital Signs: 02/07/25 18:08 02/07/25 18:30 02/07/25 18:47 Temperature 98.5 F Temperature Source Oral Pulse Rate 104 H 105 H Pulse Rate [Right Brachial] 109 H Respiratory Rate 18 Blood Pressure 152/101 H 154/96 H Blood Pressure [Right Arm] 195/111 H Blood Pressure Mean [Right Arm] 139 Blood Pressure Source [Right Arm] Automatic Cuff Blood Pressure Position [Right Arm] Sitting 02 Sat by Pulse Oximetry 99 100 96 Oxygen Delivery Method Room Air 02/07/25 19:00 Temperature Temperature Source Pulse Rate 105 H Pulse Rate [Right Brachial] Respiratory Rate Blood Pressure 148/90 H Blood Pressure [Right Arm] Blood Pressure Mean [Right Arm] Blood Pressure Source [Right Arm] Blood Pressure Position [Right Arm] 02 Sat by Pulse Oximetry 96 Oxygen Delivery Method Lab Data Lab results reviewed: Yes I reviewed the patient's lab results. Lab Results 02/07/25 18:39: WBC 9.2, RBC 4.25, Hgb 13.0, Hct 36.9 L, MCV 86.8, MCH 30.6, MCHC 35.2, RDW 13.2, Plt Count 253, MPV 8.6, Neut % (Auto) 70.8, Lymph % (Auto) 17.0, [place] % (Auto) 10.5 H, Eos % (Auto) 1.1, Baso % (Auto) 0.4, Neut # (Auto) 6.5, Lymph # (Auto) 1.6, [place] # (Auto) 1.0, Eos # (Auto) 0.1, Baso # (Auto) 0.0, D-Dimer 0.38, Sodium 136, Potassium 4.1, Chloride 104, Carbon Dioxide 18 L, A nion Gap 18.1 H, BUN 10, Creatinine 0.80, Estimated Creat Clear 111, Estimated GFR 74, Est GFR ( Amer) 89, Glucose 119 H, Calcium 9.2, Magnesium 1.8, Total Bilirubin 0.8, AST 27, ALT 25, Alkaline Phosphatase 63, Troponin I < 0.01, Total Protein 8.2, Albumin 4.6, Globulin 3.6 H, Albumin/Globulin Ratio 1.3, Lipase 31 02/07/25 18:47: SARS-CoV-2 (PCR) Detected A, Influenza A Untype (PCR) Not detected, Influenza Type B (PCR) Not detected Orders (Tests/Meds): ED MEDICATIONS Generic Name Dose Route Start Last Admin Trade Name Freq PRN Reason Stop Dose Admin Sodium Chloride 8 ml 02/07/25 18:09 Sodium Chloride 0.9% 10ml Vial IV 03/09/25 18:08 NEEDED PRN dilute pepcid Discontinued Medications Generic Name Dose Route Start Last Admin Trade Name Freq PRN Reason Stop Dose Admin Aspirin 325 mg 02/07/25 18:09 02/07/25 18:44 Aspirin 325mg Tablet PO 02/07/25 18:10 325 mg ONCE ONE Administration Famotidine 20 mg 02/07/25 18:09 02/07/25 18:44 Famotidine 20mg/2ml Vial IV 02/07/25 18:10 20 mg ONCE ONE Administration Ondansetron HCl 4 mg 02/07/25 18:09 02/07/25 18:44 Ondansetron 4mg/2ml Vial IV 02/07/25 18:10 4 mg ONCE ONE Administration ORDERS Category Date Time Status Chest XR -- portable [XR chest portable] Stat Exams 02/07/25 18:10 Completed Arsenic, Blood Stat Lab 02/07/25 18:39 Received CBC [Complete Blood Count Auto Diff] Stat Lab 02/07/25 18:39 Completed Comprehensive Metabolic Panel Stat Lab 02/07/25 18:39 Completed D-Dimer Stat Lab 02/07/25 18:39 Completed Lipase Stat Lab 02/07/25 18:39 Completed Magnesium Stat Lab 02/07/25 18:39 Completed Rapid PCR Covid and Flu A/B Stat Lab 02/07/25 18:47 Completed Trop I [Troponin I] Stat Lab 02/07/25 18:39 Completed Troponin I Q3H Lab 02/08/25 00:15 Ordered Medical Decision Narrative: patient is a 59-year-old female presenting to the emergency department for evaluation of burning in her stomach from drinking half of a mountain. Patient believes that her might be poisoning or with arsenic. Patient is hemodynamically stable and nontoxic-appearing upon arrival, afebrile. Differential diagnosis includes poisoning, reflux, related to brain tumor or schizophrenia. Patient has had previous CT scans that showed meningioma, low concern for intracranial process at this time, patient has had recent CT imaging therefore not felt to be indicated at this time. Workup will be conducted with hematologic labs . Initial inventions include crystalloid bolus. Initial workup reviewed by me hematologic labs are remarkable for Sodium today was 136 other electrolytes were normal. Chest x-ray showed mild pulmonary edema. Is COVID-positive today. I talked to several of the nursing staff the patient told that she was homicidal and suicidal. She told me 3 different times that she was not homicidal or suicidal. I do think she is having hallucinations. I talked to Dr. Crowder at [facility] and she accepted to [facility]. She said patient can be evaluated at [facility] ER for suicide and homicidal ideations. Patient safe for discharge to [facility] After further discussion with the transfer center, patient was ultimately decided to be sent [facility]. Will be sent via ambulance. Critical Care <Krissy Roth (ED), [employer] - Last Filed: 12/12/25 20:57> Critical Care Time Critical Care Time: No
--- NOTE | 2025-02-07 18:40 | ECG_ITS ---
APPROVED REPORT Exam: Resting ECG HR:104 bpm ECG Measurements Heart Rate 104 AXES NM 144 P 47 QRSd 82 QRS 19 QT 330 T 43 QTc 390 Conclusion SINUS TACHYCARDIA ABNORMAL RHYTHM ECG UNCONFIRMED REPORT Electronically signed by : KRISTAN RICHARDSON, 02/10/2025 00:19:44
[2025-02-07] MEDS: ONDANSETRON 4MG/2ML VIAL 4 MG IV (18:44)
[2025-02-07] MEDS: ASPIRIN 325MG TABLET 325 MG PO (18:44)
[2025-02-07] MEDS: FAMOTIDINE 20MG/2ML VIAL 20 MG IV (18:44)
[2025-02-07 18:48] LABS: Hematocrit 36.9 % (37.0-47.0); Hemoglobin 13.0 g/dL (12.2-16.2); Immature Granulocytes % 0.2 %; Mean Corpuscular HGB Conc 35.2 g/dL (31.8-35.4); Mean Corpuscular Hemoglobin 30.6 pg (27.0-31.2); Mean Corpuscular Volume 86.8 fl (81-99); Nucleated Red Blood Cells % 0 %; Platelet Count 253 K/mm3 (142-424); Red Blood Count 4.25 M/mm3 (4.20-5.40); Red Cell Distribution Width-SD 41.3 fL; White Blood Count 9.2 K/mm3 (4.8-10.8)
[2025-02-07 18:50] LABS: Influenza A, PCR Not Detected (NotDetected); Influenza B, PCR Not Detected (NotDetected)
--- NOTE | 2025-02-07 18:51 | PC.NURSE ---
provider notified that patient has thoughts of harming her . Plan was to shoot her . Per patient has been hearing voices. Pt states she hears the holy spirit and god talking to her . Pt is a [employer]. Pt states her is trying to kill her by putting arsenic in her diet mountain dew
[2025-02-07 18:56] LABS: Alanine Aminotransferase 25 U/L (12-78); Albumin Level 4.6 g/dl (3.5-5.0); Albumin/Globulin Ratio 1.3 (1.1-1.8); Alkaline Phosphatase 63 U/L (38-126); Anion Gap 18.1 mEq/L (5-15); Aspartate Amino Transferase 27 U/L (14-36); Bilirubin,Total 0.8 mg/dl (0.2-1.3); Blood Urea Nitrogen 10 mg/dl (7-17); Calcium 9.2 mg/dl (8.4-10.2); Carbon Dioxide 18 mmol/L (22.0-30.0); Chloride 104 mmol/L (98-107); Creatinine Clearance Estimated 111 mL/min (50-200); Creatinine,Serum 0.80 mg/dl (0.52-1.04); Estimated Glomerular Filt Rate 74 ml/min (>60); GFR (African American) 89 ML/MIN (>60); Globulin 3.6 g/dL (1.3-3.2); Glucose 119 mg/dl (74-100); Lipase 31 U/L (23-300); Magnesium 1.8 mg/dl (1.6-2.3); Potassium 4.1 mmoL/L (3.5-5.1); Sodium 136 mmol/L (136-145); Total Protein,Serum 8.2 g/dl (6.3-8.2)
[2025-02-07 19:00] LABS: D-Dimer 0.38 ug/mL (0.0-0.5)
[2025-02-07 19:10] LABS: Troponin I < 0.01 ng/ml (0.00-0.034)
[2025-02-07 19:39] LABS: Coronavirus 19, PCR Detected (NotDetected)
--- NOTE | 2025-02-07 20:36 | PC.NURSE ---
Called [facility] for pssible pt xfer to [facility]
[2025-02-08] VITALS: BP 109/67; PULSE 85; RESP 15; O2SAT 96
[2025-02-08 01:00] VITALS: BP 88/52; PULSE 80; RESP 16; O2SAT 97
[2025-02-08 01:30] VITALS: BP 104/65; PULSE 85; RESP 18; O2SAT 98
[2025-02-08 02:00] VITALS: BP 114/67; PULSE 82; RESP 18; O2SAT 98
[2025-02-08 02:21] VITALS: BP 114/67; PULSE 82; RESP 18; TEMP 36.9; O2SAT 98
--- NOTE | 2025-02-11 04:43 | PC.NURSE ---
Arsenic test unable to be performed by [facility]. No need to notify pt per Dr. Alcala.
== END 2025-02-08 02:23 | disposition other institution (70) ==
PROVIDERS: Nurse Practitioner; Emergency Provider Student in an Organized Health Care Education/Training Program; PCP Internal Medicine
DX: U07.1 COVID-19 (principal); J81.0 Acute pulmonary edema; R45.851 Suicidal ideations; R45.850 Homicidal ideations; F17.210 Nicotine dependence, cigarettes, uncomplicated
CPT/HCPCS: 71045; 80053; 82175; 83690; 83735; 84484; 85025; 85378; 87636; 93005; 96374; 96375; 99285; J1308; J2405